=== PATIENT | female | born 1965 | race Caucasian/White ===

== ENCOUNTER → 2020-06-26 17:56 | Outpatient (CLI) | payer OTHER, SELFPAY ==
[2020-06-26 18:40] LABS: Alanine Aminotransferase 28 U/L (12-78); Albumin/Globulin Ratio 1.4 (1.1-1.8); Alkaline Phosphatase 105 U/L (38-126); Aspartate Amino Transferase 28 U/L (14-36); Bilirubin,Total 0.5 mg/dl (0.2-1.3); Blood Urea Nitrogen 11 mg/dl (7-17); Calcium 9.8 mg/dl (8.4-10.2); Carbon Dioxide 27 mmol/L (22.0-30.0); Chloride 102 mmol/L (98-107); Chol/HDL Ratio 3.9 (1-3.5); Cholesterol 178 mg/dl (140-200); Estimated Glomerular Filt Rate 105 ml/min (>60); GFR (African American) 127 ML/MIN (>60); Globulin 2.8 g/dL (1.3-3.2); Glucose 96 mg/dl (74-100); HDL Cholesterol 46 mg/dl (40-60); Sodium 135 mmol/L (136-145); Total Protein,Serum 6.8 g/dl (6.3-8.2); Triglycerides 92 mg/dl (30-150); VLDL Cholesterol 18 mg/dL (0-40)
[2020-06-26 18:50] LABS: Direct LDL Cholesterol 101.52 mg/dL (100-129)
[2020-06-26 19:11] LABS: Thyroid Stimulating Hormone 0.43 uIU/mL (0.465-4.68)
== END ==
PROVIDERS: Visit Provider Family Medicine
DX: E03.9 Hypothyroidism, unspecified (principal)
CPT/HCPCS: 80053; 80061; 82306; 84436; 84443

== ENCOUNTER → 2020-07-24 10:53 | Outpatient (CLI) | payer OTHER, SELFPAY ==
--- NOTE | 2020-07-24 10:55 | CA_ITS ---
APPROVED REPORT EXAM: Comprehensive 2D, Doppler, and color-flow Echocardiogram Dag Coater: Faby Quintana [facility], RVS Ht: 5 ft 2 in Wt: 200lbs BSA: 1.91 BP: 155/85 mmHg Indications: [place], GERD, CAD, MVP Echo Enhancing Agent Comments: Mitral valve does not break the plane of the annulus. 2D Dimensions LVOT 1.89 cm (M/F) 1.5-2.5 M-Mode Dimensions LA Diam 3.58 cm (1.9-4.0) LVDd 4.91 cm (3.5-5.7) Ao Diam 3.04 cm (2.0-3.7) LVDs 3.29 cm (3.5-5.7) IVSd 0.81 cm (0.6-1.1) PWd 0.91 cm (0.6-1.1) EF (Teich) 61.40% EPSs 0.19 cm FS 33.00% EDV (Teich) 113.40 mL ESV (Teich) 43.80 mL LV Diastology E Decel Time 220.00 (160-240 msec) E/A Ratio 0.79 MED E' 7.20 (< 7 cm/sec) MED A' 14.60 cm/s E'/MED E' Ratio 11.26 (>14) LAT E' 10.30 (<10 cm/sec) LAT A' 12.80 cm/s E/LAT E' Ratio 7.87 (>14) Aortic Valve AoV Peak Fausto. 164.00 (50-130 cm/s) AI PHT 626.00 ms AO Peak GR. 10.80 mmHg AO Mean GR. 5.20 (<5 mmHg) AO VTI 33.12 (18-25 cm) Mitral Valve MV A Velocity 103.00 (40-130 cm/s) E/A Ratio 0.79 MV Decel. Time 220.00 (160-240 ms) Pulmonary Valve MT End VMAX 186.00 cm/s Tricuspid Valve TR P. Velocity 229.00 cm/s RAP Estimate 10.00 mmHg RVSP 31.00 mmHg Left Ventricle Left atrium is mildly enlarged, left ventricle is normal size, there is no concentric left ventricular hypertrophy, visually estimated ejection fraction 55% with no regional wall motion abnormality, grade 1 diastolic dysfunction seen without tissue Doppler evidence of raise left atrial pressure. Right Ventricle Right atrium and right ventricle are normal size and contractility. Aortic Valve Aortic valve is thickened and calcified leaflet chordae display good mobility, there is no aortic stenosis, there is mild aortic insufficiency. Mitral Valve Mitral valve is grossly normal, there is no obvious mitral valve prolapse, there is trace mitral regurgitation. Tricuspid Valve Tricuspid valve is grossly normal, there is mild tricuspid regurgitation, calculated right ventricular systolic pressure is 27 mmHg. Pulmonic Valve Pulmonic valve is grossly normal. Great Vessels Aortic root is normal size. Pericardium No significant pericardial effusion noted. Conclusion 1. Mildly low left atrium, normal left ventricular size, visually estimated ejection fraction 55% with no regional wall motion abnormality, grade 1 diastolic dysfunction seen without tissue Doppler evidence of raise left atrial pressure. 2. No obvious mitral valve prolapse seen in the study. 3. No significant pericardial effusion noted. Electronically signed by : Kev Robert, 07/24/2020 21:30:46
== END ==
PROVIDERS: PCP Family Medicine; Visit Provider Family Medicine
DX: R01.1 Cardiac murmur, unspecified (principal); I34.1 Nonrheumatic mitral (valve) prolapse
CPT/HCPCS: 93306

== ENCOUNTER 2024-11-03 14:23 | Outpatient (CLI) | payer BC, SELFPAY ==
[2024-11-03 18:50] LABS: Hemoglobin A1C 5.5 % (4.0-6.0)
[2024-11-03 19:44] LABS: T4 (Thyroxine) 4.8 ug/dl (5.53-11.0)
== END 2024-11-03 23:59 | disposition home or self-care (01) ==
LOC: LAB.DROPOF 11-04 12:37
PROVIDERS: PCP Family Medicine; Visit Provider Family Medicine
DX: Z13.1 Encounter for screening for diabetes mellitus (principal); Z98.890 Other specified postprocedural states; Z90.89 Acquired absence of other organs
CPT/HCPCS: 83036; 84436; 84443

== ENCOUNTER 2024-12-26 10:27 | Outpatient (CLI) | payer BC, SELFPAY ==
--- OUTSIDE RECORDS SUMMARY | 2024-12-04 23:19 | XMS_ITS | Encounter Summary ---
Author Organization [place] [address] Care Team Providers Care Kitchen And Bath Designer Name Role Phone Willard Hector MD Primary Care Provider [phone] Reason for Visit * Reason Comments Fever Mutiple LOC per EMS. Fever, HR 130s and first Bp 76/35. LR 150ML per EMS with Bp 80s/50 * Auth/Cert/Inpt Specialty Diagnoses / Procedures Referred By Lizeth castaneda Referred To Contact Diagnoses Cholecystitis Referral ID Status Reason Start Date Expiration Date Visits Re quested Visits Authorized [id number] 1 1 Encounter Details Date Type Department Care Team (Latest Contact Info) Description 12/04/2024 11:19 PM EDT - 12/10/2024 4:17 PM EDT Hospital Encounter EDG [address] [place] [address] Doug Ross MD [address] [place] [id number] Royer Cloud MD [address] [facility] [address] [place] [address] Nausea and vomiting, unspecified vomiting type (Primary Dx); Right upper quadrant abdominal pain; Acute cholecystitis; Sepsis, due to unspecified organism, unspecified whether acute organ dysfunction present (HCC); Hypokalemia; Calculus of gallbladder without cholecystitis without obstruction Discharge Disposition: Home or Self Care Social History Tobacco Use Types Packs/Day Years Used Date Smoking Tobacco: Former Cigarettes 0.5 20 0 02/06/1983 - 02/06/2003 Smokeless Tobacco: Never [facility] Utilities Answer Date Recorded In the past 12 months has th e electric, gas, oil, or water company threatened to shut off services in your home? No 12/05/2024 Overall Financial Resource Strain (CARDIA) Answe r Date Recorded How hard is it for you to pa y for the very basics like food, housing, medical care, and heating? Not hard at all 12/05/2024 PHQ-2 Answer Date Recorded PHQ-2 Total Score 0 12/05/2024 [facility] Occupat ional [facility] - Occupational Stress Questionnaire Answer Date Recorded Do you feel stress - tense, restless, nervous, or anxious, or unable to sleep at night because your mind is troubled all the time - these days? Not at all 12/05/2024 Exercise Vital Sign Answer Date Recorde d On average, how many days pe r week do you engage in moderate to strenuous exercise (like a brisk walk)? 3 days 12/05/2024 On average, how many minutes do you engage in exercise at this level? 20 min 12/05/2024 Hunger Vital Sign Answer Date Recorded Within the past 12 months, y ou worried that your food would run out before you got the money to buy more. Never true 12/06/19 25 Within the past 12 months, t he food you bought just didn't last and you didn't have money to get more. Never true 12/05/2024 [facility] Transportation Answer D ate Recorded In the past 12 months, has l ack of reliable transportation kept you from medical appointments, meetings, work or from getting things needed for daily living? No 12/05/2024 Sexually Active Control Partners Comments Yes Male Comments No Sex and Gender Information Value Date Recorded Sex Assigned at Not on file Legal Sex Female 6:04 PM EDT Gender Identity Not on file Sexual Orientation Not on file documented as of this encounter Last Filed Vital Signs Vital Sign Reading Time Taken Comments Blood Pressure 133/81 12/10/2024 7:33 AM EDT Pulse 83 12/10/2024 7:33 AM EDT Temperature 37 C (98.6 F) 12/10/2024 7:33 AM EDT Respiratory Rate 18 12/10/2024 7:33 AM EDT Oxygen Saturation 93% 12/10/2024 7:33 AM EDT Inhaled Oxygen Concentration - - Weight 117.9 kg (260 lb) 12/09/2024 5:22 AM EDT Height 162.6 cm (5' 4 ) 12/05/2024 2:09 AM EDT Body Mass Index 44.63 12/05/2024 2:09 AM EDT documented in this encounter Functional Status * Alcohol Screening Score Answer Date of Assessment Author 1 12/05/2024 2:00 AM EDT Ayah Price RN * Drug Screening Score Answer Date of Assessment Author 0 12/05/2024 2:00 AM EDT Ayah Price RN * Question Answer Date of Assessment Author How often do you have a drin k containing alcohol? 1 12/05/2024 2:00 AM EDT Ayah Price RN How many drinks containing alcohol do you have on a typical day when you are drinking? 0 12/05/2024 2:00 AM EDT Tj Price RN How often do you have six or more drinks on one occasion? 0 12/05/2024 2:00 AM EDT Ayah Price RN AUDIT-C to Determine Rows 4-10 0 12/05/2024 2:00 AM EDT Ayah Price RN * Question Answer Date of Assessment Author Little interest or pleasure in doing things 0 12/05/2024 4:05 PM EDT Ana Hennessy MSW Feeling down, depressed, or hopeless 0 12/05/2024 4:05 PM EDT Ana Hennessy MSW PHQ-2 Total Score 0 12/05/2024 4:05 PM EDT Ana Hennessy MSW * PHQ-9 Total Score Answer Date of Assessment Author 0 12/05/2024 4:05 PM EDT Owen Hennessy MSW * Suicide Severity Rating Answer Date of Assessment Author No Risk 12/04/2024 11:51 PM EDT Jean Claude Zabala RN * [place] Suicide Severity Rating Scale (Q shift for moderate and high) Question Answer Date of Assessment Author 1. In the past month, have y ou wished you were or wished you could go to sleep and not wake up? 0 12/04/2024 11:51 PM EDT Yin Zabala RN 2. In the past month, have y ou actually had any thoughts of killing yourself? (If no, skip to question 6) 0 12/04/2024 11:51 PM EDT Yin Zabala RN 6. Have you ever done anythi ng, started to do anything, or prepared to do anything to end your life? 0 12/04/2024 11:51 PM EDT Yin Zabala RN documented as of this encounter Discharge Instructions * Discharge Instructions* Fabian Holguin MD - 12/05/2024 9:06 AM EDT Images from the original note were not included. __ Discharge Instructions - Following Anesthesia We appreciate the opportunity to care for you today! Here are a few reminders as you head home: A responsible adult, 18 years or older must be in attendance until tomorrow morning. Rest quietly today. May resume usual diet as tolerated or as directed by your surgeon. Do not drive or operate any machinery until tomorrow morning or as instructed. Do not make any legal or important decisions for the next 24 hours. Do not drink alcoholic beverages or take sleeping pills for 24 hours unless otherwise directed. If you received a nerve block for post-operative pain control, protect your blocked arm/leg. It is numb. Carefully pad your limb to prevent pressure sores and other injuries. Be careful with applyingcold/warm to the blocked limb. Numbness will alter the sensation of the limb and could damage your skin if you cannot correctly feel the temperature. If you have questions or concerns regarding your anesthesia experience, please call our office at . Get Well Soon! [facility] Patient Education General Anesthesia Discharge Instructions About this topic You may need general anesthesia if you need to be asleep during a procedure. Your doctor will use drugs to block the signals that go from your nerves to your brain. Doctors give general anesthesia during a surgery or procedure to: Allow you to sleep Help your body be still Relax your muscles Help you to relax and be pain free Keep you from remembering the surgery Let the doctor manage your airway, breathing, and blood flow The doctor or nurse patented hogshead assembler gives general anesthesia by a shot into your vein. Sometimes, you may breathe in a gas through a mask placed over your face. What care is needed at home? Ask your doctor what you need to do when you go home. Make sure you ask questions if you do not understand what the doctor says. Your doctor may give you drugs to prevent or treat an upset stomach from the anesthetic. Take them as ordered. If your throat is sore, suck on ice chips or popsicles to ease throat pain. Put 2 to 3 pillows under your head and back when you lie down to help you breathe easier. For the first 24 to 48 hours: Do not operate heavy or dangerous machinery. Do not make major decisions or sign important papers. You may not be able to think clearly. Avoid beer, wine, or mixed drinks. You are at a higher risk of falling for at least 24 hours after general anesthesia. Take extra care when you get up. Do not change positions quickly. Do not plummer when you need to go to the bathroom or to answer the phone. Ask for help if you feel unsteady when you try to walk. Wear shoes with non-slip soles and low heels. What follow-up care is needed? Your doctor may ask you to come back to the office to check on your progress. Be sure to keep thesevisits. If you have stitches that do not dissolve or félix, you will need to have them removed. Your doctor will want to do this in 1 to 2 weeks. If the doctor used skin glue, the glue will fall off on itsown. What drugs may be needed? The doctor may order drugs to: Help with pain Treat an upset stomach or throwing up Will physical activity be limited? You will not be allowed to drive right away after the procedure. Ask a family member or a friend todrive you home. Avoid trying to get out of bed without help until you are sure of your balance. You may have to limit your activity. Talk to your doctor about if you need to limit how much you lift or limit exercise after your procedure. What changes to diet are needed? Start with a light diet when you are fully awake. This includes things that are easy to swallow like soups, pudding, jello, toast, and eggs. Slowly progress to your normal diet. What problems could happen? Low blood pressure Breathing problems Upset stomach or throwing up Dizziness Blood clots Infection When do I need to call the doctor? Trouble breathing Upset stomach or throwing up more than 3 times in the next 2 days Dizziness Teach Back: Helping You Understand The Teach Back Method helps you understand the information we are giving you. After you talk with the staff, tell them in your own words what you learned. This helps to make sure the staff has described each thing clearly. It also helps to explain things that may have been confusing. Before going home, make sure you can do these: I can tell you about my procedure. I can tell you if I need to follow up with my doctor. I can tell you what is good for me to eat and drink the next day. I can tell you what I would do if I have trouble breathing, an upset stomach, or dizziness. Last Reviewed Date 2019-10-26 Consumer Information Use and Disclaimer This generalized information is a limited summary of diagnosis, treatment, and/or medication information. It is not meant to be comprehensive and should be used as a tool to help the user understand and/or assess potential diagnostic and treatment options. It does NOT include all information about conditions, treatments, medications, side effects, or risks that may apply to a specific patient. Itis not intended to be medical advice or a substitute for the medical advice, diagnosis, or treatment of a health care provider based on the health care provider's examination and assessment of a patient???s specific and unique circumstances. Patients must speak with a health care provider for complete information about their health, medical questions, and treatment options, including any risks orbenefits regarding use of medications. This information does not endorse any treatments or medications as safe, effective, or approved for treating a specific patient. [employer] and its affiliates disclaim any warranty or liability relating to this information or the use thereof. The use of this information is governed by the Terms of Use, available at https://www.[employer].com/en/know/pxmbrzjk-fvyqmsbdvsftn-tahpz Copyright Copyright ?? 2022 [employer]. and its affiliates and/or licensors. All rights reserved. POST-OPERATIVE INSTRUCTIONS No heavy lifting (10-20lbs) or strenuous activities for 2 weeks. Keep incisions clean and dry. Washgently with soap and water but no scrubbing or soaking for 2 weeks. Some people have issues with loose bowel movements after having their gallbladder removed. If you experience this issues, try to avoid fatty greasy foods to help alleviate this. Your body should get used to not having a gallbladder over the next few months though so this should resolve over time. documented in this encounter Medications at Time of Discharge buPROPion (WELLBUTRIN SR) 150 mg Oral tablet sustained-releas e 12 hr Take 150 mg by mouth 2 times daily. 12/19/2021 docusate sodium (COLACE) 100 mg Oral Capsule Take 1 Capsule by mouth 2 times daily as needed for Constipation for up to 30 days. 12/10/2024 FLUoxetine (PROZAC) 20 mg Oral Capsule Take 20 mg by mouth daily. 11/25/2021 LEVOthyroxine (SYNTHROID) 200 mcg Oral Tablet Take 200 mcg by mouth daily. LEVOthyroxine (SYNTHROID) 88 mcg Oral Tablet Take 88 mcg by mouth daily. 11/07/2024 multivit-min/iro n/folic/lutein (CENTRUM SILVER WOMEN ORAL) Take 1 Tablet by mouth daily. oxyCODONE (ROXICODONE) 5 mg Oral Tablet Take 1 Tablet by mouth every 6 hours as needed for Acute Pain (R52) or Major Surgery/Trauma (G89.18) (for acute post-operative pain). 10 Tablet 12/10/2024 2:44 PM EDT 12/08/2024 polyethylene glycol (GLYCOLAX, MIRALAX) 17 gram Oral Powder in Packet Take 17 g by mouth daily as needed for Constipation. 12/10/2024 documented as of this encounter Ordered Prescriptions Prescription Sig Dispense Quantity Refills Last Filled Start Date End Date polyethylene glycol (GLYCOLAX, MIRALAX) 17 gram Oral Powder in Packet Take 17 g by mouth daily as needed for Constipation. 12/10/2024 docusate sodium (COLACE) 100 mg Oral Capsule Take 1 Capsule by mouth 2 times daily as needed for Constipation for up to 30 days. 12/10/2024 oxyCODONE (ROXICODONE) 5 mg Oral Tablet Take 1 Tablet by mouth every 6 hours as needed for Acute Pain (R52) or Major Surgery/Trauma (G89.18) (for acute post-operative pain). 10 Tablet 12/10/2024 2:44 PM EDT 12/08/2024 documented in this encounter Discharge Disposition Disposition Code Departure Means Destination Comment s Home or Self Correction documented in this encounter Progress Notes * Smitha Browne RN - 12/10/2024 3:27 PM EDT 12/10/24: CC Addendum, [facility], notified of d/c this date, infusions previously arranged starting 12/11/24. * Sayda Story RN - 12/10/2024 3:25 PM EDT IV and BUCK drain removed, dry dsg applied. PICC line in place, verbalized understanding of care and infusion schedule, copy given. Son at side to transport home. * Claudia Kendall CPhT - 12/10/2024 3:17 PM EDT Discharge Medication Delivery Service DMD mechanical design technician has delivered the following medications for Yanna Dutton: Rx#[id number]:OXYCODONE 5 MG TABLET-5 mg EVERY 6 HOURS PRN Date/Time of Delivery: 12/10/2024 3:17 PM Delivered to: pt room 2221, placed on bedside tray Please contact DMD mechanical design technician with any questions. Thanks! Claudia Kendall CPhT * Merle Madison MD - 12/10/2024 2:21 PM EDT Infectious Disease Progress Note Antimicrobials: ceftriaxone PROBLEM & PLAN: E coli bacteremia ( 12/04) in 07/07 blood cxs - no resistance markers by JAZIEL - Pansensitive E coli - and/or GI source - FU blood cxs x2( 12/07) - no growth at 48 hours - on Ceftriaxone -PICC placed today E coli UTI ( 12/04) > 100K colony count - UA w pyuria - no buck - kidneys unremarkable on CT Acute cholecystitis with liver abscess - Davinci robotic cholecystectomy ( 12/05) Very inflamed gallbladder with hydrops and large stone. liver abscess noted to posterior gallbladder at base. drain placed. Pathology still pending - drain cx ( 12/07) no growth at 50 hours, gram stain- rare wbcs, no organisms seen, anaerobic cx no growth to date - on Ceftriaxone 2gm through 01/17 noted- arranged at [facility]- tomorrow at 9am - noted BUCK to be removed prior to discharge per EGS Bilateral total knee replacement-no overt infection -Ambulating unassisted Fever & leukocytosis- see above - fever resolved - wbc 30K-->--> 10.5K - SARS COV2/ flu not detected - CXR ( 12/04, 12/05) NAD - LFTs noted - inflamm markers noted Septic shock - was in ICU on pressor support Small wound left antecubital area - betadine and mepilex dressing FU with Dr Merino post discharge in 2-3 weeks Discussed with patient Seen & d/w nurse Sharda Infectious Disease Disposition Perspective - Medically Ready for Discharge: Yes- SUBJECTIVE/INTERIM hx: Seeing for follow up for: E coli bacteremia, E coli UTI, acute cholecystitis, fever leukocytosis Blood cxs ngtd, so had PICC placed today. Afebrile. Seen by surgery team and they gave OK to DC with BUCK to be removed at discharge. Had BM today, ate breakfast & lunch. Denies headache, neck or back pain, sore throat, chest pain, cough or SOB. Denies nausea, emesis ordiarrhea, abd pain, urinary symptoms or rash. Had BM today. . EXAM:93% RA, 260 lbs on 12/09 HEENT: anicteric, no conj hemorrhage, no thrush NECK: no C spine tenderness to palpation LUNGS: good breath sounds bilaterally, no rales or rhonchi or wheezes heard HEART: Regular, no murmurs audible ABDOMEN: + BS, soft, abd incisions healing- no drainage, no tenderness to palpation, BUCK drain- 20mlyesterday- scan fluid in drain- serosang : no buck IV// PICC 12/10: no erythema, non tender, no swelling Upper EXTREMITIES: no swelling, left antecubital area small wound, no cellulitis or drainage, no cord palpable, sl slough in wound, no fluctuance. Lower EXTREMITIES: no edema, bilateral knees healed scars, no erythema, no warmth, no fluctuance and no tenderness to palpation or pain with movement BACK: no CVAT, no vertebral tenderness to palpation SKIN: see above, no acute rashes noted, no osler nodes or splinter hemm or janeway lesions NEURO: awake and alert, normal speech, sitting in chair, waled to bed unassisted. DATA: 12/09 ESR 50 CRP 44.78 Vitals: 12/10/24 0733 BP: 133/81 Pulse: 83 Resp: 18 Temp: 98.6 ??F (37 ??C) SpO2: 93% Temp (24hrs), Av.5 F (36.9 C), Min:98.3 F (36.8 C), Max:98.6 F (37 C) & BP Min:133/81 Max: 133/81 Pulse Av.5 Min: 76 Max: 83 Results for orders placed or performed during the hospital encounter of 12/04/24 (from the past 2 weeks) BLOOD CULTURE (NO STAIN) Collection Time: 12/04/24 11:35 PM Specimen: Blood, Venous Result Value Ref Range Culture Result Positive Growth (Cr) Culture Result Growth of Escherichia coli Susceptibility Escherichia coli - SUSCEPTIBILITY RESULT Amikacin Amoxicillin/Clavulanate <=8/4 Susceptible ug/mL Ampicillin <=8 Susceptible ug/mL Ampicillin/Sulbactam <=4/2 Susceptible ug/mL Aztreonam <=4 Susceptible ug/mL Cefazolin <=2 Susceptible ug/mL Cefepime Cefotaxime Cefoxitin <=8 Susceptible ug/mL Ceftazidime Ceftazidime/Avibactam Ceftolozane/Tazobactam Ceftriaxone Cefuroxime Ciprofloxacin <=0.25 Susceptible ug/mL Ertapenem <=0.5 Susceptible ug/mL Gentamicin <=2 Susceptible ug/mL Imipenem <=1 Susceptible ug/mL Levofloxacin <=0.5 Susceptible ug/mL Meropenem <=1 Susceptible ug/mL Meropenem/Vaborbactam Minocycline Moxifloxacin Nitrofurantoin Piperacillin/Tazobactam <=8 Susceptible ug/mL Tetracycline <=4 Susceptible ug/mL Tigecycline Tobramycin <=2 Susceptible ug/mL Trimethoprim/Sulfamethoxazole <=0.5/9.5 Susceptible ug/mL BLOOD CULTURE JAZIEL GRAM NEG Collection Time: 12/04/24 11:35 PM Specimen: Blood, Venous Result Value Ref Range ACINETOBACTER BAUMANNII Not Detected Not Detected BACTEROIDES FRAGILIS Not Detected Not Detected CITROBACTER SPECIES Not Detected Not Detected CRONOBACTER SAKAZAKII Not Detected Not Detected ENTEROBACTER (NON-CLOACAE COMPLEX) Not Detected Not Detected ENTEROBACTER CLOACAE COMPLEX Not Detected Not Detected ESCHERICHIA COLI Detected (Cr) Not Detected FUSOBACTERIUM NUCLEATUM Not Detected Not Detected FUSOBACTERIUM NECROPHORUM Not Detected Not Detected HAEMOPHILUS INFLUENZAE Not Detected Not Detected KLEBSIELLA OXYTOCA Not Detected Not Detected KLEBSIELLA PNEUMONIAE Not Detected Not Detected MORGANELLA MORGANII Not Detected Not Detected NEISSERIA MENINGITIDIS Not Detected Not Detected PROTEUS SPECIES Not Detected Not Detected PROTEUS MIRABILIS Not Detected Not Detected PSEUDOMONAS AERUGINOSA Not Detected Not Detected SALMONELLA SPECIES Not Detected Not Detected SERRATIA SPECIES Not Detected Not Detected SERRATIA MARCESCENS Not Detected Not Detected STENOTROPHOMONAS MALTOPHILIA Not Detected Not Detected CTX-M Not Detected. Beta-lactamase resistance due to other mechanisms cannot be excluded. IMP Not Detected. Carbapenemase resistance due to other mechanisms cannot be excluded. KPC Not Detected. Carbapenemase resistance due to other mechanisms cannot be excluded. NDM Not Detected. Carbapenemase resistance due to other mechanisms cannot be excluded. OXA Not Detected. Carbapenemase resistance due to other mechanisms cannot be excluded. VIM Not Detected. Carbapenemase resistance due to other mechanisms cannot be excluded. [id number] A/B Collection Time: 12/04/24 11:49 PM Specimen: Nares; Swab Result Value Ref Range CORONAVIRUS [id number] Not Detected Not Detected Influenza A DNA Not Detected Not Detected Influenza B DNA Not Detected Not Detected URINE CULTURE (NO STAIN) Collection Time: 12/04/24 11:49 PM Specimen: Urine, Straight Catheter Result Value Ref Range Culture Positive Growth (A) Culture >100,000 CFU/mL Escherichia coli BLOOD CULTURE (NO STAIN) Collection Time: 12/04/24 11:54 PM Specimen: Blood, Venous Result Value Ref Range Culture Result No Growth at 120 hours. BLOOD CULTURE (NO STAIN) Collection Time: 12/07/24 12:23 PM Specimen: Blood, Central Line Result Value Ref Range Culture Result No Growth at 48 hours. WOUND CULTURE (STAIN INCLUDED) Collection Time: 12/07/24 12:48 PM Specimen: Abdominal; Drainage Result Value Ref Range Culture No growth at 50 hours. Stain Rare WBCs Stain No organisms seen ANAEROBIC CULTURE (NO STAIN) Collection Time: 12/07/24 12:48 PM Specimen: Abdominal; Drainage Result Value Ref Range Culture No anaerobic growth to date. BLOOD CULTURE (NO STAIN) Collection Time: 12/07/24 3:07 PM Specimen: Blood, Venous Result Value Ref Range Culture Result No Growth at 48 hours. Recent Labs 12/08/24 0652 12/09/24 0649 WBC 9.1 10.5* HGB 10.9* 11.0* PLT 175 203 Lab Results Component Value Date BUN 10 12/09/2024 CREATININE 0.56 12/09/2024 Lab Results Component Value Date LABBILI 0.3 12/09/2024 ALT 43 (H) 12/09/2024 AST 24 12/09/2024 ALKPHOS 159 (H) 12/09/2024 Merle Madison MD * Fabian Johnson MD - 12/10/2024 11:29 AM EDTAssociated Problem(s): Cholecystitis S/p DAVINCI ROBOTIC CHOLECYSTECTOMY with Dr Holguin on 12/05 Post op management per surgery BUCK remains in place, surgery plans to remove before DC Diet: LOW FAT DIET Monitor and replace lytes PRN Analgesia Mobilize as able * Fabian Johnson MD - 12/10/2024 11:29 AM EDTAssociated Problem(s): Intra- abdominal abscess (HCC) CT on admission with acute cholecystitis with possible contained perforation or developing fluid collection/abscess in the adjacent liver. S/p cholecystectomy as noted above WBC improving Afebrile Blood cultures 12/04/24 w ecoli Urine culture 12/04 with Ecoli ID consulted Remains On rocephin Planning PICC and outpatient antibiotics today * Fabian Johnson MD - 12/10/2024 11:29 AM EDTAssociated Problem(s): E coli bacteremia CT on admission with acute cholecystitis with possible contained perforation or developing fluid collection/abscess in the adjacent liver. S/p cholecystectomy as noted above WBC improving Afebrile Blood cultures 12/04/24 w ecoli Urine culture 12/04 with Ecoli ID consulted Remains On rocephin Planning PICC and outpatient antibiotics today * Fabian Johnson MD - 12/10/2024 11:29 AM EDTAssociated Problem(s): Septic shock (HCC) CT on admission with acute cholecystitis with possible contained perforation or developing fluid collection/abscess in the adjacent liver. S/p cholecystectomy as noted above WBC improving Afebrile Blood cultures 12/04/24 w ecoli Urine culture 12/04 with Ecoli ID consulted Remains On rocephin Planning PICC and outpatient antibiotics today * Fabian Johnson MD - 12/10/2024 11:29 AM EDTAssociated Problem(s): Acute cystitis without hematuria CT on admission with acute cholecystitis with possible contained perforation or developing fluid collection/abscess in the adjacent liver. S/p cholecystectomy as noted above WBC improving Afebrile Blood cultures 12/04/24 w ecoli Urine culture 12/04 with Ecoli ID consulted Remains On rocephin Planning PICC and outpatient antibiotics today * Fabian Johnson MD - 12/10/2024 11:29 AM EDTAssociated Problem(s): Liver abscess CT on admission with acute cholecystitis with possible contained perforation or developing fluid collection/abscess in the adjacent liver. S/p cholecystectomy as noted above WBC improving Afebrile Blood cultures 12/04/24 w ecoli Urine culture 12/04 with Ecoli ID consulted Remains On rocephin Planning PICC and outpatient antibiotics today * Fabian Johnson MD - 12/10/2024 11:29 AM EDTAssociated Problem(s): Benign essential HTN Stable 12/10/2024 * Fabian Johnson MD - 12/10/2024 11:29 AM EDTAssociated Problem(s): Obesity, Class III, BMI 40-49.9 (morbid obesity) Complicates care * Fabian Johnson MD - 12/10/2024 11:29 AM EDTAssociated Problem(s): Hypothyroidism Continue synthroid, confirmed dosing TSH okay * Fabian Johnson MD - 12/10/2024 11:28 AM EDT Images from the original note were not included. PROGRESS NOTE Assessment & Plan Cholecystitis S/p DAVINCI ROBOTIC CHOLECYSTECTOMY with Dr Holguin on 12/05 Post op management per surgery BUCK remains in place, surgery plans to remove before DC Diet: LOW FAT DIET Monitor and replace lytes PRN Analgesia Mobilize as able Intra-abdominal abscess (HCC) E coli bacteremia Septic shock (HCC) Acute cystitis without hematuria Liver abscess CT on admission with acute cholecystitis with possible contained perforation or developing fluid collection/abscess in the adjacent liver. S/p cholecystectomy as noted above WBC improving Afebrile Blood cultures 12/04/24 w ecoli Urine culture 12/04 with Ecoli ID consulted Remains On rocephin Planning PICC and outpatient antibiotics today Benign essential HTN Stable 12/10/2024 Obesity, Class III, BMI 40-49.9 (morbid obesity) Complicates care Hypothyroidism Continue synthroid, confirmed dosing TSH okay Dispo: hopefully today VTE Prophylaxis: Qualifying Pharmacologic Prophylaxis heparin, porcine (PF) injection 5,000 Units 3 times per day Bowel Regimen senna (SENOKOT) tablet 1-2 Tablet 2 TIMES DAILY polyethylene glycol (GLYCOLAX, MIRALAX) packet 17 g DAILY docusate sodium (COLACE) capsule 100 mg 2 TIMES DAILY PRN bisacodyL (DULCOLAX) suppository 10 mg DAILY PRN Subjective CC: Follow Up Cholecystitis HPI: No complaints Pain controlled Moving bowels Ready for DC Objective BP 133/81 (BP Location: Left arm, Patient Position: Sitting) Pulse 83 Temp 98.6 ??F (37 ??C) (Oral) Resp 18 Ht 5' 4 (1.626 m) Wt 260 lb (117.9 kg) LMP 07/06/2017 SpO2 93% BMI 44.63 kg/m?? I/O last 3 completed shifts: In: 71.4 [I.V.:21.4; IV Piggyback:50] Out: 20 [Drains:20] Physical Exam Cardiovascular: Rate and Rhythm: Normal rate. Pulmonary: Comments: Unlabored Skin: General: Skin is warm and dry. Neurological: Mental Status: She is alert and oriented to person, place, and time. Fabian Johnson MD 12/10/2024 * Lianne Garzon PA-C - 12/10/2024 8:22 AM EDT Acute Care Surgery Postoperative Note 5 Days Post-Op 12/04/2024 - 12/05/2024 s/p Procedure(s): DAVINCI ROBOTIC CHOLECYSTECTOMY Feeling well today, mild abdominal soreness Tolerating diet without nausea or vomiting Having bowel function Drain output 20mL yesterday, serous Abdomen is soft, not distended, really tender, incision CDI, mild surrounding ecchymosis to left lateral incision, drain site CDI PLAN: Okay for discharge when medically cleared and has PICC line/antibiotics for home Likely will remove drain prior to discharge, will confirm with EGS attending Discussed DC instructions with patient Mobilize as much as tolerated out of bed 3 times daily, ambulate, to chair Continue low-fat diet General Surgery Disposition Perspective - Medically Ready for Discharge: Yes Timeframe for Follow-up?: 1-2 weeks Vitals: 12/09/24 0522 12/09/24 0935 12/09/24 2236 12/10/24 0733 BP: 125/84 133/74 133/81 BP Location: Left arm Left arm Left arm Patient Position: Sitting Sitting Sitting Pulse: 79 76 83 Resp: 16 16 18 Temp: 98.3 ??F (36.8 ??C) 98.3 ??F (36.8 ??C) 98.6 ??F (37 ??C) TempSrc: Oral Oral Oral SpO2: 96% 96% 93% Weight: 260 lb (117.9 kg) Height: Wt Readings from Last 3 Encounters: 12/09/24 260 lb (117.9 kg) 04/02/22 195 lb (88.5 kg) 04/16/21 195 lb (88.5 kg) Lianne Garzon PA-C 12/10/24 Cosigned by Fabian Holguin MD at 12/22/2024 12:00 AM EDT Associated attestation - Fabian Holguin MD - 12/22/2024 12:00 AM EDT I did not see the patient as she discharged before my rounds but I discussed her with the PA and agree with plan. * Codie Johnson MSW - 12/09/2024 3:42 PM EDT 12/09 SW Update/Final Note: note pt is an anticipated d/c this weekend pending blood culture results and PICC placement. Per Christianne with the [facility], pt is confirmed for 7:30am infusion times and are able to start pt this weekend. Note pt is alert and oriented X4. SW met with pt at bedside and completed d/c round. Pt states her d/c plan is home with family support, IV ABX ([facility]), and outpatient follow up with physicians. Pt states she will have all the help and support she needs for home. Pt states understanding of all d/c medications, care needs, and followup appointments. Pt states her son Amando will transport and she feels safe doing so. Pt states she will notify her son Amando of d/c and states no need for SW to call family/friends. Pt states no other d/c needs or preferences. Charge nurse updated. No other d/c needs identified. SW/CC available should needs arise. * Codie Johnson MSW - 12/09/2024 12:06 PM EDT 12/09 SW Update: per Anna Marie with the [facility], the latest appointment they canaccommodate is a 4pm. Note pt is alert and oriented X4. SW met with pt at bedside and reviewed. Pt states agreeable to a 4pm appointment M- F. Pt states open to any appointment time on weekends. JUSTICE called and spoke to Christianne with the [facility] and reviewed. Per Christianne, they will work on getting pt on the schedule. Signed IV ABX order faxed to the [facility]. Pt states no other needs at this time. Note still awaiting final cultures prior to PICC placement. Note pt medically ready to d/c once PICC placed. Note pt's current d/c plan is home with family support, IV ABX at the [facility], and outpatient follow up with physicians withpt's son Amando to transport home. SW following Addendum 1515: Per Anna Marie with the [facility], they are un able to accommodatethe 4pm infusion time but could do a 7:30am infusion time. JUSTICE met with pt at bedside and reviewed. Pt states agreeable to the 7:30am infusion time as this would work with her job schedule. SW called and left a voicemail for the [facility] to notify. Awaiting return call. Pt stat es no other needs at this time. * Merle Madison MD - 12/09/2024 11:02 AM EDT Infectious Disease Progress Note Antimicrobials: ceftriaxone PROBLEM & PLAN: E coli bacteremia ( 12/04) in 1 blood cxs - no resistance markers by JAZIEL - Pansensitive E coli - and/or GI source - FU blood cxs x2( 12/07) - no growth at 24 hours - on Ceftriaxone E coli UTI ( 12/04) > 100K colony count - UA w pyuria - no buck - kidneys unremarkable on CT Acute cholecystitis with liver abscess - Davinci robotic cholecystectomy ( 12/05) Very inflamed gallbladder with hydrops and large stone. liver abscess noted to posterior gallbladder at base. drain placed. Pathology pending - drain cx ( 12/07) no growth at 30 hours, gram stain- rare wbcs, no organisms seen, anaerobic cx pending - on Ceftriaxone through 01/17 noted Bilateral total knee replacement-no overt infection -Ambulating unassisted Fever & leukocytosis- see above - fever resolved - wbc 30K-->--> 10.5K - SARS COV2/ flu not detected - CXR ( 12/04, 12/05) NAD - LFTs noted - inflamm markers noted Septic shock - was in ICU on pressor support Ok for PICC in am if blood cxs remains no growth & afebrile FU with Dr Merino post discharge in 2-3 weeks Discussed with patient Infectious Disease Disposition Perspective - Medically Ready for Discharge: Yes- tomorrow if blood cxs remains no growth & remains afebrile Anticipated discharge timeframe: probably tomorrow - see above Discharge if / when?: see above SUBJECTIVE/INTERIM hx: Seeing for follow up for: E coli bacteremia, E coli UTI, acute cholecystitis, fever leukocytosis Two BMs yesterday, afebrile, wbc 10.5K Denies headache, neck or back pain, sore throat, chest pain, cough or SOB. Denies nausea, emesis orurinary symptoms or rash. Abd sl sore. Walking to BR, eating reg diet.ate her breakfast Has bilateral knee replacement and denies any pain or discomfort in her knees. . EXAM:96% RA, 260 lbs on 12/09 HEENT: anicteric, no conj hemorrhage, no thrush NECK: no meningismus LUNGS: good breath sounds bilaterally, no raes or rhonchi or wheezes heard HEART: Regular, no murmurs audible ABDOMEN: + BS, soft, abd incisions healing- no drainage, sl tender to palpation, BUCK drain- 20ml yesterday- serosang drainage noted : no buck IV: no erythema, non tender, no swelling Upper EXTREMITIES: no swelling Lower EXTREMITIES: no edema, bilateral knees healed scars, no erythema, no warmth, no fluctuance and no tenderness to palpation or pain with movement BACK: no CVAT, no vertebral tenderness to palpation SKIN: see above, no acute rashes noted, no osler nodes or splinter hemm or janeway lesions NEURO: awake and alert moves all 4 ext to command, normal speech, sat up in bed unassisted. DATA: 12/09 ESR 50 CRP 44.78 Vitals: 12/09/24 0935 BP: 125/84 Pulse: 79 Resp: 16 Temp: 98.3 ??F (36.8 ??C) SpO2: 96% Temp (24hrs), Av.5 ??F (36.9 ??C), Min:98.3 ??F (36.8 ??C), Max:98.6 ??F (37 ??C) & BP Min: 125/84 Max: 132/71 Pulse Av.5 Min: 64 Max: 79 Results for orders placed or performed during the hospital encounter of 12/04/24 (from the past 2 weeks) BLOOD CULTURE (NO STAIN) Collection Time: 12/04/24 11:35 PM Specimen: Blood, Venous Result Value Ref Range Culture Result Positive Growth (Cr) Culture Result Growth of Escherichia coli Susceptibility Escherichia coli - SUSCEPTIBILITY RESULT Amikacin Amoxicillin/Clavulanate <=8/4 Susceptible ug/mL Ampicillin <=8 Susceptible ug/mL Ampicillin/Sulbactam <=4/2 Susceptible ug/mL Aztreonam <=4 Susceptible ug/mL Cefazolin <=2 Susceptible ug/mL Cefepime Cefotaxime Cefoxitin <=8 Susceptible ug/mL Ceftazidime Ceftazidime/Avibactam Ceftolozane/Tazobactam Ceftriaxone Cefuroxime Ciprofloxacin <=0.25 Susceptible ug/mL Ertapenem <=0.5 Susceptible ug/mL Gentamicin <=2 Susceptible ug/mL Imipenem <=1 Susceptible ug/mL Levofloxacin <=0.5 Susceptible ug/mL Meropenem <=1 Susceptible ug/mL Meropenem/Vaborbactam Minocycline Moxifloxacin Nitrofurantoin Piperacillin/Tazobactam <=8 Susceptible ug/mL Tetracycline <=4 Susceptible ug/mL Tigecycline Tobramycin <=2 Susceptible ug/mL Trimethoprim/Sulfamethoxazole <=0.5/9.5 Susceptible ug/mL BLOOD CULTURE JAZIEL GRAM NEG Collection Time: 12/04/24 11:35 PM Specimen: Blood, Venous Result Value Ref Range ACINETOBACTER BAUMANNII Not Detected Not Detected BACTEROIDES FRAGILIS Not Detected Not Detected CITROBACTER SPECIES Not Detected Not Detected CRONOBACTER SAKAZAKII Not Detected Not Detected ENTEROBACTER (NON-CLOACAE COMPLEX) Not Detected Not Detected ENTEROBACTER CLOACAE COMPLEX Not Detected Not Detected ESCHERICHIA COLI Detected (Cr) Not Detected FUSOBACTERIUM NUCLEATUM Not Detected Not Detected FUSOBACTERIUM NECROPHORUM Not Detected Not Detected HAEMOPHILUS INFLUENZAE Not Detected Not Detected KLEBSIELLA OXYTOCA Not Detected Not Detected KLEBSIELLA PNEUMONIAE Not Detected Not Detected MORGANELLA MORGANII Not Detected Not Detected NEISSERIA MENINGITIDIS Not Detected Not Detected PROTEUS SPECIES Not Detected Not Detected PROTEUS MIRABILIS Not Detected Not Detected PSEUDOMONAS AERUGINOSA Not Detected Not Detected SALMONELLA SPECIES Not Detected Not Detected SERRATIA SPECIES Not Detected Not Detected SERRATIA MARCESCENS Not Detected Not Detected STENOTROPHOMONAS MALTOPHILIA Not Detected Not Detected CTX-M Not Detected. Beta-lactamase resistance due to other mechanisms cannot be excluded. IMP Not Detected. Carbapenemase resistance due to other mechanisms cannot be excluded. KPC Not Detected. Carbapenemase resistance due to other mechanisms cannot be excluded. NDM Not Detected. Carbapenemase resistance due to other mechanisms cannot be excluded. OXA Not Detected. Carbapenemase resistance due to other mechanisms cannot be excluded. VIM Not Detected. Carbapenemase resistance due to other mechanisms cannot be excluded. [id number] A/B Collection Time: 12/04/24 11:49 PM Specimen: Nares; Swab Result Value Ref Range CORONAVIRUS [id number] Not Detected Not Detected Influenza A DNA Not Detected Not Detected Influenza B DNA Not Detected Not Detected URINE CULTURE (NO STAIN) Collection Time: 12/04/24 11:49 PM Specimen: Urine, Straight Catheter Result Value Ref Range Culture Positive Growth (A) Culture >100,000 CFU/mL Escherichia coli BLOOD CULTURE (NO STAIN) Collection Time: 12/04/24 11:54 PM Specimen: Blood, Venous Result Value Ref Range Culture Result No Growth at 96 hours. BLOOD CULTURE (NO STAIN) Collection Time: 12/07/24 12:23 PM Specimen: Blood, Central Line Result Value Ref Range Culture Result No Growth at 24 hours. WOUND CULTURE (STAIN INCLUDED) Collection Time: 12/07/24 12:48 PM Specimen: Abdominal; Drainage Result Value Ref Range Culture No growth at 30 hours. Stain Rare WBCs Stain No organisms seen ANAEROBIC CULTURE (NO STAIN) Collection Time: 12/07/24 12:48 PM Specimen: Abdominal; Drainage Result Value Ref Range Culture Culture in progress. BLOOD CULTURE (NO STAIN) Collection Time: 12/07/24 3:07 PM Specimen: Blood, Venous Result Value Ref Range Culture Result No Growth at 24 hours. Recent Labs 12/08/24 0652 12/09/24 0649 WBC 9.1 10.5* HGB 10.9* 11.0* PLT 175 203 Lab Results Component Value Date BUN 10 12/09/2024 CREATININE 0.56 12/09/2024 Lab Results Component Value Date LABBILI 0.3 12/09/2024 ALT 43 (H) 12/09/2024 AST 24 12/09/2024 ALKPHOS 159 (H) 12/09/2024 Merle Madison MD * Indira Jasmine RN - 12/09/2024 9:38 AM EDT VSS and afebrile, tolerating diet, active bowel sounds, BUCK drain in place, independent in room, denies pain, denies nausea, last bowel movement was 12/08/2024, call light and belongings within reach * Fabian Johnson MD - 12/09/2024 9:31 AM EDTAssociated Problem(s): Hypothyroidism Continue synthroid, confirmed dosing TSH okay * Fabian Johnson MD - 12/09/2024 9:19 AM EDTAssociated Problem(s): Cholecystitis S/p DAVINCI ROBOTIC CHOLECYSTECTOMY with Dr Holguin on 12/05 Post op management per surgery BUCK remains in place Diet: LOW FAT DIET Monitor and replace lytes PRN Analgesia Mobilize as able * Fabian Johnson MD - 12/09/2024 9:19 AM EDTAssociated Problem(s): Intra- abdominal abscess (HCC) CT on admission with acute cholecystitis with possible contained perforation or developing fluid collection/abscess in the adjacent liver. S/p cholecystectomy as noted above WBC improving 12/09/2024 Afebrile Blood cultures 12/04/24 w ecoli Urine culture 12/04 with Ecoli ID consulted Remains On rocephin Planning PICC and outpatient antibiotics * Fabian Johnson MD - 12/09/2024 9:19 AM EDTAssociated Problem(s): E coli bacteremia CT on admission with acute cholecystitis with possible contained perforation or developing fluid collection/abscess in the adjacent liver. S/p cholecystectomy as noted above WBC improving 12/09/2024 Afebrile Blood cultures 12/04/24 w ecoli Urine culture 12/04 with Ecoli ID consulted Remains On rocephin Planning PICC and outpatient antibiotics * Fabian Johnson MD - 12/09/2024 9:19 AM EDTAssociated Problem(s): Septic shock (HCC) CT on admission with acute cholecystitis with possible contained perforation or developing fluid collection/abscess in the adjacent liver. S/p cholecystectomy as noted above WBC improving 12/09/2024 Afebrile Blood cultures 12/04/24 w ecoli Urine culture 12/04 with Ecoli ID consulted Remains On rocephin Planning PICC and outpatient antibiotics * Fabian Johnson MD - 12/09/2024 9:19 AM EDTAssociated Problem(s): Acute cystitis without hematuria CT on admission with acute cholecystitis with possible contained perforation or developing fluid collection/abscess in the adjacent liver. S/p cholecystectomy as noted above WBC improving 12/09/2024 Afebrile Blood cultures 12/04/24 w ecoli Urine culture 12/04 with Ecoli ID consulted Remains On rocephin Planning PICC and outpatient antibiotics * Fabian Johnson MD - 12/09/2024 9:19 AM EDTAssociated Problem(s): Liver abscess CT on admission with acute cholecystitis with possible contained perforation or developing fluid collection/abscess in the adjacent liver. S/p cholecystectomy as noted above WBC improving 12/09/2024 Afebrile Blood cultures 12/04/24 w ecoli Urine culture 12/04 with Ecoli ID consulted Remains On rocephin Planning PICC and outpatient antibiotics * Fabian Johnson MD - 12/09/2024 9:19 AM EDTAssociated Problem(s): Benign essential HTN Stable 12/09/2024 * Fabian Johnson MD - 12/09/2024 9:19 AM EDTAssociated Problem(s): Obesity, Class III, BMI 40-49.9 (morbid obesity) Complicates care * Fabian Johnson MD - 12/09/2024 9:17 AM EDT Images from the original note were not included. PROGRESS NOTE Assessment & Plan Cholecystitis S/p DAVINCI ROBOTIC CHOLECYSTECTOMY with Dr Holguin on 12/05 Post op management per surgery BUCK remains in place Diet: LOW FAT DIET Monitor and replace lytes PRN Analgesia Mobilize as able Intra-abdominal abscess (HCC) E coli bacteremia Septic shock (HCC) Acute cystitis without hematuria Liver abscess CT on admission with acute cholecystitis with possible contained perforation or developing fluid collection/abscess in the adjacent liver. S/p cholecystectomy as noted above WBC improving 12/09/2024 Afebrile Blood cultures 12/04/24 w ecoli Urine culture 12/04 with Ecoli ID consulted Remains On rocephin Planning PICC and outpatient antibiotics Benign essential HTN Stable 12/09/2024 Obesity, Class III, BMI 40-49.9 (morbid obesity) Complicates care Hypothyroidism Continue synthroid, confirmed dosing TSH okay Dispo: probably DC tomorrow pending further surgical and ID input VTE Prophylaxis: Qualifying Pharmacologic Prophylaxis heparin, porcine (PF) injection 5,000 Units 3 times per day Bowel Regimen senna (SENOKOT) tablet 1-2 Tablet 2 TIMES DAILY polyethylene glycol (GLYCOLAX, MIRALAX) packet 17 g DAILY docusate sodium (COLACE) capsule 100 mg 2 TIMES DAILY PRN bisacodyL (DULCOLAX) suppository 10 mg DAILY PRN Subjective CC: Follow Up Cholecystitis HPI: No complaints Moving bowels OOB walking around room independently Pain controlled Objective BP 132/71 (BP Location: Left arm, Patient Position: Semi Fowlers) Pulse 64 Temp 98.6 ??F (37 ??C) (Oral) Resp 16 Ht 5' 4 (1.626 m) Wt 260 lb (117.9 kg) LMP 07/06/2017 SpO2 99% BMI 44.63 kg/m?? I/O last 3 completed shifts: In: 40 [I.V.:0.5; IV Piggyback:39.5] Out: 20 [Drains:20] Physical Exam Constitutional: Appearance: She is not ill-appearing. HENT: Head: Normocephalic and atraumatic. Eyes: Conjunctiva/sclera: Conjunctivae normal. Cardiovascular: Rate and Rhythm: Normal rate. Pulmonary: Comments: Unlabored Abdominal: Comments: BUCK remains in place Musculoskeletal: General: No swelling. Neurological: Mental Status: She is alert and oriented to person, place, and time. Fabian Johnson MD 12/09/2024 * Aysha Rivera RN - 12/09/2024 6:58 AM EDT VS Stable, Afebrile, No complaints of pain overnight, BUCK CDI, no output noted overnight, Independent in room, non skid socks in use. Patient aware to call for assistance as needed. * Codie Johnson MSW - 12/08/2024 4:42 PM EDT 12/08 SW Update: note SW consult please arrange for Ceftriaxone-2gm IVPB daily at [facility] until 01/18/25 . Signed IV ABX order obtained. Note pt is alert and oriented X4. SW met with pt at bedside and reviewed. Pt states agreeable to IV ABX at d/c. Pt states preference to complete IV ABX at the [facility] IF she can get an appointment after 4:30pm. Pt states if she is not able to get an appointment after 4:30pm then she would prefer to complete them at home with the help of her son. SW called and left a voicemail for the [facility] to inquire. Awaiting response. Pt states no other needs at this time. SW following * Viviane Vazquez, MCKINLEY - 12/08/2024 3:26 PM EDT VSS, afebrile Independent in room Tolerating diet No complaints of pain or nausea BUCK drain with serosanguinous output, no complications noted, low output PIV C/D/I, IV abx administered as ordered IJ dsg removed, skin visibly bruised and red + BM, urinating adequately Call light and belongings within reach, bed in lowest position, non-skid socks on * Fabian Holguin MD - 12/08/2024 10:01 AM EDT GENERAL SURGERY PROGRESS NOTE IMPRESSION/PLAN Yanna Dutton is a 59 y.o. female who had a robotic cholecystectomy on 12/05/24 for acute cholecystitis with abscess into the liver. Pain very well controlled. WBC wnl. Tolerating diet without issue. Still having bowel function. Drain with SS low volume output. Abdomen soft, mildly tender, incisions c/d/I with skin glue. -defer abx to ID -continue drain for now -prn pain control/anti-emetics -drain care -dvt chemoppx -continue diet -ok for d/c from EGS standpoint, with the drain if she leaves today and she can f/u in the office for drain removal Vitals: 12/07/24 0929 12/07/248 12/08/24 0609 12/08/24 0800 BP: 106/63 111/89 133/70 BP Location: Left arm Left arm Left arm Patient Position: Semi Fowlers Sitting Sitting Pulse: 66 73 69 Resp: 16 16 16 Temp: 98.2 ??F (36.8 ??C) 98.9 ??F (37.2 ??C) 98.8 ??F (37.1 ??C) TempSrc: Oral Oral Oral SpO2: 93% 98% 95% Weight: 246 lb 4.1 oz (111.7 kg) Height: LABS AND RADIOLOGY *I reviewed the following labs and studies WBC: Lab Results Component Value Date WBC 9.1 12/08/2024 Hemoglobin/Hematocrit: Lab Results Component Value Date HGB 10.9 (L) 12/08/2024 HGB 12.7 12/05/2024 HCT 33.7 (L) 12/08/2024 HCT 39.0 12/05/2024 BMP: Lab Results Component Value Date NA 143 12/08/2024 K 3.6 12/08/2024 CL 105 12/08/2024 CO2 27 12/08/2024 BUN 11 12/08/2024 CREATININE 0.53 12/08/2024 CALCIUM 8.2 (L) 12/08/2024 EK EKG 12 LEAD Result Date: 12/05/2024 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1965 Requested By: [facility] Order Number: [id number] Reading MD: Jared Herrera Measurements Intervals [place] Rate: 120 P:59 GA: 157 QRS: 21 QRSD: 96 T: 48 QT: 325 QTc: 461 Interpretive Statements SINUS TACHYCARDIA POSSIBLE RIGHT VENTRICULAR CONDUCTION DELAY ABNORMAL RHYTHM ECG WHEN COMPARED TO PREVIOUS ECG:NO SIGNIFICANT CHANGES ARE NOTED Electronically Signed On 12-05-2024 08:16:16 EDT by Jared Herrera XR CHEST AP PORTABLE Result Date: 12/05/2024 XR CHEST AP PORTABLE, 12/05/2024 2:45 AM CLINICAL HISTORY: -line placement COMPARISON: 12/04/2024 PROCEDURE COMMENTS: AP portable technique. FINDINGS: Support devices: Left IJ catheter with tip lower SVC. Heart and mediastinal contours within normal limits for technique. No active failure, pneumonia, or visible effusion. No visible pneumothorax. No acute finding. - Note: Radiology results need to be interpreted within a comprehensive clinical context. If you have questions about the radiology report, please contact the office of the orderingclinician. [employer] PUBLIC HEALTH SANITARIAN TECHNICIAN/HOSPITALIST BEDSIDE ULTRASOUND Result Date: 12/05/2024 [employer] Inspector Ultrasound performed at bedside. The study image(s) are for reference only and will notbe interpreted by a Radiologist. Refer to the same day procedure note for image description and procedure details. [employer] PUBLIC HEALTH SANITARIAN TECHNICIAN/HOSPITALIST BEDSIDE ULTRASOUND Result Date: 12/05/2024 Molded Grid [employer] Inspector Ultrasound performed at bedside. The study image(s) are for reference only and will notbe interpreted by a Radiologist. Refer to the same day procedure note for image description and procedure details. [employer] PUBLIC HEALTH SANITARIAN TECHNICIAN/HOSPITALIST BEDSIDE ULTRASOUND Result Date: 12/05/2024 Molded Grid And Parts Inspector Ultrasound performed at bedside. The study image(s) are for reference only and will notbe interpreted by a Radiologist. Refer to the same day procedure note for image description and procedure details. CT ABD PEL ED FAST W CONTRAST Result Date: 12/05/2024 CT ABDOMEN AND PELVIS WITH CONTRAST (FAST), 12/05/2024 12:40 AM CLINICAL HISTORY: -abdominal pain. COMPARISON: 10/25/24. PROCEDURE COMMENTS: Multi-detector CT scanning of the abdomen and pelvis with multiplanar reformatting per expedited protocol. Isovue 370 IV contrast given as recorded in EPIC. Dose1 : CT DLP Total : 1495.04 mGycm DLP Spiral Max : 1492.98 mGycm Maximum CTDI Vol : 29.24 mGy FINDINGS: LOWER THORAX: Lung bases unremarkable. ABDOMEN AND PELVIS: Spleen, pancreas, kidneys, and adrenal glands unremarkable. No hydronephrosis. Gallbladder wall is edematous and inflamed. Trace pericholecystic fluid. 1.8 cm cystic focus within the adjacent liver. No bowel obstruction or acute inflammat ory process. No evidence of appendicitis. No abnormal mass, fluid, or adenopathy in the pelvis. No acute osseous abnormality. Findings concerning for acute cholecystitis with possible contained perforation or developing fluidcollection/abscess in the adjacent liver. Recommend surgical consultation. - Note: Radiology results need to be interpreted within a comprehensive clinical context. If you have questions about the radiology report, please contact the office of the ordering clinician. XR CHEST AP PORTABLE Result Date: 12/04/2024 XR CHEST AP PORTABLE, 12/04/2024 11:38 PM CLINICAL HISTORY: -Syncope COMPARISON: None. PROCEDURE COMMENTS: AP portable technique. FINDINGS: Support devices: No visible support devices. Heart and mediastinal contours within normal limits for technique. No active failure, pneumonia, or visible effusion. No visible pneumothorax. No acute finding. - Note: Radiology results need to be interpreted within a comprehensive clinical context. If you have questions about the radiology report, please contact the office of the orderingclinician. * Fabian Johnson MD - 12/08/2024 8:27 AM EDTAssociated Problem(s): Obesity, Class III, BMI 40-49.9 (morbid obesity) Complicates care * Fabian Johnson MD - 12/08/2024 8:27 AM EDTAssociated Problem(s): Hypothyroidism Continue synthroid, confirm dosing TSH okay * Fabian Johnson MD - 12/08/2024 8:27 AM EDTAssociated Problem(s): Cholecystitis S/p DAVINCI ROBOTIC CHOLECYSTECTOMY with Dr Holguin on 12/05 Post op management per surgery BUCK remains in place Diet: LOW FAT DIET Monitor and replace lytes PRN Analgesia Mobilize as able * Fabian Johnson MD - 12/08/2024 8:27 AM EDTAssociated Problem(s): Intra- abdominal abscess (HCC) CT on admission with acute cholecystitis with possible contained perforation or developing fluid collection/abscess in the adjacent liver. S/p cholecystectomy as noted above WBC improving 12/08/2024 Afebrile Blood cultures 12/04/24 w ecoli Urine culture 12/04 with Ecoli ID consulted Remains On rocephin * Fabian Johnson MD - 12/08/2024 8:27 AM EDTAssociated Problem(s): E coli bacteremia CT on admission with acute cholecystitis with possible contained perforation or developing fluid collection/abscess in the adjacent liver. S/p cholecystectomy as noted above WBC improving 12/08/2024 Afebrile Blood cultures 12/04/24 w ecoli Urine culture 12/04 with Ecoli ID consulted Remains On rocephin * Fabian Johnson MD - 12/08/2024 8:27 AM EDTAssociated Problem(s): Septic shock (HCC) CT on admission with acute cholecystitis with possible contained perforation or developing fluid collection/abscess in the adjacent liver. S/p cholecystectomy as noted above WBC improving 12/08/2024 Afebrile Blood cultures 12/04/24 w ecoli Urine culture 12/04 with Ecoli ID consulted Remains On rocephin * Fabian Johnson MD - 12/08/2024 8:27 AM EDTAssociated Problem(s): Acute cystitis without hematuria CT on admission with acute cholecystitis with possible contained perforation or developing fluid collection/abscess in the adjacent liver. S/p cholecystectomy as noted above WBC improving 12/08/2024 Afebrile Blood cultures 12/04/24 w ecoli Urine culture 12/04 with Ecoli ID consulted Remains On rocephin * Fabian Johnson MD - 12/08/2024 8:27 AM EDTAssociated Problem(s): Liver abscess CT on admission with acute cholecystitis with possible contained perforation or developing fluid collection/abscess in the adjacent liver. S/p cholecystectomy as noted above WBC improving 12/08/2024 Afebrile Blood cultures 12/04/24 w ecoli Urine culture 12/04 with Ecoli ID consulted Remains On rocephin * Fabian Johnson MD - 12/08/2024 8:27 AM EDTAssociated Problem(s): Benign essential HTN Stable 12/08/2024 * Fabian Johnson MD - 12/08/2024 8:23 AM EDT Images from the original note were not included. PROGRESS NOTE Assessment & Plan Cholecystitis S/p DAVINCI ROBOTIC CHOLECYSTECTOMY with Dr Holguin on 12/05 Post op management per surgery BUCK remains in place Diet: LOW FAT DIET Monitor and replace lytes PRN Analgesia Mobilize as able Intra-abdominal abscess (HCC) E coli bacteremia Septic shock (HCC) Acute cystitis without hematuria Liver abscess CT on admission with acute cholecystitis with possible contained perforation or developing fluid collection/abscess in the adjacent liver. S/p cholecystectomy as noted above WBC improving 12/08/2024 Afebrile Blood cultures 12/04/24 w ecoli Urine culture 12/04 with Ecoli ID consulted Remains On rocephin Benign essential HTN Stable 12/08/2024 Obesity, Class III, BMI 40-49.9 (morbid obesity) Complicates care Hypothyroidism Continue synthroid, confirm dosing TSH okay Dispo: TBD pending antibiotic course, will need 6 weeks, can be arranged when okay with ID, pendingfinal cultures VTE Prophylaxis: Qualifying Pharmacologic Prophylaxis heparin, porcine (PF) injection 5,000 Units 3 times per day Bowel Regimen senna (SENOKOT) tablet 1-2 Tablet 2 TIMES DAILY polyethylene glycol (GLYCOLAX, MIRALAX) packet 17 g DAILY docusate sodium (COLACE) capsule 100 mg 2 TIMES DAILY PRN bisacodyL (DULCOLAX) suppository 10 mg DAILY PRN Subjective CC: Follow Up Cholecystitis HPI: Doing well + flatus and bowel function Pain controlled Objective BP 111/89 (BP Location: Left arm, Patient Position: Sitting) Pulse 73 Temp 98.9 ??F (37.2 ??C) (Oral) Resp 16 Ht 5' 4 (1.626 m) Wt 246 lb 4.1 oz (111.7 kg) LMP 07/06/2017 SpO2 98% BMI 42.27 kg/m?? I/O last 3 completed shifts: In: 1195.9 [P.O.:1080; I.V.:20.3; IV Piggyback:95.5] Out: 12 [Drains:12] Physical Exam Cardiovascular: Rate and Rhythm: Normal rate. Pulmonary: Effort: Pulmonary effort is normal. Breath sounds: No wheezing or rales. Abdominal: General: There is no distension. Palpations: Abdomen is soft. Tenderness: There is abdominal tenderness (appropriate). Musculoskeletal: Right lower leg: No edema. Left lower leg: No edema. Skin: General: Skin is warm and dry. Neurological: Mental Status: She is alert and oriented to person, place, and time. Fabian Johnson MD 12/08/2024 * Mike Kauffman MD - 12/08/2024 7:29 AM EDT Images from the original note were not included. SEP INFECTIOUS DISEASES I D Progress Note: I AM SEEING Mrs DUTTON IN F/UP FOR E. coli BACTEREMIA,SEPSIS WITH CHOLECYSTITIS AND LIVER ABSCESS Antibiotics: CEFTRIAXONE ( stop date 01/18/25 ) Hospital Day: 5 I/Os: 1195/?? DR: 12 ml Interval History and Subjective: events and notes reviewed. No fevers. Denies abdominal pain and says feels better overall. Tolerating Ceftriaxone without issues. Physical Exam: BP 111/89 (BP Location: Left arm, Patient Position: Sitting) Pulse 73 Temp 98.9 ??F (37.2 ??C) (Oral) Resp 16 Ht 5' 4 (1.626 m) Wt 246 lb 4.1 oz (111.7 kg) LMP 07/06/2017 SpO2 98% BMI 42.27 kg/m?? Temp (24hrs), Av.6 ??F (37 ??C), Min:98.2 ??F (36.8 ??C), Max:98.9 ??F (37.2 ??C) VITAL SIGNS ABOVE AND REVIEWED General Appearance: Alert, cooperative, no distress, on room air Head: Normocephalic, without obvious abnormality, atraumatic Eyes: conjunctiva/corneas clear Nose: Nares normal, no drainage Sinuses: Sinus tenderness not present Mouth: mucosa moist, no oral lesions Lungs: clear to auscultation and percussion, no wheezes and no crackles Heart: Regular rate and rhythm, S1 and S2 normal, no murmur, rub or gallop Abdomen: Soft, mild tenderness, bowel sounds active all four quadrants, 3 abdominal incision closedwith skin glue, + BUCK drain- serosanguinous drainage Extremities: No BLE edema, trace non-pitting edema BUE Skin: no rashes or lesions Lymph nodes: No Submandibular LAD Neurologic: Alert and oriented x 4 , speech is clear and fluent. Cranial nerves intact. PERRLA,EOMI. Moves all 4 extremities and no focal weakness, sensory intact and reflexes are normal Labs: Lab Results Component Value Date WBC 9.1 12/08/2024 HGB 10.9 (L) 12/08/2024 HCT 33.7 (L) 12/08/2024 MCV 91.6 12/08/2024 PLT 175 12/08/2024 Lab Results Component Value Date CREATININE 0.55 12/07/2024 BUN 15 12/07/2024 NA 140 12/07/2024 K 3.2 (L) 12/07/2024 CL 104 12/07/2024 CO2 27 12/07/2024 Glucose: 67 Lab Results Component Value Date ALT 43 (H) 12/06/2024 AST 29 12/06/2024 ALKPHOS 132 (H) 12/06/2024 Microbiology data reviewed: -12/07/24: BUCK Anaerobic cx: pending collection -12/07/24: BUCK drainage cx: ngtd -12/07/24: Blood culture (peripheral and central): ngtd -12/07/24: Tbili: 0.6, AST: 29, ALT: 43, Alk Phos: 132 -12/05/24: Pathology (gallbladder tissue): pending -12/04/24: Blood culture 1/2 (peripheral): E.coli (herrera-susceptible) -12/04/24: UA: 110 WBCs, 3+ bacteria, 1+ blood -12/04/24: Urine culture: >100k E.coli A/P: 1) Acute cholecystitis with liver abscess 12/04- To ED with abdominal pain, nausea, vomiting 12/05- CT Abdomen pelvis: Findings concerning for acute cholecystitis with possible contained perforation or developing fluid collection/abscess in the adjacent liver. Recommend surgical consultation. 12/05-S/p Davinci robot cholecystectomy per OP note: Very inflamed gallbladder with hydrops and largestone. Liver abscess noted to posterior gallbladder at base. BUCK drain placed in gallbladder fossa. 12/05/24: Pathology (gallbladder tissue): pending Aerobic and anaerobic cultures ordered from BUCK drain Have simplified antibiotics to Ceftriaxone based on E. Coli sensitivity data and repeat blood cultures to document sterilization of blood is pending. If BCs still no growth tomorrow, will place a PICC Will consult Pattern Data Operator to arrange Ceftriaxone @ [facility] until 01/18/25 2) E.coli bacteremia and bacteruria 12/04/24: Blood culture 07/07 (peripheral): E.coli (herrera-susceptible) 12/07/24: Blood culture (peripheral and central): pending collection 12/04/24: UA: 110 WBCs, 3+ bacteria, 1+ blood 12/04/24: Urine culture: >100k E.coli (herrera-susceptible) Cholecystitis is the likely source Plan to continue Ceftriaxone up to 6 weeks due to Liver abscess above 3) Septic shock Lactic 4.5, Procal 18.10 on admission Tmax 103.1 on 12/04/24 Needed pressor support initially, off since 12/05 Transferred out of SICU 12/06/24 Overall better 4- Dr Madison covering me tomorrow and throughout the weekend * Aysha Rivera RN - 12/08/2024 6:26 AM EDT VS Stable, Afebrile, No complaints of pain overnight, patient resting well, BUCK CDI with small UOP noted, Surgical site CDI, Independent in room, non skid socks in use. Patient aware to call for assistance as needed. * Fabian Johnson MD - 12/07/2024 4:19 PM EDTAssociated Problem(s): Cholecystitis S/p DAVINCI ROBOTIC CHOLECYSTECTOMY with Dr Holguin on 12/05 Post op management per surgery BUCK remains in place Diet: LOW FAT DIET Monitor and replace lytes PRN Analgesia Mobilize as able * Fabian Johnson MD - 12/07/2024 4:19 PM EDTAssociated Problem(s): Intra- abdominal abscess (HCC) CT on admission with acute cholecystitis with possible contained perforation or developing fluid collection/abscess in the adjacent liver. S/p cholecystectomy as noted above WBC improving Afebrile Blood cultures 12/04/24 w ecoli Urine culture 12/04 with Ecoli ID consulted On rocephin * Fabian Johnson MD - 12/07/2024 4:19 PM EDTAssociated Problem(s): E coli bacteremia CT on admission with acute cholecystitis with possible contained perforation or developing fluid collection/abscess in the adjacent liver. S/p cholecystectomy as noted above WBC improving Afebrile Blood cultures 12/04/24 w ecoli Urine culture 12/04 with Ecoli ID consulted On rocephin * Fabian Johnson MD - 12/07/2024 4:19 PM EDTAssociated Problem(s): Septic shock (HCC) CT on admission with acute cholecystitis with possible contained perforation or developing fluid collection/abscess in the adjacent liver. S/p cholecystectomy as noted above WBC improving Afebrile Blood cultures 12/04/24 w ecoli Urine culture 12/04 with Ecoli ID consulted On rocephin * Fabian Johnson MD - 12/07/2024 4:19 PM EDTAssociated Problem(s): Acute cystitis without hematuria CT on admission with acute cholecystitis with possible contained perforation or developing fluid collection/abscess in the adjacent liver. S/p cholecystectomy as noted above WBC improving Afebrile Blood cultures 12/04/24 w ecoli Urine culture 12/04 with Ecoli ID consulted On rocephin * Fabian Johnson MD - 12/07/2024 4:19 PM EDTAssociated Problem(s): Liver abscess CT on admission with acute cholecystitis with possible contained perforation or developing fluid collection/abscess in the adjacent liver. S/p cholecystectomy as noted above WBC improving Afebrile Blood cultures 12/04/24 w ecoli Urine culture 12/04 with Ecoli ID consulted On rocephin * Fabian Johnson MD - 12/07/2024 3:45 PM EDTAssociated Problem(s): Benign essential HTN Stable * Fabian Johnson MD - 12/07/2024 3:45 PM EDTAssociated Problem(s): Obesity, Class III, BMI 40-49.9 (morbid obesity) Complicates care * Fabian Johnson MD - 12/07/2024 3:45 PM EDTAssociated Problem(s): Hypothyroidism Continue synthroid Check TSH * Viviane Vazquez RN - 12/07/2024 2:16 PM EDT VSS, afebrile Independent in room Increased PO intake, tolerating diet No complaints of pain or nausea BUCK drain with serosanguinous and low output, no complications noted PIV C/D/I IV abx administered as ordered + BM, urinating adequately Call light and belongings within reach, bed in lowest position, non-skid socks on * Fabian Holguin MD - 12/07/2024 9:55 AM EDT Acute Care Surgery Postoperative Note 2 Days Post-Op 12/04/2024 - 12/05/2024 s/p Procedure(s): DAVINCI ROBOTIC CHOLECYSTECTOMY PLAN: Patient transferred out of the SICU yesterday No acute events overnight. Hemodynamics stable Ok for IJ to be removed if appropriate PIV access obtained Follow cultures, now on Ceftriaxone Pain controlled with current regimen, not requiring narcotics today Serial abdominal exam- soft, non distended. Incisions intact, focal/mild redness and ecchymotic skin changes. BUCK drain stripped, serosanguinous Appetite slowly improving. Ok for low fat diet, reviewed recommendations + loose stools. Will monitor for improvement with oral intake. Reviewed sometimes patient's requirefiber and/or prescriptive medications if diarrhea persist. Will give sometime before prescribing these things Mobilize OOB to chair, walk in hallways DVT prophylaxis General Surgery Disposition Perspective - Medically Ready for Discharge: No Timeframe for Follow-up?: 1-2 days Ready when/if?: tolerating diet, antibiotic regimen determined ------ ATTENDING ATTESTATION I independently saw and examined the patient. I discussed the patient with the WATCH MECHANIC. I agree with thefindings/assessment/plan above unless otherwise noted. Pain controlled. Tolerating diet without nausea/vomiting. Having diarrhea. Abdomen soft, appropriately tender, incisions c/d/I skin glue. Drain with low volume SS output. WBC much improved continue abx for now continue with drain continue with diet dvt chemoppx mobilize ID consulted for abscess into liver, will defer abx plan to them Likely ok for d/c from EGS standpoint tomorrow if continues to do well Fabian Holguin MD Acute Care Surgery ------- Vitals: 12/06/24 1800 12/06/24 1843 12/06/24 2044 12/07/24 0929 BP: 112/72 120/67 116/67 106/63 BP Location: Left arm Left arm Left arm Patient Position: Sitting Semi Fowlers Semi Fowlers Pulse: 70 64 72 66 Resp: (!) 24 16 16 16 Temp: 98.3 ??F (36.8 ??C) 98 ??F (36.7 ??C) 98.2 ??F (36.8 ??C) TempSrc: Oral Oral Oral SpO2: 95% 95% 95% 93% Weight: Height: Wt Readings from Last 3 Encounters: 12/06/24 259 lb 4.8 oz (117.6 kg) 04/02/22 195 lb (88.5 kg) 04/16/21 195 lb (88.5 kg) Isha Zuñiga APRN 12/07/24 * Florencia Rivera RN - 12/06/2024 6:06 PM EDT Day Shift Summary: - Vaso off since start of shift. BP stable. - Buck removed. Pt voided multiple times this shift. - Arterial Line removed, no complications. - Calcium and Phos replaced. - Pt to be transferred to , room 2221. Report called and given to receiving RN, all questions answered. * Sushil Porras APRN - 12/06/2024 4:26 PM EDT Surgical Critical Care Sushil Porras APRN 12/06/2024 Handoff Completed:Yes/No: Yes Disposition Perspective - Medically ready for discharge: No Anticipated ready for discharge timeframe?: 1-2 days Ready for discharge when / if?: sensitivities for blood cx are back, dispo planning Estimated Date of Discharge: 12/07-12/08 Hospitalist (Dr. Johnson) notified and patient discussed. accepts transfer. * Fabian Holguin MD - 12/06/2024 12:37 PM EDT Acute Care Surgery Postoperative Note Length of stay: 1 Days 1 Day Post-Op 12/04/2024 - 12/05/2024 s/p Procedure(s): DAVINCI ROBOTIC CHOLECYSTECTOMY PLAN: Anticipate transfer out of ICU today Keep drain in place Continue diet as tolerated IV Zosyn x 7 days to cover E. coli blood and urine culture Ambulate minimum 3 times daily Optimize electrolyte IMPRESSION: Now hemodynamically stable off pressors BUCK with 50 mL documented output. Serosanguineous appearance Buck DC'd and void trial in process Weaned off of oxygen now stable on room air Started on diet although reporting minimal appetite General Surgery Disposition Perspective - Medically Ready for Discharge: No Ready when/if?: Off IV medication, diet tolerated, leukocytosis resolved ------ ATTENDING ATTESTATION I independently saw and examined the patient. I discussed the patient with the PA. I agree with thefindings/assessment/plan above unless otherwise noted. Pain much improved. Tolerating diet without nausea/vomiting, not taking much po. Abdomen soft, mildly tender. Drain with SS output. off pressors, transferring out of sicu. continue abx drain care ok for diet prn pain control mobilize dvt chemoppx Fabian Holguin MD Acute Care Surgery ------- Labs: WBC: Lab Results Component Value Date WBC 21.3 (H) 12/06/2024 Hemoglobin/Hematocrit: Lab Results Component Value Date HGB 10.9 (L) 12/06/2024 HGB 12.7 12/05/2024 HCT 32.6 (L) 12/06/2024 HCT 39.0 12/05/2024 BMP: Lab Results Component Value Date NA 132 (L) 12/06/2024 K 4.2 12/06/2024 CREATININE 0.70 12/06/2024 Mag and Phos: Lab Results Component Value Date MG 2.3 12/06/2024 PHOS 2.4 (L) 12/06/2024 Vitals: Temp (24hrs), Av ??F (37.2 ??C), Min:97.9 ??F (36.6 ??C), Max:100.2 ??F (37.9 ??C) Vitals: 12/06/24 0900 12/06/24 1000 12/06/24 1100 12/06/24 1200 BP: 99/64 103/57 102/67 96/65 Patient Position: Semi Fowlers Pulse: 58 55 63 58 Resp: 20 (!) 23 (!) 47 (!) 23 Temp: 98.4 ??F (36.9 ??C) 97.9 ??F (36.6 ??C) TempSrc: Temporal SpO2: 90% 90% 92% 91% Weight: Height: Wt Readings from Last 3 Encounters: 12/06/24 259 lb 4.8 oz (117.6 kg) 04/02/22 195 lb (88.5 kg) 04/16/21 195 lb (88.5 kg) Farhat Ryan PA-C 12/06/24 * Jesika Zamarripa MD - 12/06/2024 8:44 AM EDT SEP SURGICAL-CRITICAL CARE Yanna Dutton is a 59 y.o. female admitted 12/04*. She came into the emergency room with abdominalpain. She was diagnosed with septic shock and acute cholecystitis. We are asked to see this patientfor chief complaint of septic shock by Dr. Holguin. She went to OR after resuscitation in the morning with emergency general surgery. She tolerated that procedure well. INTERVAL EVENTS AND PLANS Returned with E coli in blood 07/07 Also E coli UTI Covered with Zosyn (will need 7 days minimum coverage) OFF levophed, still requiring vasopressin Still on 2 liters O2 --> increase IS use Scheduled bowel regimen Oral Phos and Ca replacement DC buck and void trial/check Saline Lock IV PLANS SEPTIC SHOCK Status post source control with robotic assisted cholecystectomy Desire MAP greater than 65 mmHg Volume resuscitated; trend lactate, watch SILVESTRE, watch urine output Continue Levophed gtt. Continue vasopressin gtt. Continue broad-spectrum antibiotics SEVERE ACUTE CHOLECYSTITIS Status post above procedure today BUCK drain in place; trend outputs Trend daily LFT as per surgery Diet advancement to low-fat as discussed with surgery INTRA-ABDOMINAL ABSCESS Status post drainage during surgery Continue Zosyn 3.375 mg IV every 8 hours ESSENTIAL HYPERTENSION No AIRCRAFT MAINTENANCE SUPERVISOR meds MOOD DISORDER Start AIRCRAFT MAINTENANCE SUPERVISOR Wellbutrin SR 150 p.o. twice daily Start AIRCRAFT MAINTENANCE SUPERVISOR Prozac 20 mg p.o. daily HYPOTHYROIDISM Start AIRCRAFT MAINTENANCE SUPERVISOR Synthroid 200 mcg p.o. daily CLASS III OBESITY Complicates all aspects of care ICU MANAGEMENT Pain: Oxycodone 5-10 every 4 as needed; acetaminophen 500-1000 every 6 as needed Sedation: None Lines: Left internal jugular triple-lumen catheter 12/05/2024; bilateral peripheral IVs; left radial A-line IVF: LR at 125 mL/h Drains: BUCK drain Tubes: None Stress Ulcer Prophylaxis: Pepcid 20 mg IV twice daily DVT Prophylaxis: Heparin 5000 units SQ 3 times daily Diet: Tolerating LFD Buck: Accurate SILVESTRE --> remove Bowel Regimen: Dulcolax 10 mg suppository daily as needed; Senokot 1-2 p.o. twice daily Pneumonia Prophylaxis: HOB > 30; Oral care; Spirometry and pulmonary toilet Code Status: FULL Disposition: SICU until OFF vasopressors Jesika Zamarripa MD Critical care time: 35 minutes PHYSICAL EXAMINATION Vitals: 12/06/24 0551 12/06/24 0600 12/06/24 0700 12/06/24 0800 BP: 100/68 100/68 94/60 (!) 86/65 Pulse: 59 53 52 Resp: (!) 40 (!) 32 19 Temp: 99 ??F (37.2 ??C) 98.6 ??F (37 ??C) 98.4 ??F (36.9 ??C) TempSrc: SpO2: 95% 92% 92% Weight: 259 lb 4.8 oz (117.6 kg) Height: Constitutional: Vital signs are above. Appearance is awake alert oriented. No distress Neurological: alert, oriented, normal speech, no focal findings or movement disorder noted, motor and sensory grossly normal bilaterally HEENT: Normocephalic. Atraumatic. Nares patent. Normal external ear exam. Eyes: Right eye no discharge. Left eye no discharge. No scleral icterus. Neck: No tracheal deviation. No tenderness. Lines sites clean Cardiovascular: Normal rate. Pulmonary: No chest wall tenderness. Effort normal. No accessory muscle usage or stridor. No distress. Gastrointenstinal: Abdomen soft and nontender. No distension. No rebound. Not guarding. Musculoskeletal: Intact range of motion. No edema. Skin: No rash. No cellulitis. Psychiatric: Blunted mood and affect. DATA REVIEWED I have personally reviewed the following labs and studies. I looked at the actual images myself. Lab Results Component Value Date WBC 21.3 (H) 12/06/2024 Lab Results Component Value Date HGB 10.9 (L) 12/06/2024 HGB 12.7 12/05/2024 HCT 32.6 (L) 12/06/2024 HCT 39.0 12/05/2024 Lab Results Component Value Date NA 132 (L) 12/06/2024 K 4.2 12/06/2024 CL 99 12/06/2024 CO2 23 12/06/2024 BUN 26 (H) 12/06/2024 CREATININE 0.70 12/06/2024 CALCIUM 8.3 (L) 12/06/2024 CT ABD PEL ED FAST W CONTRAST Result Date: 12/05/2024 CT ABDOMEN AND PELVIS WITH CONTRAST (FAST), 12/05/2024 12:40 AM CLINICAL HISTORY: -abdominal pain. COMPARISON: 10/25/24. PROCEDURE COMMENTS: Multi-detector CT scanning of the abdomen and pelvis with multiplanar reformatting per expedited protocol. Isovue 370 IV contrast given as recorded in EPIC. Dose1 : CT DLP Total : 1495.04 mGycm DLP Spiral Max : 1492.98 mGycm Maximum CTDI Vol : 29.24 mGy FINDINGS: LOWER THORAX: Lung bases unremarkable. ABDOMEN AND PELVIS: Spleen, pancreas, kidneys, and adrenal glands unremarkable. No hydronephrosis. Gallbladder wall is edematous and inflamed. Trace pericholecystic fluid. 1.8 cm cystic focus within the adjacent liver. No bowel obstruction or acute inflammat ory process. No evidence of appendicitis. No abnormal mass, fluid, or adenopathy in the pelvis. No acute osseous abnormality. Findings concerning for acute cholecystitis with possible contained perforation or developing fluidcollection/abscess in the adjacent liver. Recommend surgical consultation. - * Bree Waldrop RN - 12/06/2024 2:52 AM EDT Patient was willing to put SCDs on at midnight but then at 0300 she asked to have them removed. Patient was educated on the risks of DVTs and verbalized understanding but still wanted them off. * Lexi Singh PharmD - 12/05/2024 9:24 PM EDT Patient: Yanna Dutton , : 1965 12/05/2024 Test: Per [employer] Gram-Negative Nucleic Acid blood culture test, patient is reported to have Escherichia coli with no CTX-M, IMP, KPC, NDM, OXA, or VIM resistance markers in their blood. Time test reported to pharmacy: 2119 Lab Caller / Pharmacy Office Machine Installer: Ayesha Gold Action Taken: Time: 2122 Called to: Dr. Holguin Patient is currently receiving zosyn; other options for this bacterium include: ceftriaxone. Thank you! Lexi Singh, PharmD * Ana Hennessy MSW - 12/05/2024 4:08 PM EDT 12/05/24 1605 Discharge Planning Evaluation Completed by CC/SW Yes Referral Source Chart review Does patient meet high risk triggers? Is patient high risk of readmission on predictive analytic orRRS score Who you interviewed In person interview with patient Mental Status Alert and oriented Decision Maker Patient Who does pt identify as their caregiver/support person who will be their active partner in the dc planning process Pt reports no caregiver/support person for dc planning process Does patient need pugger helper? No Activities of Daily Living Prior to Admission Independent with ADLS;Independent with Homemaking;Independent with mobility DME Used at Home None Patient's Living Arrangments Prior to Admission? Private Residence With Other(s) Private Residence With Other(s) Children Support Systems Children;Family Members Is PCP listed on facesheet correct? Yes Quality of Support System Adequate Follow Up Assigned To: Referral to Social work not necessary Social Work already completing dc planning assessment Anticipated post-acute care needs Home with OP Follow Up Discussed discharge plans with Patient/Family/Caregiver/Support Person Yes, Discussed with patient Discussed discharge plans with Care Team at [facility] Yes, with nurse in attendance;Yes, with doctor in attendance Patient's goals for recovery Return to Prior Level of Functioning Actual Discharge Plan 12/05 initial. Chart reviewed. Note pt is alert and oriented X4. SW met withpt at bedside and introduced self and role. Pt states she lives with her adult son in a condo with no steps to enter and no steps to pt's bedroom. PCP is Dr. Hector. Pharmacy [facility] in [place], [place]. Pt states she is able to afford all her medications, food, utilities, and other bills. Pt statesshe was independent with her ADLs prior to admit. No DME or HH prior to admit. Pt states she normally transports via personal vehicle. Pt states she will transport via her son at d/c. Pt states no d/c planning support person as she wishes to update family/friends herself. SDOH completed. Pt states no d/c needs at this time. SW following. * Ana Dinh RN - 12/05/2024 3:35 PM EDT Pt requested to take a break from sequential compression devices. Instructed pt on importance of wearing SCDs while in bed following surgery. Pt verbalized understanding. Pt stated they would put them back on this evening. Ana Dinh RN * Ana Dinh RN - 12/05/2024 2:34 PM EDT Son took pts necklace and ring with him following surgery. Pt aware. Ana Dinh RN * Bernadette Marshall MD - 12/05/2024 8:26 AM EDT SURGICAL CRITICAL CARE CONSULTATION Yanna Dutton is a 59 y.o. female admitted 12/04*. She is * Day of Surgery * for Procedure(s): DAVINCI ROBOTIC CHOLECYSTECTOMY. We are asked to see this patient for chief complaint of septic shock by Dr. Holguin. EVENTS OVERNIGHT Lactic acid now WNL. S/p CVC and A line placement. PLANS OR today with EGS Continue fluid resuscitation. Remains on Levophed, vasopressin. Zosyn q8h. Trend WBC, repeat hepatic function panel. 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 Authorizing Provider buPROPion (WELLBUTRIN SR) 150 mg Oral tablet sustained-release 12 hr Take 150 mg by mouth 2 times daily. 12/19/21 Yes Provider, Historical FLUoxetine (PROZAC) 20 mg Oral Capsule Take 20 mg by mouth daily. 11/25/21 Yes Provider, Historical LEVOthyroxine (SYNTHROID) 200 mcg Oral Tablet Take 200 mcg by mouth daily. Yes Provider, Historical multivit-min/iron/folic/lutein (CENTRUM SILVER WOMEN ORAL) Take 1 Tablet by mouth daily. Yes Provider, Historical Cholecalciferol, Vitamin D3, (VITAMIN D3) 125 mcg (5,000 unit) Oral Tablet Take 5,000 mcg by mouth daily. Patient not taking: Reported on 10/25/2024 04/02/22 Renato Snow MD tolterodine (DETROL LA) 4 mg Oral Capsule, Sust. Release 24 hr Take 1 Cap by mouth daily. Patient not taking: Reported on 10/25/2024 08/04/19 Antoinette Larry MD Current Facility-Administered Medications: 0.9 % NaCl infusion, 10 mL/hr, Intravenous, Continuous PRN, Royer Cloud MD, Stopped at 12/05/24 0512 acetaminophen (TYLENOL) tablet 500-1,000 mg, 500-1,000 mg, Oral, Q6H PRN, 1,000 mg at 12/05/24 0433OR acetaminophen (TYLENOL) oral solution 500-1,000 mg, 500-1,000 mg, Oral, Q6H PRN, Royer Cloud MD acetaminophen (TYLENOL) tablet 1,000 mg, 1,000 mg, Oral, Preprocedure, David Mckinney APRN atropine injection 1 mg, 1 mg, Intravenous, PRN, Royer Cloud MD dextrose 50 % solution 25 mL, 25 mL, Intravenous, PRN, Royer Cloud MD famotidine (PEPCID) injection 20 mg, 20 mg, Intravenous, 2 times per day, 20 mg at 12/05/24 0805 OR famotidine (PEPCID) tablet 20 mg, 20 mg, Oral, 2 times per day, Royer Cloud MD hydrALAZINE (APRESOLINE) injection 10-20 mg, 10-20 mg, Intravenous, Q4H PRN, Royer Cloud MD ICU Electrolyte Replacement - Calcium, 1 Each, MISCELLANEOUS, PRN, Royer Cloud MD ICU Electrolyte Replacement - Magnesium, 1 Each, MISCELLANEOUS, PRNPedro Luis Sean T, MD ICU Electrolyte Replacement - Phosphate, 1 Each, DALJITCELLANEOUS, PRNPedro Luis Sean T, MD ICU Electrolyte Replacement - Potassium, 1 Each, DALJITCELLANEOUS, Pedro Luis ALAS Sean T, MD indocyanine green (IC-GREEN) injection 6.25 mg, 6.25 mg, Intravenous, Once Preprocedure, Fabian Holguin MD labetaloL (NORMODYNE) injection 10-20 mg, 10-20 mg, Intravenous, Q2H PRN, Royer Cloud MD lactated ringers infusion, , Intravenous, Continuous, Royer Cloud MD, Last Rate: 125 mL/hr at12/05/24 0904, Rate Verify at 12/05/24 0904 lactated ringers infusion, , Intravenous, Preprocedure Continuous, David Mckinney APRN morphine injection 1-2 mg, 1-2 mg, Intravenous, Q2H PRN OR morphine injection 3-4 mg, 3-4 mg, Intravenous, Q2H PRN, Royer Cloud MD mupirocin (BACTROBAN) 2 % ointment, , Nasal, BID, Royer Cloud MD, Given at 12/05/24 0806 nitroGLYCERIN (NITROSTAT) SL tablet 0.4 mg, 0.4 mg, Sublingual, Q5 Min PRN, Royer Cloud MD norepinephrine (LEVOPHED) 16 mg/250 mL (64 mcg/mL), 0.5-30 mcg/min, Intravenous, Titrated, Doug Ross MD, Last Rate: 21.6 mL/hr at 12/05/24 0913, 23 mcg/min at 12/05/24 0913 ondansetron (ZOFRAN) injection 4-8 mg, 4-8 mg, Intravenous, Q4H PRN, Royer Cloud MD oxyCODONE (ROXICODONE) immediate release tablet 5-10 mg, 5-10 mg, Oral, Q4H PRN OR oxyCODONE (ROXICODONE) 5 mg/5 mL solution 5-10 mg, 5-10 mg, Enteral, Q4H PRN, Royer Cloud MD piperacillin-tazobactam in dextrose (ZOSYN) IVPB 3.375 g, 3.375 g, Intravenous, 3 times per day, Royer Cloud MD, Stopped at 12/05/24 0755 potassium phosphate 24 mmol in dextrose 5% 150 mL IVPB - ICU/Cardiac Monitored, 24 mmol, Intravenous, Once, Royer Cloud MD, Last Rate: 25 mL/hr at 12/05/24 0904, Rate Verify at 12/05/24 0904 scopolamine (TRANSDERM-SCOP) 1 mg over 3 days 1 Patch, 1 Patch, Transdermal, Once Preprocedure, David Mckinney APRN sodium chloride 0.9% IV line flush 20-50 mL, 20-50 mL, Intravenous, PRN, Royer Cloud MD sodium chloride 0.9% IV line flush 50 mL, 50 mL, Intravenous, PRN, Doug Ross MD sodium chloride 0.9% syringe 10 mL, 10 mL, Intravenous, 3 times per day, Royer Cloud MD sodium chloride 0.9% syringe 5-10 mL, 5-10 mL, Intravenous, PRN, Doug Ross MD sodium chloride 0.9% syringe, , Intravenous, PRN, Royer Cloud MD vasopressin 0.4 unit/mL in dextrose 5% infusion, 0.01-0.04 Units/min, Intravenous, Titrated, Royer Cloud MD, Last Rate: 6 mL/hr at 12/05/24 09, 0.04 Units/min at 12/05/24 09 ICU MANAGEMENT Pain: Acetaminophen PRN, oxycodone PRN, morphine PRN Anxiety: Not reported by pt at this time Lines: PIV L AC, PIV L hand, PIV R AC, CVC triple lumen L IJ, A line RUE IVF: LR 125 mL/hr, w/Levophed and vasopressin Drains: N/a Tubes: N/a Stress Ulcer Prophylaxis: Famotidine 20 mg daily DVT Prophylaxis: Held pending OR, will initiate subq Lovenox postop Diet: NPO pending OR Buck: Urethral catheter Bowel Regimen: PRN Senna, Dulcolax Pneumonia Prophylaxis: HOB > 30; Oral care; Spirometry and pulmonary toilet Code Status: Full Code Disposition: SICU Bernadette Marshall MD Critical care time: 20 minutes. This was care delivered because one or more vital organ systems was impaired so that there was a high probability of imminent or life threatening deterioration in the patient???s condition. I instituted care that is considered a critical intervention because it involves high complexity decision making to assess, manipulate, and support vital organ system failure. This time was spent engaged in work directly related to the individual patient???s care either at the immediate bedside or elsewhere on unit. MEDICAL HISTORY HISTORY OF PRESENT ILLNESS Yanna Dutton is a 59 y.o. who came to the ED with vomiting, syncope, abdominal pain. Seen in ED 10/25 for RLQ pain and reports poor PO intake since this visit. Minimal PO intake since Thursday when pain become worse. Syncopal episode on day of admission. Nausea and vomiting. Previous . Denies hx HTN or pulm disease. PAST MEDICAL HISTORY Past Medical History: Diagnosis Date Arthritis Depression mild Hypertension Thyroid disease Urinary incontinence Botox fixed symptoms Vasodepressor syncope PAST SURGICAL HISTORY Past Surgical History: Procedure Laterality Date SECTION COSMETIC SURGERY brachioplasty, abdominal plasty KNEE JOINT MANIPULATION 02/15/2020 Surgeon: Hitesh Hilton MD; Location: [facility]; Service: Orthopedics THYROIDECTOMY TOTAL KNEE ARTHROPLASTY Left 02/15/2020 LEFT TOTAL KNEE ARTHROPLASTY cortizone injection right knee; Surgeon: Hitesh Hilton MD; Location: [facility]; Service: Orthopedics TOTAL KNEE ARTHROPLASTY Right 05/30/2020 RIGHT TOTAL KNEE ARTHROPLASTY; Surgeon: Hitesh Hilton MD; Location: [facility]; Service: Orthopedics MEDICATIONS Prior to Admission medications Medication Sig Start Date End Date Taking? Authorizing Provider buPROPion (WELLBUTRIN SR) 150 mg Oral tablet sustained-release 12 hr Take 150 mg by mouth 2 times daily. 12/19/21 Yes Provider, Historical FLUoxetine (PROZAC) 20 mg Oral Capsule Take 20 mg by mouth daily. 11/25/21 Yes Provider, Historical LEVOthyroxine (SYNTHROID) 200 mcg Oral Tablet Take 200 mcg by mouth daily. Yes Provider, Historical multivit-min/iron/folic/lutein (CENTRUM SILVER WOMEN ORAL) Take 1 Tablet by mouth daily. Yes Provider, Historical Cholecalciferol, Vitamin D3, (VITAMIN D3) 125 mcg (5,000 unit) Oral Tablet Take 5,000 mcg by mouth daily. Patient not taking: Reported on 10/25/2024 04/02/22 Renato Snow MD tolterodine (DETROL LA) 4 mg Oral Capsule, Sust. Release 24 hr Take 1 Cap by mouth daily. Patient not taking: Reported on 10/25/2024 08/04/19 Antoinette Larry MD ALLERGIES No Known Allergies SOCIAL HISTORY Social History Socioeconomic History Marital status: Spouse name: Not on file Number of children: Not on file Years of education: Not on file Highest education level: Not on file Occupational History Not on file Tobacco Use Smoking status: Former Current packs/day: 0.00 Average packs/day: 0.5 packs/day for 20.0 years (10.0 ttl pk-yrs) Types: Cigarettes Start date: 02/06/1983 Quit date: 02/06/2003 Years since quittin.8 Smokeless tobacco: Never Vaping Use Vaping status: Never Used Substance and Sexual Activity Alcohol use: Not on file Comment: socially Drug use: No Sexual activity: Yes Partners: Male Other Topics Concern Not on file Social History Narrative Not on file Social Drivers of Health Financial Resource Strain: Not on file Food Insecurity: Unknown (07/28/2023) [facility] [employer] [facility] Food Insecurities Worried about running out of food: Not on file Food Bought: Not on file Transportation Needs: Unknown (07/28/2023) Received from [facility] [employer] [facility] Transportation Worried about transportation: Not on file Physical Activity: Not on file Stress: Not on file Social Connections: Not on file Intimate Partner Violence: Unknown (07/28/2023) [facility] [email or web address] [facility] Interpersonal Safety Feel physically or emotionally unsafe where currently live: Not on file Harm by anyone: Not on file Emotionally Harmed: Not on file Housing Stability: Unknown (07/28/2023) Received from [facility] [employer] [facility] Housing/Utilities Worried about losing home: Not on file Stayed outside house: Not on file Unable to get utilities: Not on file FAMILY HISTORY Family History Problem Relation Age of Onset Arthritis Mother Cancer Mother Depression Mother Heart Disease Mother Arthritis Father Diabetes Father Heart Disease Father High Blood Pressure Father Anesth Problems Neg Hx REVIEW OF SYSTEMS Constitutional: Negative for fever, chills, HENT: Negative for congestion, sore throat Eyes: Negative for pain, redness Respiratory: Negative for cough, chest tightness, shortness of breath Cardiovascular: Negative for chest pain, palpitations Gastrointestinal: see HPI Genitourinary: Negative for dysuria, urgency, frequency Musculoskeletal: Negative for back pain, arthralgias Skin: Negative for rash and wound. Neurological: Negative for dizziness, weakness Hematological: Negative for bruise/bleed easily. Psychiatric/Behavioral: Negative for hallucinations, confusion EXAMINATION Vitals: 12/05/24 0827 12/05/24 0834 12/05/24 0900 12/05/24 0911 BP: BP Location: Patient Position: Pulse: 82 87 84 84 Resp: (!) 24 (!) 24 (!) 30 (!) 25 Temp: (!) 100.7 ??F (38.2 ??C) (!) 100.6 ??F (38.1 ??C) 100.2 ??F (37.9 ??C) 100.1 ??F (37.8 ??C) TempSrc: SpO2: 99% 98% 98% 92% Weight: Height: Constitutional: Vital signs are above. Appearance: alert, well appearing, and in no distress. Neurological: alert, oriented, normal speech, no focal findings or movement disorder noted, cranialnerves II through XII intact HEENT: Normocephalic. Nares patent. Normal external ear exam. Atraumatic Eyes: Right eye no discharge. Left eye no discharge. No scleral icterus. Neck: No tracheal deviation or tenderness. Cardiovascular: RRR, normal S1/S2 Pulmonary: No chest wall tenderness. Effort normal. No accessory muscle usage or stridor. No distress. Nasal canula in place. Gastrointenstinal: Abdomen soft and, moderately TTP RUQ. No distension. No rebound. Not guarding. Musculoskeletal: Intact range of motion. No edema. Skin: No rash. No cellulitis. Psychiatric: Appropriate mood and affect. DATA REVIEWED I have personally reviewed the following labs and studies. I looked at the actual images myself. 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: : 1965 Requested By: [facility] Order Number: [id number] Reading MD: Jared Herrera Measurements Intervals [place] Rate: 120 P: 59 GA: 157 QRS: 21 QRSD: 96 T: 48 QT: 325 QTc: 461 Interpretive Statements SINUS TACHYCARDIA POSSIBLE RIGHT VENTRICULAR CONDUCTION DELAY ABNORMAL RHYTHM ECG WHEN COMPARED TO PREVIOUS ECG:NO SIGNIFICANT CHANGES ARE NOTED Electronically Signed On 12-05-2024 08:16:16 EDT by Jared Herrera XR CHEST AP PORTABLE Result Date: 12/05/2024 XR CHEST AP PORTABLE, 12/05/2024 2:45 AM CLINICAL HISTORY: -line placement COMPARISON: 12/04/2024 PROCEDURE COMMENTS: AP portable technique. FINDINGS: Support devices: Left IJ catheter with tip lower SVC. Heart and mediastinal contours within normal limits for technique. No active failure, pneumonia, or visible effusion. No visible pneumothorax. No acute finding. - Note: Radiology results need to be interpreted within a comprehensive clinical context. If you have questions about the radiology report, please contact the office of the orderingclinician. US PUBLIC HEALTH SANITARIAN TECHNICIAN/HOSPITALIST BEDSIDE ULTRASOUND Result Date: 12/05/2024 [employer] Inspector Ultrasound performed at bedside. The study image(s) are for reference only and will notbe interpreted by a Radiologist. Refer to the same day procedure note for image description and procedure details. US PUBLIC HEALTH SANITARIAN TECHNICIAN/HOSPITALIST BEDSIDE ULTRASOUND Result Date: 12/05/2024 M[employer] Inspector Ultrasound performed at bedside. The study image(s) are for reference only and will notbe interpreted by a Radiologist. Refer to the same day procedure note for image description and procedure details. US PUBLIC HEALTH SANITARIAN TECHNICIAN/HOSPITALIST BEDSIDE ULTRASOUND Result Date: 12/05/2024 Molded Grid [employer] Inspector Ultrasound performed at bedside. The study image(s) are for reference only and will notbe interpreted by a Radiologist. Refer to the same day procedure note for image description and procedure details. CT ABD PEL ED FAST W CONTRAST Result Date: 12/05/2024 CT ABDOMEN AND PELVIS WITH CONTRAST (FAST), 12/05/2024 12:40 AM CLINICAL HISTORY: -abdominal pain. COMPARISON: 10/25/24. PROCEDURE COMMENTS: Multi-detector CT scanning of the abdomen and pelvis with multiplanar reformatting per expedited protocol. Isovue 370 IV contrast given as recorded in EPIC. Dose1 : CT DLP Total : 1495.04 mGycm DLP Spiral Max : 1492.98 mGycm Maximum CTDI Vol : 29.24 mGy FINDINGS: LOWER THORAX: Lung bases unremarkable. ABDOMEN AND PELVIS: Spleen, pancreas, kidneys, and adrenal glands unremarkable. No hydronephrosis. Gallbladder wall is edematous and inflamed. Trace pericholecystic fluid. 1.8 cm cystic focus within the adjacent liver. No bowel obstruction or acute inflammat ory process. No evidence of appendicitis. No abnormal mass, fluid, or adenopathy in the pelvis. No acute osseous abnormality. Findings concerning for acute cholecystitis with possible contained perforation or developing fluidcollection/abscess in the adjacent liver. Recommend surgical consultation. - Note: Radiology results need to be interpreted within a comprehensive clinical context. If you have questions about the radiology report, please contact the office of the ordering clinician. XR CHEST AP PORTABLE Result Date: 12/04/2024 XR CHEST AP PORTABLE, 12/04/2024 11:38 PM CLINICAL HISTORY: -Syncope COMPARISON: None. PROCEDURE COMMENTS: AP portable technique. FINDINGS: Support devices: No visible support devices. Heart and mediastinal contours within normal limits for technique. No active failure, pneumonia, or visible effusion. No visible pneumothorax. No acute finding. - Note: Radiology results need to be interpreted within a comprehensive clinical context. If you have questions about the radiology report, please contact the office of the orderingclinician. Cosigned by Jesika Zamarripa MD at 12/05/2024 4:08 PM EDT Associated attestation - Jesika Zamarripa MD - 12/05/2024 4:08 PM EDT SEP SURGICAL-CRITICAL CARE Yanna Dutton is a 59 y.o. female admitted 12/04*. She came into the emergency room with abdominalpain. She was diagnosed with septic shock and acute cholecystitis. We are asked to see this patientfor chief complaint of septic shock by Dr. Holguin. She went to OR after resuscitation in the morning with emergency general surgery. She tolerated that procedure well. PLANS SEPTIC SHOCK Status post source control with robotic assisted cholecystectomy Desire MAP greater than 65 mmHg Volume resuscitated; trend lactate, watch SILVESTRE, watch urine output Continue Levophed gtt. Continue vasopressin gtt. Continue broad-spectrum antibiotics SEVERE ACUTE CHOLECYSTITIS Status post above procedure today BUCK drain in place; trend outputs Trend daily LFT as per surgery Diet advancement to low-fat as discussed with surgery INTRA-ABDOMINAL ABSCESS Status post drainage during surgery Continue Zosyn 3.375 mg IV every 8 hours ESSENTIAL HYPERTENSION No AIRCRAFT MAINTENANCE SUPERVISOR meds MOOD DISORDER Start AIRCRAFT MAINTENANCE SUPERVISOR Wellbutrin SR 150 p.o. twice daily Start AIRCRAFT MAINTENANCE SUPERVISOR Prozac 20 mg p.o. daily HYPOTHYROIDISM Start AIRCRAFT MAINTENANCE SUPERVISOR Synthroid 200 mcg p.o. daily CLASS III OBESITY Complicates all aspects of care ICU MANAGEMENT Pain: Morphine IV as needed; oxycodone 5-10 every 4 as needed; acetaminophen 500-1000 every 6 as needed Sedation: None Lines: Left internal jugular triple-lumen catheter 12/05/2024; bilateral peripheral IVs; left radial A-line IVF: LR at 125 mL/h Drains: BUCK drain Tubes: None Stress Ulcer Prophylaxis: Pepcid 20 mg IV twice daily DVT Prophylaxis: Heparin 5000 units SQ 3 times daily Diet: Start low-fat diet when awake Buck: Accurate SILVESTRE Bowel Regimen: Dulcolax 10 mg suppository daily as needed; Senokot 1-2 p.o. twice daily Pneumonia Prophylaxis: HOB > 30; Oral care; Spirometry and pulmonary toilet Code Status: FULL Disposition: SICU Jesika Zamarripa MD Critical care time: 45 minutes; this was in addition to the time spent earlier today by the admitting physician. This was also separate from any time spent by the resident in the care of the patient. PHYSICAL EXAMINATION Vitals: 12/05/24 1430 12/05/24 1445 12/05/24 1448 12/05/24 1500 BP: BP Location: Patient Position: Pulse: 79 79 79 80 Resp: 20 20 20 (!) 26 Temp: 99.3 ??F (37.4 ??C) 99.5 ??F (37.5 ??C) 99.5 ??F (37.5 ??C) 99.6 ??F (37.6 ??C) TempSrc: SpO2: 99% 97% 97% 97% Weight: Height: Constitutional: Vital signs are above. Appearance is awake alert oriented. No distress Neurological: alert, oriented, normal speech, no focal findings or movement disorder noted, motor and sensory grossly normal bilaterally HEENT: Normocephalic. Atraumatic. Nares patent. Normal external ear exam. Eyes: Right eye no discharge. Left eye no discharge. No scleral icterus. Neck: No tracheal deviation. No tenderness. Lines sites clean Cardiovascular: Normal rate. Pulmonary: No chest wall tenderness. Effort normal. No accessory muscle usage or stridor. No distress. Gastrointenstinal: Abdomen soft and nontender. No distension. No rebound. Not guarding. Musculoskeletal: Intact range of motion. No edema. Skin: No rash. No cellulitis. Psychiatric: Blunted mood and affect. DATA REVIEWED I have personally reviewed the following labs and studies. I looked at the actual images myself. Lab Results Component Value Date WBC 30.0 (H) 12/05/2024 Lab Results Component Value Date HGB 12.7 12/05/2024 HGB 11.9 12/05/2024 HCT 39.0 12/05/2024 HCT 35.0 12/05/2024 Lab Results Component Value Date NA 133 (L) 12/05/2024 K 4.2 12/05/2024 CL 103 12/05/2024 CO2 20 (L) 12/05/2024 BUN 17 12/05/2024 CREATININE 0.91 12/05/2024 CALCIUM 8.6 12/05/2024 CT ABD PEL ED FAST W CONTRAST Result Date: 12/05/2024 CT ABDOMEN AND PELVIS WITH CONTRAST (FAST), 12/05/2024 12:40 AM CLINICAL HISTORY: -abdominal pain. COMPARISON: 10/25/24. PROCEDURE COMMENTS: Multi-detector CT scanning of the abdomen and pelvis with multiplanar reformatting per expedited protocol. Isovue 370 IV contrast given as recorded in EPIC. Dose1 : CT DLP Total : 1495.04 mGycm DLP Spiral Max : 1492.98 mGycm Maximum CTDI Vol : 29.24 mGy FINDINGS: LOWER THORAX: Lung bases unremarkable. ABDOMEN AND PELVIS: Spleen, pancreas, kidneys, and adrenal glands unremarkable. No hydronephrosis. Gallbladder wall is edematous and inflamed. Trace pericholecystic fluid. 1.8 cm cystic focus within the adjacent liver. No bowel obstruction or acute inflammat ory process. No evidence of appendicitis. No abnormal mass, fluid, or adenopathy in the pelvis. No acute osseous abnormality. Findings concerning for acute cholecystitis with possible contained perforation or developing fluidcollection/abscess in the adjacent liver. Recommend surgical consultation. - documented in this encounter H&P Notes * Fabian Johnson MD - 12/07/2024 3:35 PM EDT Images from the original note were not included. History & Physical PATIENT: Yanna Dutton : 1965 ADMIT DATE: 12/04/2024 11:19 PM PCP: Willard Hector MD CODE STATUS: Full Code CC: Chief Complaint Patient presents with Fever Mutiple LOC per EMS. Fever, HR 130s and first Bp 76/35. LR 150ML per EMS with Bp 80s/50 HPI: Yanna Dutton is a 59 y.o. female with PMH significant for HTN obesity osteoarthritis who presents with fevers and abdominal pain. Found to have septic shock with bacteremia secondary to cholecystitis with intrabadominal abscess. Underwent robotic cholecystectomy.Found to have liver abscess. Kept in SICU post op now stable for transfer to floor hospitalist service asked to assume care. Feeling better, tolerating diet, abdomen tender but improving, has BUCK in place. Review of Systems Constitutional: Positive for malaise/fatigue. Negative for fever. Eyes: Negative. Respiratory: Negative for shortness of breath. Cardiovascular: Negative for chest pain and leg swelling. Gastrointestinal: Positive for abdominal pain and nausea. Genitourinary: Negative for dysuria and hematuria. Neurological: Negative for dizziness and headaches. All other systems reviewed and are negative. All other systems reviewed and negative ALLERGIES: No Known Allergies HOME MEDS: Prior to Admission medications Medication Sig Start Date End Date Taking? Authorizing Provider buPROPion (WELLBUTRIN SR) 150 mg Oral tablet sustained-release 12 hr Take 150 mg by mouth 2 times daily. 12/19/21 Yes Provider, Historical diphenhydrAMINE (BENADRYL) 25 mg Oral Capsule Take 25 mg by mouth nightly as needed (sleep). Yes Provider, Historical FLUoxetine (PROZAC) 20 mg Oral Capsule Take 20 mg by mouth daily. 11/25/21 Yes Provider, Historical LEVOthyroxine (SYNTHROID) 200 mcg Oral Tablet Take 200 mcg by mouth daily. Yes Provider, Historical LEVOthyroxine (SYNTHROID) 88 mcg Oral Tablet Take 88 mcg by mouth daily. 11/07/24 Yes Provider, Historical multivit-min/iron/folic/lutein (CENTRUM SILVER WOMEN ORAL) Take 1 Tablet by mouth daily. Yes Provider, Historical Cholecalciferol, Vitamin D3, (VITAMIN D3) 125 mcg (5,000 unit) Oral Tablet Take 5,000 mcg by mouth daily. Patient not taking: Reported on 10/25/2024 04/02/22 Renato Snow MD PMH: Past Medical History: Diagnosis Date Arthritis Depression mild Hypertension Thyroid disease Urinary incontinence Botox fixed symptoms Vasodepressor syncope SURGICAL HX: Past Surgical History: Procedure Laterality Date SECTION CHOLECYSTECTOMY N/A 12/05/2024 DAVINCI ROBOTIC CHOLECYSTECTOMY; Surgeon: Fabian Holguin MD; Location: [facility]; Service:General COSMETIC SURGERY brachioplasty, abdominal plasty KNEE JOINT MANIPULATION 02/15/2020 Surgeon: Hitesh Hilton MD; Location: [facility]; Service: Orthopedics THYROIDECTOMY TOTAL KNEE ARTHROPLASTY Left 02/15/2020 LEFT TOTAL KNEE ARTHROPLASTY cortizone injection right knee; Surgeon: Hitesh Hilton MD; Location: [facility]; Service: Orthopedics TOTAL KNEE ARTHROPLASTY Right 05/30/2020 RIGHT TOTAL KNEE ARTHROPLASTY; Surgeon: Hitesh Hilton MD; Location: [facility]; Service: Orthopedics FHX: Family History Problem Relation Age of Onset Arthritis Mother Cancer Mother Depression Mother Heart Disease Mother Arthritis Father Diabetes Father Heart Disease Father High Blood Pressure Father Anesth Problems Neg Hx SOCIAL HX: Social History Tobacco Use Smoking status: Former Current packs/day: 0.00 Average packs/day: 0.5 packs/day for 20.0 years (10.0 ttl pk-yrs) Types: Cigarettes Start date: 02/06/1983 Quit date: 02/06/2003 Years since quittin.8 Smokeless tobacco: Never Substance Use Topics Alcohol use: Not on file Comment: socially VITAL SIGNS: Current Temp: 98.2 ??F (36.8 ??C) BP: 106/63 HR: 66 Resp: 16 SpO2: 93 % Body mass index is 44.51 kg/m??. Wt Readings from Last 1 Encounters: 12/06/24 259 lb 4.8 oz (117.6 kg) Physical Exam Constitutional: General: She is not in acute distress. Appearance: She is obese. Cardiovascular: Rate and Rhythm: Normal rate. Heart sounds: Normal heart sounds. Pulmonary: Effort: Pulmonary effort is normal. Breath sounds: No wheezing or rales. Abdominal: Palpations: Abdomen is soft. Tenderness: There is abdominal tenderness (appropriate). Comments: Surgical incisions well healing, small umbilical hernia which is reducible, BUCK with scantserosang output Musculoskeletal: Right lower leg: No edema. Left lower leg: No edema. Skin: General: Skin is warm and dry. Neurological: Mental Status: She is alert. Mental status is at baseline. Radiology/ Procedures/Labs: Pertinent imaging and laboratory studies were reviewed. ACTIVE PROBLEM LIST/ ASSESSMENT/ PLAN: Assessment & Plan Cholecystitis S/p DAVINCI ROBOTIC CHOLECYSTECTOMY with Dr Holguin on 12/05 Post op management per surgery BUCK remains in place Diet: LOW FAT DIET Monitor and replace lytes PRN Analgesia Mobilize as able Intra-abdominal abscess (HCC) E coli bacteremia Septic shock (HCC) Acute cystitis without hematuria Liver abscess CT on admission with acute cholecystitis with possible contained perforation or developing fluid collection/abscess in the adjacent liver. S/p cholecystectomy as noted above WBC improving Afebrile Blood cultures 12/04/24 w ecoli Urine culture 12/04 with Ecoli ID consulted On rocephin Benign essential HTN Stable Obesity, Class III, BMI 40-49.9 (morbid obesity) Complicates care Hypothyroidism Continue synthroid Check TSH Diet: LOW FAT DIET Qualifying Pharmacologic Prophylaxis heparin, porcine (PF) injection 5,000 Units 3 times per day The following is intended for medical coding purposes only Medical Complexity This patient is actively being treated for liver abscess which carries a significantly increased risk of morbidity and without treatment may pose a threat to life or body function. Level of Risk N/A Data Complex data reviewed including CBC BMP cultures CT A/P and The patient's prior external notes/records were reviewed including surgical notes op notes ID pended notes I have discussed management of the patient with Roger from SICU team, stable for transfer to floor, will assume care Fabian Johnson MD * Royer Cloud MD - 12/05/2024 1:15 AM EDT SURGICAL CRITICAL CARE H&P Yanna Dutton is a 59 y.o. female admitted 12/04* perforated cholecystitis We are asked to see this patient for chief complaint of septic shock by Dr. Zamarripa. PLAN - Trend lactate - start norepi for hypotension from septic shock. Goal MAP is greater than 65. Can add vasopressin if norepi requirements increase above 10 mcg/min - fluid resuscitation - tylenol, oxycodone and IV PRNs for pain control. - NPO for possible OR. EGS consulted and aware of patient. - buck catheter to follow UOP - labs ordered and reviewed: CBC, BMP, mag, phos, lactate. Lactate elevated to 4.5, procal also significantly elevated. Multiple electrolyte abnormalities on BMP, K down to 2.8. BUN and Cr WNL. H&H and plt count stable. WBC WNL. - stop vanc, cefepime and flagyl, start Zosyn for coverage of abdominal sepsis. - trend WBC and fever curve. - replace electrolytes. - levophed running through peripheral on arrival. Central and arterial line placed by myself. Procedures documented elsewhere in EMR. PROBLEM LIST Septic shock from perforated cholecystitis - Fluid resuscitation - Broad spectrum antibiotics initiated - cultures obtained, follow results, de-escalate antibiotics as able. - titrate vasopressors for BP support: Norepi titratable, vasopressin at 0.03 if needed. - follow UOP - trend lactate - trend procal levels as needed. 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 This was care delivered because one or more vital organ systems was impaired so that there was a high probability of imminent or life threatening deterioration in the patient???s condition. I instituted care that is considered a critical intervention because it involves high complexity decision making to assess, manipulate, and support vital organ system failure. This time was spent engaged in work directly related to the individual patient???s care either at the immediate bedside or elsewhereon unit. MEDICAL HISTORY HISTORY OF PRESENT ILLNESS Presented with 2-3 day history of abdominal pain. It is located in the RUQ and is dull it does not radiate. It is exacerbated by moving, there are no alleviating factors. She endorses nausea, vomiting and lightheadedness. She denies diarrhea, cough, shortness of breath or chest pain. PAST HISTORY Past Medical History: Diagnosis Date Arthritis Depression mild Hypertension Thyroid disease Urinary incontinence Botox fixed symptoms Vasodepressor syncope Past Surgical History: Procedure Laterality Date SECTION COSMETIC SURGERY brachioplasty, abdominal plasty KNEE JOINT MANIPULATION 02/15/2020 Surgeon: Hitesh Hilton MD; Location: [facility]; Service: Orthopedics THYROIDECTOMY TOTAL KNEE ARTHROPLASTY Left 02/15/2020 LEFT TOTAL KNEE ARTHROPLASTY cortizone injection right knee; Surgeon: Hitesh Hilton MD; Location: [facility]; Service: Orthopedics TOTAL KNEE ARTHROPLASTY Right 05/30/2020 RIGHT TOTAL KNEE ARTHROPLASTY; Surgeon: Hitesh Hilton MD; Location: [facility]; Service: Orthopedics No Known Allergies Social History Socioeconomic History Marital status: Spouse name: Not on file Number of children: Not on file Years of education: Not on file Highest education level: Not on file Occupational History Not on file Tobacco Use Smoking status: Former Current packs/day: 0.00 Average packs/day: 0.5 packs/day for 20.0 years (10.0 ttl pk-yrs) Types: Cigarettes Start date: 02/06/1983 Quit date: 02/06/2003 Years since quittin.8 Smokeless tobacco: Never Vaping Use Vaping status: Never Used Substance and Sexual Activity Alcohol use: Not on file Comment: socially Drug use: No Sexual activity: Yes Partners: Male Other Topics Concern Not on file Social History Narrative Not on file Social Drivers of Health Financial Resource Strain: Not on file Food Insecurity: Unknown (07/28/2023) Received from [facility] Food Insecurities Worried about running out of food: Not on file Food Bought: Not on file Transportation Needs: Unknown (07/28/2023) [facility] [employer] [facility] Transportation Worried about transportation: Not on file Physical Activity: Not on file Stress: Not on file Social Connections: Not on file Intimate Partner Violence: Unknown (07/28/2023) Received from [facility] [employer] [facility] Interpersonal Safety Feel physically or emotionally unsafe where currently live: Not on file Harm by anyone: Not on file Emotionally Harmed: Not on file Housing Stability: Unknown (07/28/2023) Received from [facility] [employer] [facility] Housing/Utilities Worried about losing home: Not on file Stayed outside house: Not on file Unable to get utilities: Not on file Family History Problem Relation Age of Onset Arthritis Mother Cancer Mother Depression Mother Heart Disease Mother Arthritis Father Diabetes Father Heart Disease Father High Blood Pressure Father Anesth Problems Neg Hx Prior to Admission medications Medication Sig Start Date End Date Taking? Authorizing Provider amoxicillin (AMOXIL) 500 mg Oral Capsule Take 2 grams one hour prior to procedure Patient not taking: Reported on 10/25/2024 01/22/21 Hitesh Hilton MD buPROPion (WELLBUTRIN SR) 150 mg Oral tablet sustained-release 12 hr 12/19/21 Provider, Historical Cholecalciferol, Vitamin D3, (VITAMIN D3) 125 mcg (5,000 unit) Oral Tablet Take 5,000 mcg by mouth daily. Patient not taking: Reported on 10/25/2024 04/02/22 Renato Snow MD ciprofloxacin HCl (CIPRO) 500 mg Oral Tablet Take 1 tab 24hr prior to procedure and take 1 tab 24hrafter procedure. Patient not taking: Reported on 10/25/2024 02/01/21 Antoinette Larry MD ciprofloxacin HCl (CIPRO) 500 mg Oral Tablet Take 1 tab 24hr prior to procedure and take 1 tab 24hrafter procedure. Patient not taking: Reported on 10/25/2024 07/09/20 Antoinette Larry MD citalopram (CELEXA) 20 mg Oral Tablet Take 20 mg by mouth daily. Patient not taking: No sig reported Provider, Historical diazePAM (VALIUM) 2 mg Oral Tablet Take 1 tab 30-60 minutes prior to procedure. Patient not taking: Reported on 10/25/2024 02/04/21 Judy Miguel APRN docusate sodium (COLACE) 100 mg Oral Capsule Take 1 Cap by mouth 2 times daily as needed for Constipation. Patient not taking: Reported on 10/25/2024 05/30/20 Hitesh Hilton MD ergocalciferol (DRISDOL) 50,000 unit Oral Capsule Take by mouth once a week. Provider, Historical FLUoxetine (PROZAC) 20 mg Oral Capsule 11/25/21 Provider, Historical LEVOthyroxine (SYNTHROID) 200 mcg Oral Tablet Take by mouth daily. Provider, Historical LEVOTHYROXINE SODIUM (SYNTHROID ORAL) Take by mouth. Patient not taking: Reported on 10/25/2024 Provider, Historical LISINOPRIL ORAL Take by mouth. Patient not taking: Reported on 10/25/2024 Provider, Historical losartan-hydrochlorothiazide (HYZAAR) 100-12.5 mg Oral Tablet Take 1 Tablet by mouth daily. Patient not taking: Reported on 10/25/2024 Provider, Historical meclizine (ANTIVERT) 25 mg tablet Take 1 Tab by mouth 3 times daily as needed for Dizziness. Patient not taking: Reported on 10/25/2024 04/28/11 Tracey Liriano MD multivit-min/iron/folic/lutein (CENTRUM SILVER WOMEN ORAL) Take by mouth daily. Provider, Historical oxyCODONE (ROXICODONE) 5 mg Oral Tablet Take 1-2 Tabs by mouth every 4 hours as needed for Major Surgery/Trauma (G89.18). Patient not taking: Reported on 02/25/2022 05/30/20 Hitesh Hilton MD tolterodine (DETROL LA) 4 mg Oral Capsule, Sust. Release 24 hr Take 1 Cap by mouth daily. Patient not taking: Reported on 10/25/2024 08/04/19 Antoinette Larry MD REVIEW OF SYSTEMS Constitutional: positive for fever, chills, HENT: Negative for congestion, sore throat Eyes: Negative for pain, redness Respiratory: Negative for cough, chest tightness, shortness of breath Cardiovascular: Negative for chest pain, palpitations Gastrointestinal: positive for RUQ pain and nausea, negative for diarrhea Genitourinary: Negative for dysuria, urgency, frequency Musculoskeletal: positive for back pain, arthralgias Skin: Negative for rash and wound. Neurological: positive for dizziness, weakness Hematological: Negative for bruise/bleed easily. Psychiatric/Behavioral: Negative for hallucinations, confusion EXAMINATION Vitals: 12/05/24 0100 12/05/24 0101 12/05/24 0103 12/05/24 0104 BP: (!) 87/58 Pulse: 112 112 111 111 Resp: (!) 24 (!) 25 (!) 27 (!) 26 Temp: TempSrc: SpO2: 93% 93% 96% 95% Weight: Constitutional: Vital signs are above. Appearance: acyanotic, in no respiratory distress. Neurological: motor and sensory grossly normal bilaterally HEENT: Normocephalic. Nares patent. Normal external ear exam. Atraumatic Eyes: Right eye no discharge. Left eye no discharge. No scleral icterus. Neck: No tracheal deviation or tenderness. Cardiovascular: tachycardic Pulmonary: No chest wall tenderness. Effort normal. No accessory muscle usage or stridor. No distress. Gastrointenstinal: Abdomen soft and diffusely tender. No distension. No rebound. Not guarding. Musculoskeletal: normal range of motion. Skin: No cellulitis. Psychiatric: normal mood and affect. DATA REVIEWED I have personally reviewed the following labs and studies. I looked at the actual images myself. Lab Results Component Value Date WBC 4.5 12/04/2024 Lab Results Component Value Date HGB 14.0 12/04/2024 HCT 42.4 12/04/2024 Lab Results Component Value Date NA 135 (L) 12/04/2024 K 2.8 (LL) 12/04/2024 CL 97 (L) 12/04/2024 CO2 20 (L) 12/04/2024 BUN 14 12/04/2024 CREATININE 1.14 12/04/2024 CALCIUM 8.8 12/04/2024 CT ABD PEL ED FAST W CONTRAST Result Date: 12/05/2024 CT ABDOMEN AND PELVIS WITH CONTRAST (FAST), 12/05/2024 12:40 AM CLINICAL HISTORY: -abdominal pain. COMPARISON: 10/25/24. PROCEDURE COMMENTS: Multi-detector CT scanning of the abdomen and pelvis with multiplanar reformatting per expedited protocol. Isovue 370 IV contrast given as recorded in EPIC. Dose1 : CT DLP Total : 1495.04 mGycm DLP Spiral Max : 1492.98 mGycm Maximum CTDI Vol : 29.24 mGy FINDINGS: LOWER THORAX: Lung bases unremarkable. ABDOMEN AND PELVIS: Spleen, pancreas, kidneys, and adrenal glands unremarkable. No hydronephrosis. Gallbladder wall is edematous and inflamed. Trace pericholecystic fluid. 1.8 cm cystic focus within the adjacent liver. No bowel obstruction or acute inflammat ory process. No evidence of appendicitis. No abnormal mass, fluid, or adenopathy in the pelvis. No acute osseous abnormality. Findings concerning for acute cholecystitis with possible contained perforation or developing fluidcollection/abscess in the adjacent liver. Recommend surgical consultation. - Note: Radiology results need to be interpreted within a comprehensive clinical context. If you have questions about the radiology report, please contact the office of the ordering clinician. XR CHEST AP PORTABLE Result Date: 12/04/2024 XR CHEST AP PORTABLE, 12/04/2024 11:38 PM CLINICAL HISTORY: -Syncope COMPARISON: None. PROCEDURE COMMENTS: AP portable technique. FINDINGS: Support devices: No visible support devices. Heart and mediastinal contours within normal limits for technique. No active failure, pneumonia, or visible effusion. No visible pneumothorax. No acute finding. - Note: Radiology results need to be interpreted within a comprehensive clinical context. If you have questions about the radiology report, please contact the office of the orderingclinician. EK EKG 12 LEAD Result Date: 12/04/2024 NOTICE: Preliminary tracing available for review; Final Interpretation by physician to follow. 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 Patient was informed of risks and benefit of procedure and verbal consent was given. Ultrasound interrogation performed of the basilic vein. It is shown to be patent and compressible and appropriate size. This was documented with a permanent image. The catheter was placed using all elements of maximal sterile barrier technique as well as all elements of sterile ultrasound technique. Following sterile skin preparation and local anesthesia under ultrasound guidance the vein was punctured. This allowed guide wire and introducer sheath insertion. Through the introducer sheath a PICC was inserted. Catheter tip was positioned in the lower 1/3 cavoatrial junction per (measurement/3cg technology.) Catheter was cut to 41 cm (with internal measurement at 40 cm. ) Catheter aspirated and flushed freely. The catheter was secured to the skin surface. Sterile CHG dressing was applied over insertion site. Lumens were flushed, locked, and port protector caps in place. Patient tolerated the procedure well. * Fabian Holguin MD - 12/05/2024 6:23 PM EDT SURGERY OP NOTE DATE: 12/05/2024 PREOP: Acute cholecystitis POSTOP: Acute cholecystitis with liver abscess PROCEDURE: Procedure(s): DAVINCI ROBOTIC CHOLECYSTECTOMY SURGEON: Surgeons and Role: * Fabian Holguin MD - Primary POLE CLIMBER: Lianne Garzon PA-C ANESTHETIC: General EBL: 50 ml from 12/05/2024 10:11 AM to 12/05/2024 1:12 PM IVF: * No values recorded between 12/05/2024 10:11 AM and 12/05/2024 1:12 PM * SPEC: ID Type Source Tests Collected by Time Destination 1 : gallbladder with contents Tissue Gallbladder PATHOLOGY TISSUE REQUEST Fabian Holguin MD 12/05/2024 1214 DRAINS: 19french [place] Drain STAFF: Side Seam Machine Operator: Wendy Mcneil, RN Physician Special Events Manager: Lianne Garzon PA-C Relief Side Seam Machine Operator: Navneet Jones RN Relief Scrub Lerma: Juancarlos Goldman RN Scrub [place]: Burns, Shobha R, OVERHEAD CRANE TRUCK LOADER Turn Over Kitchen And Bath Designer: Isaias Ruiz NA; Betty Blackwell, TONG 2nd Side Seam Machine Operator: Navneet Jones RN LOCATION: [facility] MAIN OR OR: [facility] OR9 SPECIFIC DESCRIPTION OF PROCEDURE: After informed consent was obtained, the patient was identified in the preoperative holding area and then brought to the OR and laid in a supine position on the operating room table. General anesthesia was obtained. Once enough time had elapsed for anesthetic to take effect, the patient's abdomen was prepped and draped in the standard surgical fashion, using chlorhexidine, sterile towels, and sterile drapes. A time out was observed to identify the correct site of operation and the fact that PQRI measures were fulfilled. I began by injecting local anesthetic to the left upper quadrant approximately 2cm from the costal margin and then I made a stab incision and optiviewed into the abdomen with an 8mm port. I then insufflated the abdomen without issue and noted no injuries to intra-peritoneal contents below this site. I then placed three additional 8mm ports in a line down and across the abdomen to the right lower quadrant at least 10cm between each port; these were placed by first injecting local anesthetic, making a stab incision, then inserting the port under laparoscopic supervision while my audiology assistant held the camera. The robot was then docked and I moved to the robot console. The gallbladder appeared very inflamed and had significant adhesions to the omentum. I dissected the gallbladder off the omentum with bluntand electrocautery dissection, carrying this down the gallbladder. I grasped the dome of the gallbladder and retracted this over the liver but had difficulty with this due to how distended the gallbladder was so I fenestrated the dome with electrocautery and suctioned out clear mucoid fluid. I nextgrasped the infundibulum and retracted this to continue my dissection at the base of the gallbladder where I encountered intense inflammation and felt that I could not safely dissect out the cystic tr iangle in this manner. I next performed a dome down dissection of the gallbladder and, during this, encountered an abscesswith darius pus towards the base of the gallbladder. I continued this dissection, until the entire gallbladder was dissected off the liver and noted the posterior aspect at the base of the gallbladderwhere it apposed the abscess was necrotic and the gallbladder did grossly perforate here with a single large stone noted in the gallbladder; there was rank spillage of the gallbladder contents with this. During this dissection, I also encountered the cystic artery and I cauterized this with bipolarenergy as I brought it down off the gallbladder. At the base of the gallbladder I encountered a very short structure going into the gallbladder with no other obvious candidates for the cystic duct and I noted no bile coming out of this. I attempted to dissect this area further but felt this was unsafe due to potential injury to other structures so abandoned this. I placed two clips on the cystic duct and divided the gallbladder base above this with electrocautery. Once this was done, I placed the gallbladder and the stone in an endoscopic specimen bag and this was removed from the abdomen through the left upper-most port site by my audiology assistant. I obtained hemostasis in the gallbladder fossa and evaluated the cystic duct and artery, noting no bleeding or bile leaks. I suctioned out all of the mucous, blood, and pus then irrigated the gallbladder fossa and entire right upper quadrant thoroughly, repeatedly irrigating and suctioning until the fluid ran clear. The robot was undocked and I scrubbed back in at this time. I placed a drain through one of the port sites and laid this into the gallbladder fossa. The abdomen was then desufflated and the ports were removed. I sutured the drain in place with a 2-0 silk drain stitch and I closed the fascia of the left upper-most port site with an 0 vicryl figure of 8 suture while my audiology assistant retracted the skin. The skin incisions were then closed with 4-0 absorbable subcuticular sutures and skin glue by dhiraj. At the end of the procedure, all sponge, needle and instrument counts were correct. This case took 40 minutes longer than anticipated due to the level of inflammation making the dissection difficult as well as the abscess I encountered requiring additional time to clean out and place a drain. Thus, the 22 modifier is justified. * Fabian Holguin MD - 12/05/2024 12:41 PM EDT [facility] OPERATIVE/PROCEDURE NOTE Yanna Dutton Neftali December 05, 2024 Body mass index is 44.27 kg/m??. PRE-OP DIAGNOSIS: acute cholecystitis POST-OP DIAGNOSIS: acute cholecystitis with liver abscess PROCEDURE(S): Procedure(s): DAVINCI ROBOTIC CHOLECYSTECTOMY SURGEON(S): Surgeons and Role: * Fabian Holguin MD - Primary POLE CLIMBER(S): Lianne Garzon PA-C ANESTHESIA: General SPECIMENS: ID Type Source Tests Collected by Time Destination 1 : gallbladder with contents Tissue Gallbladder PATHOLOGY TISSUE REQUEST Fabian Holguin MD 12/05/2024 1214 ESTIMATED BLOOD LOSS (mls): 50 *EBL MUST be documented as a numeric value FINDINGS: Very inflamed gallbladder with hydrops and large stone. liver abscess noted to posterior gallbladder at base. drain placed. DISPOSITION/POST PROC COURSE: back to SICU, drain care, ok for low fat diet from surgical standpoint but will defer to SICU based on pressor requirement Fabian Holguin MD Date: 12/05/2024 * Royer Cloud MD - 12/05/2024 2:57 AM EDT Central Line Placement DATE OF PROCEDURE: 12/05/2024 NAME: Yanna Dutton : 1965 AGE: 59 y.o. CENTRAL LINE PLACEMENT NOTE: Central line placement Date/Time: 12/05/2024 2:57 AM Patient location: ICU Indication: Central Venous Access, CVP monitoring and Cardiac Pacing Ultrasound guided: Ultrasound guided Sterility prep: Provider hand hygiene prior to procedure, Provider used sterile gloves, gown, hat, mask and Sterile full body drape was used Skin Prep: Chloraprep Patient position: Trendelenburg Local anesthetic: Injectable Laterality: Left Site: Internal jugular Catheter length: 20 cm Catheter type: Triple Lumen CVC Seldinger technique: Yes Intravenous verification: Ultrasound, X-ray and Venous blood return Insertion attempts: 1 Post insertion: All ports aspirated, Biopatch was applied, All ports flushed easily, Line was sutured in place, Guidewire was removed intact and Sterile dressing applied Events: Patient tolerated well with no complications Central line comments: Appropriate position confirmed by CXR. OK to use LIJ CVC Royer Cloud MD, PhD Departments of Anesthesiology and Surgical Critical Care * Royer Cloud MD - 12/05/2024 2:56 AM EDT Arterial Line Placement DATE OF PROCEDURE: 12/05/2024 NAME: Yanna Dutton : 1965 AGE: 59 y.o. A-LINE PLACEMENT NOTE: A-line placement Date/Time: 12/05/2024 2:56 AM Patient location: ICU Indication: Continuous blood pressure monitoring and blood sampling needed Ultrasound guided: Ultrasound guided Sterility prep: Provider hand hygiene prior to procedure, Provider used sterile gloves, gown, hat, mask and Sterile full body drape was used Skin Prep: Chloraprep Local Anesthetic: Lidocaine 1% 5ml interdermal Catheter size: 20 guage Catheter length: 1 and 3/4 inch Catheter type: Arrow Seldinger technique: Yes Laterality: Right Site: Radial Insertion attempts: 1 Post insertion: Tegaderm Events: Patient tolerated procedure well with no complications A-Line comments: Adequate collateral circulation confirmed by Lenny test. Royer Cloud MD, PhD Departments of Anesthesiology and Surgical Critical Care documented in this encounter Consult Notes * Mike Kauffman MD - 12/07/2024 10:20 AM EDTAssociated Order(s): IP CONSULT TO INFECTIOUS DISEASES SEP Infectious Diseases Consult Note Date of Admission: 12/04/2024 Date of Consultation: 12/07/2024 Consulting Physician: Carrie Rosenberg APRN Referring Physician: Royer Cloud MD Primary Care Physician: Willard Hector MD Reason for Consult: bacteremia HPI: Yanna Dutton is a 59 y.o. female with a PMH of hypertension, depression, arthritis, thyroid disease , who presented to the ED on 12/04/24 for right upper quadrant abdominal pain, nausea, vomiting andmultiple syncopal episodes. She reported the abdominal pain, nausea, and vomiting started 3 days prior to coming to the hospital. She is unsure of fever but reported chills and generalized weakness, overall was feeling poorly. She lost consciousness 2-3 times which is what prompted her son to call EMS. ED vitals were as follows:BP 87/58, Pulse 111, Temp 99.5 ??F, Resp 26, SpO2 95%. Initial findings were significant for elevated lactic acid and procalcitonin, UA with 110 WBCs, 3+ bacteria, 1+ blood, negative COVID/Flu, and hypokalemia. CT abdomen pelvis was concerning for acute cholecystitis with possible abscess adjacent to the liver. Surgery was consulted and patient was admitted to SICU. On 12/05/24 she underwent Robotic DaVinci cholecystectomy by Dr. Holguin per OP note: very inflamed gallbladder with hydrops and large stone. Liver abscess noted to posterior gallbladder at base. BUCK drain placed in gallbladder fossa. Blood cultures done and 1 of 2 (peripheral) and urine culture with herrera-susceptible E.coli. Patient was placed on IV PIP/TAZO and Infectious Diseases is now asked to see in consultation regarding further antibiotics therapy On exam patient is sitting comfortably on the side of the bed, on room air. Reports some mild abdominal pain and bloating however, feels much improved from when she came in. She is having 2-3 loose bowel movements in a day. Says she is tolerating antibiotics well. Denies any recent chills, body aches, fever. She lives at home independently with her son. She denies any tobacco use, alcohol use, orillicit drugs. She does have history of bilateral knee arthroplasty but denies any pain or swellingat this time. Past Medical History: Diagnosis Date Arthritis Depression Hypertension Thyroid disease Urinary incontinence Botox fixed symptoms Vasodepressor syncope Past Surgical History: Procedure Laterality Date SECTION COSMETIC SURGERY brachioplasty, abdominal plasty KNEE JOINT MANIPULATION 02/15/2020 Surgeon: Hitesh Hilton MD; Location: [facility] MAIN OR; Service: Orthopedics THYROIDECTOMY TOTAL KNEE ARTHROPLASTY Left 02/15/2020 LEFT TOTAL KNEE ARTHROPLASTY cortizone injection right knee; Surgeon: Hitesh Hilton MD; Location: ED MAIN OR; Service: Orthopedics TOTAL KNEE ARTHROPLASTY Right 05/30/2020 RIGHT TOTAL KNEE ARTHROPLASTY; Surgeon: Hitesh Hilton MD; Location: ED MAIN OR; Service: Orthopedics ALLERGY: No Known Allergies MAR: I REVIEWED ALL HER MEDICATIONS AND ON PIP/TAZO Family History Problem Relation Age of Onset Arthritis Mother Cancer Mother Depression Mother Heart Disease Mother Arthritis Father Diabetes Father Heart Disease Father High Blood Pressure Father Social History Socioeconomic History Marital status: Tobacco Use Smoking status: Former Average packs/day: 0.5 packs/day for 20.0 years (10.0 ttl pk-yrs) Types: Cigarettes Start date: 02/06/1983 Quit date: 02/06/2003 Years since quittin.8 Smokeless tobacco: Never Vaping Use Vaping status: Never Used Substance and Sexual Activity Alcohol use: SOCIALLY Drug use: No Sexual activity: Yes Partners: Male Review of Systems: Constitutional: + fever, chills, feels ill, generalized weakness negative for night sweats 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: + 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 Negative for dizzy/vertigo, headache, focal weakness, numbness/tingling, speech problems, 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, confusion, memory loss ENT: no rhinorrhea Eyes: No drainage Resp: negative for cough, hemoptysis, shortness of breath, pleuritic chest pain, wheezing CVS: negative for palpitations, chest pain, paroxysmal nocturnal dyspnea, orthopnea, lower extremity edema GI: + abdominal pain, nausea, vomiting, diarrhea Denies blood in stool Urinary: no dysuria, trouble voiding or hematuria Genital: negative for genital discharge and genital rash MSK: No pain, redness or swelling on the joints Skin: negative for bruising, jaundice, lacerations and rash Endocrine: No heat intolerance and No cold intolerance Patient Vitals for the past 24 hrs: BP Temp Temp src Pulse Resp SpO2 12/07/24 0929 106/63 98.2 ??F (36.8 ??C) Oral 66 16 93 % 12/06/24 2044 116/67 98 ??F (36.7 ??C) Oral 72 16 95 % 12/06/24 1843 120/67 98.3 ??F (36.8 ??C) Oral 64 16 95 % 12/06/24 1700 101/69 97.7 ??F (36.5 ??C) Temporal 71 16 92 % 12/06/24 1200 96/65 97.9 ??F (36.6 ??C) Temporal 58 18 91 % Weight: 259 lb 4.8 oz (117.6 kg) Immunization History Administered Date(s) Administered Moderna SARS-CoV-2 Booster Vaccine 18+ Yrs (Light Blue Border) 06/14/2021 Pfizer SARS-CoV-2 Vaccine 12+ Yrs (Purple Cap) 10/05/2020, 10/26/2020 Pfizer SARS-CoV-2 Vaccine Michael-sucrose 12+ Yrs 05/06/2024 Physical Exam: VITAL SIGNS ABOVE AND REVIEWED General Appearance: Alert, cooperative, no distress, on room air Head: Normocephalic, without obvious abnormality, atraumatic Eyes: conjunctiva/corneas clear Nose: Nares normal, no drainage Sinuses: Sinus tenderness not present Mouth: mucosa moist, no oral lesions Lungs: clear to auscultation and percussion, no wheezes and no crackles Heart: Regular rate and rhythm, S1 and S2 normal, no murmur, rub or gallop Abdomen: Soft, mild tenderness, bowel sounds active all four quadrants, 3 abdominal incision closedwith skin glue, + BUCK drain- serosanguinous drainage Extremities: No BLE edema, trace non-pitting edema BUE Skin: no rashes or lesions Lymph nodes: No Submandibular LAD Neurologic: Alert and oriented x 4 , speech is clear and fluent. Cranial nerves intact. PERRLA,EOMI. Moves all 4 extremities and no focal weakness, sensory intact and reflexes are normal Labs: Lab Results Component Value Date WBC 11.6 (H) 12/07/2024 HGB 10.3 (L) 12/07/2024 HCT 31.2 (L) 12/07/2024 MCV 92.3 12/07/2024 PLT 162 12/07/2024 Lab Results Component Value Date GLU 70 12/07/2024 NA 140 12/07/2024 K 3.2 (L) 12/07/2024 CO2 27 12/07/2024 CL 104 12/07/2024 BUN 15 12/07/2024 CREATININE 0.55 12/07/2024 Glucose: 70 MICROBIOLOGY DATA: -12/07/24: Anaerobic cx: pending collection -12/07/24: Wound cx: pending collection -12/07/24: Blood culture (peripheral and central): pending collection -12/07/24: Tbili: 0.6, AST: 29, ALT: 43, Alk Phos: 132 -12/05/24: Pathology (gallbladder tissue): pending -12/04/24: Blood culture 1/2 (peripheral): E.coli (herrera-susceptible) -12/04/24: UA: 110 WBCs, 3+ bacteria, 1+ blood -12/04/24: Urine culture: >100k E.coli Assessment and Plan: 1) Acute cholecystitis with liver abscess 12/04- To ED with abdominal pain, nausea, vomiting 12/05- CT Abdomen pelvis: Findings concerning for acute cholecystitis with possible contained perforation or developing fluid collection/abscess in the adjacent liver. Recommend surgical consultation. 12/05-S/p Davinci robot cholecystectomy per OP note: Very inflamed gallbladder with hydrops and largestone. Liver abscess noted to posterior gallbladder at base. BUCK drain placed in gallbladder fossa. 12/05/24: Pathology (gallbladder tissue): pending Aerobic and anaerobic cultures ordered from BUCK drain Will simplify antibiotics to Ceftriaxone based on E. Coli sensitivity data and repeat blood cultures to document sterilization of blood 2) E.coli bacteremia and bacteruria 12/04/24: Blood culture 1/2 (peripheral): E.coli (herrera-susceptible) 12/07/24: Blood culture (peripheral and central): pending collection 12/04/24: UA: 110 WBCs, 3+ bacteria, 1+ blood 12/04/24: Urine culture: >100k E.coli (herrera-susceptible) Cholecystitis is the likely source Plan to continue Ceftriaxone up to 6 weeks due to Liver abscess above 3) Septic shock Lactic 4.5, Procal 18.10 on admission Tmax 103.1 on 12/04/24 Needed pressor support initially, off since 12/05 Transferred out of SICU 12/06/24 Overall better Discussed with patient. Thanks for consulting. ID will continue to follow. Note done with contribution of Carrie Rosenberg NP who assisted as a scribe. I personally sawand examined the patient. Findings on this note were reviewed, edited and modified by myself to reflect my findings and recommendations Laboratory and Imaging Findings were reviewed by myself. MIKE MERINO M.D. * Fabian Holguin MD - 12/05/2024 8:13 AM EDTAssociated Order(s): IP CONSULT TO GENERAL SURGERY EMERGENCY GENERAL SURGERY CONSULTATION Yanna Dutton is a 59 y.o. year old female who I am asked to see for CC of RUQ pain, nausea, vomiting, fever, chills. Dx with acute cholecystitis, septic shock I looked at the patient's CT images myself. I reviewed the clinical lab tests. Gallbladder severe inflamed, possibly with posterior wall perforation or liver abscess. She is on two pressors but lactic acid has cleared and she is otherwise doing well. I counseled operative intervention. I discussed that the operation is considered an urgent procedure. I discussed the operation in detail. I discussed the alternative of percutaneous cholecystostomy tube. I discussed the risks including pain, infection, bleeding, damage to adjacent structures, bileleak, hernia, need for further procedures/operations, and rarer issues up to and including . Ianswered all questions/concerns and patient is agreeable to proceed. I discussed this plan with the SICU and they were in agreement. -npo -iv fluids -abx -continue resusc, appreciate SICU care -to OR Time-Based Billing Statement I spent 55 minutes in the care of this patient on this calendar day. Activities performed during this time include: Reviewing labs, Reviewing imaging, Obtaining or reviewing history (separately obtained), Performingthe appropriate exam, Counseling and educating, Referring and communicating with another professional, Documenting clinical information in the EHR, and Independent review and interpretation of imaging The total time documented above did not include the following activities which were also performed on this day: None Yanna Dutton is a 59 y.o. year old female who presents with a complaint of pain to her RUQ that began 3 days ago and became much worse with a syncopal episode yesterday. She has been having issues like this for over a month but previous workup in the ED did not show a source. She reports nausea/vomiting as well as subjective fever with this. She previously has had but no other abdominal surgeries. No hx of heart/lung disease. Past Medical History: Diagnosis Date Arthritis Depression mild Hypertension Thyroid disease Urinary incontinence Botox fixed symptoms Vasodepressor syncope Past Surgical History: Procedure Laterality Date SECTION COSMETIC SURGERY brachioplasty, abdominal plasty KNEE JOINT MANIPULATION 02/15/2020 Surgeon: Hitesh Hilton MD; Location: [facility] MAIN OR; Service: Orthopedics THYROIDECTOMY TOTAL KNEE ARTHROPLASTY Left 02/15/2020 LEFT TOTAL KNEE ARTHROPLASTY cortizone injection right knee; Surgeon: Hitesh Hilton MD; Location: ED MAIN OR; Service: Orthopedics TOTAL KNEE ARTHROPLASTY Right 05/30/2020 RIGHT TOTAL KNEE ARTHROPLASTY; Surgeon: Hitesh Hilton MD; Location: [facility] MAIN OR; Service: Orthopedics No Known Allergies Social History Socioeconomic History Marital status: Spouse name: Not on file Number of children: Not on file Years of education: Not on file Highest education level: Not on file Occupational History Not on file Tobacco Use Smoking status: Former Current packs/day: 0.00 Average packs/day: 0.5 packs/day for 20.0 years (10.0 ttl pk-yrs) Types: Cigarettes Start date: 02/06/1983 Quit date: 02/06/2003 Years since quittin.8 Smokeless tobacco: Never Vaping Use Vaping status: Never Used Substance and Sexual Activity Alcohol use: Not on file Comment: socially Drug use: No Sexual activity: Yes Partners: Male Other Topics Concern Not on file Social History Narrative Not on file Social Drivers of Health Financial Resource Strain: Not on file Food Insecurity: Unknown (07/28/2023) Received from [facility] and [facility] Food Insecurities Worried about running out of food: Not on file Food Bought: Not on file Transportation Needs: Unknown (07/28/2023) [facility] Transportation Worried about transportation: Not on file Physical Activity: Not on file Stress: Not on file Social Connections: Not on file Intimate Partner Violence: Unknown (07/28/2023) [facility] and [facility] Interpersonal Safety Feel physically or emotionally unsafe where currently live: Not on file Harm by anyone: Not on file Emotionally Harmed: Not on file Housing Stability: Unknown (07/28/2023) Received from [facility] and [facility] Housing/Utilities Worried about losing home: Not on file Stayed outside house: Not on file Unable to get utilities: Not on file Family History Problem Relation Age of Onset Arthritis Mother Cancer Mother Depression Mother Heart Disease Mother Arthritis Father Diabetes Father Heart Disease Father High Blood Pressure Father Anesth Problems Neg Hx Prior to Admission medications Medication Sig Start Date End Date Taking? Authorizing Provider buPROPion (WELLBUTRIN SR) 150 mg Oral tablet sustained-release 12 hr Take 150 mg by mouth 2 times daily. 12/19/21 Yes Provider, Historical FLUoxetine (PROZAC) 20 mg Oral Capsule Take 20 mg by mouth daily. 11/25/21 Yes Provider, Historical LEVOthyroxine (SYNTHROID) 200 mcg Oral Tablet Take 200 mcg by mouth daily. Yes Provider, Historical multivit-min/iron/folic/lutein (CENTRUM SILVER WOMEN ORAL) Take 1 Tablet by mouth daily. Yes Provider, Historical Cholecalciferol, Vitamin D3, (VITAMIN D3) 125 mcg (5,000 unit) Oral Tablet Take 5,000 mcg by mouth daily. Patient not taking: Reported on 10/25/2024 04/02/22 Renato Snow MD tolterodine (DETROL LA) 4 mg Oral Capsule, Sust. Release 24 hr Take 1 Cap by mouth daily. Patient not taking: Reported on 10/25/2024 08/04/19 Antoinette Larry MD Vitals: 12/05/24 0534 12/05/24 0600 12/05/24 0700 12/05/24 0800 BP: 110/69 96/67 (!) 78/49 BP Location: Patient Position: Pulse: 98 99 92 86 Resp: (!) 28 (!) 28 (!) 25 (!) 26 Temp: (!) 103.2 ??F (39.6 ??C) (!) 103 ??F (39.4 ??C) (!) 102.1 ??F (38.9 ??C) (!) 101.2 ??F (38.4 ??C) TempSrc: Buck Probe SpO2: 99% 100% 99% Weight: Height: Constitutional: Oriented to person, place, time. Vital signs are above. Mouth/Throat: Oropharynx clear and moist. Eyes: Conjunctivae and EOM grossly normal. Pupils equal and round. Neck: No tracheal deviation. Cardiovascular: Normal rate. Pulmonary/Chest: Effort normal. No accessory muscle usage or stridor. No distress. Abdominal: Soft. Tender to RUQ. Neurological: Alert and oriented to person, place, time. Skin: Skin warm and dry. *I reviewed the following labs and studies. I personally viewed the pertinent images Lab Results Component Value Date WBC 19.3 (H) 12/05/2024 Lab Results Component Value Date HGB 12.4 12/05/2024 HGB 12.9 12/05/2024 HCT 36.3 12/05/2024 HCT 39.6 12/05/2024 Lab Results Component Value Date NA 132 (L) 12/05/2024 K 3.3 (L) 12/05/2024 CL 101 12/05/2024 CO2 20 (L) 12/05/2024 BUN 16 12/05/2024 CREATININE 1.16 12/05/2024 CALCIUM 8.3 (L) 12/05/2024 No results found for: PROTIME , INR XR CHEST AP PORTABLE Result Date: 12/05/2024 XR CHEST AP PORTABLE, 12/05/2024 2:45 AM CLINICAL HISTORY: -line placement COMPARISON: 12/04/2024 PROCEDURE COMMENTS: AP portable technique. FINDINGS: Support devices: Left IJ catheter with tip lower SVC. Heart and mediastinal contours within normal limits for technique. No active failure, pneumonia, or visible effusion. No visible pneumothorax. No acute finding. - Note: Radiology results need to be interpreted within a comprehensive clinical context. If you have questions about the radiology report, please contact the office of the orderingclinician. [employer] PUBLIC HEALTH SANITARIAN TECHNICIAN/HOSPITALIST BEDSIDE ULTRASOUND Result Date: 12/05/2024 M[employer] Inspector Ultrasound performed at bedside. The study image(s) are for reference only and will notbe interpreted by a Radiologist. Refer to the same day procedure note for image description and procedure details. [facility] PUBLIC HEALTH SANITARIAN TECHNICIAN/HOSPITALIST BEDSIDE ULTRASOUND Result Date: 12/05/2024 Molded Grid And Parts Inspector Ultrasound performed at bedside. The study image(s) are for reference only and will notbe interpreted by a Radiologist. Refer to the same day procedure note for image description and procedure details. [facility] PUBLIC HEALTH SANITARIAN TECHNICIAN/HOSPITALIST BEDSIDE ULTRASOUND Result Date: 12/05/2024 Molded Grid And Parts Inspector Ultrasound performed at bedside. The study image(s) are for reference only and will notbe interpreted by a Radiologist. Refer to the same day procedure note for image description and procedure details. CT ABD PEL ED FAST W CONTRAST Result Date: 12/05/2024 CT ABDOMEN AND PELVIS WITH CONTRAST (FAST), 12/05/2024 12:40 AM CLINICAL HISTORY: -abdominal pain. COMPARISON: 10/25/24. PROCEDURE COMMENTS: Multi-detector CT scanning of the abdomen and pelvis with multiplanar reformatting per expedited protocol. Isovue 370 IV contrast given as recorded in EPIC. Dose1 : CT DLP Total : 1495.04 mGycm DLP Spiral Max : 1492.98 mGycm Maximum CTDI Vol : 29.24 mGy FINDINGS: LOWER THORAX: Lung bases unremarkable. ABDOMEN AND PELVIS: Spleen, pancreas, kidneys, and adrenal glands unremarkable. No hydronephrosis. Gallbladder wall is edematous and inflamed. Trace pericholecystic fluid. 1.8 cm cystic focus within the adjacent liver. No bowel obstruction or acute inflammat ory process. No evidence of appendicitis. No abnormal mass, fluid, or adenopathy in the pelvis. No acute osseous abnormality. Findings concerning for acute cholecystitis with possible contained perforation or developing fluidcollection/abscess in the adjacent liver. Recommend surgical consultation. - Note: Radiology results need to be interpreted within a comprehensive clinical context. If you have questions about the radiology report, please contact the office of the ordering clinician. XR CHEST AP PORTABLE Result Date: 12/04/2024 XR CHEST AP PORTABLE, 12/04/2024 11:38 PM CLINICAL HISTORY: -Syncope COMPARISON: None. PROCEDURE COMMENTS: AP portable technique. FINDINGS: Support devices: No visible support devices. Heart and mediastinal contours within normal limits for technique. No active failure, pneumonia, or visible effusion. No visible pneumothorax. No acute finding. - Note: Radiology results need to be interpreted within a comprehensive clinical context. If you have questions about the radiology report, please contact the office of the orderingclinician. EK EKG 12 LEAD Result Date: 12/04/2024 NOTICE: Preliminary tracing available for review; Final Interpretation by physician to follow. 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 Fever, HR 130s and first Bp 76/35. LR 150ML per EMS with Bp 80s/50 HPI Yanna Dutton is a 59 y.o. female who presents vomiting syncope and abdominal pain. Patient started with abdominal pain has progressed since Thursday right upper quadrant around her gallbladder . Hashad nausea vomiting multiple episodes yesterday as well as today but no diarrhea no bloody stool nobloody emesis. States she feels like she has a fever but no chest pain or shortness of breath no cough or runny nose or sore throat or nasal congestion or headache. No neck pain. Denies urinary symptoms. Patient hypotensive with a EMS she has had several syncopal episodes when she tries to get up and ambulate. She received 200 cc of lactated Ringer's prior to arrival. They state her temp is 100.7prior to arrival. REVIEW OF SYSTEMS See HPI for further details. Review of systems otherwise negative. PAST MEDICAL HISTORY Past Medical History: Diagnosis Date Arthritis Depression mild Hypertension Thyroid disease Urinary incontinence Botox fixed symptoms Vasodepressor syncope FAMILY HISTORY Family History Problem Relation Age of Onset Arthritis Mother Cancer Mother Depression Mother Heart Disease Mother Arthritis Father Diabetes Father Heart Disease Father High Blood Pressure Father Anesth Problems Neg Hx SOCIAL HISTORY Social History Socioeconomic History Marital status: Tobacco Use Smoking status: Former Current packs/day: 0.00 Average packs/day: 0.5 packs/day for 20.0 years (10.0 ttl pk-yrs) Types: Cigarettes Start date: 02/06/1983 Quit date: 02/06/2003 Years since quittin.8 Smokeless tobacco: Never Vaping Use Vaping status: Never Used Substance and Sexual Activity Drug use: No Sexual activity: Yes Partners: Male Social Drivers of Health Received from [facility] [employer] [facility] Food Insecurities Received from [facility] and [facility] Transportation Received from [facility] Interpersonal Safety Received from [facility] Housing/Utilities SURGICAL HISTORY Past Surgical History: Procedure Laterality Date SECTION COSMETIC SURGERY brachioplasty, abdominal plasty KNEE JOINT MANIPULATION 02/15/2020 Surgeon: Hitesh Hilton MD; Location: [facility]; Service: Orthopedics THYROIDECTOMY TOTAL KNEE ARTHROPLASTY Left 02/15/2020 LEFT TOTAL KNEE ARTHROPLASTY cortizone injection right knee; Surgeon: Hitesh Hilton MD; Location: [facility]; Service: Orthopedics TOTAL KNEE ARTHROPLASTY Right 05/30/2020 RIGHT TOTAL KNEE ARTHROPLASTY; Surgeon: Hitesh Hilton MD; Location: [facility]; Service: Orthopedics CURRENT MEDICATIONS Current Facility-Administered Medications: lactated ringers infusion, , Intravenous, Continuous, Doug Ross MD metroNIDAZOLE (FLAGYL) IVPB 500 mg, 500 mg, Intravenous, Once, Doug Ross MD norepinephrine (LEVOPHED) 16 mg/250 mL (64 mcg/mL), 0.5-30 mcg/min, Intravenous, Titrated, Doug Ross MD potassium chloride 10 mEq in 100 mL IVPB, 10 mEq, Intravenous, Once, Last Rate: 100 mL/hr at 12/05/24 0045, 10 mEq at 12/05/24 0045 FOLLOWED BY potassium chloride 10 mEq in 100 mL IVPB, 10 mEq, Intravenous, Once FOLLOWED BY potassium chloride 10 mEq in 100 mL IVPB, 10 mEq, Intravenous, OnceFOLLOWED BY potassium chloride 10 mEq in 100 mL IVPB, 10 mEq, Intravenous, Once, Doug Ross MD sodium chloride 0.9% IV line flush 50 mL, 50 mL, Intravenous, PRN, Doug Ross MD sodium chloride 0.9% syringe 5-10 mL, 5-10 mL, Intravenous, PRN, Doug Ross MD vancomycin (VANCOCIN) 2,000 mg in sodium chloride 0.9 % 550 mL IVPB, 2,000 mg, Intravenous, Once, Doug Ross MD Current Outpatient Medications: amoxicillin (AMOXIL) 500 mg Oral Capsule, Take 2 grams one hour prior to procedure (Patient not taking: Reported on 10/25/2024), Disp: 4 Cap, Rfl: 2 buPROPion (WELLBUTRIN SR) 150 mg Oral tablet sustained-release 12 hr, , Disp: , Rfl: Cholecalciferol, Vitamin D3, (VITAMIN D3) 125 mcg (5,000 unit) Oral Tablet, Take 5,000 mcg by mouthdaily. (Patient not taking: Reported on 10/25/2024), Disp: 90 Tablet, Rfl: 2 ciprofloxacin HCl (CIPRO) 500 mg Oral Tablet, Take 1 tab 24hr prior to procedure and take 1 tab 24hr after procedure. (Patient not taking: Reported on 10/25/2024), Disp: 2 Tab, Rfl: 0 ciprofloxacin HCl (CIPRO) 500 mg Oral Tablet, Take 1 tab 24hr prior to procedure and take 1 tab 24hr after procedure. (Patient not taking: Reported on 10/25/2024), Disp: 2 Tab, Rfl: 0 citalopram (CELEXA) 20 mg Oral Tablet, Take 20 mg by mouth daily. (Patient not taking: No sig reported), Disp: , Rfl: diazePAM (VALIUM) 2 mg Oral Tablet, Take 1 tab 30-60 minutes prior to procedure. (Patient not taking: Reported on 10/25/2024), Disp: 1 Tab, Rfl: 0 docusate sodium (COLACE) 100 mg Oral Capsule, Take 1 Cap by mouth 2 times daily as needed for Constipation. (Patient not taking: Reported on 10/25/2024), Disp: 30 Cap, Rfl: 0 ergocalciferol (DRISDOL) 50,000 unit Oral Capsule, Take by mouth once a week., Disp: , Rfl: FLUoxetine (PROZAC) 20 mg Oral Capsule, , Disp: , Rfl: LEVOthyroxine (SYNTHROID) 200 mcg Oral Tablet, Take by mouth daily., Disp: , Rfl: LEVOTHYROXINE SODIUM (SYNTHROID ORAL), Take by mouth. (Patient not taking: Reported on 10/25/2024), Disp: , Rfl: LISINOPRIL ORAL, Take by mouth. (Patient not taking: Reported on 10/25/2024), Disp: , Rfl: losartan-hydrochlorothiazide (HYZAAR) 100-12.5 mg Oral Tablet, Take 1 Tablet by mouth daily. (Patient not taking: Reported on 10/25/2024), Disp: , Rfl: meclizine (ANTIVERT) 25 mg tablet, Take 1 Tab by mouth 3 times daily as needed for Dizziness. (Patient not taking: Reported on 10/25/2024), Disp: 15 Tab, Rfl: 0 multivit-min/iron/folic/lutein (CENTRUM SILVER WOMEN ORAL), Take by mouth daily., Disp: , Rfl: oxyCODONE (ROXICODONE) 5 mg Oral Tablet, Take 1-2 Tabs by mouth every 4 hours as needed for Major Surgery/Trauma (G89.18). (Patient not taking: Reported on 02/25/2022), Disp: 40 Tab, Rfl: 0 tolterodine (DETROL LA) 4 mg Oral Capsule, Sust. Release 24 hr, Take 1 Cap by mouth daily. (Patientnot taking: Reported on 10/25/2024), Disp: 30 Cap, Rfl: 11 ALLERGIES No Known Allergies PHYSICAL EXAM VITAL SIGNS: BP (!) 87/58 Pulse 111 Temp 99.5 ??F (37.5 ??C) (Oral) Resp (!) 26 Wt 255 lb 3.2 oz (115.8 kg) LMP 07/06/2017 SpO2 95% BMI 43.80 kg/m?? Constitutional: Well developed, Well nourished, No acute distress, Non-toxic appearance. HENT: Normocephalic, Atraumatic, Bilateral external ears normal, Oropharynx dry, No oral exudates, Nose normal. Eyes: PERRLA, EOMI, Conjunctiva normal, No discharge. Neck: Normal range of motion, No tenderness, Supple, No stridor. Lymphatic: No lymphadenopathy noted. Cardiovascular: Tachycardic rate and rhythm Thorax & Lungs: Normal respiratory effort. Lungs are clear Abdomen: Nondistended abdomen mild right upper quadrant tenderness without rebound or guarding negative Dee sign Skin: Warm, Dry, No erythema, No rash. Back: No tenderness, No CVA tenderness. Extremities: Intact distal pulses, No edema, No tenderness, No cyanosis, No clubbing. Neurologic: Alert & oriented x 3, Normal motor function, Normal sensory function, No focal deficits noted. EKG Sinus rhythm rate 128 [place] normal nonspecific changes no acute ST elevation LABS/RADIOLOGY/PROCEDURES Labs Reviewed CBC WITH DIFF - Abnormal; Notable for the following components: Result Value Lymph # 0.4 (*) Dixon # 0.0 (*) All other components within normal limits COMPREHENSIVE METABOLIC PANEL - Abnormal; Notable for the following components: Sodium 135 (*) Potassium 2.8 (*) Chloride 97 (*) Total CO2 20 (*) Anion Gap 18 (*) Glucose Lvl 142 (*) Bili Total 2.0 (*) Alk Phos 212 (*) eGFR (CKD-EPIcr 2020) 56 (*) All other components within normal limits LIPASE LEVEL - Abnormal; Notable for the following components: Lipase Lvl 12 (*) All other components within normal limits TROPONIN-T HIGH SENSITIVITY BASELINE W/ REFLEX - Abnormal; Notable for the following components: [id number] 46 (*) All other components within normal limits Narrative: Ingestion of armando doses of biotin (>5 mg/day) taken within 8 hours of drawing blood sample can interfere with this immunoassay test. LACTIC ACID - Abnormal; Notable for the following components: Lactic Acid 4.5 (*) All other components within normal limits PROCALCITONIN - Abnormal; Notable for the following components: Procalcitonin 18.10 (*) All other components within normal limits Narrative: Procalcitonin <0.50 ng/mL: Procalcitonin levels below 0.50 ng/mL on the first day of ICU admission represent a low risk for progression to severe sepsis and/or septic shock Procalcitonin >=0.50 ng/mL and <=2.00 ng/mL: If the procalcitonin measurement is performed shortly after the systemic infection process has started (usually less than 6 hours), this value may still be low. As various non-infectious conditions are known to induce procalcitonin as well, procalcitonin levels between 0.50 ng/mL and 2.00 ng/mL should be reviewed carefully to take into account the specific clinical background and condition(s) of the patient. Procalcitonin >2.00 ng/mL: Procalcitonin levels above 2.00 ng/mL on the first day of ICU admission represent a high risk for progression to severe sepsis and/or septic shock. BLOOD GAS, VENOUS - Abnormal; Notable for the following components: pH Venous 7.44 (*) pCO2 Venous 31 (*) pO2 Venous 51 (*) Hco3 Venous 20.7 (*) CO2 Total Jorge 18 (*) O2 Sat. Venous 87.6 (*) All other components within normal limits URINALYSIS REFLEX - Abnormal; Notable for the following components: UA Appear Turbid (*) UA Ketones 1+ (10-20 mg/dL) (*) UA Blood 1+ (0.06 - 0.1 mg/dL) (*) UA Protein 1+ (30-70 mg/dL) (*) UA Urobilinogen 1+ (2-3 mg/dL) (*) UA Leuk Est 4+ (500 Torie/mcl) (*) UA WBC 110 (*) UA RBC 8 (*) UA Bacteria 3+ (*) All other components within normal limits BLOOD CULTURE (NO STAIN) - Normal BLOOD CULTURE (NO STAIN) - Normal [id number] A/B - Normal URINE CULTURE (NO STAIN) UA W/REFLEX TO CULTURE Narrative: The following orders were created for panel order UA W/REFLEX TO CULTURE. Procedure Abnormality Status --------- ------ URINALYSIS REFLEX[[id number]] Abnormal Final result EXTRA IRVING URINE CX[[id number]] Final result Please view results for these tests on the individual orders. TROPONIN-T HIGH SENSITIVITY 2HR REPEAT LACTIC ACID MAGNESIUM LEVEL CT ABD PEL ED FAST W CONTRAST Final Result Findings concerning for acute cholecystitis with possible contained perforation or developing fluid collection/abscess in the adjacent liver. Recommend surgical consultation. - Note: Radiology results need to be interpreted within a comprehensive clinical context. If you have questions about the radiology report, please contact the office of the ordering clinician. XR CHEST AP PORTABLE Final Result No acute finding. - Note: Radiology results need to be interpreted within a comprehensive clinical context. If you have questions about the radiology report, please contact the office of the ordering clinician. EK EKG [address] 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 (See chart for details) Please note I was wearing appropriate PPE for this encounter. 12:22 AM patient is awake and alert she is mentating well her blood pressure is starting to improveand heart rate has improved. She is only had a liter of fluids here, I am waiting on another liter.Antibiotics have been ordered, at this time suspect urine as source still waiting on her CT, replacing potassium IV. I have ordered magnesium CT shows cholecystitis and possible perforation which is likely the source, patient with sepsis andprobable septic shock I have added an additional 1500 cc of fluid which should cover her 30 cc/kg total as I had already ordered 2 L previously. I will also add Levophed to cover for septic shock andshe will be admitted to SICU. Case discussed with general surgery Dr. Zamarripa as well as admitting SICU attending Dr. Heard. Critical care was administered to the patient for 31 minutes. This time excludes procedure time. FINAL IMPRESSION 1. Nausea and vomiting, unspecified vomiting type 2. Right upper quadrant abdominal pain 3. Acute cholecystitis 4. Sepsis, due to unspecified organism, unspecified whether acute organ dysfunction present (HCC) 5. Hypokalemia This chart was completed using voice recognition technology and may contain unintended errors Doug Ross MD 12/05/24 0110 documented in this encounter Miscellaneous Notes * Utilization Review Notes - Jazmyne Casanova RN - 12/09/2024 1:57 PM EDT CONTINUED STAY REVIEW INPT STATUS SINCE 12/05 12/09: PER PRIMARY: Cholecystitis S/p DAVINCI ROBOTIC CHOLECYSTECTOMY with Dr Holguin on 12/05 Post op management per surgery BUCK remains in place Diet: LOW FAT DIET Monitor and replace lytes PRN Analgesia Mobilize as able Intra-abdominal abscess (HCC) E coli bacteremia Septic shock (HCC) Acute cystitis without hematuria Liver abscess CT on admission with acute cholecystitis with possible contained perforation or developing fluid collection/abscess in the adjacent liver. S/p cholecystectomy as noted above WBC improving 12/09/2024 Afebrile Blood cultures 12/04/24 w ecoli Urine culture 12/04 with Ecoli ID consulted Remains On rocephin Planning PICC and outpatient antibiotics Benign essential HTN Stable 12/09/2024 Obesity, Class III, BMI 40-49.9 (morbid obesity) Complicates care Hypothyroidism Continue synthroid, confirmed dosing TSH okay Dispo: probably DC tomorrow pending further surgical and ID input VTE Prophylaxis: Qualifying Pharmacologic Prophylaxis heparin, porcine (PF) injection 5,000 Units 3 times per day * Critical Result Value - Ana Dinh, MCKINLEY - 12/05/2024 7:04 PM EDT Yanna Dutton [id number], 1965 12/05/2024 Test Name/Result: Blood Culture Time: 1903 Caller/Office Machine Installer: yuri Law/ Ana Perrin RN R/V Action Taken: Communicated with provider via Secure Chat Time: 1904 Notified Physician/Physician Designee: Dr. Holguin R/V * Utilization Review Notes - Jagruti Echols RN - 12/05/2024 7:49 AM EDT Admit IP 12/05 from ED to SICU for perforated cholecystitis, hypotension, septic shock Came to ED with fever, BP 76/35, HR 130s,abdominal pain progressed in RUQ since Thursday, N/V, several syncopal episodes 87/58, 111, 26, T 99.5 95% sat on RA Na 135, K 2.8, Cl 97, anion gap 18, glucose 142, total bili 2, alk phos 212, lipase 12,Troponin 46,67, lactic acid 4.5, Procal 18.10, UA 4+leuk est, WBC 110, CT abd/pelvis--Findings concerning for acute cholecystitis with possible contained perforation or developing fluid collection/abscess in the adjacent liver. Recommend surgical consultation. CXR negative EKG ST IVLR 3.5L fluid bolus given, IV Levophed, IV Zosyn, Central line Arterial line Septic shock from perforated cholecystitis - Fluid resuscitation - Broad spectrum antibiotics initiated - cultures obtained, follow results, de-escalate antibiotics as able. - titrate vasopressors for BP support: Norepi titratable, vasopressin at 0.03 if needed. - follow UOP - trend lactate - trend procal levels as needed. 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 100-12.5mg - Hold ACEi and diuretics for now - BB as hemodynamics allow Obesity - BMI 43 - complicates all aspects of care ICU MANAGEMENT Pain: tylenol, oxycodone, IV PRNS Anxiety: controlled IVF: LR at 100 Lactic acid 2.0, 1.8, phosphorus 0.8, mag 1.5, CO2 20, Ca 8.3, K 3.3, Na 132, SURGERY CONSULT Albumin,tylenol, IV CaGluconate, IV Pepcid, IV LR 125/hr, IV MagSulfate, IV Levophed gtt, IV Zosyn,IV KCL,IV NS bolus x1L< IV Vasopressin gtt, etc 92/55, 92, 25, T 103.1-102.1 on 2LNC 99% sat environmental monitoring technician DC PLAN: pending improvement and surgical plan, CC/SW to assist with plan * Critical Result Value - Cole Brandt, MCKINLEY - 12/05/2024 4:32 AM EDT Yanna Dutton [id number], 1965 12/05/2024 Test Name/Result: 2 Hr Troponin 21 - Phos 0.8 Time: 431 Caller/Office Machine Installer: Cortney Lomax / Dieudonne Perrin R/V Action Taken: Communicated with provider via Secure Chat Time: 446 Notified Physician/Physician Designee: Dr Cloud R/V * Critical Result Value - Zoila Hyatt RN - 12/05/2024 12:07 AM EDT Test Name/ Result: K+ 2.8 from Cortney in lab Date/ Time: 12/05/2024 @ 0007 Notified Physician/Physician Designee: Dr. Brandee Ross R/V * Critical Result Value - Zoila Hyatt, RN - 12/05/2024 12:04 AM EDT Test Name/ Result: Lactic 4.5 from Cortney in lab Date/ Time: 12/05/2024 @ 0004 Notified Physician/Physician Designee: Dr. Brandee Ross R/V documented in this encounter Plan of Treatment Upcoming Encounters Date Type Department Care Team (Late st Contact Info) Description 12/29/2024 7:30 AM EDT Appointment [facility] [place] [address] 12/30/2024 7:30 AM EDT Appointment [facility] [place] [address] 12/31/2024 9:00 AM EDT Appointment [facility] [place] [address] 01/01/2025 9:00 AM EDT Appointment [facility] [place] [address] 01/02/2025 7:30 AM EDT Appointment [facility] [place] [address] 01/03/2025 7:30 AM EDT Appointment [facility] [place] [address] 01/04/2025 7:30 AM EDT Appointment [facility] [place] [address] 01/05/2025 7:30 AM EDT Appointment [facility] [place] [address] 01/06/2025 9:00 AM EDT Appointment [facility] [place] [address] 01/07/2025 9:00 AM EDT Appointment [facility] [place] [address] 01/08/2025 9:00 AM EDT Appointment [facility] [place] [address] 01/09/2025 7:30 AM EDT Appointment [facility] [place] [address] 01/10/2025 7:30 AM EDT Appointment [facility] [place] [address] 01/11/2025 7:30 AM EDT Appointment [facility] [place] [address] 01/12/2025 7:30 AM EDT Appointment [facility] [place] [address] 01/13/2025 7:30 AM EDT Appointment [facility] [place] [address] 01/14/2025 9:00 AM EDT Appointment [facility] [place] [address] 01/15/2025 9:00 AM EDT Appointment [facility] [place] [address] 01/16/2025 7:30 AM EDT Appointment [facility] [place] [address] 01/17/2025 7:30 AM EDT Appointment [facility] [place] [address] 01/18/2025 7:30 AM EDT Appointment [facility] [place] [address] 01/18/2025 3:30 PM EDT Office Visit [facility] [address] [facility] [address] [place] [phone] Mike Kauffman MD [address] [facility] [address] [place] [phone] Scheduled Orders Name Type Priority Associated Diagnoses Orde r Schedule BEDSIDE PICC INSERTION (PICC TEAM RN) Procedures Routine One Time for 1 Occurrences starting 12/10/2024 until 12/10/2024 documented as of this encounter Procedures Procedure Name Priority Date/Time Associated Diagnosis Comments SEDIMENTATION RATE AUTOMATED Early AM 12/09/2024 6:49 AM EDT CBC WITH DIFF Early AM 12/09/2024 6:49 AM EDT C-REACTIVE PROTEIN Early AM 12/09/2024 6:49 AM EDT COMPREHENSIVE METABOLIC PANEL Early AM 12/09/2024 6:49 AM EDT IP CONSULT TO SOCIAL WORK Routine 12/08/2024 2:13 PM EDT CALCIUM, IONIZED Early AM 12/08/2024 6:52 AM EDT TSH REFLEX TO FT4 Early AM 12/08/2024 6:52 AM EDT CBC Early AM 12/08/2024 6:52 AM EDT PHOSPHORUS LEVEL Early AM 12/08/2024 6:52 AM EDT MAGNESIUM LEVEL Early AM 12/08/2024 6:52 AM EDT BASIC METABOLIC PANEL Early AM 12/08/2024 6:52 AM EDT BLOOD CULTURE (NO STAIN) Routine 12/07/2024 3:07 PM EDT WOUND CULTURE (STAIN INCLUDED) Routine 12/07/2024 12:48 PM EDT ANAEROBIC CULTURE (NO STAIN) Routine 12/07/2024 12:48 PM EDT BLOOD CULTURE (NO STAIN) Routine 12/07/2024 12:23 PM EDT IP CONSULT TO INFECTIOUS DISEASES Routine 12/07/2024 9:08 AM EDT Procedure Note - Mike Kauffman MD - 12/07/2024 10:20 AM EDTThis note is in progress. [facility] Consult Note Date of Admission: 12/04/2024 Date of Consultation: 12/07/2024 Consulting Physician: Carrie Rosenberg APRN Referring Physician: Royer Cloud MD Primary Care Physician: Willard Hector MD Reason for Consult: bacteremia HPI: Yanna Dutton is a 59 y.o. female with a PMH of hypertension,depression, arthritis, thyroid disease , who presented to the ED on 12/04/24for right upper quadrant abdominal pain, nausea, vomiting and multiplesyncopal episodes. She reported the abdominal pain, nausea, and vomitingstarted 3 days prior to coming to the hospital. She is unsure of fever butreported chills and generalized weakness, overall was feeling poorly. Shelost consciousness 2-3 times which is what prompted her son to call EMS.ED vitals were as follows:BP 87/58, Pulse 111, Temp 99.5 F, Resp 26, OsI151%. Initial findings were significant for elevated lactic acid andprocalcitonin, UA with 110 WBCs, 3+ bacteria, 1+ blood, negativeCOVID/Flu, and hypokalemia. CT abdomen pelvis was concerning for acutecholecystitis with possible abscess adjacent to the liver. Surgery wasconsulted and patient was admitted to SICU. On 12/05/24 she underwentRobotic DaVinci cholecystectomy by Dr. Holguin per OP note: very inflamedgallbladder with hydrops and large stone. Liver abscess noted to posteriorgallbladder at base. BUCK drain placed in gallbladder fossa. Blood culturesdone and 1 of 2 (peripheral) and urine culture with herrera-susceptibleE.coli. Patient was placed on IV PIP/TAZO and Infectious Diseases is nowasked to see in consultation regarding further antibiotics therapy On exam patient is sitting comfortably on the side of the bed, on roomair. Reports some mild abdominal pain and bloating however, feels muchimproved from when she came in. She is having 2-3 loose bowel movements samantha day. Says she is tolerating antibiotics well. Denies any recent chills,body aches, fever. She lives at home independently with her son. Maria any tobacco use, alcohol use, or illicit drugs. She does havehistory of bilateral knee arthroplasty but denies any pain or swelling atthis time. Past Medical History: Diagnosis Date Arthritis Depression Hypertension Thyroid disease Urinary incontinence Botox fixed symptoms Vasodepressor syncope Past Surgical History: Procedure Laterality Date SECTION COSMETIC SURGERY brachioplasty, abdominal plasty KNEE JOINT MANIPULATION 02/15/2020 Surgeon: Hitesh Hilton MD; Location: [facility]; Service:Orthopedics THYROIDECTOMY TOTAL KNEE ARTHROPLASTY Left 02/15/2020 LEFT TOTAL KNEE ARTHROPLASTY cortizone injection right knee; Surgeon:Hitesh Hilton MD; Location: [facility]; Service: Orthopedics TOTAL KNEE ARTHROPLASTY Right 05/30/2020 RIGHT TOTAL KNEE ARTHROPLASTY; Surgeon: Hitesh Hilton MD;Location: [facility]; Service: Orthopedics ALLERGY: No Known Allergies MAR: I REVIEWED ALL HER MEDICATIONS AND ON PIP/TAZO Family History Problem Relation Age of Onset Arthritis Mother Cancer Mother Depression Mother Heart Disease Mother Arthritis Father Diabetes Father Heart Disease Father High Blood Pressure Father Social History Socioeconomic History Marital status: Tobacco Use Smoking status: Former Average packs/day: 0.5 packs/day for 20.0 years (10.0 ttl pk-yrs) Types: Cigarettes Start date: 02/06/1983 Quit date: 02/06/2003 Years since quittin.8 Smokeless tobacco: Never Vaping Use Vaping status: Never Used Substance and Sexual Activity Alcohol use: SOCIALLY Drug use: No Sexual activity: Yes Partners: Male Review of Systems: Constitutional: + fever, chills, feels ill, generalized weakness negativefor night sweats 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: + 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 Negative for dizzy/vertigo, headache, focalweakness, numbness/tingling, speech problems, 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,confusion, memory loss ENT: no rhinorrhea Eyes: No drainage Resp: negative for cough, hemoptysis, shortness of breath, pleuritic chestpain, wheezing CVS: negative for palpitations, chest pain, paroxysmal nocturnal dyspnea,orthopnea, lower extremity edema GI: + abdominal pain, nausea, vomiting, diarrhea Denies blood in stool Urinary: no dysuria, trouble voiding or hematuria Genital: negative for genital discharge and genital rash MSK: No pain, redness or swelling on the joints Skin: negative for bruising, jaundice, lacerations and rash Endocrine: No heat intolerance and No cold intolerance Patient Vitals for the past 24 hrs: BP Temp Temp src Pulse Resp SpO2 12/07/24 0929 106/63 98.2 F (36.8 C) Oral 66 16 93 % 12/06/24 2044 116/67 98 F (36.7 C) Oral 72 16 95 % 12/06/24 1843 120/67 98.3 F (36.8 C) Oral 64 16 95 % 12/06/24 1700 101/69 97.7 F (36.5 C) Temporal 71 16 92 % 12/06/24 1200 96/65 97.9 F (36.6 C) Temporal 58 18 91 % Weight: 259 lb 4.8 oz (117.6 kg) Immunization History Administered Date(s) Administered Moderna SARS-CoV-2 Booster Vaccine 18+ Yrs (Light Blue Border) 06/14/2021 Pfizer SARS-CoV-2 Vaccine 12+ Yrs (Purple Cap) 10/05/2020, 10/26/2020 Pfizer SARS-CoV-2 Vaccine Michael-sucrose 12+ Yrs 05/06/2024 Physical Exam: VITAL SIGNS ABOVE AND REVIEWED General Appearance: Alert, cooperative, no distress, on room air Head: Normocephalic, without obvious abnormality, atraumatic Eyes: conjunctiva/corneas clear Nose: Nares normal, no drainage Sinuses: Sinus tenderness not present Mouth: mucosa moist, no oral lesions Lungs: clear to auscultation and percussion, no wheezes and no crackles Heart: Regular rate and rhythm, S1 and S2 normal, no murmur, rub orgallop Abdomen: Soft, mild tenderness, bowel sounds active all four quadrants, 3abdominal incision closed with skin glue, + BUCK drain- serosanguinousdrainage Extremities: No BLE edema, trace non-pitting edema BUE Skin: no rashes or lesions Lymph nodes: No Submandibular LAD Neurologic: Alert and oriented x 4 , speech is clear and fluent. Cranialnerves intact. PERRLA,EOMI. Moves all 4 extremities and no focal weakness,sensory intact and reflexes are normal Labs: Lab Results Component Value Date WBC 11.6 (H) 12/07/2024 HGB 10.3 (L) 12/07/2024 HCT 31.2 (L) 12/07/2024 MCV 92.3 12/07/2024 PLT 162 12/07/2024 Lab Results Component Value Date GLU 70 12/07/2024 NA 140 12/07/2024 K 3.2 (L) 12/07/2024 CO2 27 12/07/2024 CL 104 12/07/2024 BUN 15 12/07/2024 CREATININE 0.55 12/07/2024 Glucose: 70 MICROBIOLOGY DATA: -12/07/24: Anaerobic cx: pending collection -12/07/24: Wound cx: pending collection -12/07/24: Blood culture (peripheral and central): pending collection -12/07/24: Tbili: 0.6, AST: 29, ALT: 43, Alk Phos: 132 -12/05/24: Pathology (gallbladder tissue): pending -12/04/24: Blood culture 1/2 (peripheral): E.coli (herrera-susceptible) -12/04/24: UA: 110 WBCs, 3+ bacteria, 1+ blood -12/04/24: Urine culture: >100k E.coli Assessment and Plan: 1) Acute cholecystitis with liver abscess 12/04- To ED with abdominal pain, nausea, vomiting 12/05- CT Abdomen pelvis: Findings concerning for acute cholecystitis withpossible contained perforation or developing fluid collection/abscess inthe adjacent liver. Recommend surgical consultation. 12/05-S/p Davinci robot cholecystectomy per OP note: Very inflamedgallbladder with hydrops and large stone. Liver abscess noted to posteriorgallbladder at base. BUCK drain placed in gallbladder fossa. 12/05/24: Pathology (gallbladder tissue): pending Aerobic and anaerobic cultures ordered from BUCK drain Will simplify antibiotics to Ceftriaxone based on E. Coli sensitivity dataand repeat blood cultures to document sterilization of blood 2) E.coli bacteremia and bacteruria 12/04/24: Blood culture 1/2 (peripheral): E.coli (herrera-susceptible) 12/07/24: Blood culture (peripheral and central): pending collection 12/04/24: UA: 110 WBCs, 3+ bacteria, 1+ blood 12/04/24: Urine culture: >100k E.coli (herrera-susceptible) Cholecystitis is the likely source Plan to continue Ceftriaxone up to 6 weeks due to Liver abscess above 3) Septic shock Lactic 4.5, Procal 18.10 on admission Tmax 103.1 on 12/04/24 Needed pressor support initially, off since 12/05 Transferred out of SICU 12/06/24 Overall better Discussed with patient. Thanks for consulting. ID will continue tofollow. Note done with contribution of Carrie Rosenberg WATCH MECHANIC who assisted as ascribe. I personally saw and examined the patient. Findings on this notewere reviewed, edited and modified by myself to reflect my findings andrecommendations Laboratory and Imaging Findings were reviewed by myself. MIKE MERINO M.D. CALCIUM, IONIZED Early AM 12/07/2024 6:14 AM EDT CBC Early AM 12/07/2024 6:14 AM EDT PHOSPHORUS LEVEL Early AM 12/07/2024 6:14 AM EDT MAGNESIUM LEVEL Early AM 12/07/2024 6:14 AM EDT BASIC METABOLIC PANEL Early AM 12/07/2024 6:14 AM EDT ECG AND WAVEFORMS - TELEMETRY Routine 12/06/2024 7:55 AM EDT CALCIUM, IONIZED Early AM 12/06/2024 5:36 AM EDT CBC Early AM 12/06/2024 5:36 AM EDT PHOSPHORUS LEVEL Early AM 12/06/2024 5:36 AM EDT MAGNESIUM LEVEL Early AM 12/06/2024 5:36 AM EDT HEPATIC FUNCTION PANEL Early AM 12/06/2024 5:36 AM EDT BASIC METABOLIC PANEL Early AM 12/06/2024 5:36 AM EDT ECG AND WAVEFORMS - TELEMETRY Routine 12/05/2024 7:34 PM EDT REPEAT LACTIC ACID STAT 12/05/2024 4:07 PM EDT POC ARTERIAL BLOOD GAS PROFILE Routine 12/05/2024 2:10 PM EDT CBC DINA 12/05/2024 2:02 PM EDT PHOSPHORUS LEVEL DINA 12/05/2024 2:02 PM EDT MAGNESIUM LEVEL DINA 12/05/2024 2:02 PM EDT LACTIC ACID DINA 12/05/2024 2:02 PM EDT HEPATIC FUNCTION PANEL Add-On 12/05/2024 2:02 PM EDT BASIC METABOLIC PANEL DINA 12/05/2024 2:02 PM EDT PATHOLOGY TISSUE REQUEST Routine 12/05/2024 12:14 PM EDT Calculus of gallbladder without cholecystitis without obstruction GA LAPAROSCOPY SURG CHOLECYSTECTOMY 12/05/2024 10:11 AM EDT Calculus of gallbladder without cholecystitis without obstruction Special Needs on pressers HEPATIC FUNCTION PANEL DINA 12/05/2024 8:51 AM EDT REPEAT LACTIC ACID STAT 12/05/2024 7:16 AM EDT REPEAT LACTIC ACID STAT 12/05/2024 6:34 AM EDT CALCIUM, IONIZED DINA 12/05/2024 3:45 AM EDT TROPONIN-T HIGH SENSITIVITY 2HR Timed 12/05/2024 3:45 AM EDT CBC WITH DIFF DINA 12/05/2024 3:45 AM EDT PHOSPHORUS LEVEL DINA 12/05/2024 3:45 AM EDT MAGNESIUM LEVEL DINA 12/05/2024 3:45 AM EDT MAGNESIUM LEVEL STAT 12/05/2024 3:45 AM EDT LACTIC ACID DINA 12/05/2024 3:45 AM EDT BASIC METABOLIC PANEL DINA 12/05/2024 3:45 AM EDT POC ARTERIAL BLOOD GAS PROFILE Routine 12/05/2024 3:01 AM EDT XR CHEST AP PORTABLE STAT 12/05/2024 2:45 AM EDT US PUBLIC HEALTH SANITARIAN TECHNICIAN/HOSPITA LIST BEDSIDE ULTRASOUND STAT 12/05/2024 2:29 AM EDT US PUBLIC HEALTH SANITARIAN TECHNICIAN/HOSPITA LIST BEDSIDE ULTRASOUND DINA 12/05/2024 2:09 AM EDT US PUBLIC HEALTH SANITARIAN TECHNICIAN/HOSPITA LIST BEDSIDE ULTRASOUND DINA 12/05/2024 2:09 AM EDT ADMIT STAT 12/05/2024 1:09 AM EDT IP CONSULT TO GENERAL SURGERY Routine 12/05/2024 1:07 AM EDT Procedure Note - Fabian Holguin MD - 12/05/2024 8:13 AM EDTThis note is in progress. EMERGENCY GENERAL SURGERY CONSULTATION ____ Yanna Dutton is a 59 y.o. year old female who I am asked to see for CCof RUQ pain, nausea, vomiting, fever, chills. Dx with acutecholecystitis, septic shock I looked at the patient's CT images myself. I reviewed the clinical labtests. Gallbladder severe inflamed, possibly with posterior wallperforation or liver abscess. She is on two pressors but lactic acid hascleared and she is otherwise doing well. I counseled operative intervention. I discussed that the operation isconsidered an urgent procedure. I discussed the operation in detail. Idiscussed the alternative of percutaneous cholecystostomy tube. Idiscussed the risks including pain, infection, bleeding, damage toadjacent structures, bile leak, hernia, need for furtherprocedures/operations, and rarer issues up to and including . Ianswered all questions/concerns and patient is agreeable to proceed. I discussed this plan with the SICU and they were in agreement. -npo -iv fluids -abx -continue resusc, appreciate SICU care -to OR Time-Based Billing Statement I spent 55 minutes in the care of this patient on this calendar day.Activities performed during this time include: Reviewing labs, Reviewing imaging, Obtaining or reviewing history(separately obtained), Performing the appropriate exam, Counseling andeducating, Referring and communicating with another professional,Documenting clinical information in the EHR, and Independent review andinterpretation of imaging The total time documented above did not include the following activitieswhich were also performed on this calendar day: None ____ Yanna Dutton is a 59 y.o. year old female who presents with a complaintof pain to her RUQ that began 3 days ago and became much worse with asyncopal episode yesterday. She has been having issues like this for overa month but previous workup in the ED did not show a source. She reportsnausea/vomiting as well as subjective fever with this. She previously hashad but no other abdominal surgeries. No hx of heart/lungdisease. ____ Past Medical History: Diagnosis Date Arthritis Depression mild Hypertension Thyroid disease Urinary incontinence Botox fixed symptoms Vasodepressor syncope Past Surgical History: Procedure Laterality Date SECTION COSMETIC SURGERY brachioplasty, abdominal plasty KNEE JOINT MANIPULATION 02/15/2020 Surgeon: Hitesh Hilton MD; Location: [facility]; Service:Orthopedics THYROIDECTOMY TOTAL KNEE ARTHROPLASTY Left 02/15/2020 LEFT TOTAL KNEE ARTHROPLASTY cortizone injection right knee; Surgeon:Hitesh Hilton MD; Location: [facility]; Service: Orthopedics TOTAL KNEE ARTHROPLASTY Right 05/30/2020 RIGHT TOTAL KNEE ARTHROPLASTY; Surgeon: Hitesh Hilton MD;Location: [facility]; Service: Orthopedics No Known Allergies Social History Socioeconomic History Marital status: Spouse name: Not on file Number of children: Not on file Years of education: Not on file Highest education level: Not on file Occupational History Not on file Tobacco Use Smoking status: Former Current packs/day: 0.00 Average packs/day: 0.5 packs/day for 20.0 years (10.0 ttl pk-yrs) Types: Cigarettes Start date: 02/06/1983 Quit date: 02/06/2003 Years since quittin.8 Smokeless tobacco: Never Vaping Use Vaping status: Never Used Substance and Sexual Activity Alcohol use: Not on file Comment: socially Drug use: No Sexual activity: Yes Partners: Male Other Topics Concern Not on file Social History Narrative Not on file Social Drivers of Health Financial Resource Strain: Not on file Food Insecurity: Unknown (07/28/2023) Received from [facility] Food Insecurities Worried about running out of food: Not on file Food Bought: Not on file Transportation Needs: Unknown (07/28/2023) Received from [facility] Transportation Worried about transportation: Not on file Physical Activity: Not on file Stress: Not on file Social Connections: Not on file Intimate Partner Violence: Unknown (07/28/2023) Received from [email or web address] [facility] Interpersonal Safety Feel physically or emotionally unsafe where currently live: Not on file Harm by anyone: Not on file Emotionally Harmed: Not on file Housing Stability: Unknown (07/28/2023) [facility] Housing/Utilities Worried about losing home: Not on file Stayed outside house: Not on file Unable to get utilities: Not on file Family History Problem Relation Age of Onset Arthritis Mother Cancer Mother Depression Mother Heart Disease Mother Arthritis Father Diabetes Father Heart Disease Father High Blood Pressure Father Anesth Problems Neg Hx Prior to Admission medications Medication Sig Start Date End Date Taking? Authorizing Provider buPROPion (WELLBUTRIN SR) 150 mg Oral tablet sustained-release 12 hr [id number] mg by mouth 2 times daily. 12/19/21 Yes Provider, Historical FLUoxetine (PROZAC) 20 mg Oral Capsule Take 20 mg by mouth daily. 11/25/21Yes Provider, Historical LEVOthyroxine (SYNTHROID) 200 mcg Oral Tablet Take 200 mcg by mouth daily.Yes Provider, Historical multivit-min/iron/folic/lutein (CENTRUM SILVER WOMEN ORAL) Take 1 Tabletby mouth daily. Yes Provider, Historical Cholecalciferol, Vitamin D3, (VITAMIN D3) 125 mcg (5,000 unit) Oral TabletTake 5,000 mcg by mouth daily. Patient not taking: Reported on 10/25/2024 04/02/22 Renato Snow MD tolterodine (DETROL LA) 4 mg Oral Capsule, Sust. Release 24 hr Take 1 Capby mouth daily. Patient not taking: Reported on 10/25/2024 08/04/19 Antoinette Larry MD ____ Vitals: 12/05/24 0534 12/05/24 0600 12/05/24 0700 12/05/24 0800 BP: 110/69 96/67 (!) 78/49 BP Location: Patient Position: Pulse: 98 99 92 86 Resp: (!) 28 (!) 28 (!) 25 (!) 26 Temp: (!) 103.2 F (39.6 C) (!) 103 F (39.4 C) (!) 102.1 F (38.9 C)(!) 101.2 F (38.4 C) TempSrc: Buck Probe SpO2: 99% 100% 99% Weight: Height: Constitutional: Oriented to person, place, time. Vital signs are above. Mouth/Throat: Oropharynx clear and moist. Eyes: Conjunctivae and EOM grossly normal. Pupils equal and round. Neck: No tracheal deviation. Cardiovascular: Normal rate. Pulmonary/Chest: Effort normal. No accessory muscle usage or stridor. Nodistress. Abdominal: Soft. Tender to RUQ. Neurological: Alert and oriented to person, place, time. Skin: Skin warm and dry. ____ *I reviewed the following labs and studies. I personally viewed thepertinent images Lab Results Component Value Date WBC 19.3 (H) 12/05/2024 Lab Results Component Value Date HGB 12.4 12/05/2024 HGB 12.9 12/05/2024 HCT 36.3 12/05/2024 HCT 39.6 12/05/2024 Lab Results Component Value Date NA 132 (L) 12/05/2024 K 3.3 (L) 12/05/2024 CL 101 12/05/2024 CO2 20 (L) 12/05/2024 BUN 16 12/05/2024 CREATININE 1.16 12/05/2024 CALCIUM 8.3 (L) 12/05/2024 No results found for: PROTIME , INR ____ XR CHEST AP PORTABLE Result Date: 12/05/2024 XR CHEST AP PORTABLE, 12/05/2024 2:45 AM CLINICAL HISTORY: -line placementCOMPARISON: 12/04/2024 PROCEDURE COMMENTS: AP portable technique. FINDINGS:Support devices: Left IJ catheter with tip lower SVC. Heart andmediastinal contours within normal limits for technique. No activefailure, pneumonia, or visible effusion. No visible pneumothorax. No acute finding. - Note: Radiology results need to be interpreted withina comprehensive clinical context. If you have questions about theradiology report, please contact the office of the ordering clinician. US PUBLIC HEALTH SANITARIAN TECHNICIAN/HOSPITALIST BEDSIDE ULTRASOUND Result Date: 12/05/2024 Molded Grid And Parts Inspector Ultrasound performed at bedside. The study image(s) are forreference only and will not be interpreted by a Radiologist. Refer to procedure note for image description and procedure details. US PUBLIC HEALTH SANITARIAN TECHNICIAN/HOSPITALIST BEDSIDE ULTRASOUND Result Date: 12/05/2024 Molded Grid And Parts Inspector Ultrasound performed at bedside. The study image(s) are forreference only and will not be interpreted by a Radiologist. Refer to procedure note for image description and procedure details. US PUBLIC HEALTH SANITARIAN TECHNICIAN/HOSPITALIST BEDSIDE ULTRASOUND Result Date: 12/05/2024 Molded Grid And Parts Inspector Ultrasound performed at bedside. The study image(s) are forreference only and will not be interpreted by a Radiologist. Refer to procedure note for image description and procedure details. CT ABD PEL ED FAST W CONTRAST Result Date: 12/05/2024 CT ABDOMEN AND PELVIS WITH CONTRAST (FAST), 12/05/2024 12:40 AM CLINICALHISTORY: -abdominal pain. COMPARISON: 10/25/24. PROCEDURE COMMENTS:Multi-detector CT scanning of the abdomen and pelvis with multiplanarreformatting per expedited protocol. Isovue 370 IV contrast given asrecorded in EPIC. Dose 1 : CT DLP Total : 1495.04 mGycm DLP Spiral Max :1492.98 mGycm Maximum CTDI Vol : 29.24 mGy FINDINGS: LOWER THORAX: Lungbases unremarkable. ABDOMEN AND PELVIS: Spleen, pancreas, kidneys, andadrenal glands unremarkable. No hydronephrosis. Gallbladder wall isedematous and inflamed. Trace pericholecystic fluid. 1.8 cm cystic focuswithin the adjacent liver. No bowel obstruction or acute inflammatoryprocess. No evidence of appendicitis. No abnormal mass, fluid, oradenopathy in the pelvis. No acute osseous abnormality. Findings concerning for acute cholecystitis with possible containedperforation or developing fluid collection/abscess in the adjacent liver.Recommend surgical consultation. - Note: Radiology results need to beinterpreted within a comprehensive clinical context. If you havequestions about the radiology report, please contact the office of theordering clinician. XR CHEST AP PORTABLE Result Date: 12/04/2024 XR CHEST AP PORTABLE, 12/04/2024 11:38 PM CLINICAL HISTORY: -SyncopeCOMPARISON: None. PROCEDURE COMMENTS: AP portable technique. FINDINGS:Support devices: No visible support devices. Heart and mediastinalcontours within normal limits for technique. No active failure,pneumonia, or visible effusion. No visible pneumothorax. No acute finding. - Note: Radiology results need to be interpreted withina comprehensive clinical context. If you have questions about theradiology report, please contact the office of the ordering clinician. EK EKG 12 LEAD Result Date: 12/04/2024 NOTICE: Preliminary tracing available for review; Final Interpretation byphysician to follow. [facility] Shortsaint anthonyTest Date:2024-12-04 Pat Name: YANNAJorge DUTTON Department: DEPIDPatient ID: [id number] Room: Gender:Female Locomotive Electrician: : [id number] By: [facility] Order Number: [id number] MD: MeasurementsIntervals [place] Rate: 120P: 59 GA: 157QRS: 21 QRSD: 96 T: 48QT: 325 QTc: 461InterpretiveStatements SINUS TACHYCARDIA POSSIBLE RIGHT VENTRICULAR CONDUCTION DELAYABNORMAL RHYTHM ECG CT ABD PEL ED FAST W CONTRAST STAT 12/05/2024 12:40 AM EDT IP CONSULT TO PHARMACY Routine 12/05/2024 12:38 AM EDT BLOOD CULTURE (NO STAIN) STAT 12/04/2024 11:54 PM EDT URINALYSIS REFLEX STAT 12/04/2024 11:49 PM EDT [id number] A/B Routine 12/04/2024 11:49 PM EDT UA W/REFLEX TO CULTURE STAT 12/04/2024 11:49 PM EDT EXTRA IRVING URINE CX STAT 12/04/2024 11:49 PM EDT URINE CULTURE (NO STAIN) STAT 12/04/2024 11:49 PM EDT XR CHEST AP PORTABLE STAT 12/04/2024 11:38 PM EDT BLOOD CULTURE JAZIEL GRAM NEG Routine 12/04/2024 11:35 PM EDT BLOOD CULTURE (NO STAIN) STAT 12/04/2024 11:35 PM EDT TROPONIN-T HIGH SENSITIVITY BASELINE W/ REFLEX STAT 12/04/2024 11:34 PM EDT BLOOD GAS, VENOUS STAT 12/04/2024 11:34 PM EDT PROCALCITONIN STAT 12/04/2024 11:34 PM EDT CBC WITH DIFF STAT 12/04/2024 11:34 PM EDT LIPASE LEVEL STAT 12/04/2024 11:34 PM EDT LACTIC ACID STAT 12/04/2024 11:34 PM EDT COMPREHENSIVE METABOLIC PANEL STAT 12/04/2024 11:34 PM EDT SALINE LOCK IV STAT 12/04/2024 11:25 PM EDT EK EKG 12 LEAD STAT 12/04/2024 11:20 PM EDT documented in this encounter Results * (ABNORMAL) C-REACTIVE PROTEIN (12/09/2024 6:49 AM EDT) CRP 44.78(H) <=5.00 mg/L 12/09/2024 7:57 AM EDT [facility] [place] Blood VENOUS BLOOD / Unknown Venipuncture / Unknown 12/09/2024 6:49 AM EDT 12/09/2024 7:22 AM EDT us Mike Savani-Blackham MD CHEMISTRY ORDERABLES Fin al Result Performing Organization Address City/[facility]/ZIP Co de Phone Number [facility], [address] , [place] [address] * (ABNORMAL) SEDIMENTATION RATE AUTOMATED (12/09/2024 6:49 AM EDT) Sed Rate 50(H) 0 - 30 mm/hr 12/09/2024 8:11 AM EDT [facility] Blood VENOUS BLOOD / Unknown Venipuncture / Unknown 12/09/2024 6:49 AM EDT 12/09/2024 7:22 AM EDT Mike Kauffman MD HEMATOLOGY ORDERABLES Fi nal Result Performing Organization Address [facility] Co de Phone Number [facility], [facility] [address] [facility] , [place] [address] * (ABNORMAL) COMPREHENSIVE METABOLIC PANEL (12/09/2024 6:49 AM EDT) Sodium 142 136 - 145 mmol/L 12/09/2024 7:57 AM EDT [facility] Potassium 3.6 3.5 - 5.0 mmol/L 12/09/2024 7:57 AM EDT [facility] Chloride 104 98 - 107 mmol/L 12/09/2024 7:57 AM EDT [facility] Total CO2 27 22 - 29 mmol/L 12/09/2024 7:57 AM EDT [facility] Anion Gap 11 7 - 16 mmol/L 12/09/2024 7:57 AM EDT [facility] Calcium 8.6 8.6 - 10.4 mg/dL 12/09/2024 7:57 AM EDT [facility] Glucose Lvl 75 70 - 99 mg/dL 12/09/2024 7:57 AM EDT [facility] BUN 10 6 - 20 mg/dL 12/09/2024 7:57 AM EDT [facility] Creatinine 0.56 0.51 - 1.30 mg/dL 12/09/2024 7:57 AM EDT [facility], [facility] Albumin 2.9(L) 3.5 - 5.2 gm/dL 12/09/2024 7:57 AM EDT [facility], [facility] Total Protein 5.5(L) 6.4 - 8.3 gm/dL 12/09/2024 7:57 AM EDT [facility], [facility] Bili Total 0.3 0.2 - 1.3 mg/dL 12/09/2024 7:57 AM EDT [facility], [facility] ALT 43(H) <=41 U/L 12/09/2024 7:57 AM EDT [facility], [facility] AST 24 <=40 U/L 12/09/2024 7:57 AM EDT [facility], [facility] Alk Phos 159(H) 36 - 123 U/L 12/09/2024 7:57 AM EDT [facility], [facility] eGFR (CKD-EPIcr 2020) 106 >=60 mL/min/1.7 3 m2 12/09/2024 7:57 AM EDT [facility], [facility] Comment:Estimated GFR was ca lculated using the CKD-EPIcr (2020) equation refit without race. The equation is recommended by the National Kid[employer] Foundation - [place] [employer] Neph[employer] Task Force. Blood VENOUS BLOOD / Unknown Venipuncture / Unknown 12/09/2024 6:49 AM EDT 12/09/2024 7:22 AM EDT us Mike Kauffman MD CHEMISTRY ORDERABLES [facility] al Result [facility], [facility] [address] [facility] , [place] [address] * (ABNORMAL) CBC WITH DIFF (12/09/2024 6:49 AM EDT) WBC 10.5(H) 3.7 - 10.3 x10(3)/mc L 12/09/2024 8:11 AM EDT [facility], [facility] RBC 3.71(L) 3.90 - 5.20 x10(6)/mc L 12/09/2024 8:11 AM EDT [facility], [facility] Hgb 11.0(L) 11.2 - 15.7 g/dL 12/09/2024 8:11 AM EDT [facility] Hct 34.1 34.0 - 45.0 % 12/09/2024 8:11 AM EDT [facility] MCV 91.9 80.0 - 100.0 fL 12/09/2024 8:11 AM EDT [facility] MCH 29.6 26.0 - 34.0 pg 12/09/2024 8:11 AM EDT [facility] MCHC 32.3 30.7 - 35.5 g/dL 12/09/2024 8:11 AM EDT [facility] [facility] RDW 14.4 <=14.9 % 12/09/2024 8:11 AM EDT [facility] Platelet 203 155 - 369 x10(3)/mc L 12/09/2024 8:11 AM EDT [facility] MPV 11.1 8.8 - 12.5 fL 12/09/2024 8:11 AM EDT [facility] NRBC Auto % 0.2(H) <=0.0 % 12/09/2024 8:11 AM EDT [facility] NRBC# 0.0 x10(3)/mc L 12/09/2024 8:11 AM EDT [facility] Segs 67 % 12/09/2024 8:11 AM EDT [facility] Lymphs 23 % 12/09/2024 8:11 AM EDT [facility] Monos 3 % 12/09/2024 8:11 AM EDT [facility] Eos 2 % 12/09/2024 8:11 AM EDT [facility] Baso 0 % 12/09/2024 8:11 AM EDT [facility] Metamyelocyte 3 % 12/09/2024 8:11 AM EDT [facility] Myelo 2 % 12/09/2024 8:11 AM EDT [facility] Neut # 7.0(H) 1.6 - 6.1 x10(3)/mc L 12/09/2024 8:11 AM EDT [facility] Lymph # 2.4 1.2 - 3.9 x10(3)/mc L 12/09/2024 8:11 AM EDT [facility] Dixon # 0.3 0.3 - 0.9 x10(3)/mc L 12/09/2024 8:11 AM EDT [facility] Eos # Manual 0.2 0.0 - 0.5 x10(3)/mc L 12/09/2024 8:11 AM EDT [facility] Baso # Manual 0.0 0.0 - 0.1 x10(3)/mc L 12/09/2024 8:11 AM EDT [facility] Metamyelo # 0.3 x10(3)/mc L 12/09/2024 8:11 AM EDT [facility] Myelo # 0.2 x10(3)/mc L 12/09/2024 8:11 AM EDT [facility] RBC Morph Consistent with Red Cell Indices no units 12/09/2024 8:11 AM EDT [facility], [facility] Blood VENOUS BLOOD / Unknown Venipuncture / Unknown 12/09/2024 6:49 AM EDT 12/09/2024 7:22 AM EDT Mike Kauffman MD HEMATOLOGY ORDERABLES nal Result [facility], [facility] [address] [facility] , [place] [address] * TSH REFLEX TO FT4 (12/08/2024 6:52 AM EDT) TSH Reflex 0.681 0.270 - 4.200 mcIU/mL 12/08/2024 7:54 AM EDT [facility] Blood VENOUS BLOOD / Unknown Venipuncture / Unknown 12/08/2024 6:52 AM EDT 12/08/2024 6:56 AM EDT Narrative [facility], [facility] - 12/08/2024 7:54 AM EDT Ingestion of armando doses of biotin (>5 mg/day) taken within 8 hours of drawing blood sample can interfere with this immunoassay test. Fabian Johnson MD CHEMISTRY ORDERABLES Final Resu lt Performing Organization Address [facility] Co de Phone Number [facility] be2 [facility] [address] [facility] , [place] [address] * PHOSPHORUS LEVEL (12/08/2024 6:52 AM EDT) Phosphorus 3.5 2.5 - 4.5 mg/dL 12/08/2024 7:54 AM EDT [facility] Blood VENOUS BLOOD / Unknown Venipuncture / Unknown 12/08/2024 6:52 AM EDT 12/08/2024 6:56 AM EDT Royer Cloud MD CHEMISTRY ORDERABLES Final Re sult Performing Organization Address [facility] de Phone Number [facility] [address] [facility] , [place] [address] * MAGNESIUM LEVEL (12/08/2024 6:52 AM EDT) Magnesium 2.0 1.6 - 2.4 mg/dL 12/08/2024 7:54 AM EDT [facility] [place] Blood VENOUS BLOOD / Unknown Venipuncture / Unknown 12/08/2024 6:52 AM EDT 12/08/2024 6:56 AM EDT Royer Cloud MD CHEMISTRY ORDERABLES Final Re sult Performing Organization Address [facility] de Phone Number [facility] [address] [facility] , [place] [address] * (ABNORMAL) IONIZED CALCIUM - INPATIENT (12/08/2024 6:52 AM EDT) Calcium Ionized 1.09(L) 1.12 - 1.32 mmol/L 12/08/2024 7:10 AM EDT [facility] [place] Blood VENOUS BLOOD / Unknown Venipuncture / Unknown 12/08/2024 6:52 AM EDT 12/08/2024 6:57 AM EDT Royer Cloud MD CHEMISTRY ORDERABLES Final Re sult [facility] 1 [facility] , [address] [place] [phone] * (ABNORMAL) CBC (12/08/2024 6:52 AM EDT) WBC 9.1 3.7 - 10.3 x10(3)/mcL 12/08/2024 7:25 AM EDT [facility] RBC 3.68(L) 3.90 - 5.20 x10(6)/mcL 12/08/2024 7:25 AM EDT [facility] Hgb 10.9(L) 11.2 - 15.7 g/dL 12/08/2024 7:25 AM EDT [facility] Hct 33.7(L) 34.0 - 45.0 % 12/08/2024 7:25 AM EDT [facility] MCV 91.6 80.0 - 100.0 fL 12/08/2024 7:25 AM EDT [facility] MCH 29.6 26.0 - 34.0 pg 12/08/2024 7:25 AM EDT [facility] MCHC 32.3 30.7 - 35.5 g/dL 12/08/2024 7:25 AM EDT [facility] RDW 14.3 <=14.9 % 12/08/2024 7:25 AM EDT [facility] Platelet 175 155 - 369 x10(3)/mcL 12/08/2024 7:25 AM EDT [facility] MPV 11.1 8.8 - 12.5 fL 12/08/2024 7:25 AM EDT [facility] Blood VENOUS BLOOD / Unknown Venipuncture / Unknown 12/08/2024 6:52 AM EDT 12/08/2024 6:56 AM EDT Royer Cloud MD HEMATOLOGY ORDERABLES Final R esult [facility], [facility] 1 [facility] , [address] [place] [phone] * (ABNORMAL) BASIC METABOLIC PANEL (12/08/2024 6:52 AM EDT) Sodium 143 136 - 145 mmol/L 12/08/2024 7:54 AM EDT [facility], [facility] Potassium 3.6 3.5 - 5.0 mmol/L 12/08/2024 7:54 AM EDT [facility], [facility] Chloride 105 98 - 107 mmol/L 12/08/2024 7:54 AM EDT [facility], [facility] Total CO2 27 22 - 29 mmol/L 12/08/2024 7:54 AM EDT [facility], [facility] Anion Gap 11 7 - 16 mmol/L 12/08/2024 7:54 AM EDT [facility] Calcium 8.2(L) 8.6 - 10.4 mg/dL 12/08/2024 7:54 AM EDT [facility] Glucose Lvl 67(L) 70 - 99 mg/dL 12/08/2024 7:54 AM EDT [facility] BUN 11 6 - 20 mg/dL 12/08/2024 7:54 AM EDT [facility] Creatinine 0.53 0.51 - 1.30 mg/dL 12/08/2024 7:54 AM EDT [facility] eGFR (CKD-EPIcr 2020) 107 >=60 mL/min/1.7 3 m2 12/08/2024 7:54 AM EDT [facility], [facility] Comment:Estimated GFR was ca lculated using the CKD-EPIcr (2020) equation refit without race. The equation is recommended by the National Kidney Foundation - [place] [employer] Nephrology Task Force. Blood VENOUS BLOOD / Unknown Venipuncture / Unknown 12/08/2024 6:52 AM EDT 12/08/2024 6:56 AM EDT us Royer Cloud MD CHEMISTRY ORDERABLES Final Re sult [facility], [facility] 1 [facility] [address], [place] [address] * BLOOD CULTURE (NO STAIN) (12/07/2024 3:07 PM EDT) Culture Result No Growth at 120 hours. BLOOD CULTURE (NO STAIN) 12/12/2024 5:00 PM EDT [facility] Blood VENOUS BLOOD / Unknown Venipuncture / Unknown 12/07/2024 3:07 PM EDT 12/07/2024 3:13 PM EDT Carrie Rosenberg APRN MICROBIOLOGY - GENER AL ORDERABLES Final Result [facility], [facility] 1 [facility] , [place] [address] * ANAEROBIC CULTURE (NO STAIN) (12/07/2024 12:48 PM EDT) Culture No anaerobic growth at 5 days. 12/12/2024 9:32 AM EDT [facility], [facility] Drainage ABDOMEN / Unknown 12/07/2024 12:48 PM EDT 12/07/2024 12:56 PM EDT Carrie Rosenberg APRN MICROBIOLOGY - GENER AL ORDERABLES Final Result Performing Organization Address City/[facility]/ZIP Co de Phone Number [facility], [facility] [address] [facility] , [place] [address] * WOUND CULTURE (STAIN INCLUDED) (12/07/2024 12:48 PM EDT) Culture No growth at 94 hours. 12/12/2024 12:16 PM EDT [facility] Stain Rare WBCs 12/12/2024 12:16 PM EDT [facility] Stain No organisms seen 12/12/2024 12:16 PM EDT [facility] Drainage ABDOMEN / Unknown 12/07/2024 12:48 PM EDT 12/07/2024 12:56 PM EDT Carrie Rosenberg CUSHION MAKER MICROBIOLOGY - GENER AL ORDERABLES Final Result Performing Organization Address [facility] de Phone Number [facility] [address] [facility] , [place] [address] * BLOOD CULTURE (NO STAIN) (12/07/2024 12:23 PM EDT) Culture Result No Growth at 120 hours. BLOOD CULTURE (NO STAIN) 12/12/2024 4:00 PM EDT [facility] Blood VENOUS STRUCTURE / Unknown Venipuncture / Unknown 12/07/2024 12:23 PM EDT 12/07/2024 12:42 PM EDT Carrie Rosenberg CUSHION MAKER MICROBIOLOGY - GENER AL ORDERABLES Final Result Performing Organization Address [facility] de Phone Number [employer] [facility] [address] [facility] , [place] [address] * (ABNORMAL) PHOSPHORUS LEVEL (12/07/2024 6:14 AM EDT) Phosphorus 2.2(L) 2.5 - 4.5 mg/dL 12/07/2024 7:27 AM EDT [facility] Blood VENOUS STRUCTURE / Unknown Venipuncture / Unknown 12/07/2024 6:14 AM EDT 12/07/2024 6:24 AM EDT Royer Cloud MD CHEMISTRY ORDERABLES Final Re sult Performing Organization Address [facility] Co de Phone Number [facility] [address] [facility] , [place] [address] * MAGNESIUM LEVEL (12/07/2024 6:14 AM EDT) Magnesium 2.3 1.6 - 2.4 mg/dL 12/07/2024 7:27 AM EDT [facility] Blood VENOUS STRUCTURE / Unknown Venipuncture / Unknown 12/07/2024 6:14 AM EDT 12/07/2024 6:24 AM EDT us Royer Cloud MD CHEMISTRY ORDERABLES Final Re sult Performing Organization Address [facility] Co de Phone Number [facility], [address] , [place] [address] * (ABNORMAL) IONIZED CALCIUM - INPATIENT (12/07/2024 6:14 AM EDT) Pathologist [facility] [place] Calcium Ionized 1.09(L) 1.12 - 1.32 mmol/L 12/07/2024 6:42 AM EDT [facility] Blood VENOUS STRUCTURE / Unknown Venipuncture / Unknown 12/07/2024 6:14 AM EDT 12/07/2024 6:24 AM EDT us Royer Cloud MD CHEMISTRY ORDERABLES Final Re sult Performing Organization Address [facility] de Phone Number [facility], [address] , [place] [address] * (ABNORMAL) CBC (12/07/2024 6:14 AM EDT) WBC 11.6(H) 3.7 - 10.3 x10(3)/mcL 12/07/2024 6:31 AM EDT [facility] RBC 3.38(L) 3.90 - 5.20 x10(6)/mcL 12/07/2024 6:31 AM EDT [facility] Hgb 10.3(L) 11.2 - 15.7 g/dL 12/07/2024 6:31 AM EDT [facility] Hct 31.2(L) 34.0 - 45.0 % 12/07/2024 6:31 AM EDT [facility] MCV 92.3 80.0 - 100.0 fL 12/07/2024 6:31 AM EDT [facility] MCH 30.5 26.0 - 34.0 pg 12/07/2024 6:31 AM EDT [facility] MCHC 33.0 30.7 - 35.5 g/dL 12/07/2024 6:31 AM EDT [facility] RDW 14.0 <=14.9 % 12/07/2024 6:31 AM EDT [facility] Platelet 162 155 - 369 x10(3)/mcL 12/07/2024 6:31 AM EDT [facility] MPV 11.2 8.8 - 12.5 fL 12/07/2024 6:31 AM EDT [facility] Blood VENOUS STRUCTURE / Unknown Venipuncture / Unknown 12/07/2024 6:14 AM EDT 12/07/2024 6:24 AM EDT us Royer Cloud MD HEMATOLOGY ORDERABLES Final R esult [facility], [facility] 1 [facility] , [place] [address] * (ABNORMAL) BASIC METABOLIC PANEL (12/07/2024 6:14 AM EDT) Sodium 140 136 - 145 mmol/L 12/07/2024 7:27 AM EDT [facility] Potassium 3.2(L) 3.5 - 5.0 mmol/L 12/07/2024 7:27 AM EDT [facility] Chloride 104 98 - 107 mmol/L 12/07/2024 7:27 AM EDT [facility] Total CO2 27 22 - 29 mmol/L 12/07/2024 7:27 AM EDT [facility] Anion Gap 9 7 - 16 mmol/L 12/07/2024 7:27 AM EDT [facility] Calcium 8.1(L) 8.6 - 10.4 mg/dL 12/07/2024 7:27 AM EDT [facility] Glucose Lvl 70 70 - 99 mg/dL 12/07/2024 7:27 AM EDT [facility] BUN 15 6 - 20 mg/dL 12/07/2024 7:27 AM EDT [facility] Creatinine 0.55 0.51 - 1.30 mg/dL 12/07/2024 7:27 AM EDT [facility] eGFR (CKD-EPIcr 2020) 106 >=60 mL/min/1.7 3 m2 12/07/2024 7:27 AM EDT [facility], [facility] Comment:Estimated GFR was ca lculated using the CKD-EPIcr (2020) equation refit without race. The equation is recommended by the National Kidney Foundation - [place] [employer] Nephrology Task Force. Blood VENOUS STRUCTURE / Unknown Venipuncture / Unknown 12/07/2024 6:14 AM EDT 12/07/2024 6:24 AM EDT us Royer Cloud MD CHEMISTRY ORDERABLES Final Re sult Performing Organization Address City/[facility]/ZIP Co de Phone Number [facility], [facility] 1 [facility], [place] [address] * ECG AND WAVEFORMS - TELEMETRY (12/06/2024 7:55 AM EDT) [facility] ECG INTERPRET Sinus Arrythmia [facility] 12/06/2024 7:55 AM EDT Narrative [facility] - 12/06/2024 7:55 AM EDT See Clinical Report link for waveform capture us Unknown Provider POINT OF CARE CARDIOLOGY Final Result Performing Organization Address City/[facility]/ZIP Co de Phone Number [facility] [address] [place] [address] * (ABNORMAL) HEPATIC FUNCTION PANEL (12/06/2024 5:36 AM EDT) Total Protein 6.3(L) 6.4 - 8.3 gm/dL 12/06/2024 7:15 AM EDT [facility] Albumin 3.2(L) 3.5 - 5.2 gm/dL 12/06/2024 7:15 AM EDT [facility] Bili Direct 0.4(H) 0.0 - 0.3 mg/dL 12/06/2024 7:15 AM EDT [facility] Bili Total 0.6 0.2 - 1.3 mg/dL 12/06/2024 7:15 AM EDT [facility], [facility] AST 29 <=40 U/L 12/06/2024 7:15 AM EDT [facility], [facility] ALT 43(H) <=41 U/L 12/06/2024 7:15 AM EDT [facility] Alk Phos 132(H) 36 - 123 U/L 12/06/2024 7:15 AM EDT [facility], [facility] Blood ARTERIAL BLOOD / Unknown Arterial / Unknown 12/06/2024 5:36 AM EDT 12/06/2024 5:49 AM EDT Fabian Holguin MD CHEMISTRY ORDERABLES Belinda l Result Performing Organization Address [facility] Phone Number [facility] 1 [facility] , [place] [phone] * (ABNORMAL) PHOSPHORUS LEVEL (12/06/2024 5:36 AM EDT) Phosphorus 2.4(L) 2.5 - 4.5 mg/dL 12/06/2024 7:15 AM EDT [facility], [facility] Blood ARTERIAL BLOOD / Unknown Arterial / Unknown 12/06/2024 5:36 AM EDT 12/06/2024 5:49 AM EDT Royer Cloud MD CHEMISTRY ORDERABLES Final Re sult Performing Organization Address [facility] de Phone Number [facility] 1 [facility] , [place] [address] * MAGNESIUM LEVEL (12/06/2024 5:36 AM EDT) Magnesium 2.3 1.6 - 2.4 mg/dL 12/06/2024 7:15 AM EDT [facility], [facility] Blood ARTERIAL BLOOD / Unknown Arterial / Unknown 12/06/2024 5:36 AM EDT 12/06/2024 5:49 AM EDT Royer Cloud MD CHEMISTRY ORDERABLES Final Re sult Performing Organization Address [facility]/ZIP Co de Phone Number [facility], [facility] 1 [facility] , [place] [address] * (ABNORMAL) IONIZED CALCIUM - INPATIENT (12/06/2024 5:36 AM EDT) [facility] Calcium Ionized 1.11(L) 1.12 - 1.32 mmol/L 12/06/2024 5:58 AM EDT [facility] Blood ARTERIAL BLOOD / Unknown Arterial / Unknown 12/06/2024 5:36 AM EDT 12/06/2024 5:49 AM EDT us Royer Cloud MD CHEMISTRY ORDERABLES Final Re sult Performing Organization Address [facility] Co de Phone Number [facility], [facility] 1 [facility] , [place] [address] * (ABNORMAL) CBC (12/06/2024 5:36 AM EDT) [facility] WBC 21.3(H) 3.7 - 10.3 x10(3)/mcL 12/06/2024 6:53 AM EDT [facility] RBC 3.52(L) 3.90 - 5.20 x10(6)/mcL 12/06/2024 6:53 AM EDT [facility] Hgb 10.9(L) 11.2 - 15.7 g/dL 12/06/2024 6:53 AM EDT [facility] Hct 32.6(L) 34.0 - 45.0 % 12/06/2024 6:53 AM EDT [facility] MCV 92.6 80.0 - 100.0 fL 12/06/2024 6:53 AM EDT [facility] MCH 31.0 26.0 - 34.0 pg 12/06/2024 6:53 AM EDT [facility] MCHC 33.4 30.7 - 35.5 g/dL 12/06/2024 6:53 AM EDT [facility] RDW 14.1 <=14.9 % 12/06/2024 6:53 AM EDT [facility] Platelet 156 155 - 369 x10(3)/mcL 12/06/2024 6:53 AM EDT [facility] MPV 11.2 8.8 - 12.5 fL 12/06/2024 6:53 AM EDT [facility] Blood ARTERIAL BLOOD / Unknown Arterial / Unknown 12/06/2024 5:36 AM EDT 12/06/2024 5:49 AM EDT us Royer Cloud MD HEMATOLOGY ORDERABLES Final R esult [facility], [facility] 1 [facility] , [place] [address] * (ABNORMAL) BASIC METABOLIC PANEL (12/06/2024 5:36 AM EDT) Sodium 132(L) 136 - 145 mmol/L 12/06/2024 7:15 AM EDT [facility] Potassium 4.2 3.5 - 5.0 mmol/L 12/06/2024 7:15 AM EDT [facility] Chloride 99 98 - 107 mmol/L 12/06/2024 7:15 AM EDT [facility] Total CO2 23 22 - 29 mmol/L 12/06/2024 7:15 AM EDT [facility] Anion Gap 10 7 - 16 mmol/L 12/06/2024 7:15 AM EDT [facility] Calcium 8.3(L) 8.6 - 10.4 mg/dL 12/06/2024 7:15 AM EDT [facility] Glucose Lvl 129(H) 70 - 99 mg/dL 12/06/2024 7:15 AM EDT [facility] BUN 26(H) 6 - 20 mg/dL 12/06/2024 7:15 AM EDT [facility] Creatinine 0.70 0.51 - 1.30 mg/dL 12/06/2024 7:15 AM EDT [facility] eGFR (CKD-EPIcr 2020) 100 >=60 mL/min/1.7 3 m2 12/06/2024 7:15 AM EDT [facility] Comment:Estimated GFR was ca lculated using the CKD-EPIcr (2020) equation refit without race. The equation is recommended by the National Kidney Foundation - [place] [employer] Nephrology Task Force. Blood ARTERIAL BLOOD / Unknown Arterial / Unknown 12/06/2024 5:36 AM EDT 12/06/2024 5:49 AM EDT us Royer Cloud MD CHEMISTRY ORDERABLES Final Re sult Performing Organization Address City/[facility]/ZIP Co de Phone Number [employer] [address] [facility] , [place] [address] * ECG AND WAVEFORMS - TELEMETRY (12/05/2024 7:34 PM EDT) [facility] ECG INTERPRET NSR [facility] 12/05/2024 7:34 PM EDT Narrative [facility] - 12/05/2024 7:34 PM EDT See Clinical Report link for waveform capture us Unknown Provider POINT OF CARE CARDIOLOGY Final Result Performing Organization Address [facility] Co de Phone Number [facility] [address] [place] [address] * REPEAT LACTIC ACID (12/05/2024 4:07 PM EDT) [facility] Lactic Acid 1.8 0.5 - 1.9 mmol/L 12/05/2024 4:34 PM EDT [employer] Blood ARTERIAL BLOOD / Unknown Arterial / Unknown 12/05/2024 4:07 PM EDT 12/05/2024 4:13 PM EDT us Sushil Porras APRN CHEMISTRY ORDERABLES Final Result Performing Organization Address City/[facility] Co de Phone Number [employer] [facility] 1 [facility] , [place] [address] * (ABNORMAL) POC ARTERIAL BLOOD GAS PROFILE (12/05/2024 2:10 PM EDT) Pathologist [facility] [place] pH 7.36 7.35 - 7.45 pH 12/05/2024 2:11 PM EDT [facility] pCO2 37 35 - 45 mmHg 12/05/2024 2:11 PM EDT [facility] pO2 65(L) 80 - 100 mmHg 12/05/2024 2:11 PM T [facility] HCO3 20.7(L) 22.0 - 26.0 mmol/L 12/05/2024 2:11 PM T [facility] Base Excess -4.9(L) -2.0 - 3.0 mmol/L 12/05/2024 2:11 PM [facility] O2 Sat 93.2(L) 95.0 - 98.0 % 12/05/2024 2:11 PM T [facility] Sodium 133(L) 136 - 145 mmol/L 12/05/2024 2:11 PM [facility] Calcium Ionized 1.12 1.12 - 1.32 mmol/L 12/05/2024 2:11 PM [facility] Chloride 103 98 - 107 mmol/L 12/05/2024 2:11 PM [facility] Glucose WB 160(H) 72 - 112 mg/dL 12/05/2024 2:11 PM [facility] Lactic Acid 2.5(H) 0.5 - 1.9 mmol/L 12/05/2024 2:11 PM [facility] K-WB 4.1 3.5 - 5.0 mmol/L 12/05/2024 2:11 PM [facility] Hgb 12.7 11.2 - 15.7 g/dL 12/05/2024 2:11 PM [facility] Hct 39.0 34.0 - 45.0 % 12/05/2024 2:11 PM [facility] Inspired O2 32.0 % 12/05/2024 2:11 PM [facility] P/F Ratio 203 mmHg 12/05/2024 2:11 PM [facility] Blood ARTERIAL BLOOD / Unknown 12/05/2024 2:10 PM EDT 12/05/2024 2:11 PM EDT us Royer Cloud MD POINT OF CARE TEST ORDERABLES Final Result Performing Organization Address City/[facility]/ZIP Co de Phone Number [facility] [address] [place] [address] * (ABNORMAL) HEPATIC FUNCTION PANEL (12/05/2024 2:02 PM EDT) Total Protein 6.1(L) 6.4 - 8.3 gm/dL 12/05/2024 4:35 PM EDT [facility] Albumin 3.3(L) 3.5 - 5.2 gm/dL 12/05/2024 4:35 PM EDT [facility] Bili Direct 0.8(H) 0.0 - 0.3 mg/dL 12/05/2024 4:35 PM EDT [facility] Bili Total 1.1 0.2 - 1.3 mg/dL 12/05/2024 4:35 PM EDT [facility] AST 53(H) <=40 U/L 12/05/2024 4:35 PM EDT [facility] ALT 51(H) <=41 U/L 12/05/2024 4:35 PM EDT [facility] Alk Phos 134(H) 36 - 123 U/L 12/05/2024 4:35 PM EDT [facility] Blood ARTERIAL BLOOD / Unknown Arterial / Unknown 12/05/2024 2:02 PM EDT 12/05/2024 2:12 PM EDT us Sushil Porras APRN CHEMISTRY ORDERABLES Final Result [facility] [address] [place] [address] * (ABNORMAL) LACTIC ACID (12/05/2024 2:02 PM EDT) Lactic Acid 2.7(H) 0.5 - 1.9 mmol/L 12/05/2024 2:33 PM EDT [facility] Blood ARTERIAL BLOOD / Unknown Arterial / Unknown 12/05/2024 2:02 PM EDT 12/05/2024 2:12 PM EDT Sushil Porras APRN CHEMISTRY ORDERABLES Final Result Performing Organization Address [facility] Co de Phone Number [facility] be[facility] [address] , [place] [address] * PHOSPHORUS LEVEL (12/05/2024 2:02 PM EDT) Phosphorus 4.5 2.5 - 4.5 mg/dL 12/05/2024 3:11 PM EDT [facility] [facility] [employer] Blood ARTERIAL BLOOD / Unknown Arterial / Unknown 12/05/2024 2:02 PM EDT 12/05/2024 2:12 PM EDT Sushil Porras APRN CHEMISTRY ORDERABLES Final Result Performing Organization Address [facility] de Phone Number [facility] be2 [facility] [address] [facility] , [address] [place] [phone] * MAGNESIUM LEVEL (12/05/2024 2:02 PM EDT) Magnesium 2.2 1.6 - 2.4 mg/dL 12/05/2024 3:10 PM EDT [facility] Blood ARTERIAL BLOOD / Unknown Arterial / Unknown 12/05/2024 2:02 PM EDT 12/05/2024 2:12 PM EDT Sushil Porras APRN CHEMISTRY ORDERABLES Final Result Performing Organization Address [facility] Co de Phone Number [employer] [facility] 1 [facility] , [address] [place] [phone] * (ABNORMAL) CBC (12/05/2024 2:02 PM EDT) WBC 30.0(H) 3.7 - 10.3 x10(3)/mcL 12/05/2024 2:44 PM EDT [facility] RBC 3.84(L) 3.90 - 5.20 x10(6)/mcL 12/05/2024 2:44 PM EDT [facility] Hgb 11.9 11.2 - 15.7 g/dL 12/05/2024 2:44 PM EDT [facility] Hct 35.0 34.0 - 45.0 % 12/05/2024 2:44 PM EDT [facility] MCV 91.1 80.0 - 100.0 fL 12/05/2024 2:44 PM EDT [facility] MCH 31.0 26.0 - 34.0 pg 12/05/2024 2:44 PM EDT [facility] MCHC 34.0 30.7 - 35.5 g/dL 12/05/2024 2:44 PM EDT [facility] RDW 13.7 <=14.9 % 12/05/2024 2:44 PM EDT [facility] Platelet 176 155 - 369 x10(3)/mcL 12/05/2024 2:44 PM EDT [facility] MPV 10.9 8.8 - 12.5 fL 12/05/2024 2:44 PM EDT [facility] Blood ARTERIAL BLOOD / Unknown Arterial / Unknown 12/05/2024 2:02 PM EDT 12/05/2024 2:12 PM EDT Sushil Porras CUSHION MAKER HEMATOLOGY ORDERABLES Final Result [facility] 1 [facility] , [address] [place] [phone] * (ABNORMAL) BASIC METABOLIC PANEL (12/05/2024 2:02 PM EDT) Sodium 128(L) 136 - 145 mmol/L 12/05/2024 3:10 PM EDT [facility] Potassium 4.2 3.5 - 5.0 mmol/L 12/05/2024 3:10 PM EDT [facility] Chloride 97(L) 98 - 107 mmol/L 12/05/2024 3:10 PM EDT [facility] Total CO2 20(L) 22 - 29 mmol/L 12/05/2024 3:10 PM EDT [facility] Anion Gap 11 7 - 16 mmol/L 12/05/2024 3:10 PM EDT [facility], [facility] Calcium 8.6 8.6 - 10.4 mg/dL 12/05/2024 3:10 PM EDT [facility], [facility] Glucose Lvl 161(H) 70 - 99 mg/dL 12/05/2024 3:10 PM EDT [facility], [facility] BUN 17 6 - 20 mg/dL 12/05/2024 3:10 PM EDT [facility], [facility] Creatinine 0.91 0.51 - 1.30 mg/dL 12/05/2024 3:10 PM EDT [facility], [facility] eGFR (CKD-EPIcr 2020) 73 >=60 mL/min/1.7 3 m2 12/05/2024 3:10 PM EDT [facility] Comment:Estimated GFR was ca lculated using the CKD-EPIcr (2020) equation refit without race. The equation is recommended by the National Kidney Foundation - [place] [employer] Nephrology Task Force. Blood ARTERIAL BLOOD / Unknown Arterial / Unknown 12/05/2024 2:02 PM EDT 12/05/2024 2:12 PM EDT Sushil Porras APRN CHEMISTRY ORDERABLES Final Result [facility], [facility] 1 [facility] , [place] [address] * PATHOLOGY TISSUE REQUEST (12/05/2024 12:14 PM EDT) CASE REPORT Surgical Pathology Case: [id number] Authorizing Provider: Fabian Holguin MD Collected: 12/05/2024 1214 Ordering Location: [facility] Received: 12/05/2024 1523 Pathologist: Lydia Phillips MD Specimen: Gallbladder, gallbladder with contents 12/12/2024 8:36 AM EDT [facility] FINAL DIAGNOSIS GALLBLADDER, ROBOTIC CHOLECYSTECTOMY : - Acute gangrenous and chronic cholecystitis. - Cholelithiasis. - Adenomyosis. - No evidence of dysplasia or malignancy. 12/12/2024 8:36 AM EDT [facility] at 0836 EDT GROSS DESCRIPTION A. Received in formalin, in a container labeled with the patient's name, hospital number, and gallbladder with contents , is a 7.8 x 4.8 x 2.4 cm markedly disrupted gallbladder with purple-irving, rubbery serosa. The wall ranges from 0.3 to 1.5 cm in thickness and the lumen contains scant watery brown bile with a single 3.2 cm brown stone identified free-floating within the container. The mucosa is purple-irving to red-brown, hemorrhagic, trabeculated and moderately ragged with yuan-white exudate. No periductal lymph node is identified. Buncher Operator sections to include inked possible cystic duct margin are submitted in A1. Saroj Tere 12/06/2024 12/12/2024 8:36 AM EDT [facility] MICROSCOPIC DESCRIPTION The microscopic examination may have been rendered in whole, or in part, by analyzing high-resolution digital images (whole slide images) on the [employer] Digital Pathology platform validated at [facility]. One additional deeper level is examined. 12/12/2024 8:36 AM EDT [facility] EMBEDDED IMAGES 12/12/2024 8:36 AM EDT [facility] Tissue GALLBLADDER STRUCTURE / Unknown 12/05/2024 12:14 PM EDT 12/05/2024 3:23 PM EDT Comment:Routine us Fabian Holguin MD PATHOLOGY ORDERABLES Belinda wade Result [facility] [address] [place] [address] [address] * (ABNORMAL) HEPATIC FUNCTION PANEL (12/05/2024 8:51 AM EDT) Total Protein 6.2(L) 6.4 - 8.3 gm/dL 12/05/2024 9:44 AM EDT [facility] Albumin 3.4(L) 3.5 - 5.2 gm/dL 12/05/2024 9:44 AM EDT [facility] Bili Direct 1.0(H) 0.0 - 0.3 mg/dL 12/05/2024 9:44 AM EDT [facility] Bili Total 1.5(H) 0.2 - 1.3 mg/dL 12/05/2024 9:44 AM EDT [facility] AST 47(H) <=40 U/L 12/05/2024 9:44 AM EDT [facility] ALT 44(H) <=41 U/L 12/05/2024 9:44 AM EDT [facility] Alk Phos 134(H) 36 - 123 U/L 12/05/2024 9:44 AM EDT [facility] Blood ARTERIAL BLOOD / Unknown Arterial / Unknown 12/05/2024 8:51 AM EDT 12/05/2024 9:04 AM EDT us Sushil Porras APRN CHEMISTRY ORDERABLES Final Result Performing Organization Address [facility] Co de Phone Number [facility], [address] , [place] [address] * REPEAT LACTIC ACID (12/05/2024 7:16 AM EDT) Lactic Acid 1.8 0.5 - 1.9 mmol/L 12/05/2024 7:47 AM EDT [facility], [facility] Blood ARTERIAL BLOOD / Unknown Arterial / Unknown 12/05/2024 7:16 AM EDT 12/05/2024 7:27 AM EDT Doug Ross MD CHEMISTRY ORDERABLES Final R esult Performing Organization Address City/[facility]/ZIP Co de Phone Number [facility], [facility] 1 [facility] , [place] [address] * (ABNORMAL) REPEAT LACTIC ACID (12/05/2024 6:34 AM EDT) Lactic Acid 2.0(H) 0.5 - 1.9 mmol/L 12/05/2024 7:10 AM EDT [facility] Blood ARTERIAL BLOOD / Unknown Arterial / Unknown 12/05/2024 6:34 AM EDT 12/05/2024 6:50 AM EDT us Royer Cloud MD CHEMISTRY ORDERABLES Final Re sult Performing Organization Address [facility] Co de Phone Number [employer] [address] [facility] , [place] [address] * (ABNORMAL) LACTIC ACID (12/05/2024 3:45 AM EDT) Lactic Acid 2.0(H) 0.5 - 1.9 mmol/L 12/05/2024 4:12 AM EDT [employer] Blood ARTERIAL BLOOD / Unknown Arterial / Unknown 12/05/2024 3:45 AM EDT 12/05/2024 3:52 AM EDT us Royer Cloud MD CHEMISTRY ORDERABLES Final Re sult Performing Organization Address [facility] Phone Number [employer] 1 [facility] , [place] [address] * (ABNORMAL) PHOSPHORUS LEVEL (12/05/2024 3:45 AM EDT) Phosphorus 0.8(LL) 2.5 - 4.5 mg/dL 12/05/2024 4:33 AM EDT [employer] Blood VENOUS BLOOD / Unknown Arterial / Unknown 12/05/2024 3:45 AM EDT 12/05/2024 3:52 AM EDT us Royer Cloud MD CHEMISTRY ORDERABLES Final Re sult Performing Organization Address [facility] Co de Phone Number [employer] 1 [facility] , [place] [address] * MAGNESIUM LEVEL (12/05/2024 3:45 AM EDT) Pathologist [facility] [place] Magnesium 1.6 1.6 - 2.4 mg/dL 12/05/2024 4:25 AM EDT [facility] [employer] Blood ARTERIAL BLOOD / Unknown Arterial / Unknown 12/05/2024 3:45 AM EDT 12/05/2024 3:52 AM EDT Royer Cloud MD CHEMISTRY ORDERABLES Final Re sult Performing Organization Address [facility] Co de Phone Number [facility] , [place] [phone] * (ABNORMAL) IONIZED CALCIUM - INPATIENT (12/05/2024 3:45 AM EDT) [facility] Calcium Ionized 1.10(L) 1.12 - 1.32 mmol/L 12/05/2024 4:05 AM EDT [facility] [employer] Blood ARTERIAL BLOOD / Unknown Arterial / Unknown 12/05/2024 3:45 AM EDT 12/05/2024 3:52 AM EDT us Royer Cloud MD CHEMISTRY ORDERABLES Final Re sult Performing Organization Address [facility] Co de Phone Number [facility] [employer] , [place] [address] * (ABNORMAL) CBC WITH DIFF (12/05/2024 3:45 AM EDT) Pathologist [facility] WBC 19.3(H) 3.7 - 10.3 x10(3)/mc L 12/05/2024 4:31 AM EDT [facility] [employer] RBC 3.97 3.90 - 5.20 x10(6)/mc L 12/05/2024 4:31 AM EDT [facility], [facility] Hgb 12.4 11.2 - 15.7 g/dL 12/05/2024 4:31 AM EDT [facility], [facility] Hct 36.3 34.0 - 45.0 % 12/05/2024 4:31 AM EDT [facility], [facility] MCV 91.4 80.0 - 100.0 fL 12/05/2024 4:31 AM EDT [facility] MCH 31.2 26.0 - 34.0 pg 12/05/2024 4:31 AM EDT [facility] MCHC 34.2 30.7 - 35.5 g/dL 12/05/2024 4:31 AM EDT [facility] RDW 13.4 <=14.9 % 12/05/2024 4:31 AM EDT [facility] Platelet 191 155 - 369 x10(3)/mc L 12/05/2024 4:31 AM EDT [facility] MPV 10.4 8.8 - 12.5 fL 12/05/2024 4:31 AM EDT [facility] Neut Percent 91.8 % 12/05/2024 4:31 AM EDT [facility] Comment:Neutrophils equals s egs plus bands Imm Gran% 1.4 % 12/05/2024 4:31 AM EDT [facility] Comment:Automated count of m etamyelocytes, myelocytes and promyelocytes. IG >1% represents a left shift and provides an early indication of an infection or inflammatory process. Lymph Percent 2.0 % 12/05/2024 4:31 AM EDT [facility] Dixon Percent 4.6 % 12/05/2024 4:31 AM EDT [facility] Eos Percent 0.0 % 12/05/2024 4:31 AM EDT [facility] Baso Percent 0.2 % 12/05/2024 4:31 AM EDT [facility] Neut # 17.8(H) 1.6 - 6.1 x10(3)/mc L 12/05/2024 4:31 AM EDT [facility] Comment:Neutrophils equals s egs plus bands IMMGRAN# 0.3(H) 0.0 - 0.1 x10(3)/mc L 12/05/2024 4:31 AM EDT [facility] Comment:Automated count of m etamyelocytes, myelocytes and promyelocytes. An absolute IG <0.1 is reported as 0.0. Lymph # 0.4(L) 1.2 - 3.9 x10(3)/mc L 12/05/2024 4:31 AM EDT [facility] Dixon # 0.9 0.3 - 0.9 x10(3)/mc L 12/05/2024 4:31 AM EDT [facility] Eos# 0.0 0.0 - 0.5 x10(3)/mc L 12/05/2024 4:31 AM EDT [facility] Baso # 0.0 0.0 - 0.1 x10(3)/mc L 12/05/2024 4:31 AM EDT [facility] RBC Morph Consistent with Red Cell Indices no units 12/05/2024 4:31 AM EDT [facility] Blood ARTERIAL BLOOD / Unknown Arterial / Unknown 12/05/2024 3:45 AM EDT 12/05/2024 3:52 AM EDT us Royer Cloud MD HEMATOLOGY ORDERABLES Final R esult [facility] 1 [facility] , [place] [address] * (ABNORMAL) BASIC METABOLIC PANEL (12/05/2024 3:45 AM EDT) Sodium 132(L) 136 - 145 mmol/L 12/05/2024 4:30 AM EDT [facility] Potassium 3.3(L) 3.5 - 5.0 mmol/L 12/05/2024 4:30 AM EDT [facility] Chloride 101 98 - 107 mmol/L 12/05/2024 4:30 AM EDT [facility] Total CO2 20(L) 22 - 29 mmol/L 12/05/2024 4:30 AM EDT [facility] Anion Gap 11 7 - 16 mmol/L 12/05/2024 4:30 AM EDT [facility] Calcium 8.3(L) 8.6 - 10.4 mg/dL 12/05/2024 4:30 AM EDT [facility] Glucose Lvl 128(H) 70 - 99 mg/dL 12/05/2024 4:30 AM EDT [facility] BUN 16 6 - 20 mg/dL 12/05/2024 4:30 AM EDT [facility] Creatinine 1.16 0.51 - 1.30 mg/dL 12/05/2024 4:30 AM EDT [facility] eGFR (CKD-EPIcr 2020) 55(L) >=60 mL/min/1.7 3 m2 12/05/2024 4:30 AM EDT [facility] Comment:Estimated GFR was ca lculated using the CKD-EPIcr (2020) equation refit without race. The equation is recommended by the National Kidney Foundation - [place] [employer] of Nephrology Task Force. Blood VENOUS BLOOD / Unknown Arterial / Unknown 12/05/2024 3:45 AM EDT 12/05/2024 3:52 AM EDT Royer Cloud MD CHEMISTRY ORDERABLES Final Re sult Performing Organization Address [facility]/ZIP Co de Phone Number [address] , [place] [address] * (ABNORMAL) MAGNESIUM LEVEL (12/05/2024 3:45 AM EDT) Pathologist [facility] Magnesium 1.5(L) 1.6 - 2.4 mg/dL 12/05/2024 4:30 AM EDT [facility] Blood VENOUS BLOOD / Unknown Arterial / Unknown 12/05/2024 3:45 AM EDT 12/05/2024 3:52 AM EDT Doug Ross MD CHEMISTRY ORDERABLES Final R esult Performing Organization Address [facility]/ZIP Co de Phone Number [address] , [place] [address] * (ABNORMAL) TROPONIN-T HIGH SENSITIVITY 2HR (12/05/2024 3:45 AM EDT) jf-qJqbcxhcg-C 2HR 67(H) <14 ng/L 12/05/2024 4:32 AM EDT [facility] hs-cTnT 2Hr Delta from Baseline 21(HH) <4 ng/L 12/05/2024 4:32 AM EDT [facility] Blood ARTERIAL BLOOD / Unknown Arterial / Unknown 12/05/2024 3:45 AM EDT 12/05/2024 3:52 AM EDT Narrative [facility] - 12/05/2024 4:32 AM EDT Ingestion of armando doses of biotin (>5 mg/day) taken within 8 hours of drawing blood sample can interfere with this immunoassay test. us Doug Ross MD CHEMISTRY ORDERABLES Final R esult [facility] 1 [facility] , [address] [place] [phone] * (ABNORMAL) POC ARTERIAL BLOOD GAS PROFILE (12/05/2024 3:01 AM EDT) pH 7.47(H) 7.35 - 7.45 pH 12/05/2024 3:02 AM EDT [facility] pCO2 32(L) 35 - 45 mmHg 12/05/2024 3:02 AM EDT [facility] pO2 57(L) 80 - 100 mmHg 12/05/2024 3:02 AM EDT [facility] HCO3 24.5 22.0 - 26.0 mmol/L 12/05/2024 3:02 AM EDT [facility] Base Excess -0.5 -2.0 - 3.0 mmol/L 12/05/2024 3:02 AM EDT [facility] O2 Sat 92.3(L) 95.0 - 98.0 % 12/05/2024 3:02 AM EDT [facility] Sodium 134(L) 136 - 145 mmol/L 12/05/2024 3:02 AM EDT [facility] Calcium Ionized 1.13 1.12 - 1.32 mmol/L 12/05/2024 3:02 AM EDT [facility] Chloride 102 98 - 107 mmol/L 12/05/2024 3:02 AM EDT [facility] Glucose WB 126(H) 72 - 112 mg/dL 12/05/2024 3:02 AM EDT [facility] Lactic Acid 1.9 0.5 - 1.9 mmol/L 12/05/2024 3:02 AM EDT [facility] K-WB 2.9(LL) 3.5 - 5.0 mmol/L 12/05/2024 3:02 AM EDT [facility] Hgb 12.9 11.2 - 15.7 g/dL 12/05/2024 3:02 AM EDT [facility] Hct 39.6 34.0 - 45.0 % 12/05/2024 3:02 AM EDT [facility] Inspired O2 21.0 % 12/05/2024 3:02 AM EDT [facility] P/F Ratio 271 mmHg 12/05/2024 3:02 AM EDT [facility] Blood ARTERIAL BLOOD / Unknown 12/05/2024 3:01 AM EDT 12/05/2024 3:02 AM EDT Narrative [facility] - 12/05/2024 3:02 AM EDT Critical results for Point of Care instruments are made directly available to testing personnel and should be communicated to the healthcare provider. Royer Cloud MD POINT OF CARE TEST ORDERABLES Final Result [facility] 1 [place] [address] * XR CHEST AP PORTABLE (12/05/2024 2:45 AM EDT) Anatomical Region Laterality Modality Chest Radiographic Karlie ging 12/05/2024 2:45 AM EDT Impressions 12/05/2024 2:50 AM EDT No acute finding. - Note: Radiology results need to be interpreted within a comprehensive clinical context. If you have questions about the radiology report, please contact the office of the ordering clinician. Narrative 12/05/2024 2:50 AM EDT XR CHEST AP PORTABLE, 12/05/2024 2:45 AM CLINICAL HISTORY: -line placement COMPARISON: 12/04/2024 PROCEDURE COMMENTS: AP portable technique. FINDINGS: Support devices: Left IJ catheter with tip lower SVC. Heart and mediastinal contours within normal limits for technique. No active failure, pneumonia, or visible effusion. No visible pneumothorax. Procedure Note Alayna Baltazar MD - 12/05/2024 XR CHEST AP PORTABLE, 12/05/2024 2:45 AM CLINICAL HISTORY: -line placement COMPARISON: 12/04/2024 PROCEDURE COMMENTS: AP portable technique. FINDINGS: Support devices: Left IJ catheter with tip lower SVC. Heart and mediastinal contours within normal limits for technique. Noactive failure, pneumonia, or visible effusion. No visible pneumothorax. IMPRESSION: No acute finding. - Note: Radiology results need to be interpreted within a comprehensiveclinical context. If you have questions about the radiology report, please contactthe office of the ordering clinician. us Royer [facility] ORDERA BLES Final Result * US PUBLIC HEALTH SANITARIAN TECHNICIAN/HOSPITALIST BEDSIDE ULTRASOUND (12/05/2024 2:29 AM EDT) Narrative Genericuser, Audit - 12/05/2024 2:29 AM EDT [employer] Inspector Ultrasound performed at bedside. The study image(s) are for reference only and will not be interpreted by a Radiologist. Refer to the same day procedure note for image description and procedure details. us Royer HAGEN US ORDERABLES Final Resul t * US PUBLIC HEALTH SANITARIAN TECHNICIAN/HOSPITALIST BEDSIDE ULTRASOUND (12/05/2024 2:09 AM EDT) Narrative Genericuser, Audit - 12/05/2024 2:09 AM EDT [employer] Inspector Ultrasound performed at bedside. The study image(s) are for reference only and will not be interpreted by a Radiologist. Refer to the same day procedure note for image description and procedure details. us Royer LIAO US ORDERABLES Final Resul t * US PUBLIC HEALTH SANITARIAN TECHNICIAN/HOSPITALIST BEDSIDE ULTRASOUND (12/05/2024 2:09 AM EDT) Narrative Genericuser, Audit - 12/05/2024 2:09 AM EDT [employer] Inspector Ultrasound performed at bedside. The study image(s) are for reference only and will not be interpreted by a Radiologist. Refer to the same day procedure note for image description and procedure details. us Royer Cloud MD IM US ORDERABLES Final Resul t * CT ABD PEL ED FAST W CONTRAST (12/05/2024 12:40 AM EDT) Anatomical Region Laterality Modality Abdomen, Pelvis Computed Tomogra phy 12/05/2024 12:4 0 AM EDT Impressions 12/05/2024 12:47 AM EDT Findings concerning for acute cholecystitis with possible contained perforation or developing fluid collection/abscess in the adjacent liver. Recommend surgical consultation. - Note: Radiology results need to be interpreted within a comprehensive clinical context. If you have questions about the radiology report, please contact the office of the ordering clinician. Narrative 12/05/2024 12:[address] ABDOMEN AND PELVIS WITH CONTRAST (FAST), 12/05/2024 12:40 AM CLINICAL HISTORY: -abdominal pain. COMPARISON: 10/25/24. PROCEDURE COMMENTS: Multi-detector CT scanning of the abdomen and pelvis with multiplanar reformatting per expedited protocol. Isovue 370 IV contrast given as recorded in EPIC. Dose 1 : CT DLP Total : 1495.04 mGycm DLP Spiral Max : 1492.98 mGycm Maximum CTDI Vol : 29.24 mGy FINDINGS: LOWER THORAX: Lung bases unremarkable. ABDOMEN AND PELVIS: Spleen, pancreas, kidneys, and adrenal glands unremarkable. No hydronephrosis. Gallbladder wall is edematous and inflamed. Trace pericholecystic fluid. 1.8 cm cystic focus within the adjacent liver. No bowel obstruction or acute inflammatory process. No evidence of appendicitis. No abnormal mass, fluid, or adenopathy in the pelvis. No acute osseous abnormality. Procedure Note Alayna Baltazar MD - 12/05/2024 CT ABDOMEN AND PELVIS WITH CONTRAST (FAST), 12/05/2024 12:40 AM CLINICAL HISTORY: -abdominal pain. COMPARISON: 10/25/24. PROCEDURE COMMENTS: Multi-detector CT scanning of the abdomen and pelviswith multiplanar reformatting per expedited protocol. Isovue 370 IV contrastgiven as recorded in EPIC. Dose 1 : CT DLP Total : 1495.04 mGycm DLP Spiral Max : 1492.98 mGycm Maximum CTDI Vol : 29.24 mGy FINDINGS: LOWER THORAX: Lung bases unremarkable. ABDOMEN AND PELVIS: Spleen, pancreas, kidneys, and adrenal glandsunremarkable. No hydronephrosis. Gallbladder wall is edematous and inflamed. Trace pericholecystic fluid. 1.8 cm cystic focus within the adjacent liver. No bowel obstruction or acute inflammatory process. No evidence ofappendicitis. No abnormal mass, fluid, or adenopathy in the pelvis. No acute osseous abnormality. IMPRESSION: Findings concerning for acute cholecystitis with possible contained perforation or developing fluid collection/abscess in the adjacentliver. Recommend surgical consultation. - Note: Radiology results need to be interpreted within a comprehensiveclinical context. If you have questions about the radiology report, please contactthe office of the ordering clinician. Doug Ross MD IMG CT ORDERABLES Final Resu lt * BLOOD CULTURE (NO STAIN) (12/04/2024 11:54 PM EDT) Culture Result No Growth at 120 hours. BLOOD CULTURE (NO STAIN) 12/10/2024 1:00 AM EDT [facility] Blood VENOUS BLOOD / Unknown Venipuncture / Unknown 12/04/2024 11:54 PM EDT 12/04/2024 11:58 PM EDT Doug Ross MD MICROBIOLOGY - GENERAL ORDER BARON Final Result [facility] [address] [facility] , [place] [address] * (ABNORMAL) URINE CULTURE (NO STAIN) (12/04/2024 11:49 PM EDT) Culture Positive Growth(A) 12/07/2024 7:53 AM EDT [facility] Culture >100,000 CFU/mL Escherichia coli 12/07/2024 7:53 AM EDT [facility] Comment:Refer to previous aguilar sceptibility on blood culture collected - 12/04/24 [id number] Urine URINARY BLADDER STRUCTURE / Unknown 12/04/2024 11:49 PM EDT 12/05/2024 12:10 AM EDT us Doug Ross MD MICROBIOLOGY - GENERAL ORDER BARON Final Result [facility] [address] [facility], [place] [address] * EXTRA IRVING URINE CX (12/04/2024 11:49 PM EDT) Urine URINARY BLADDER STRUCTURE / Unknown 12/04/2024 11:49 PM EDT 12/04/2024 11:57 PM EDT us Doug Ross MD MICROBIOLOGY - GENERAL ORDER BARON Final Result Performing Organization Address [facility]/[place] [address] * (ABNORMAL) URINALYSIS REFLEX (12/04/2024 11:49 PM EDT) UA Color Yellow 12/05/2024 12:11 AM EDT [facility] UA Appear Turbid(A) Clear 12/05/2024 12:11 AM EDT [facility] UA Glucose Negative Negative mg/dL 12/05/2024 12:11 AM EDT [facility] UA Ketones 1+ (10-20 mg/dL)(A) Negative mg/dL 12/05/2024 12:11 AM EDT [facility] UA Blood 1+ (0.06 - 0.1 mg/dL)(A) Negative 12/05/2024 12:11 AM EDT [facility] UA pH 6.0 5.0 - 8.0 pH 12/05/2024 12:11 AM EDT [facility] UA Protein 1+ (30-70 mg/dL)(A) Negative mg/dL 12/05/2024 12:11 AM EDT [facility] UA Urobilinogen 1+ (2-3 mg/dL)(A) <=1 mg/dL 12/05/2024 12:11 AM EDT [facility] UA Bili Negative Negative 12/05/2024 12:11 AM EDT [facility] UA Nitrite Negative Negative 12/05/2024 12:11 AM EDT [facility] UA Leuk Est 4+ (500 Torie/mcl)(A) Negative 12/05/2024 12:11 AM EDT [facility] UA Spec Grav 1.021 1.001 - 1.035 no units 12/05/2024 12:11 AM EDT [facility] Comment:Reference range christina d for random specimens only. UA WBC 110(H) 0 - 4 /HPF 12/05/2024 12:11 AM EDT [facility] UA RBC 8(H) 0 - 3 /HPF 12/05/2024 12:11 AM EDT [facility] UA Squam Epi 4+ /LPF 12/05/2024 12:11 AM EDT [facility] UA Mucus Trace /LPF 12/05/2024 12:11 AM EDT [facility] UA Amorph Trace /HPF 12/05/2024 12:11 AM EDT [facility] UA Bacteria 3+(A) Negative /HPF 12/05/2024 12:11 AM EDT [facility] UA Hyal Cast 2 0 - 2 /LPF 12/05/2024 12:11 AM EDT [facility] Urine URINARY BLADDER STRUCTURE / Unknown 12/04/2024 11:49 PM EDT 12/04/2024 11:57 PM EDT us Doug Ross MD URINE ORDERABLES Final Resul t [facility] [address] [facility] , [address] [place] [id number] * [id number] A/B (12/04/2024 11:49 PM EDT) CORONAVIRUS [id number] Not Detected Not Detected 12/05/2024 12:23 AM EDT [facility] Influenza A DNA Not Detected Not Detected 12/05/2024 12:23 AM EDT [facility] Influenza B DNA Not Detected Not Detected 12/05/2024 12:23 AM EDT [facility] Swab BOTH ANTERIOR NARES / Unknown 12/04/2024 11:49 PM EDT 12/04/2024 11:55 PM EDT Doug Ross MD MICROBIOLOGY - GENERAL ORDER BARON Final Result [facility] [address] [place] [address] * XR CHEST AP PORTABLE (12/04/2024 11:38 PM EDT) Anatomical Region Laterality Modality Chest Radiographic Karlie ging 12/04/2024 11:3 8 PM EDT Impressions 12/04/2024 11:42 PM EDT No acute finding. - Note: Radiology results need to be interpreted within a comprehensive clinical context. If you have questions about the radiology report, please contact the office of the ordering clinician. Narrative 12/04/2024 11:42 PM EDT XR CHEST AP PORTABLE, 12/04/2024 11:38 PM CLINICAL HISTORY: -Syncope COMPARISON: None. PROCEDURE COMMENTS: AP portable technique. FINDINGS: Support devices: No visible support devices. Heart and mediastinal contours within normal limits for technique. No active failure, pneumonia, or visible effusion. No visible pneumothorax. Procedure Note Alayna Baltazar MD - 12/04/2024 XR CHEST AP PORTABLE, 12/04/2024 11:38 PM CLINICAL HISTORY: -Syncope COMPARISON: None. PROCEDURE COMMENTS: AP portable technique. FINDINGS: Support devices: No visible support devices. Heart and mediastinal contours within normal limits for technique. Noactive failure, pneumonia, or visible effusion. No visible pneumothorax. IMPRESSION: No acute finding. - Note: Radiology results need to be interpreted within a comprehensiveclinical context. If you have questions about the radiology report, please contactthe office of the ordering clinician. us Doug Ross MD IMG DIAGNOSTIC IMAGING ORDER BARON Final Result * (ABNORMAL) BLOOD CULTURE JAZIEL GRAM NEG (12/04/2024 11:35 PM EDT) [facility] ACINETOBACTER BAUMANNII Not Detected Not Detected 12/05/2024 9:18 PM EDT [facility] BACTEROIDES FRAGILIS Not Detected Not Detected 12/05/2024 9:18 PM EDT [facility] CITROBACTER SPECIES Not Detected Not Detected 12/05/2024 9:18 PM EDT [facility] CRONOBACTER SAKAZAKII Not Detected Not Detected 12/05/2024 9:18 PM EDT [facility] ENTEROBACTER (NON-CLOACAE COMPLEX) Not Detected Not Detected 12/05/2024 9:18 PM EDT [facility] ENTEROBACTER CLOACAE COMPLEX Not Detected Not Detected 12/05/2024 9:18 PM EDT [facility] ESCHERICHIA COLI Detected(AA) Not Detected 12/05/2024 9:18 PM EDT [facility] FUSOBACTERIUM NUCLEATUM Not Detected Not Detected 12/05/2024 9:18 PM EDT [facility] FUSOBACTERIUM NECROPHORUM Not Detected Not Detected 12/05/2024 9:18 PM EDT [facility] HAEMOPHILUS INFLUENZAE Not Detected Not Detected 12/05/2024 9:18 PM EDT [facility] KLEBSIELLA OXYTOCA Not Detected Not Detected 12/05/2024 9:18 PM EDT [facility] KLEBSIELLA PNEUMONIAE Not Detected Not Detected 12/05/2024 9:18 PM EDT [facility] MORGANELLA MORGANII Not Detected Not Detected 12/05/2024 9:18 PM EDT [facility] NEISSERIA MENINGITIDIS Not Detected Not Detected 12/05/2024 9:18 PM EDT [facility] PROTEUS SPECIES Not Detected Not Detected 12/05/2024 9:18 PM EDT [facility] PROTEUS MIRABILIS Not Detected Not Detected 12/05/2024 9:18 PM EDT [facility] PSEUDOMONAS AERUGINOSA Not Detected Not Detected 12/05/2024 9:18 PM EDT [facility] SALMONELLA SPECIES Not Detected Not Detected 12/05/2024 9:18 PM EDT [facility] SERRATIA SPECIES Not Detected Not Detected 12/05/2024 9:18 PM EDT [facility] SERRATIA MARCESCENS Not Detected Not Detected 12/05/2024 9:18 PM EDT [facility], [facility] STENOTROPHOMONAS MALTOPHILIA Not Detected Not Detected 12/05/2024 9:18 PM EDT [facility], [facility] CTX-M Not Detected. Beta-lactamase resistance due to other mechanisms cannot be excluded. 12/05/2024 9:18 PM EDT [facility], [facility] IMP Not Detected. Carbapenemase resistance due to other mechanisms cannot be excluded. 12/05/2024 9:18 PM EDT [facility], [facility] KPC Not Detected. Carbapenemase resistance due to other mechanisms cannot be excluded. 12/05/2024 9:18 PM EDT [facility], [facility] NDM Not Detected. Carbapenemase resistance due to other mechanisms cannot be excluded. 12/05/2024 9:18 PM EDT [facility], [facility] OXA Not Detected. Carbapenemase resistance due to other mechanisms cannot be excluded. 12/05/2024 9:18 PM EDT [facility], [facility] VIM Not Detected. Carbapenemase resistance due to other mechanisms cannot be excluded. 12/05/2024 9:18 PM EDT [facility], [facility] Blood VENOUS BLOOD / Unknown Venipuncture / Unknown 12/04/2024 11:35 PM EDT 12/04/2024 11:41 PM EDT Doug Ross MD MICROBIOLOGY - GENERAL ORDER BARON Final Result [facility], [facility] [address] [facility] , [place] [address] * (ABNORMAL) BLOOD CULTURE (NO STAIN) (12/04/2024 11:35 PM EDT) Culture Result Positive Growth(AA) BLOOD CULTURE (NO STAIN) 12/07/2024 9:35 AM EDT [facility], [facility] Culture Result Growth of Escherichia coli SUSCEPTIBIL ITY RESULT 12/07/2024 9:35 AM EDT [facility], [facility] Blood VENOUS BLOOD / Unknown Venipuncture / Unknown 12/04/2024 11:35 PM EDT 12/04/2024 11:41 PM EDT Narrative Organism Antibiotic Method Susceptibility Escherichia coli Amikacin SUSCEPTIBILITY RESULT Escherichia coli Amoxicillin/Clavulanate SUSCEPTIBILIT Y RESULT <=8/4 ug/mL: Susceptible Escherichia coli Ampicillin SUSCEPTIBILITY RESULT <=8 ug/mL: Susceptible Escherichia coli Ampicillin/Sulbactam SUSCEPTIBILITY R ESULT <=4/2 ug/mL: Susceptible Escherichia coli Aztreonam SUSCEPTIBILITY RESULT <=4 ug/mL: Susceptible Escherichia coli Cefazolin SUSCEPTIBILITY RESULT <=2 ug/mL: Susceptible Escherichia coli Cefepime SUSCEPTIBILITY RESULT Escherichia coli Cefotaxime SUSCEPTIBILITY RESULT Escherichia coli Cefoxitin SUSCEPTIBILITY RESULT <=8 ug/mL: Susceptible Escherichia coli Ceftazidime SUSCEPTIBILITY RESULT Escherichia coli Ceftazidime/Avibactam SUSCEPTIBILITY RESULT Escherichia coli Ceftolozane/Tazobactam SUSCEPTIBILITY RESULT Escherichia coli Ceftriaxone SUSCEPTIBILITY RESULT Escherichia coli Cefuroxime SUSCEPTIBILITY RESULT Escherichia coli Ciprofloxacin SUSCEPTIBILITY RESULT <=0.25 ug/mL: Susceptible Escherichia coli Ertapenem SUSCEPTIBILITY RESULT <=0.5 ug/mL: Susceptible Escherichia coli Gentamicin SUSCEPTIBILITY RESULT <=2 ug/mL: Susceptible Escherichia coli Imipenem SUSCEPTIBILITY RESULT <=1 ug/mL: Susceptible Escherichia coli Levofloxacin SUSCEPTIBILITY RESULT <=0.5 ug/mL: Susceptible Escherichia coli Meropenem SUSCEPTIBILITY RESULT <=1 ug/mL: Susceptible Escherichia coli Meropenem/Vaborbactam SUSCEPTIBILITY RESULT Escherichia coli Minocycline SUSCEPTIBILITY RESULT Escherichia coli Moxifloxacin SUSCEPTIBILITY RESULT Escherichia coli Nitrofurantoin SUSCEPTIBILITY RESULT Escherichia coli Piperacillin/Tazobactam SUSCEPTIBILIT Y RESULT <=8 ug/mL: Susceptible Escherichia coli Tetracycline SUSCEPTIBILITY RESULT <=4 ug/mL: Susceptible Escherichia coli Tigecycline SUSCEPTIBILITY RESULT Escherichia coli Tobramycin SUSCEPTIBILITY RESULT <=2 ug/mL: Susceptible Escherichia coli Trimethoprim/Sulfame tho xazole SUSCEPTIBILITY RESULT <=0.5/9.5 ug/mL: Susceptible us Doug Ross MD MICROBIOLOGY - GENERAL ORDER BARON Final Result [facility] [address] [facility] , [address] [place] [id number] * (ABNORMAL) BLOOD GAS, VENOUS (12/04/2024 11:34 PM EDT) pH Venous 7.44(H) 7.32 - 7.42 pH 12/04/2024 11:49 PM EDT [facility], [facility] pCO2 Venous 31(L) 41 - 51 mmHg 12/04/2024 11:49 PM EDT [facility] pO2 Venous 51(H) 25 - 40 mmHg 12/04/2024 11:49 PM EDT [facility], [facility] Comment:Interpret with cauti on. Not recommended to evaluate patient's oxygenation status. Base Excess Jorge -2.0 mmol/L 11:49 PM EDT [facility] Hco3 Venous 20.7(L) 24.0 - 28.0 mmol/L 12/04/2024 11:49 PM EDT [facility], [facility] CO2 Total Jorge 18(L) 25 - 29 mmol/L 12/04/2024 11:49 PM EDT [facility], [facility] O2 Sat. Venous 87.6(H) 40.0 - 70.0 % 12/04/2024 11:49 PM EDT [facility] Inspired O2 RA 12/04/2024 11:49 PM EDT [facility], [facility] Blood VENOUS BLOOD / Unknown Venipuncture / Unknown 12/04/2024 11:34 PM EDT 12/04/2024 11:41 PM EDT Doug Ross MD CHEMISTRY ORDERABLES Final R esult [facility], [facility] [address] [facility] , [place] [address] * (ABNORMAL) PROCALCITONIN (12/04/2024 11:34 PM EDT) Procalcitonin 18.10(H) <=0.49 ng/mL 12/05/2024 12:35 AM EDT [facility], [facility] Blood VENOUS BLOOD / Unknown Venipuncture / Unknown 12/04/2024 11:34 PM EDT 12/04/2024 11:53 PM EDT Narrative [facility], [facility] - 12/05/2024 12:35 AM EDT Procalcitonin <0.50 ng/mL: Procalcitonin levels below 0.50 ng/mL on the first day of ICU admission represent a low risk for progression to severe sepsis and/or septic shock Procalcitonin >=0.50 ng/mL and <=2.00 ng/mL: If the procalcitonin measurement is performed shortly after the systemic infection process has started (usually less than 6 hours), this value may still be low. As various non-infectious conditions are known to induce procalcitonin as well, procalcitonin levels between 0.50 ng/mL and 2.00 ng/mL should be reviewed carefully to take into account the specific clinical background and condition(s) of the patient. Procalcitonin >2.00 ng/mL: Procalcitonin levels above 2.00 ng/mL on the first day of ICU admission represent a high risk for progression to severe sepsis and/or septic shock. us Doug Ross MD CHEMISTRY ORDERABLES Final R [facility] Performing Organization Address [facility] Co de Phone Number [facility] [address] [facility], [place] [address] * (ABNORMAL) LACTIC ACID (12/04/2024 11:34 PM EDT) Lactic Acid 4.5(HH) 0.5 - 1.9 mmol/L 12/05/2024 12:04 AM EDT [facility] Blood VENOUS BLOOD / Unknown Venipuncture / Unknown 12/04/2024 11:34 PM EDT 12/04/2024 11:39 PM EDT us Doug Ross MD CHEMISTRY ORDERABLES Final R esult Performing Organization Address City/[facility] Co de Phone Number [facility] [address] [place] [phone] * (ABNORMAL) TROPONIN-T HIGH SENSITIVITY BASELINE W/ REFLEX (12/04/2024 11:34 PM EDT) [id number] 46(H) <14 ng/L 12/05/2024 12:05 AM EDT [facility] Blood VENOUS BLOOD / Unknown Venipuncture / Unknown 12/04/2024 11:34 PM EDT 12/04/2024 11:40 PM EDT Narrative [facility] - 12/05/2024 12:05 AM EDT Ingestion of armando doses of biotin (>5 mg/day) taken within 8 hours of drawing blood sample can interfere with this immunoassay test. Doug Ross MD CHEMISTRY ORDERABLES Final R esult Performing Organization Address [facility]/[place] [address] * (ABNORMAL) LIPASE LEVEL (12/04/2024 11:34 PM EDT) Lipase Lvl 12(L) 13 - 60 U/L 12/05/2024 12:05 AM EDT [facility] Blood VENOUS BLOOD / Unknown Venipuncture / Unknown 12/04/2024 11:34 PM EDT 12/04/2024 11:40 PM EDT us Doug Ross MD CHEMISTRY ORDERABLES Final R esult Performing Organization Address [facility] [place] [address] * (ABNORMAL) COMPREHENSIVE METABOLIC PANEL (12/04/2024 11:34 PM EDT) Sodium 135(L) 136 - 145 mmol/L 12/05/2024 12:06 AM EDT [facility] Potassium 2.8(LL) 3.5 - 5.0 mmol/L 12/05/2024 12:06 AM EDT [facility] Chloride 97(L) 98 - 107 mmol/L 12/05/2024 12:06 AM EDT [facility] Total CO2 20(L) 22 - 29 mmol/L 12/05/2024 12:06 AM EDT [facility] Anion Gap 18(H) 7 - 16 mmol/L 12/05/2024 12:06 AM EDT [facility] Calcium 8.8 8.6 - 10.4 mg/dL 12/05/2024 12:06 AM EDT [facility] Glucose Lvl 142(H) 70 - 99 mg/dL 12/05/2024 12:06 AM EDT [facility] BUN 14 6 - 20 mg/dL 12/05/2024 12:06 AM EDT [facility] Creatinine 1.14 0.51 - 1.30 mg/dL 12/05/2024 12:06 AM EDT [facility] Albumin 3.5 3.5 - 5.2 gm/dL 12/05/2024 12:06 AM EDT [facility] Total Protein 6.4 6.4 - 8.3 gm/dL 12/05/2024 12:06 AM EDT [facility] Bili Total 2.0(H) 0.2 - 1.3 mg/dL 12/05/2024 12:06 AM EDT [facility] ALT 38 <=41 U/L 12/05/2024 12:06 AM EDT [facility] AST 36 <=40 U/L 12/05/2024 12:06 AM EDT [facility] Alk Phos 212(H) 36 - 123 U/L 12/05/2024 12:06 AM EDT [facility] eGFR (CKD-EPIcr 2020) 56(L) >=60 mL/min/1.7 3 m2 12/05/2024 12:06 AM T [facility] Comment:Estimated GFR was ca lculated using the CKD-EPIcr (2020) equation refit without race. The equation is recommended by the [employer] - [place] [employer]ph[employer] Task Force. Blood VENOUS BLOOD / Unknown Venipuncture / Unknown 12/04/2024 11:34 PM EDT 12/04/2024 11:40 PM EDT us Doug Ross MD CHEMISTRY ORDERABLES Final R esult [facility] [address] [place] [address] * (ABNORMAL) CBC WITH DIFF (12/04/2024 11:34 PM EDT) WBC 4.5 3.7 - 10.3 x10(3)/mc L 12/05/2024 12:38 AM EDT [facility] RBC 4.64 3.90 - 5.20 x10(6)/mc L 12/05/2024 12:38 AM EDT [facility] Hgb 14.0 11.2 - 15.7 g/dL 12/05/2024 12:38 AM EDT [facility] Hct 42.4 34.0 - 45.0 % 12/05/2024 12:38 AM EDT [facility] MCV 91.4 80.0 - 100.0 fL 12/05/2024 12:38 AM EDT [facility] MCH 30.2 26.0 - 34.0 pg 12/05/2024 12:38 AM EDT [facility] MCHC 33.0 30.7 - 35.5 g/dL 12/05/2024 12:38 AM EDT [facility] RDW 13.2 <=14.9 % 12/05/2024 12:38 AM EDT [facility] Platelet 183 155 - 369 x10(3)/mc L 12/05/2024 12:38 AM EDT [facility] MPV 10.1 8.8 - 12.5 fL 12/05/2024 12:38 AM EDT [facility] Segs 91 % 12/05/2024 12:38 AM EDT [facility] Lymphs 6 % 12/05/2024 12:38 AM EDT [facility] Monos 1 % 12/05/2024 12:38 AM EDT [facility] Eos 0 % 12/05/2024 12:38 AM EDT [facility] Baso 0 % 12/05/2024 12:38 AM EDT [facility] Atyp Lymph 2 <=10 % 12/05/2024 12:38 AM EDT [facility] Neut # 4.1 1.6 - 6.1 x10(3)/mc L 12/05/2024 12:38 AM EDT [facility] Lymph # 0.4(L) 1.2 - 3.9 x10(3)/mc L 12/05/2024 12:38 AM EDT [facility] Dixon # 0.0(L) 0.3 - 0.9 x10(3)/mc L 12/05/2024 12:38 AM EDT [facility] Eos # Manual 0.0 0.0 - 0.5 x10(3)/mc L 12/05/2024 12:38 AM EDT [facility] Baso # Manual 0.0 0.0 - 0.1 x10(3)/mc L 12/05/2024 12:38 AM EDT [facility] RBC Morph Consistent with Red Cell Indices no units 12/05/2024 12:38 AM EDT [facility], [facility] Blood VENOUS BLOOD / Unknown Venipuncture / Unknown 12/04/2024 11:34 PM EDT 12/04/2024 11:43 PM EDT us Doug Ross MD HEMATOLOGY ORDERABLES Final Result Performing Organization Address City/State/[facility] Co de Phone Number [facility], [address] , [place] [address] * EK EKG 12 LEAD (12/04/2024 11:20 PM EDT) Anatomical Region Laterality Modality Electrocardiogra phy 12/04/2024 11:3 9 PM EDT Impressions 12/05/2024 8:16 AM EDT [place] [facility] Test Date: 2024-12-04 Pat Name: YANNA DUTTON Department: DEPID Room: 2318 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1965 Requested By: [facility] Order Number: [id number] Reading MD: Jared Herrera Measurements Intervals [place] Rate: 120 P: 59 GA: 157 QRS: 21 QRSD: 96 T: 48 QT: 325 QTc: 461 Interpretive Statements SINUS TACHYCARDIA POSSIBLE RIGHT VENTRICULAR CONDUCTION DELAY ABNORMAL RHYTHM ECG WHEN COMPARED TO PREVIOUS ECG:NO SIGNIFICANT CHANGES ARE NOTED Electronically Signed On 12-05-2024 08:16:16 EDT by Jared Herrera us Doug Ross MD IMG ECG ORDERABLES Final Res ult documented in this encounter Visit Diagnoses Diagnosis Cholecystitis- Primary Cholecystitis, unspecified Nausea and vomiting, unspecified vomiting type Right upper quadrant abdominal pain Abdominal pain, right upper quadrant Acute cholecystitis Sepsis, due to unspecified organism, unspecified whether acute organ dysfunction present (HCC) Hypokalemia Hypopotassemia Calculus of gallbladder without cholecystitis without obstruction Calculus of gallbladder without mention of cholecystitis or obstruction Septic shock (HCC) Benign essential HTN Essential hypertension, benign Obesity, Class III, BMI 40-49.9 (morbid obesity) Morbid obesity Intra-abdominal abscess (HCC) Peritoneal abscess E coli bacteremia Bacteremia Acute cystitis without hematuria Acute cystitis Hypothyroidism Unspecified hypothyroidism Liver abscess Abscess of liver Pyuria Other nonspecific finding on examination of urine E. coli UTI (urinary tract infection) Urinary tract infection, site not specified Fever in adult Leukocytosis Leukocytosis, unspecified documented in this encounter Admitting Diagnoses Diagnosis Cholecystitis Cholecystitis, unspecified documented in this encounter Administered Medications Inactive Administered Medications - up to 1 most recent administrations Medication Order MAR Action Action Date Dose Rate Site 0.9 % NaCl infusion Intravenous, at 10 mL/hr, CONTINUOUS PRN, Starting on 12/05/24 at 020, Until 12/10/24 at 2021, Use as needed for secondary medication administration. Do not discontinue primary IVF. IV Restarted 12/06/2024 6:56 PM EDT 10 mL/hr acetaminophen (TYLENOL) oral solution 500-1,000 mg 500-1,000 mg, Oral, EVERY 6 HOURS PRN, Starting on Thu12/05/24 at 0204, Until 12/10/24 at 2021, Fever, Pain, Maximum adult dose of acetaminophen is 4000 mg from all sources in 24 hours. acetaminophen (TYLENOL) tablet 500-1,000 mg 500-1,000 mg, Oral, EVERY 6 HOURS PRN, Starting on Thu12/05/24 at 0204, Until 12/10/24 at 2021, Pain, Fever, Maximum adult dose of acetaminophen is 4000 mg from all sources in 24 hours. Given 12/06/2024 9:13 AM EDT 1,000 mg albumin human 5 % bottle 25 g 25 g, Intravenous, at 500 mL/hr, ONCE, 1 dose, On Thu12/05/24 at 0445, Administer over 60 Minutes Rate/Dose Verify 12/05/2024 6:01 AM EDT 500 mL/hr alteplase (ACTIVASE) injection 1 mg 1 mg, Intercatheter, PRN, Starting on Thu12/10/24 at 1402, Until Thu12/10/24 at 2021, Clotted line, For catheter occlusion. Instill alteplase into occluded catheter and allow to dwell for 30 minutes. If catheter function not restored, continue to dwell for an additional 90 minutes (120 minutes total). May repeat x 1 for a total of 2 mg. Contact pharmacy for dose. bisacodyL (DULCOLAX) suppository 10 mg 10 mg, Rectal, DAILY PRN, Starting on Thu12/05/24 at 0951, Until 12/10/24 at 2021, Constipation buPROPion (WELLBUTRIN SR) SR tablet 150 mg 150 mg, Oral, 2 TIMES DAILY, First dose on Thu12/05/24 at 2100, Until Discontinued Given 12/10/2024 9:06 AM EDT 150 mg calcium carbonate (OS-JESSY) tablet 500 mg 500 mg (1 Tablet), Oral, *EVERY 6 HOURS, 2 doses, First dose on Thu12/06/24 at 0715, Last dose on Thu12/06/24 at 1315, 1 Tab = 1250 mg (500 mg elemental calcium) Given 12/06/2024 1:57 PM EDT 500 mg calcium carbonate (OS-JESSY) tablet 500 mg 500 mg (1 Tablet), Oral, DAILY WITH MEAL, First dose on Thu12/08/24 at 1000, Until Discontinued, 1 Tab = 1250 mg (500 mg elemental calcium) Given 12/10/2024 9:06 AM EDT 500 mg calcium gluconate in NaCl, iso-osm 1 gram/50 mL IVPB 1 g 1 g, Intravenous, ONCE, 1 dose, On Thu12/05/24 at 0900, Administer over 60 Minutes Rate/Dose Verify 12/05/2024 9:04 AM EDT 50 mL/hr ceFEPIme (MAXIPIME) 2 g in sterile water 19 mL IVP 2 g, Intravenous, ONCE, 1 dose, On Thu12/05/24 at 0000, Draw up 19 mL of Sterile Water for Injection into syringe and inject into ceFEPIme 2 g vial. Shake vial until powder is completely dissolved. Draw up entire content of vial (about 20 mL) into syringe. Administer intravenous push (IVP) over a period of 3 to 5 minutes., Reason(s) for using ceFEPime in this patient (if none met, consider using cefTRIAXone, instead): Risk factors for pseudomonal infection (IV antibiotic use within previous 90 days, recent pseudomonal infection, diabetic foot infection), Reason for Therapy: Infection Suspected, Indication: Intra-abdominal Given 12/05/2024 12:00 AM EDT 2 g cefTRIAXone in dextrose (ROCEPHIN) 2 gram/50 mL IVPB 2 g 2 g, Intravenous, EVERY 24 HOURS SCHEDULED (Daily), 7 doses, First dose on Thu12/07/24 at 1230, Last dose on Thu12/13/24 at 0900, Administer over 30 Minutes, Reason for Therapy: Infection Documented, Indication: Bacteremia, Intra-abdominal IV Started 12/10/2024 9:01 AM EDT 2 g 100 mL/hr docusate sodium (COLACE) capsule 100 mg 100 mg, Oral, 2 TIMES DAILY PRN, Starting on Thu12/06/24 at 0745, Until 12/10/24 at 2021, Constipation, Do not crush or chew. famotidine (PEPCID) injection 20 mg 20 mg, Intravenous, EVERY 12 HOURS SCHEDULED (2 times per day), First dose on Thu12/05/24 at 0215, Until Discontinued Given 12/07/2024 9:38 AM EDT 20 mg famotidine (PEPCID) tablet 20 mg 20 mg, Oral, EVERY 12 HOURS SCHEDULED (2 times per day), First dose on Thu12/05/24 at 0215, Until Discontinued Given 12/10/2024 9:06 AM EDT 20 mg FLUoxetine (PROzac) capsule 20 mg 20 mg, Oral, DAILY, First dose on Thu12/05/24 at 1600, Until Discontinued Given 12/10/2024 9:06 AM EDT 20 mg heparin, porcine (PF) injection 5,000 Units 5,000 Units, Subcutaneous, EVERY 8 HOURS SCHEDULED (3 times per day), First dose on Thu12/05/24 at 2200, Until Discontinued, Hold Heparin for platelet count less than 100,000 Given 12/10/2024 6:40 AM EDT 5,000 Units Abdominal Tissue indocyanine green (IC-GREEN) injection 6.25 mg 6.25 mg, Intravenous, ONCE PREPROCEDURE, 1 dose, On Thu12/05/24 at 0945, Administer now. Infuse 2.5 mL and follow with flush of 10 mL normal saline. Given by Other 12/05/2024 9:45 AM EDT 6.25 mg iopamidoL (ISOVUE-370) 370 mg iodine /mL (76 %) injection (LOW) 100 mL 100 mL, Intravenous, ONCE PRN, 1 dose, Starting on Thu12/05/24 at 0035, Until Thu12/05/24 at 0041, Radiography/Imaging, Radiology Procedure, VESICANT , CT (Contrasts) Given 12/05/2024 12:41 AM EDT 100 mL lactated ringers infusion Intravenous, at 1,000 mL/hr, ONCE, 1 dose, On Thu12/04/24 at 2345 New Bag 12/04/2024 11:55 PM EDT 1000 mL/hr lactated ringers infusion Intravenous, at 1,500 mL/hr, CONTINUOUS, Starting on Thu12/05/24 at 0115, Until Thu12/05/24 at 0212 New Bag 12/05/2024 1:15 AM EDT 1500 mL/hr lactated ringers infusion Intravenous, at 75 mL/hr, CONTINUOUS, Starting on Thu12/05/24 at 0215, Until Thu12/06/24 at 0847 Rate/Dose Verify 12/06/2024 6:12 AM EDT 75 mL/hr LEVOthyroxine (SYNTHROID) tablet 200 mcg 200 mcg, Oral, DAILY EARLY AM, First dose on Thu12/06/24 at 0600, Until Discontinued, Take on empty stomach, at least 30 minutes to 1 hour before breakfast. Take at least 4 hours prior before or after calcium- or iron-containing products or bile acid sequestrants. If given via NG or other tubes administer dose as long as possible after feeding and at least 1 hour before resuming feeding. Given 12/06/2024 5:56 AM EDT 200 mcg LEVOthyroxine (SYNTHROID) tablet 288 mcg 288 mcg, Oral, DAILY EARLY AM, First dose (after last modification) on Thu12/07/24 at 0600, Until Discontinued, Take on empty stomach, at least 30 minutes to 1 hour before breakfast. Take at least 4 hours prior before or after calcium- or iron-containing products or bile acid sequestrants. If given via NG or other tubes administer dose as long as possible after feeding and at least 1 hour before resuming feeding. Given 12/10/2024 6:39 AM EDT 288 mcg LEVOthyroxine (SYNTHROID) tablet 88 mcg 88 mcg, Oral, ONCE, 1 dose, On Thu12/06/24 at 0945, For total 288 mcg Take on empty stomach, at least 30 minutes to 1 hour before breakfast. Take at least 4 hours prior before or after calcium- or iron-containing products or bile acid sequestrants. If given via NG or other tubes administer dose as long as possible after feeding and at least 1 hour before resuming feeding. Given 12/06/2024 12:11 PM EDT 88 mcg lidocaine 10 mg/mL (1 %) injection (PF) 10 mg 10 mg (1 mL), Subcutaneous, ONCE, 1 dose, On 12/10/24 at 1545, Use 1% Lidocaine 1 mL intradermally and subcutaneously at insertion site for local anesthetic. Given 12/10/2024 2:04 PM EDT 10 mg Right Arm magnesium sulfate in dextrose 5% infusion 1 g 1 g, Intravenous, at 100 mL/hr, ONCE, 1 dose, On Thu12/05/24 at 0715, Infuse 2 x Magnesium Sulfate 1 g IVPB for a total dose of 2 g Magnesium Sulfate Rate/Dose Verify 12/05/2024 7:42 AM EDT 100 mL/hr magnesium sulfate in dextrose 5% infusion 1 g 1 g, Intravenous, at 100 mL/hr, ONCE, 1 dose, On Thu12/05/24 at 0815, Infuse 2 x Magnesium Sulfate 1 g IVPB for a total dose of 2 g Magnesium Sulfate Rate/Dose Verify 12/05/2024 9:04 AM EDT 100 mL/hr melatonin tablet 5 mg 5 mg, Oral, NIGHTLY, First dose on Thu12/05/24 at 2115, Until Discontinued Given 12/09/2024 10:40 PM EDT 5 mg mupirocin (BACTROBAN) 2 % ointment Nasal, 2 TIMES DAILY, 10 doses, First dose on Thu12/05/24 at 0900, Last dose on Thu12/09/24 at 2100 Given 12/09/2024 10:44 PM EDT Both Nares mupirocin (BACTROBAN) 2 % ointment Nasal, 2 TIMES DAILY, 10 doses, First dose on Thu12/10/24 at 2100, Last dose on Thu12/15/24 at 0900 norepinephrine (LEVOPHED) 16 mg/250 mL (64 mcg/mL) 0.5-30 mcg/min (0.4688-28.125 mL/hr, rounded to 0.5-28.1 mL/hr), Intravenous, TITRATED, Starting on Thu12/05/24 at 0115, Until Thu12/06/24 at 2004, Initial rate: 4 mcg/min Titrate by 2 mcg/min every 1-15 min Maximum Dose: 30 mcg/min VESICANT , Titrate to maintain: MAP greater than or equal to (>/=) 65 Rate/Dose Verify 12/05/2024 11:39 PM EDT 2 mcg/min 1.9 mL/hr ondansetron (ZOFRAN) injection 4-8 mg 4-8 mg, Intravenous, EVERY 4 HOURS PRN, Starting on Thu12/05/24 at 0204, Until Thu12/10/24 at 2021, Nausea, Vomiting Given 12/05/2024 2:51 PM EDT 4 mg oxyCODONE (ROXICODONE) 5 mg/5 mL solution 5-10 mg 5-10 mg, Enteral, EVERY 4 HOURS PRN, Starting on Thu12/05/24 at 0203, Until Thu12/10/24 at 2021, Pain Unrelieved by Oral Non-Opioid Therapy, Begin with lowest dose unless otherwise directed. Reassess pain in 60 minutes. If pain unrelieved, remainder of dose may be given to patient. oxyCODONE (ROXICODONE) immediate release tablet 5-10 mg 5-10 mg, Oral, EVERY 4 HOURS PRN, Starting on Thu12/05/24 at 0203, Until Thu12/10/24 at 2021, Pain Unrelieved by Oral Non-Opioid Therapy, Begin with lowest dose unless otherwise directed. Reassess pain in 60 minutes. If pain unrelieved, remainder of dose may be given to patient. Given 12/06/2024 5:56 AM EDT 5 mg phosphorus (K PHOS NEUTRAL) tablet 2 Tablet 2 Tablet (500 mg), Oral, *EVERY 6 HOURS, 3 doses, First dose on Thu12/06/24 at 1000, Last dose on Thu12/06/24 at 2200, Do not administer within 2 hours of oral calcium replacement Given 12/06/2024 10:00 PM EDT 2 Tablets phosphorus (K PHOS NEUTRAL) tablet 2 Tablet 2 Tablet (500 mg), Oral, ONCE, 1 dose, On Thu12/07/24 at 1045 Given 12/07/2024 10:18 AM EDT 2 Tablets piperacillin-tazobac dozier in dextrose (ZOSYN) IVPB 3.375 g 3.375 g, Intravenous, EVERY 8 HOURS SCHEDULED (3 times per day), 21 doses, First dose on Thu12/05/24 at 0215, Last dose on Thu12/11/24 at 2200, Administer over 4 Hours, piperacillin-tazobac dozier EXTENDED INFUSION - Administer over 4 hours VESICANT , Reason for Therapy: Infection Suspected, Indication: Intra-abdominal IV Started 12/07/2024 6:16 AM EDT 3.375 g 12.5 mL/hr polyethylene glycol (GLYCOLAX, MIRALAX) packet 17 g 17 g, Oral, DAILY, First dose on Thu12/06/24 at 0900, Until Discontinued, Mix in 8 oz of water Given 12/06/2024 9:16 AM EDT 17 g potassium chloride (KLOR-CON) tablet 40 mEq 40 mEq, Oral, ONCE, 1 dose, On Thu12/07/24 at 1045 Given 12/07/2024 10:18 AM EDT 40 mEq potassium chloride 10 mEq in 100 mL IVPB 10 mEq, Intravenous, ONCE, 1 dose, On Thu12/05/24 at 0015, Administer over 60 Minutes, Infuse 4 x KCl 10 mEq IVPB for a total dose of 40 mEq KCl. VESICANT IV Started 12/05/2024 12:45 AM EDT 10 mEq 100 mL/hr potassium chloride 10 mEq in 100 mL IVPB 10 mEq, Intravenous, ONCE, 1 dose, On Thu12/05/24 at 0115, Administer over 60 Minutes, Infuse 4 x KCl 10 mEq IVPB for a total dose of 40 mEq KCl. VESICANT IV Started 12/05/2024 3:12 AM EDT 10 mEq 100 mL/hr potassium chloride 10 mEq in 100 mL IVPB 10 mEq, Intravenous, ONCE, 1 dose, On Thu12/05/24 at 0215, Administer over 60 Minutes, Infuse 4 x KCl 10 mEq IVPB for a total dose of 40 mEq KCl. VESICANT IV Started 12/05/2024 4:29 AM EDT 10 mEq 100 mL/hr potassium chloride 10 mEq in 100 mL IVPB 10 mEq, Intravenous, ONCE, 1 dose, On Thu12/05/24 at 0315, Administer over 60 Minutes, Infuse 4 x KCl 10 mEq IVPB for a total dose of 40 mEq KCl. VESICANT Rate/Dose Verify (No Cosign) 12/05/2024 6:00 AM EDT 100 mL/hr potassium phosphate 24 mmol in dextrose 5% 150 mL IVPB - ICU/Cardiac Monitored 24 mmol, Intravenous, ONCE, 1 dose, On Thu12/05/24 at 0500, Administer over 6 Hours Rate/Dose Verify 12/05/2024 9:04 AM EDT 25 mL/hr scopolamine (TRANSDERM-SCOP) 1 mg over 3 days 1 Patch 1 Patch, Transdermal, ONCE PREPROCEDURE, 1 dose, On Thu12/05/24 at 0830, Place patch behind ear. Remove in 24 hours. To be given in SDS/Pre-op Holding Area. Transderm-Scop patch delivers scopolamine 1 mg per 72 hours, Administer over 24 Hours, Pre-op (Floor Meds) Patch Applied 12/05/2024 10:01 AM EDT 1 Patch Right Ear senna (SENOKOT) tablet 1-2 Tablet 1-2 Tablet, Oral, 2 TIMES DAILY, First dose (after last modification) on Thu12/06/24 at 0900, Until Discontinued Given 12/08/2024 8:33 AM EDT 1 Tablet sodium chloride 0.9 % 1,000 mL IV bolus Intravenous, ONCE, 1 dose, On Thu12/04/24 at 2330, at 983.6 mL/hr IV Started 12/04/2024 11:26 PM EDT 983.6 mL/hr sodium chloride 0.9% IV line flush 20-50 mL 20-50 mL, Intravenous, at 150-600 mL/hr, PRN, Starting on Thu12/05/24 at 0430, Until Thu12/10/24 at 2021, Line Care, Flush with a minimum of 20 mL after IVPB to insure complete administration of the dose. May use the saline infusion to back flush IVPB tubing as needed. IV Restarted 12/10/2024 9:31 AM EDT 150 mL/hr sodium chloride 0.9% IV line flush 20-50 mL 20-50 mL, Intravenous, at 150-600 mL/hr, PRN, Starting on Thu12/10/24 at 1402, Until Thu12/10/24 at 2021, Line Care, Flush with a minimum of 20 mL after IVPB to insure complete administration of the dose. May use the saline infusion to back flush IVPB tubing as needed. sodium chloride 0.9% syringe 10 mL 10 mL, Intravenous, EVERY 8 HOURS SCHEDULED (3 times per day), First dose on Thu12/05/24 at 0600, Until Discontinued, Saline locked lumens on central lines should be checked for blood return and flushed every 8 hours. Lumens with running IVF/drips should be checked for blood return and flushed whenever tubing is changed, a minimum of every 7 days. Given 12/09/2024 1:41 PM EDT 10 mL sodium chloride 0.9% syringe 10 mL 10 mL, Intravenous, EVERY 8 HOURS SCHEDULED (3 times per day), First dose on Thu12/10/24 at 1545, Until Discontinued, Saline locked lumens on central lines should be checked for blood return and flushed every 8 hours. Lumens with running IVF/drips should be checked for blood return and flushed whenever tubing is changed, a minimum of every 7 days. sodium chloride 0.9% syringe Intravenous, ONCE PRN, 1 dose, Starting on Thu12/05/24 at 0035, Until Thu12/05/24 at 0040, Line Care, Flush peripheral lines every 12 hours, central lines every 8 hours, and after IV medication, CT (Contrasts) Given 12/05/2024 12:40 AM EDT 10 mL sodium chloride 0.9% syringe Intravenous, PRN, Starting on 12/05/24 at 0430, Until 12/10/24 at 2021, Line Care, Flush with 5-10 mL saline pre/post IVP, 10 mL prior to IVPB or blood product administration, and 20 mL post blood draws for CENTRAL lines. sodium chloride 0.9% syringe Intravenous, PRN, Starting on 12/10/24 at 1402, Until 12/10/24 at 2021, Line Care, Flush with 5-10 mL saline pre/post IVP, 10 mL prior to IVPB or blood product administration, and 20 mL post blood draws for CENTRAL lines. vasopressin 0.4 unit/mL in dextrose 5% infusion 0.01-0.04 Units/min (1.5-6 mL/hr), Intravenous, TITRATED, Starting on Thu12/05/24 at 0315, Until Thu12/06/24 at 2004, If Ordered to Titrate: Initial rate: 0.01 units/min Titrate by 0.01 units/min every 30-60 minutes Maximum Dose: 0.06 units/min VESICANT , Titrate to maintain: MAP greater than or equal to (>/=) 65 Rate/Dose Change 12/06/2024 6:22 AM EDT 0.02 Units/min 3 mL/hr documented in this encounter Discontinued Medications Medication Sig Discontinue Reason Start Date End Da te amoxicillin (AMOXIL) 500 mg Oral CapsuleIndications:Hx of total knee replacement, right Take 2 grams one hour prior to procedure Removed During Admission Medication Review 01/22/2021 12/05/2024 ciprofloxacin HCl (CIPRO) 500 mg Oral TabletIndications:The rapeutic procedure,OAB (overactive bladder) Take 1 tab 24hr prior to procedure and take 1 tab 24hr after procedure. Removed During Admission Medication Review 07/09/2020 12/05/2024 ciprofloxacin HCl (CIPRO) 500 mg Oral TabletIndications:The rapeutic procedure,OAB (overactive bladder) Take 1 tab 24hr prior to procedure and take 1 tab 24hr after procedure. Removed During Admission Medication Review 02/01/2021 12/05/2024 diazePAM (VALIUM) 2 mg Oral TabletIndications:The rapeutic procedure,OAB (overactive bladder) Take 1 tab 30-60 minutes prior to procedure. Removed During Admission Medication Review 02/04/2021 12/05/2024 citalopram (CELEXA) 20 mg Oral Tablet Take 20 mg by mouth daily. Removed During Admission Medication Review 12/05/2024 docusate sodium (COLACE) 100 mg Oral Capsule Take 1 Cap by mouth 2 times daily as needed for Constipation. Removed During Admission Medication Review 05/30/2020 12/05/2024 ergocalciferol (DRISDOL) 50,000 unit Oral Capsule Take by mouth once a week. Removed During Admission Medication Review 12/05/2024 LEVOTHYROXINE SODIUM (SYNTHROID ORAL) Take by mouth. Removed During Admission Medication Review 12/05/2024 LISINOPRIL ORAL Take by mouth. Removed During Admission Medication Review 12/05/2024 losartan-hydrochlorot hiazide (HYZAAR) 100-12.5 mg Oral Tablet Take 1 Tablet by mouth daily. Removed During Admission Medication Review 12/05/2024 meclizine (ANTIVERT) 25 mg tablet Take 1 Tab by mouth 3 times daily as needed for Dizziness. Removed During Admission Medication Review 04/28/2011 12/05/2024 oxyCODONE (ROXICODONE) 5 mg Oral Tablet Take 1-2 Tabs by mouth every 4 hours as needed for Major Surgery/Trauma (G89.18). Removed During Admission Medication Review 05/30/2020 12/05/2024 tolterodine (DETROL LA) 4 mg Oral Capsule, Sust. Release 24 hrIndications:OAB (overactive bladder) Take 1 Cap by mouth daily. Removed During Admission Medication Review 08/04/2019 12/06/2024 Cholecalciferol, Vitamin D3, (VITAMIN D3) 125 mcg (5,000 unit) Oral Tablet Take 5,000 mcg by mouth daily. Stop Taking at Discharge 04/02/2022 12/10/2024 diphenhydrAMINE (BENADRYL) 25 mg Oral Capsule Take 25 mg by mouth nightly as needed (sleep). Stop Taking at Discharge 12/10/2024 documented as of this encounter Historical Medications * This list may reflect changes made after this encounter. LEVOthyroxine (SYNTHROID) 88 mcg Oral Tablet Take 88 mcg by mouth daily. 11/07/2024 diphenhydrAMINE (BENADRYL) 25 mg Oral Capsule Take 25 mg by mouth nightly as needed (sleep). 12/10/2024 added in this encounter Active and Recently Administered Medications Times are shown in EDT. Scheduled Medication Order 12/08/2024 12/09/2024 12/10/2024 buPROPion (WELLBUTRIN SR) SR tablet 150 mg 150 mg, Oral, 2 TIMES DAILY, First dose on Thu12/05/24 at 2100, Until Discontinued 0833 (Given - Provider: Viviane Vazquez, MCKINLEY)2015 (Given - Provider: Aysha Rivera, MCKINLEY) 0951 (Given - Provider: Indira Jasmine, RN)224 (Given - Provider: Ling Parnell, MCKINLEY) 0906 (Given - Provider: Sayda Story, MCKINLEY) calcium carbonate (OS-JESSY) tablet 500 mg 500 mg (1 Tablet), Oral, DAILY WITH MEAL, First dose on Thu12/08/24 at 1000, Until Discontinued, 1 Tab = 1250 mg (500 mg elemental calcium) 0913 (Given - Provider: Viviane Vazquez, MCKINLEY) 0952 (Given - Provider: Indira Jasmine, MCKINLEY) 0906 (Given - Provider: Sayda Story, MCKINLEY) cefTRIAXone in dextrose (ROCEPHIN) 2 gram/50 mL IVPB 2 g 2 g, Intravenous, EVERY 24 HOURS SCHEDULED (Daily), 7 doses, First dose on Thu12/07/24 at 1230, Last dose on Thu12/13/24 at 0900, Administer over 30 Minutes, Reason for Therapy: Infection Documented, Indication: Bacteremia, Intra-abdominal 0839 (IV Started - Provider: Viviane Vazquez, MCKINLEY)0840 (IV Paused - Provider: Viviane Vazquez, RN)0846 (IV Restarted - Provider: Viviane Vazquez RN)0909 (Stopped - Provider: Viviane Vazquez RN) 1208 (IV Started - Provider: Indira Jasmine RN)1238 (Stopped - Provider: Indira Jasmine RN) 0901 (IV Started - Provider: Sayda Story, MCKINLEY)0931 (Stopped - Provider: Sayda Story RN) famotidine (PEPCID) injection 20 mg(Linked Group 1) 20 mg, Intravenous, EVERY 12 HOURS SCHEDULED (2 times per day), First dose on Thu12/05/24 at 0215, Until Discontinued 08 (See Alternative - Provider: Viviane Vazquez RN)2015 (See Alternative - Provider: Aysha Rivera RN) 0951 (See Alternative - Provider: Indira Jasmine RN)224 (See Alternative - Provider: Ling Parnell, RN) 09 (See Alternative - Provider: Sayda Story, MCKINLEY) famotidine (PEPCID) tablet 20 mg(Linked Group 1) 20 mg, Oral, EVERY 12 HOURS SCHEDULED (2 times per day), First dose on Thu12/05/24 at 0215, Until Discontinued 08 (Given - Provider: Viviane Vazquez, MCKINLEY)2015 (Given - Provider: Aysha Rivera, RN) 0951 (Given - Provider: Indira Jasmine, MCKINLEY)224 (Given - Provider: Ling Parnell, RN) 09 (Given - Provider: Sayda Story, MCKINLEY) FLUoxetine (PROzac) capsule 20 mg 20 mg, Oral, DAILY, First dose on Thu12/05/24 at 1600, Until Discontinued 08 (Given - Provider: Viviane Vazquez RN) 0951 (Given - Provider: Indira Jasmine RN) 0906 (Given - Provider: Sayda Story, MCKINLEY) heparin, porcine (PF) injection 5,000 Units 5,000 Units, Subcutaneous, EVERY 8 HOURS SCHEDULED (3 times per day), First dose on Thu12/05/24 at 2200, Until Discontinued, Hold Heparin for platelet count less than 100,000 0544 (Given - Provider: Aysha Rivera RN)1425 (Given - Provider: Viviane Vazquez, RN)2124 (Given - Provider: Aysha Rivera RN) 0535 (Given - Provider: Aysha Rivera RN)1338 (Given - Provider: Indira Jasmine, RN)2239 (Given - Provider: Ling Parnell, RN) 0640 (Given - Provider: Ling Parnell, RN)1400 (Due) LEVOthyroxine (SYNTHROID) tablet 288 mcg 288 mcg, Oral, DAILY EARLY AM, First dose (after last modification) on Thu12/07/24 at 0600, Until Discontinued, Take on empty stomach, at least 30 minutes to 1 hour before breakfast. Take at least 4 hours prior before or after calcium- or iron-containing products or bile acid sequestrants. If given via NG or other tubes administer dose as long as possible after feeding and at least 1 hour before resuming feeding. 0544 (Given - Provider: Aysha Rivera RN) 0535 (Given - Provider: Aysha Rivera RN) 0639 (Given - Provider: Ling Parnell, MCKINLEY) lidocaine 10 mg/mL (1 %) injection (PF) 10 mg (COMPLETED) 10 mg (1 mL), Subcutaneous, ONCE, 1 dose, On Thu12/10/24 at 1545, Use 1% Lidocaine 1 mL intradermally and subcutaneously at insertion site for local anesthetic. 1404 (Given - Provider: Rachel Dougherty RN) melatonin tablet 5 mg 5 mg, Oral, NIGHTLY, First dose on Thu12/05/24 at 2115, Until Discontinued 2015 (Given - Provider: Aysha Rivera RN) 2239 (Given - Provider: Ling Parnell, MCKINLEY) mupirocin (BACTROBAN) 2 % ointment Nasal, 2 TIMES DAILY, 10 doses, First dose on Thu12/05/24 at 0900, Last dose on Thu12/09/24 at 2100 0833 (Given - Provider: Viviane Vazquez, MCKINLEY)2015 (Given - Provider: Aysha Rivera RN) 0953 (Given - Provider: Indira Jasmine, RN)2243 (Given - Provider: Ling Parnell, RN) mupirocin (BACTROBAN) 2 % ointment Nasal, 2 TIMES DAILY, 10 doses, First dose on Thu12/10/24 at 2100, Last dose on Thu12/15/24 at 0900 polyethylene glycol (GLYCOLAX, MIRALAX) packet 17 g 17 g, Oral, DAILY, First dose on Thu12/06/24 at 0900, Until Discontinued, Mix in 8 oz of water 0900 (Not Given - Provider: Viviane Vazquez RN - Reason: Patient Declined) 0900 (Not Given - Provider: Indira Jasmine RN - Reason: Patient Declined) 0859 (Not Given - Provider: Sayda Story RN - Reason: Patient Declined) senna (SENOKOT) tablet 1-2 Tablet 1-2 Tablet, Oral, 2 TIMES DAILY, First dose (after last modification) on Thu12/06/24 at 0900, Until Discontinued 0833 (Given - Provider: Viviane Vazquez, RN)2017 (Not Given - Provider: Aysha Rivera RN - Reason: Patient Declined) 0900 (Not Given - Provider: Indira Jasmine RN - Reason: Patient Declined)2243 (Not Given - Provider: Ling Parnell RN - Reason: Patient Declined) 0859 (Not Given - Provider: Sayda Story RN - Reason: Patient Declined) sodium chloride 0.9% syringe 10 mL 10 mL, Intravenous, EVERY 8 HOURS SCHEDULED (3 times per day), First dose on Thu12/05/24 at 0600, Until Discontinued, Saline locked lumens on central lines should be checked for blood return and flushed every 8 hours. Lumens with running IVF/drips should be checked for blood return and flushed whenever tubing is changed, a minimum of every 7 days. 0546 (Given - Provider: Aysha Rivera RN)1425 (Given - Provider: Viviane Vazquez, MCKINLEY)2017 (Given - Provider: Aysha Rivera RN) 0535 (Given - Provider: Aysha Rivera RN)1341 (Given - Provider: Indira Jasmine RN)2200 (Canceled Entry - Provider: Ling Parnell RN - Comment: No central line) 0600 (Canceled Entry - Provider: Ling Parnell RN - Comment: No central line)1400 (Due) sodium chloride 0.9% syringe 10 mL 10 mL, Intravenous, EVERY 8 HOURS SCHEDULED (3 times per day), First dose on 12/10/24 at 1545, Until Discontinued, Saline locked lumens on central lines should be checked for blood return and flushed every 8 hours. Lumens with running IVF/drips should be checked for blood return and flushed whenever tubing is changed, a minimum of every 7 days. 1545 (Due) PRN Medication Order 12/08/2024 12/09/2024 12/10/2024 0.9 % NaCl infusion Intravenous, at 10 mL/hr, CONTINUOUS PRN, Starting on 12/05/24 at 0202, Until 12/10/24 at 2021, Use as needed for secondary medication administration. Do not discontinue primary IVF. acetaminophen (TYLENOL) oral solution 500-1,000 mg(Linked Group 2) 500-1,000 mg, Oral, EVERY 6 HOURS PRN, Starting on Thu12/05/24 at 0204, Until 12/10/24 at 2021, Fever, Pain, Maximum adult dose of acetaminophen is 4000 mg from all sources in 24 hours. acetaminophen (TYLENOL) tablet 500-1,000 mg(Linked Group 2) 500-1,000 mg, Oral, EVERY 6 HOURS PRN, Starting on Thu12/05/24 at 0204, Until 12/10/24 at 2021, Pain, Fever, Maximum adult dose of acetaminophen is 4000 mg from all sources in 24 hours. alteplase (ACTIVASE) injection 1 mg 1 mg, Intercatheter, PRN, Starting on 12/10/24 at 1402, Until 12/10/24 at 2021, Clotted line, For catheter occlusion. Instill alteplase into occluded catheter and allow to dwell for 30 minutes. If catheter function not restored, continue to dwell for an additional 90 minutes (120 minutes total). May repeat x 1 for a total of 2 mg. Contact pharmacy for dose. bisacodyL (DULCOLAX) suppository 10 mg 10 mg, Rectal, DAILY PRN, Starting on Thu12/05/24 at 0951, Until 12/10/24 at 2021, Constipation docusate sodium (COLACE) capsule 100 mg 100 mg, Oral, 2 TIMES DAILY PRN, Starting on Thu12/06/24 at 0745, Until 12/10/24 at 2021, Constipation, Do not crush or chew. ondansetron (ZOFRAN) injection 4-8 mg 4-8 mg, Intravenous, EVERY 4 HOURS PRN, Starting on Thu12/05/24 at 0204, Until 12/10/24 at 2021, Nausea, Vomiting oxyCODONE (ROXICODONE) 5 mg/5 mL solution 5-10 mg(Linked Group 3) 5-10 mg, Enteral, EVERY 4 HOURS PRN, Starting on Thu12/05/24 at 0203, Until 12/10/24 at 2021, Pain Unrelieved by Oral Non-Opioid Therapy, Begin with lowest dose unless otherwise directed. Reassess pain in 60 minutes. If pain unrelieved, remainder of dose may be given to patient. oxyCODONE (ROXICODONE) immediate release tablet 5-10 mg(Linked Group 3) 5-10 mg, Oral, EVERY 4 HOURS PRN, Starting on Thu12/05/24 at 0203, Until 12/10/24 at 2021, Pain Unrelieved by Oral Non-Opioid Therapy, Begin with lowest dose unless otherwise directed. Reassess pain in 60 minutes. If pain unrelieved, remainder of dose may be given to patient. sodium chloride 0.9% IV line flush 20-50 mL 20-50 mL, Intravenous, at 150-600 mL/hr, PRN, Starting on Thu12/05/24 at 0430, Until 12/10/24 at 2021, Line Care, Flush with a minimum of 20 mL after IVPB to insure complete administration of the dose. May use the saline infusion to back flush IVPB tubing as needed. 0838 (IV Started - Provider: Viviane Vazquez RN)0839 (Stopped - Provider: Viviane Vazquez RN) 1207 (IV Started - Provider: Indira Jasmine RN)1208 (IV Paused - Provider: Indira Jasmine RN)1238 (IV Restarted - Provider: Indira Jasmine RN)1254 (Stopped - Provider: Indira Jasmine RN) 0900 (IV Started - Provider: Sayda Story RN)0901 (IV Paused - Provider: Sayda Story RN)0931 (IV Restarted - Provider: Sayda Story RN)0932 (Stopped - Provider: Sayda Story RN) sodium chloride 0.9% IV line flush 20-50 mL 20-50 mL, Intravenous, at 150-600 mL/hr, PRN, Starting on 12/10/24 at 1402, Until 12/10/24 at 2021, Line Care, Flush with a minimum of 20 mL after IVPB to insure complete administration of the dose. May use the saline infusion to back flush IVPB tubing as needed. sodium chloride 0.9% syringe Intravenous, PRN, Starting on Thu12/05/24 at 0430, Until 12/10/24 at 2021, Line Care, Flush with 5-10 mL saline pre/post IVP, 10 mL prior to IVPB or blood product administration, and 20 mL post blood draws for CENTRAL lines. sodium chloride 0.9% syringe Intravenous, PRN, Starting on 12/10/24 at 1402, Until 12/10/24 at 2021, Line Care, Flush with 5-10 mL saline pre/post IVP, 10 mL prior to IVPB or blood product administration, and 20 mL post blood draws for CENTRAL lines. Linked Groups Order Group 1: famotidine (PEPCID) injection 20 mgJump to med 20 mg, Intravenous, EVERY 12 HOURS SCHEDULED (2 times per day), First dose on Thu12/05/24 at 0215, Until Discontinued Or famotidine (PEPCID) tablet 20 mgJump to med 20 mg, Oral, EVERY 12 HOURS SCHEDULED (2 times per day), First dose on Thu12/05/24 at 0215, Until Discontinued Group 2: acetaminophen (TYLENOL) tablet 500-1,000 mgJump to med 500-1,000 mg, Oral, EVERY 6 HOURS PRN, Starting on Thu12/05/24 at 0204, Until 12/10/24 at 2021, Pain, Fever, Maximum adult dose of acetaminophen is 4000 mg from all sources in 24 hours. Or acetaminophen (TYLENOL) oral solution 500-1,000 mgJump to med 500-1,000 mg, Oral, EVERY 6 HOURS PRN, Starting on Thu12/05/24 at 0204, Until 12/10/24 at 2021, Fever, Pain, Maximum adult dose of acetaminophen is 4000 mg from all sources in 24 hours. Group 3: oxyCODONE (ROXICODONE) immediate release tablet 5-10 mgJump to med 5-10 mg, Oral, EVERY 4 HOURS PRN, Starting on 12/05/24 at 0203, Until 12/10/24 at 2021, Pain Unrelieved by Oral Non-Opioid Therapy, Begin with lowest dose unless otherwise directed. Reassess pain in 60 minutes. If pain unrelieved, remainder of dose may be given to patient. Or oxyCODONE (ROXICODONE) 5 mg/5 mL solution 5-10 mgJump to med 5-10 mg, Enteral, EVERY 4 HOURS PRN, Starting on Thu12/05/24 at 0203, Until 12/10/24 at 2021, Pain Unrelieved by Oral Non-Opioid Therapy, Begin with lowest dose unless otherwise directed. Reassess pain in 60 minutes. If pain unrelieved, remainder of dose may be given to patient. documented in this encounter Orders Medications Ordered That Miah ht Not Have Been Administered Count Last Ordered Date First Ordered Date alteplase (ACTIVASE) injection 1 mg 1 12/10 mupirocin (BACTROBAN) 2 % ointment 1 2024 sodium chloride 0.9% IV line flush 20-50 mL 1 12/10/2024 sodium chloride 0.9% syringe 2 12/10/2024 12/05/2024 sodium chloride 0.9% syringe 10 mL 1 2024 docusate sodium (COLACE) capsule 100 mg 1 0 12/06/2024 acetaminophen (TYLENOL) oral solution 500-1,000 mg 1 12/05/2024 acetaminophen (TYLENOL) tablet 1,000 mg 1 0 12/05/2024 atropine injection 1 mg 1 12/05/2024 bisacodyL (DULCOLAX) suppository 10 mg 1 BUPivacaine-EPINEPHrine (MARCAINE/SENSORCAINE) 0.5 %-1:200,000 injection 1 12/05/2024 dextrose 50 % solution 25 mL 1 12/05/2024 hydrALAZINE (APRESOLINE) inj ection 10-20 mg 1 12/05/2024 ICU Electrolyte Replacement - Calcium 1 08/2024 ICU Electrolyte Replacement - Magnesium 1 0 12/05/2024 ICU Electrolyte Replacement - Phosphate 1 0 12/05/2024 ICU Electrolyte Replacement - Potassium 1 0 12/05/2024 labetaloL (NORMODYNE) injection 10-20 mg 1 12/05/2024 lactated ringers infusion 1 12/05/2024 metroNIDAZOLE (FLAGYL) IVPB 500 mg 1 2024 morphine injection 1-2 mg 1 12/05/2024 morphine injection 3-4 mg 1 12/05/2024 nitroGLYCERIN (NITROSTAT) SL tablet 0.4 mg 1 12/05/2024 oxyCODONE (ROXICODONE) 5 mg/ 5 mL solution 5-10 mg 1 12/05/2024 senna (SENOKOT) tablet 1-2 Tablet 1 vancomycin (VANCOCIN) 2,000 mg in sodium chloride 0.9 % 550 mL IVPB 1 12/05/2024 sodium chloride 0.9% IV line flush 50 mL 1 12/04/2024 sodium chloride 0.9% syringe 5-10 mL 1 07/2024 Nursing Count Last Ordered Date First Orde red Date BUCK CATHETER - DISCONTINUE 1 12/06/2024 PHARM VTE PROPH NON-CANDIDATE 1 12/05/2024 PULSE OXIMETRY - NURSING 1 12/04/2024 Consult Count Last Ordered Date First Orde red Date IP CONSULT TO SOCIAL WORK 1 12/08/2024 IP CONSULT TO INFECTIOUS DISEASES 1 025 IP CONSULT TO GENERAL SURGERY 1 12/05/2024 IP CONSULT TO PHARMACY 1 12/05/2024 Respiratory Care Count Last Ordered Date First Ordered Date VIBRATORY PEP 1 12/05/2024 IV Count Last Ordered Date First Orde red Date SALINE LOCK IV 1 12/04/2024 Admission Count Last Ordered Date First Orde red Date ADMIT 1 12/05/2024 Transfer Count Last Ordered Date First Orde red Date TRANSFER PATIENT 1 12/06/2024 Discharge Count Last Ordered Date First Orde red Date DISCHARGE PATIENT 1 12/10/2024 documented in this encounter Additional Health Concerns Infection Onset Date Last Indicated Resolved Time R/O COVID-19 12/04/2024 12/04/2024 12/05/2024 12:2 3 AM EDT documented as of this encounter Care Teams Kitchen And Bath Designer Relationship Specialty Start Date End Date Willard Hector MD PCP - General Family Medicine 04/28/11 documented as of this encounter
--- OUTSIDE RECORDS SUMMARY | 2024-12-05 02:10 | XMS_ITS | Encounter Summary ---
Author Organization [place] [address] Care Team Providers Care Aerial Crop Duster Name Role Phone Willard Hector MD Primary Care Provider [phone] Encounter Details Date Type Department Care Team (Late st Contact Info) Description 12/05/2024 2:10 AM EDT Ancillary Procedure [facility] BS ULTRASOUND 1 [place] [id number] Social History Tobacco Use Types Packs/Day Years Used Date Smoking Tobacco: Former Cigarettes 0.5 20 0 02/06/1983 - 02/06/2003 Smokeless Tobacco: Never [facility] Utilities Answer Date Recorded In the past 12 months has e electric, gas, oil, or water company threatened to shut off services in your home? No 12/05/2024 Overall Financial Resource Strain (CARDIA) Answe r Date Recorded How hard is it for you to pa y for the very basics like food, housing, medical care, and heating? Not hard at all 12/05/2024 PHQ-2 Answer Date Recorded PHQ-2 Total Score 0 12/05/2024 [place] [facility] Occupat ional Health - Occupational Stress [...] money to get more. Never true 12/05/2024 [facility] IP Transportation Answer D ate Recorded [...] on file documented as of this encounter Functional Status * Alcohol Screening Score Answer Date of Assessment Author 1 12/05/2024 2:00 AM EDT Ayah Price RN * Drug Screening Score Answer Date of Assessment Author 0 12/05/2024 2:00 AM EDT Ayah Price RN * Question Answer Date of Assessment Author How often do you have a drin k containing alcohol? 1 12/05/2024 2:00 AM HEAVENLYT Ayah Price RN How many drinks containing alcohol do you have on a typical day when you are drinking? 0 12/05/2024 2:00 AM EDT Tj Price RN How often do you have six or more drinks on one occasion? 0 12/05/2024 2:00 AM HEAVENLYT Ayah Price RN AUDIT-C to Determine Rows 4-10 0 12/05/2024 2:00 AM HEAVENLYT Ayah Price RN * Question Answer Date [...] 12/05/2024 4:05 PM EDT Owen Hennessy MSW documented as of this encounter Plan of Treatment Upcoming Encounters Date Type Department Care Team (Late st Contact Info) Description 12/29/2024 7:30 AM EDT Appointment [facility] [place] [address] 12/30/2024 7:30 AM EDT Appointment [facility] [place] [place] [address] 12/31/2024 9:00 AM EDT Appointment [facility] [place] [place] [address] 01/01/2025 9:00 AM EDT Appointment [facility] [place] [place] [address] 01/02/2025 7:30 AM EDT Appointment [facility] [place] [place] [address] 01/03/2025 7:30 AM EDT Appointment [facility] [place] [place] [address] 01/04/2025 7:30 AM EDT Appointment [facility] [place] [place] [address] 01/05/2025 7:30 AM EDT Appointment [facility] [place] [place] [address] 01/06/2025 9:00 AM EDT Appointment [facility] [place] [place] [address] 01/07/2025 9:00 AM EDT Appointment [facility] [place] [place] [address] 01/08/2025 9:00 AM EDT Appointment [facility] [place] [place] [address] 01/09/2025 7:30 AM EDT Appointment [facility] [place] [place] [address] 01/10/2025 7:30 AM EDT Appointment [facility] [place] [place] [address] 01/11/2025 7:30 AM EDT Appointment [facility] [place] [address] 01/12/2025 7:30 AM EDT Appointment [facility] [place] [place] [address] 01/13/2025 7:30 AM EDT Appointment [facility] [place] [place] [address] 01/14/2025 9:00 AM EDT Appointment [facility] [place] [place] [address] 01/15/2025 9:00 AM EDT Appointment [facility] [place] [place] [address] 01/16/2025 7:30 AM EDT Appointment [facility] [place] [place] [address] 01/17/2025 7:30 AM EDT Appointment [facility] [place] [place] [address] 01/18/2025 7:30 AM EDT Appointment [facility] [place] [address] 01/18/2025 3:30 PM EDT Office Visit [facility] [address] [phone] Alcira Kauffman MD [address] [place] [address] [place] [phone] documented as of this encounter Procedures Procedure Name Priority Date/Time Associated Diagnosis Comments US CORN CROP SUPERVISOR/HOSPITAL IST BEDSIDE ULTRASOUND DINA 12/05/2024 2:09 AM EDT documented in this encounter Results * US CORN CROP SUPERVISOR/HOSPITALIST BEDSIDE ULTRASOUND (12/05/2024 2:09 AM EDT) Narrative Genericuser, Audit - 12/05/2024 2:09 AM EDT Dietitian Research Ultrasound performed at bedside. The study image(s) are for reference only and will not be interpreted by a Radiologist. Refer to the same day procedure note for image description and procedure details. us Royer Cloud MD IMG US ORDERABLES Final Resul t documented in this encounter Visit Diagnoses Not on filedocumented in this encounter Care Teams Aerial Crop Duster Relationship Specialty Start Date End Date Willard Hector MD PCP - General Family Medicine 04/28/11 documented as of this encounter
--- OUTSIDE RECORDS SUMMARY | 2024-12-05 02:15 | XMS_ITS | Encounter Summary ---
Author Organization [place] [address] Care Team Providers Care Double Cutter Name Role Phone Willard Hector MD Primary Care Provider [phone] Encounter Details Date Type Department Care Team (Late st Contact Info) Description 12/05/2024 2:15 AM EDT Ancillary Procedure [facility] BS ULTRASOUND 1 [place] [id number] Social History Tobacco Use Types Packs/Day Years Used Date Smoking Tobacco: Former Cigarettes 0.5 20 0 02/06/1983 - 02/06/2003 Smokeless Tobacco: Never [facility] Utilities Answer Date Recorded In the past [...] Date Recorded PHQ-2 Total Score 0 12/05/2024 [place] [facility] Occupat ional Health - Occupational Stress [...] money to get more. Never true 12/05/2024 [facility] IP Transportation Answer D ate Recorded [...] EDT Appointment [facility] [place] [place] [address] 12/30/2024 7:30 AM EDT Appointment [facility] [place] [place] [address] 12/31/2024 9:00 AM EDT Appointment [facility] [place] [place] [address] 01/01/2025 9:00 AM EDT Appointment [facility] [place] [place] [address] 01/02/2025 7:30 AM EDT Appointment [facility] [place] [place] [address] 01/03/2025 7:30 AM EDT Appointment [facility] [place] [address] 01/04/2025 7:30 AM EDT Appointment [facility] [place] [place] [address] 01/05/2025 7:30 AM EDT Appointment [facility] [place] [place] [address] 01/06/2025 9:00 AM EDT Appointment [facility] [place] [place] [address] 01/07/2025 9:00 AM EDT Appointment [facility] [place] [place] [address] 01/08/2025 9:00 AM EDT Appointment [facility] [place] [place] [address] 01/09/2025 7:30 AM EDT Appointment [facility] [place] [place] [address] 01/10/2025 7:30 AM EDT Appointment [facility] [place] [place] [address] 01/11/2025 7:30 AM EDT Appointment [facility] [place] [place] [address] 01/12/2025 7:30 AM EDT Appointment [facility] [place] [place] [address] 01/13/2025 7:30 AM EDT Appointment [facility] [place] [place] [address] 01/14/2025 9:00 AM EDT Appointment [facility] [place] [place] [address] 01/15/2025 9:00 AM EDT Appointment [facility] [place] [place] [address] 01/16/2025 7:30 AM EDT Appointment [facility] [place] [place] [address] 01/17/2025 7:30 AM EDT Appointment [facility] [place] [place] [address] 01/18/2025 7:30 AM EDT Appointment [facility] [place] [place] [address] 01/18/2025 3:30 PM EDT Office Visit [facility] [address] [phone] Alcira Kauffman MD [address] [place] [address] [place] [phone] documented as of this encounter Procedures Procedure Name Priority Date/Time Associated Diagnosis Comments US DRUG SAFETY ASSISTANT/HOSPITAL IST BEDSIDE ULTRASOUND DINA 12/05/2024 2:09 AM EDT documented in this encounter Results * US DRUG SAFETY ASSISTANT/HOSPITALIST BEDSIDE ULTRASOUND (12/05/2024 2:09 AM EDT) Narrative Genericuser, Audit - 12/05/2024 2:09 AM EDT It Service Delivery Manager Ultrasound performed at bedside. The study image(s) are for reference only and will not be interpreted by a Radiologist. Refer to the same day procedure note for image description and procedure details. us Royer Cloud MD IMG US ORDERABLES Final Resul t documented in this encounter Visit Diagnoses Not on filedocumented in this encounter Care Teams Double Cutter Relationship Specialty Start Date End Date Willard Hector MD PCP - General Family Medicine 04/28/11 documented as of this encounter
--- OUTSIDE RECORDS SUMMARY | 2024-12-05 02:30 | XMS_ITS | Encounter Summary ---
Author Organization [place] [address] Care Team Providers Care Research Archaeologist Name Role Phone Willard Hector MD Primary Care Provider [phone] Encounter Details Date Type Department Care Team (Late st Contact Info) Description 12/05/2024 2:30 AM EDT Ancillary Procedure [facility] BS ULTRASOUND 1 [place] [id number] Social History Tobacco Use Types Packs/Day Years Used Date Smoking Tobacco: Former Cigarettes 0.5 20 0 02/06/1983 - 02/06/2003 Smokeless Tobacco: Never [facility] Utilities Answer Date Recorded In the [...] Date Recorded PHQ-2 Total Score 0 12/05/2024 [place] of Occupat ional Health - Occupational Stress [...] money to get more. Never true 12/05/2024 [facility] IP Transportation Answer D ate Recorded In [...] are drinking? 0 12/05/2024 2:00 AM EDT jT Price RN How often do you have [...] EDT Appointment [facility] [address] 12/30/2024 7:30 AM EDT Appointment [facility] [place] [address] 12/31/2024 9:00 AM EDT Appointment [facility] [place] [address] 01/01/2025 9:00 AM EDT Appointment [facility] [place] [address] 01/02/2025 7:30 AM EDT Appointment [facility] [place] [address] 01/03/2025 7:30 AM EDT Appointment [facility] [place] [address] 01/04/2025 7:30 AM EDT Appointment [facility] [place] [address] 01/05/2025 7:30 AM EDT Appointment [facility] [place] [address] 01/06/2025 9:00 AM EDT Appointment [facility] [place] [address] 01/07/2025 9:00 AM EDT Appointment [facility] [place] [address] 01/08/2025 9:00 AM EDT Appointment [facility] [place] [address] 01/09/2025 7:30 AM EDT Appointment [facility] [place] [address] 01/10/2025 7:30 AM EDT Appointment [facility] [place] [address] 01/11/2025 7:30 AM EDT Appointment [facility] [place] [address] 01/12/2025 7:30 AM EDT Appointment [facility] [place] [address] 01/13/2025 7:30 AM EDT Appointment [facility] [place] [address] 01/14/2025 9:00 AM EDT Appointment [facility] [place] [address] 01/15/2025 9:00 AM EDT Appointment [facility] [place] [address] 01/16/2025 7:30 AM EDT Appointment [facility] [place] [address] 01/17/2025 7:30 AM EDT Appointment [facility] [place] [address] 01/18/2025 7:30 AM EDT Appointment [facility] [place] [address] 01/18/2025 3:30 PM EDT Office Visit [facility] [address] [phone] Alcira Kauffman MD [address] [place] [address] [place] [phone] documented as of this encounter Procedures Procedure Name Priority Date/Time Associated Diagnosis Comments US FRAME STRAIGHTENER/HOSPITAL IST BEDSIDE ULTRASOUND STAT 12/05/2024 2:29 AM EDT documented in this encounter Results * US FRAME STRAIGHTENER/HOSPITALIST BEDSIDE ULTRASOUND (12/05/2024 2:29 AM EDT) Narrative Genericuser, Audit - 12/05/2024 2:29 AM EDT Scouring Machine Tender Ultrasound performed at bedside. The study image(s) are for reference only and will not be interpreted by a Radiologist. Refer to the same day procedure note for image description and procedure details. us Royer Cloud MD IMG US ORDERABLES Final Resul t documented in this encounter Visit Diagnoses Not on filedocumented in this encounter Care Teams Research Archaeologist Relationship Specialty Start Date End Date Willard Hector MD PCP - General Family Medicine 04/28/11 documented as of this encounter
--- OUTSIDE RECORDS SUMMARY | 2024-12-05 09:47 | XMS_ITS | Encounter Summary ---
Author Organization [place] [address] Care Team Providers Care Nozzle Worker Name Role Phone Willard Hector MD Primary Care Provider Reason for Visit * Reason Comments Fever Mutiple LOC per EMS. Fever, HR 130s and first Bp 76/35. LR 150ML per EMS with Bp 80s/50 * Auth/Cert/Inpt Specialty Diagnoses / Procedures Referred By Contac t Referred To Contact Diagnoses Cholecystitis Referral ID Status Reason Start Date Expiration Date Visits Re quested Visits Authorized [id number] 1 1 Encounter Details Date Type Department Care Team (Late st Contact Info) Description 12/05/2024 9:47 AM EDT - 12/05/2024 11:47 AM EDT Surgery EDG PERIOP [facility] [place] [address] Fabian Holguin MD [address] [place] [address] DAVINCI ROBOTIC CHOLECYSTECTOMY Surgery Details Date/Time Status Location OR Service Patient Class Case Class Case Type Trauma Case? 12/05/2024 9:47 AM Posted EDG MAIN OR EDG Room 09 XI General Inpatient Urgent - 6hr Panel 1 Procedure LRB Anes Op Region Wound Class Comments DAVINCI ROBOTIC CHOLECYSTECTOMY N/A General Abdomen Dirty or Infected DAVINCI ROBOTIC CHOLECYSTECTOMY Surgeon Surgeon Role Service Panel Fabian Holguin MD Primary General 1 Special Needs on pressers documented in this encounter Social History Tobacco Use Types Packs/Day Years Used Date Smoking Tobacco: Former Cigarettes 0.5 20 0 02/06/1983 - 02/06/2003 Smokeless Tobacco: Never [facility] Utilities Answer Date Recorded In the [...] Date Recorded PHQ-2 Total Score 0 12/05/2024 [facility] [place] of Occupat ional Health - Occupational Stress [...] money to get more. Never true 12/05/2024 [facility] IP Transportation Answer D ate Recorded In [...] Sign Reading Time Taken Comments Blood Pressure 104/77 12/05/2024 10:00 AM EDT Pulse 78 12/05/2024 10:00 AM EDT Temperature 37.6 C (99.6 F) 12/05/2024 10:00 AM EDT Respiratory Rate 29 12/05/2024 10:00 AM EDT Oxygen Saturation 99% 12/05/2024 10:00 AM EDT Inhaled Oxygen Concentration - - Weight 117 kg (257 lb 15 oz) 12/05/2024 2:09 AM EDT Height 162.6 cm (5' 4 [...] one occasion? 0 12/05/2024 2:00 AM EDT Ayha Price RN AUDIT-C to Determine Rows 4-10 0 12/05/2024 2:00 AM EDT Ayah Price RN * Suicide Severity Rating Answer Date of Assessment Author No Risk 12/04/2024 11:51 PM EDT Jean Claude Zabala RN * [place] Suicide Severity Rating Scale (Q shift for [...] our office at . Get Well Soon! [place] Anesthesia Patient Education General Anesthesia Discharge Instructions [...] and blood flow The doctor or nurse instructor weaving gives general anesthesia by a shot into [...] or approved for treating a specific patient. [employer] and its affiliates disclaim any warranty or liability relating to this information or the use thereof. The use of this information is governed by the Terms of Use, available at https://www.Soundtracker.com/en/know/kqogptrb-lacurmtjxdinv-vvwqn Copyright Copyright ?? 2022 [employer] and its affiliates and/or licensors. All rights [...] Means Destination Comment s Home or Self Prison documented in this encounter Progress Notes * [...] PM EDT Discharge Medication Delivery Service DMD hvac installation technician has delivered the following medications for Yanna Dutton: Rx#[id number]:OXYCODONE 5 MG TABLET-5 mg EVERY 6 HOURS PRN Date/Time of Delivery: 12/10/2024 3:17 PM Delivered to: pt room 2221, placed on bedside tray Please contact DMD hvac installation technician with any questions. Thanks! Claudia Kendall [...] 2gm through 01/17 noted- arranged at [facility]- tomorrow at 9am - noted BUCK to [...] Discussed with patient Seen & d/w nurse Robin Infectious Disease Disposition Perspective - Medically Ready [...] due to other mechanisms cannot be excluded. [id number] A/B Collection Time: 12/04/24 11:49 PM Specimen: Nares; Swab Result Value Ref Range CORONAVIRUS 6167-LCDM-OZF-2 Not Detected Not Detected Influenza A DNA [...] PICC and outpatient antibiotics today * Fabian Jhonson MD - 12/10/2024 11:29 AM EDTAssociated Problem(s): [...] DAVINCI ROBOTIC CHOLECYSTECTOMY with Dr Holguin on 6/2 Post op management per surgery BUKC remains in place, surgery plans to remove [...] and PICC placement. Per Christianne with the [facility], pt is confirmed for 7:30am infusion times and are able to start pt this weekend. Note pt is alert and oriented X4. SW met with pt at bedside and completed d/c round. Pt states her d/c plan is home with family support, IV ABX ([facility]), and outpatient follow up with physicians. Pt [...] SW Update: per Anna Marie with the [facility], the latest appointment they canaccommodate is a 4pm. Note pt is alert and oriented X4. JUSTICE met with pt at bedside and reviewed. Pt states agreeable to a 4pm appointment M- . Pt states open to any appointment time on weekends. JUSTICE called and spoke to Christianne with the [facility] and reviewed. Per Christianne, they will work on getting pt on the schedule. Signed IV ABX order faxed to the [facility]. Pt states no other needs at this time. Note still awaiting final cultures prior to PICC placement. Note pt medically ready to d/c once PICC placed. Note pt's current d/c plan is home with family support, IV ABX at the [facility], and outpatient follow up with physicians withpt's son Amando to transport home. SW following Addendum 1515: Per Anna Marie with the [facility], they are un able to accommodatethe 4pm infusion time but could do a 7:30am infusion time. SW met with pt at bedside and reviewed. Pt states agreeable to the 7:30am infusion time as this would work with her job schedule. SW called and left a voicemail for the [facility] to notify. Awaiting return call. Pt stat [...] due to other mechanisms cannot be excluded. [id number] A/B Collection Time: 12/04/24 11:49 PM Specimen: Nares; Swab Result Value Ref Range CORONAVIRUS 7024-LMGH-HGV-2 Not Detected Not Detected Influenza A DNA [...] (H) 12/09/2024 Merle Madison MD * Indira Jasmine, RN - 12/09/2024 9:38 AM EDT VSS [...] Johnson MSW - 12/08/2024 4:42 PM EDT 6/5 SW Update: note SW consult please arrange for Ceftriaxone-2gm IVPB daily at [facility] until 01/18/25 . Signed IV ABX order obtained. Note pt is alert and oriented X4. SW met with pt at bedside and reviewed. Pt states agreeable to IV ABX at d/c. Pt states preference to complete IV ABX at the [facility] IF she can get an appointment after 4:30pm. Pt states if she is not able to get an appointment after 4:30pm then she would prefer to complete them at home with the help of her son. SW called and left a voicemail for the [facility] to inquire. Awaiting response. Pt states no [...] the office for drain removal Vitals: 12/07/24 0912/07/24203712/08/2460812/08/24 0800 BP: 106/63 111/89 133/70 BP Location: [...] Pat Name: YANNA DUTTON Department: DEPID Room: [facility] Gender: Female Top Collar Maker: : 1965 Requested By: [facility] Order Number: [id number] Daniel MD: Jared Dittoe Measurements Intervals Shedd Rate: 120 P: 59 MA: 157 QRS: 21 QRSD: 96 T: 48 [...] contact the office of the orderingclinician. US REPRODUCTION ORDER PROCESSOR/HOSPITALIST BEDSIDE ULTRASOUND Result Date: 12/05/2024 Buffer Operator Ultrasound performed at bedside. The study image(s) are for reference only and will notbe interpreted by a Radiologist. Refer to the same day procedure note for image description and procedure details. US REPRODUCTION ORDER PROCESSOR/HOSPITALIST BEDSIDE ULTRASOUND Result Date: 12/05/2024 Buffer Operator Ultrasound performed at bedside. The study image(s) are for reference only and will notbe interpreted by a Radiologist. Refer to the same day procedure note for image description and procedure details. US REPRODUCTION ORDER PROCESSOR/HOSPITALIST BEDSIDE ULTRASOUND Result Date: 12/05/2024 Buffer Operator Ultrasound performed at bedside. The study image(s) [...] Problem(s): Benign essential HTN Stable 12/08/2024 * Fabina Johnson MD - 12/08/2024 8:23 AM EDT [...] tomorrow, will place a PICC Will consult Blank Driller to arrange Ceftriaxone @ [facility] until 01/18/25 2) E.coli bacteremia and bacteruria [...] tomorrow and throughout the weekend * Aysha Rivera, MCKINLEY - 12/08/2024 6:26 AM EDT VS Stable, [...] Hypothyroidism Continue synthroid Check TSH * Viviane Vazquez, MCKINLEY - 12/07/2024 2:16 PM EDT VSS, afebrile [...] patient. I discussed the patient with the MEDICINE AND HEALTH SERVICE MANAGER. I agree with thefindings/assessment/plan above unless otherwise [...] IV every 8 hours ESSENTIAL HYPERTENSION No HOUSECLEANER meds MOOD DISORDER Start HOUSECLEANER Wellbutrin SR 150 p.o. twice daily Start HOUSECLEANER Prozac 20 mg p.o. daily HYPOTHYROIDISM Start HOUSECLEANER Synthroid 200 mcg p.o. daily CLASS III OBESITY Complicates all aspects of care ICU MANAGEMENT Pain: Oxycodone 5-10 every 4 as needed; acetaminophen 500-1000 every 6 as needed Sedation: None Lines: Left internal jugular triple-lumen catheter 12/05/2024; bilateral peripheral IVs; left radial A-line IVF: LR at 125 mL/h Drains: BCUK drain Tubes: None Stress Ulcer Prophylaxis: Pepcid [...] to pharmacy: 2119 Lab Caller / Pharmacy Rn Surgery Icu: Ayesha Gold Action Taken: Time: 2122 Called to: Dr. Holguin Patient is currently receiving zosyn; other options for this bacterium include: ceftriaxone. Thank you! Lexi Singh PharmD * Ana Hennessy MSW - 12/05/2024 [...] for dc planning process Does patient need hot dip plating supervisor? No Activities of Daily Living Prior to [...] Discussed discharge plans with Care Team at [facility] Yes, with nurse in attendance;Yes, with doctor in attendance Patient's goals for recovery Return to Prior Level of Functioning Actual Discharge Plan 12/05 SW initial. Chart reviewed. Note pt is alert and oriented X4. SW met withpt at bedside and introduced self and role. Pt states she lives with her adult son in a condo with no steps to enter and no steps to pt's bedroom. PCP is Dr. Hector. Pharmacy is [facility] in [place], [place]. Pt states she is able to [...] PRN Zofran PRN MAJOR DEPRESSIVE DISORDER Hold HOUSECLEANER Wellbutrin 150 mg BID, Prozac 20 mg daily Resume post-op/when full PO HYPOTHYROIDISM Hold HOUSECLEANER levothyroxine 200 mcg daily Resume post-op/when full [...] PRN, Royer Cloud MD, Stopped at 12/05/24 0527 acetaminophen (TYLENOL) tablet 500-1,000 mg, 500-1,000 mg, Oral, Q6H PRN, 1,000 mg at 12/05/24 0433OR acetaminophen (TYLENOL) oral solution 500-1,000 mg, 500-1,000 mg, Oral, Q6H PRN, Royer Cloud MD acetaminophen (TYLENOL) tablet 1,000 mg, 1,000 mg, Oral, Preprocedure, David Mckinney, MASON atropine injection 1 mg, 1 mg, Intravenous, [...] Electrolyte Replacement - Magnesium, 1 Each, MISCELLANEOUS, PRN, Royer Cloud MD ICU Electrolyte Replacement - Phosphate, 1 Each, DALJITCELLANEOUS, PRNPedro Luis Sean T, MD ICU Electrolyte Replacement - Potassium, 1 Each, DALJITCELLLOLLY, SHAWNPedro Luis Sean T, MD indocyanine green (IC-GREEN) injection 6.25 mg, 6.25 mg, Intravenous, Once Preprocedure, Fabian Holguin MD labetaloL (NORMODYNE) injection 10-20 mg, 10-20 mg, Intravenous, Q2H PRN, Royer Cloud MD lactated ringers infusion, , Intravenous, Continuous, Ryoer Cloud MD, Last Rate: 125 mL/hr at12/05/24 [...] Ross MD, Last Rate: 21.6 mL/hr at 12/05/24912, 23 mcg/min at 12/05/24912 ondansetron (ZOFRAN) injection 4-8 mg, 4-8 mg, [...] Cloud MD, Last Rate: 25 mL/hr at 12/05/24903, Rate Verify at 12/05/24903 scopolamine (TRANSDERM-SCOP) 1 mg over 3 days [...] Cloud MD, Last Rate: 6 mL/hr at 12/05/24903, 0.04 Units/min at 12/05/24903 ICU MANAGEMENT Pain: Acetaminophen PRN, oxycodone PRN, [...] file Food Insecurity: Unknown (07/28/2023) Received from [facility] Food Insecurities Worried about running out of food: Not on file Food Bought: Not on file Transportation Needs: Unknown (07/28/2023) Received from [facility] Transportation Worried about transportation: Not on file Physical Activity: Not on file Stress: Not on file Social Connections: Not on file Intimate Partner Violence: Unknown (07/28/2023) Received from [employer] Interpersonal Safety Feel physically or emotionally unsafe where currently live: Not on file Harm by anyone: Not on file Emotionally Harmed: Not on file Housing Stability: Unknown (07/28/2023) Received from [employer] Housing/Utilities Worried about losing home: Not on [...] DUTTON Department: DEPID Room: 2318 Gender: Female Top Collar Maker: : 1965 Requested By: [facility] Order Number: [id number] Reading MD: Jared Herrera Measurements Intervals Shedd Rate: 120 P: 59 MA: 157 QRS: 21 QRSD: 96 T: 48 [...] contact the office of the orderingclinician. US REPRODUCTION ORDER PROCESSOR/HOSPITALIST BEDSIDE ULTRASOUND Result Date: 12/05/2024 Buffer Operator Ultrasound performed at bedside. The study image(s) are for reference only and will notbe interpreted by a Radiologist. Refer to the same day procedure note for image description and procedure details. US REPRODUCTION ORDER PROCESSOR/HOSPITALIST BEDSIDE ULTRASOUND Result Date: 12/05/2024 Buffer Operator Ultrasound performed at bedside. The study image(s) are for reference only and will notbe interpreted by a Radiologist. Refer to the same day procedure note for image description and procedure details. US REPRODUCTION ORDER PROCESSOR/HOSPITALIST BEDSIDE ULTRASOUND Result Date: 12/05/2024 Buffer Operator Ultrasound performed at bedside. The study image(s) [...] IV every 8 hours ESSENTIAL HYPERTENSION No HOUSECLEANER meds MOOD DISORDER Start HOUSECLEANER Wellbutrin SR 150 p.o. twice daily Start HOUSECLEANER Prozac 20 mg p.o. daily HYPOTHYROIDISM Start HOUSECLEANER Synthroid 200 mcg p.o. daily CLASS III [...] levels as needed. History of HTN - HOUSECLEANER meds include losartan-HCTZ 100-12.5mg - Hold ACEi [...] file Food Insecurity: Unknown (07/28/2023) Received from [facility] [employer] Food Insecurities Worried about running out of food: Not on file Food Bought: Not on file Transportation Needs: Unknown (07/28/2023) Received from [facility] [employer] Transportation Worried about transportation: Not on file Physical Activity: Not on file Stress: Not on file Social Connections: Not on file Intimate Partner Violence: Unknown (07/28/2023) Received from [facility] [employer] Interpersonal Safety Feel physically or emotionally unsafe where currently live: Not on file Harm by anyone: Not on file Emotionally Harmed: Not on file Housing Stability: Unknown (07/28/2023) Received from [facility] [employer] Housing/Utilities Worried about losing home: Not on [...] Pat Name: YANNA DUTTON Department: DEPID Room: Gender: Female Top Collar Maker: : 1965 Requested By: [facility] Order Number: [id number] Reading MD: Measurements Intervals Shedd Rate: 120 P: 59 MA: 157 QRS: 21QRSD: 96 T: 48 QT: 325 QTc: 461 Interpretive Statements SINUS TACHYCARDIA POSSIBLE RIGHT VENTRICULA R CONDUCTION DELAY ABNORMAL RHYTHM ECG &P documented [...] Role: * Fabian Holguin MD - Primary SALES INCENTIVE ANALYST: Lianne Garzon PA-C ANESTHETIC: General EBL: 50 ml from 12/05/2024 10:11 AM to 12/05/2024 1:12 PM IVF: * No values recorded between 12/05/2024 10:11 AM and 12/05/2024 1:12 PM * SPEC: ID Type Source Tests Collected by Time Destination 1 : gallbladder with contents Tissue Gallbladder PATHOLOGY TISSUE REQUEST Fabian Holguin MD 12/05/2024 1214 DRAINS: 19french Galen Drain STAFF: Community Support Worker: Wendy Mcneil RN Physician Customer Success Advocate: Lianne Garzon PA-C Relief Community Support Worker: Navneet Jones RN Relief Scrub Lerma: Juancarlos Goldman RN Scrub Orange: Shobha Burns, ACCOUNTING RECONCILIATION CLERK Turn Over Nozzle Worker: Isaias Ruiz NA; Betty Blackwell, TONG 2nd Community Support Worker: Navneet Jones RN LOCATION: [facility] MAIN OR OR: [facility] OR9 SPECIFIC DESCRIPTION [...] the port under laparoscopic supervision while my tax assistant held the camera. The robot was [...] the left upper-most port site by my tax assistant. I obtained hemostasis in the gallbladder [...] vicryl figure of 8 suture while my tax assistant retracted the skin. The skin incisions were then closed with 4-0 absorbable subcuticular sutures and skin glue by myassteja. At the end of the procedure, all [...] Holguin MD - 12/05/2024 12:41 PM EDT [facility] OPERATIVE/PROCEDURE NOTE Yanna Dutton December 05, 2024 Body mass index is 44.27 kg/m??. PRE-OP DIAGNOSIS: acute cholecystitis POST-OP DIAGNOSIS: acute cholecystitis with liver abscess PROCEDURE(S): Procedure(s): DAVINCI ROBOTIC CHOLECYSTECTOMY SURGEON(S): Surgeons and Role: * Fabian Holguin MD - Primary SALES INCENTIVE ANALYST(S): Lianne Garzon PA-C ANESTHESIA: General SPECIMENS: ID [...] MANIPULATION 02/15/2020 Surgeon: Hitesh Hilton MD; Location: [facility] MAIN OR; Service: Orthopedics THYROIDECTOMY TOTAL KNEE ARTHROPLASTY Left 02/15/2020 LEFT TOTAL KNEE ARTHROPLASTY cortizone injection right knee; Surgeon: Hitesh Hilton MD; Location: [facility] MAIN OR; Service: Orthopedics TOTAL KNEE ARTHROPLASTY Right 05/30/2020 RIGHT TOTAL KNEE ARTHROPLASTY; Surgeon: Hitesh Hilton MD; Location: [facility] MAIN OR; Service: Orthopedics ALLERGY: No Known [...] ill, generalized weakness negative for night sweats LASER OPERATOR: + 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 Negative for dizzy/vertigo, [...] file Food Insecurity: Unknown (07/28/2023) Received from [facility] Food Insecurities Worried about running out of food: Not on file Food Bought: Not on file Transportation Needs: Unknown (07/28/2023) [facility] Transportation Worried about transportation: Not on file Physical Activity: Not on file Stress: Not on file Social Connections: Not on file Intimate Partner Violence: Unknown (07/28/2023) Received from [facility] Interpersonal Safety Feel physically or emotionally unsafe where currently live: Not on file Harm by anyone: Not on file Emotionally Harmed: Not on file Housing Stability: Unknown (07/28/2023) Received from [facility] Housing/Utilities Worried about losing home: Not on [...] contact the office of the orderingclinician. US REPRODUCTION ORDER PROCESSOR/HOSPITALIST BEDSIDE ULTRASOUND Result Date: 12/05/2024 Buffer Operator Ultrasound performed at bedside. The study image(s) are for reference only and will notbe interpreted by a Radiologist. Refer to the same day procedure note for image description and procedure details. US REPRODUCTION ORDER PROCESSOR/HOSPITALIST BEDSIDE ULTRASOUND Result Date: 12/05/2024 Buffer Operator Ultrasound performed at bedside. The study image(s) are for reference only and will notbe interpreted by a Radiologist. Refer to the same day procedure note for image description and procedure details. US REPRODUCTION ORDER PROCESSOR/HOSPITALIST BEDSIDE ULTRASOUND Result Date: 12/05/2024 Buffer Operator Ultrasound performed at bedside. The study image(s) [...] DUTTON Department: DEPID Room: 07 Gender: Female Top Collar Maker: : 1965 Requested By: [facility] Order Number: [id number] Reading MD: Measurements Intervals Shedd Rate: 120 P: 59 MA: 157 QRS: 21QRSD: 96 T: 48 QT: [...] Male Social Drivers of Health Received from [facility] Food Insecurities Received from [facility] Transportation Received from [facility] Interpersonal Safety Received from [facility] Housing/Utilities SURGICAL HISTORY Past Surgical History: Procedure [...] deficits noted. EKG Sinus rhythm rate 128 Shedd normal nonspecific changes no acute ST elevation LABS/RADIOLOGY/PROCEDURES Labs Reviewed CBC WITH DIFF - Abnormal; Notable for the following components: Result Value Lymph # 0.4 (*) [facility] # 0.0 (*) All other components within [...] - Abnormal; Notable for the following components: vy-vTmtssrdl-M 46 (*) All other components within normal [...] Normal BLOOD CULTURE (NO STAIN) - Normal [id number] A/B - Normal URINE CULTURE (NO STAIN) UA W/REFLEX TO CULTURE Narrative: The following orders were created for panel order UA W/REFLEX TO CULTURE. Procedure Abnormality Status --------- ------ URINALYSIS REFLEX[[id number]] Abnormal Final result EXTRA IRVING URINE CX[[id number]] Final result Please view results for these [...] DUTTON Department: DEPID Room: 07 Gender: Female Top Collar Maker: : 1965 Requested By: [facility] Order Number: [id number] Reading MD: Measurements Intervals Shedd Rate: 120 P: 59 MA: 157 QRS: 21 QRSD: 96 T: 48 [...] day * Critical Result Value - Ana Dinh RN - 12/05/2024 7:04 PM EDT Yanna Dutton [id number], 1965 12/05/2024 Test Name/Result: Blood Culture Time: 1903 Caller/Rn Surgery Icu: yuri Law/ Ana Perrin RN R/V Action [...] levels as needed. History of HTN - HOUSECLEANER meds include losartan-HCTZ 100-12.5mg - Hold ACEi [...] 25, T 103.1-102.1 on 2LNC 99% sat cardiac monitor DC PLAN: pending improvement and surgical plan, CC/SW to assist with plan * Critical Result Value - Cole Brandt RN - 12/05/2024 4:32 AM EDT Yanna Pina Denny [id number], 1965 12/05/2024 Test Name/Result: 2 Hr Troponin 21 - Phos 0.8 Time: 043 Caller/Rn Surgery Icu: Cortney Lomax / Dieudonne Perrin R/V Action Taken: Communicated with provider via Secure Chat Time: 446 Notified Physician/Physician Designee: Dr Cloud R/Delano * Critical Result Value - Zoila Hyatt RN - 12/05/2024 12:07 AM EDT Test Name/ Result: K+ 2.8 from Cortney in lab Date/ Time: 12/05/2024 @ 0007 Notified Physician/Physician Designee: Dr. Brandee Ross RTucker * Critical Result Value - Zoila Hyatt RN - 12/05/2024 12:04 AM EDT Test Name/ Result: Lactic 4.5 from Cortney in lab Date/ Time: 12/05/2024 @ 0004 Notified Physician/Physician Designee: Dr. Brandee Ross R/Delano documented in this encounter Plan of Treatment Upcoming Encounters Date Type Department Care Team (Late st Contact Info) Description 12/29/2024 7:30 AM EDT [facility]ointment [facility] [place] [address] 12/30/2024 7:30 AM EDT Appointment [facility] [place] [address] 12/31/2024 9:00 AM EDT Appointment [facility] [place] [address] 01/01/2025 9:00 AM EDT Appointment [facility] [place] [address] 01/02/2025 7:30 AM EDT Appointment [facility] [place] [address] 01/03/2025 7:30 AM EDT Appointment [facility] [place] [address] 01/04/2025 7:30 AM EDT Appointment [facility] [place] [address] 01/05/2025 7:30 AM EDT Appointment [facility] [place] [address] 01/06/2025 9:00 AM EDT Appointment [facility] [place] [address] 01/07/2025 9:00 AM EDT Appointment [facility] [place] [address] 01/08/2025 9:00 AM EDT Appointment [facility] [place] [address] 01/09/2025 7:30 AM EDT Appointment [facility] [place] [address] 01/10/2025 7:30 AM EDT Appointment [facility] [place] [address] 01/11/2025 7:30 AM EDT Appointment [facility] [place] [address] 01/12/2025 7:30 AM EDT Appointment [facility] [place] [address] 01/13/2025 7:30 AM EDT Appointment [facility] [address] 01/14/2025 9:00 AM EDT Appointment [facility] [place] [address] 01/15/2025 9:00 AM EDT Appointment [facility] [place] [address] 01/16/2025 7:30 AM EDT Appointment [facility] [place] [address] 01/17/2025 7:30 AM EDT Appointment [facility] [place] [address] 01/18/2025 7:30 AM EDT Appointment [facility] [place] [address] 01/18/2025 3:30 PM EDT Office Visit [facility] [address] [place] [phone] Mike Kauffman MD [address] [place] [phone] Scheduled Orders Name Type Priority Associated Diagnoses [...] Pulse 111, Temp 99.5 F, Resp 26, [id number]%. Initial findings were significant for elevated lactic [...] lives at home independently with her son. Shedenies any tobacco use, alcohol use, or illicit drugs. She does havehistory of bilateral knee arthroplasty but denies any pain or swelling atthis time. 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 I personally saw [...] Calculus of gallbladder without cholecystitis without obstruction MA LAPAROSCOPY SURG CHOLECYSTECTOMY 12/05/2024 10:11 AM EDT Calculus of gallbladder without cholecystitis without obstruction Special Needs on pressers HEPATIC FUNCTION PANEL DINA 12/05/2024 8:51 AM EDT REPEAT LACTIC ACID STAT 12/05/2024 7:16 AM EDT REPEAT LACTIC ACID STAT 12/05/2024 6:34 AM EDT CALCIUM, IONIZED DINA 12/05/2024 3:45 AM EDT TROPONIN-T HIGH SENSITIVITY 2HR Timed 12/05/2024 3:45 AM EDT CBC WITH DIFF DIAN 12/05/2024 3:45 AM EDT PHOSPHORUS LEVEL DINA 12/05/2024 3:45 AM EDT MAGNESIUM LEVEL DINA 12/05/2024 3:45 AM EDT MAGNESIUM LEVEL STAT 12/05/2024 3:45 AM EDT LACTIC ACID DINA 12/05/2024 3:45 AM EDT BASIC METABOLIC PANEL DINA 12/05/2024 3:45 AM EDT POC ARTERIAL BLOOD GAS PROFILE Routine 12/05/2024 3:01 AM EDT XR CHEST AP PORTABLE STAT 12/05/2024 2:45 AM EDT US REPRODUCTION ORDER PROCESSOR/HOSPITA LIST BEDSIDE ULTRASOUND STAT 12/05/2024 2:29 AM EDT US REPRODUCTION ORDER PROCESSOR/HOSPITA LIST BEDSIDE ULTRASOUND DINA 12/05/2024 2:09 AM EDT US REPRODUCTION ORDER PROCESSOR/HOSPITA LIST BEDSIDE ULTRASOUND DINA 12/05/2024 2:09 AM [...] MANIPULATION 02/15/2020 Surgeon: Hitesh Hilton MD; Location: [facility]; Service:Orthopedics THYROIDECTOMY TOTAL KNEE ARTHROPLASTY Left 02/15/2020 LEFT TOTAL KNEE ARTHROPLASTY cortizone injection right knee; Surgeon:Hitesh Hilton MD; Location: [facility]; Service: Orthopedics TOTAL KNEE ARTHROPLASTY Right 05/30/2020 RIGHT TOTAL KNEE ARTHROPLASTY; Surgeon: Hitesh Hilton MD;Location: [facility]; Service: Orthopedics No Known Allergies [...] file Food Insecurity: Unknown (07/28/2023) Received from [employer] Food Insecurities Worried about running out of food: Not on file Food Bought: Not on file Transportation Needs: Unknown (07/28/2023) Received from [employer] Transportation Worried about transportation: Not on file Physical Activity: Not on file Stress: Not on file Social Connections: Not on file Intimate Partner Violence: Unknown (07/28/2023) Received from [employer] Interpersonal Safety Feel physically or emotionally unsafe where currently live: Not on file Harm by anyone: Not on file Emotionally Harmed: Not on file Housing Stability: Unknown (07/28/2023) Received from [employer] Housing/Utilities Worried about losing home: Not on [...] 150 mg Oral tablet sustained-release 12 hr [id number] mg by mouth 2 times daily. 12/19/21 [...] the office of the ordering clinician. US REPRODUCTION ORDER PROCESSOR/HOSPITALIST BEDSIDE ULTRASOUND Result Date: 12/05/2024 Buffer Operator Ultrasound performed at bedside. The study image(s) are forreference only and will not be interpreted by a Radiologist. Refer to procedure note for image description and procedure details. US REPRODUCTION ORDER PROCESSOR/HOSPITALIST BEDSIDE ULTRASOUND Result Date: 12/05/2024 Buffer Operator Ultrasound performed at bedside. The study image(s) are forreference only and will not be interpreted by a Radiologist. Refer to procedure note for image description and procedure details. US REPRODUCTION ORDER PROCESSOR/HOSPITALIST BEDSIDE ULTRASOUND Result Date: 12/05/2024 Buffer Operator Ultrasound performed at bedside. The study image(s) [...] Final Interpretation byphysician to follow. [facility] Date:2024-12-04 Pat Name: YANNA DUTTON Department: DEPIDPatient ID: [id number] Room: 07 Gender:Female Top Collar Maker: : [id number] By: [facility] Order Number: [id number] MD: MeasurementsIntervals Shedd Rate: 120P: 59 MA: 157QRS: 21 QRSD: 96 T: 48QT: 325 QTc: 461InterpretiveStatements SINUS TACHYCARDIA POSSIBLE RIGHT VENTRICULAR CONDUCTION DELAYABNORMAL RHYTHM ECG CT ABD PEL ED FAST W CONTRAST STAT 12/05/2024 12:40 AM EDT IP CONSULT TO PHARMACY Routine 12/05/2024 12:38 AM EDT BLOOD CULTURE (NO STAIN) STAT 12/04/2024 11:54 PM EDT URINALYSIS REFLEX STAT 12/04/2024 11:49 PM EDT [id number] A/B Routine 12/04/2024 11:49 PM EDT UA [...] (ABNORMAL) C-REACTIVE PROTEIN (12/09/2024 6:49 AM EDT) [facility] CRP 44.78(H) <=5.00 mg/L 12/09/2024 7:57 AM EDT [facility] Blood VENOUS BLOOD / Unknown Venipuncture / Unknown 12/09/2024 6:49 AM EDT 12/09/2024 7:22 AM EDT us Mike Kauffman MD CHEMISTRY ORDERABLES Fin al Result [facility] [address] [facility] , [place] [address] * (ABNORMAL) SEDIMENTATION RATE AUTOMATED (12/09/2024 6:49 AM EDT) [facility] Sed Rate 50(H) 0 - 30 mm/hr 12/09/2024 8:11 AM EDT [facility] Blood VENOUS BLOOD / Unknown Venipuncture / Unknown 12/09/2024 6:49 AM EDT 12/09/2024 7:22 AM EDT us Mike Kauffman MD HEMATOLOGY ORDERABLES Fi nal Result [facility] [address] [facility] [facility] , [place] [address] * (ABNORMAL) COMPREHENSIVE METABOLIC PANEL (12/09/2024 6:49 [...] 7:57 AM EDT [facility] Albumin 2.9(L) 3.5 - 5.2 gm/dL 12/09/2024 7:57 AM EDT [facility] Total Protein 5.5(L) 6.4 - 8.3 gm/dL 12/09/2024 7:57 AM EDT [facility] Bili Total 0.3 0.2 - 1.3 mg/dL 12/09/2024 7:57 AM EDT [facility] ALT 43(H) <=41 U/L 12/09/2024 7:57 AM EDT [facility] AST 24 <=40 U/L 12/09/2024 7:57 AM EDT [facility] Alk Phos 159(H) 36 - 123 U/L 12/09/2024 7:57 AM EDT [facility] eGFR (CKD-EPIcr 2020) 106 >=60 mL/min/1.7 3 m2 12/09/2024 7:57 AM EDT [facility] Comment:Estimated GFR was ca lculated using the CKD-EPIcr (2020) equation refit without race. The equation is recommended by the National Kidney Foundation - [place] [employer] of Nephrology Task Force. Blood VENOUS BLOOD / Unknown Venipuncture / Unknown 12/09/2024 6:49 AM EDT 12/09/2024 7:22 AM EDT us Mike Kauffman MD CHEMISTRY ORDERABLES Fin al Result [facility] [address] [facility] , [address] [place] [id number] * (ABNORMAL) CBC WITH DIFF (12/09/2024 6:49 AM EDT) WBC 10.5(H) 3.7 - 10.3 x10(3)/mc L 12/09/2024 8:11 AM EDT [facility] RBC 3.71(L) 3.90 - 5.20 x10(6)/mc L 12/09/2024 8:11 AM EDT [facility] Hgb 11.0(L) 11.2 - 15.7 g/dL 12/09/2024 8:11 AM EDT [facility] Hct 34.1 34.0 - 45.0 % 12/09/2024 8:11 AM EDT [facility] MCV 91.9 80.0 - 100.0 fL 12/09/2024 8:11 AM EDT [facility] MCH 29.6 26.0 - 34.0 pg 12/09/2024 [...] 8:11 AM EDT [facility] # 0.3 0.3 - 0.9 x10(3)/mc L 12/09/2024 8:11 AM EDT [facility] Eos # Manual 0.2 0.0 - 0.5 x10(3)/mc L 12/09/2024 8:11 AM EDT [facility] Baso # Manual 0.0 0.0 - 0.1 x10(3)/mc L 12/09/2024 8:11 AM EDT [facility] [place], [facility] Metamyelo # 0.3 x10(3)/mc L 12/09/2024 8:11 AM EDT [facility] [place], [facility] Myelo # 0.2 x10(3)/mc L 12/09/2024 8:11 AM EDT [facility] [place], [facility] RBC Morph Consistent with Red Cell Indices no units 12/09/2024 8:11 AM EDT [facility], [facility] Blood VENOUS BLOOD / Unknown Venipuncture / Unknown 12/09/2024 6:49 AM EDT 12/09/2024 7:22 AM EDT Mike Kauffman MD HEMATOLOGY ORDERABLES Fi nal Result Performing Organization Address [facility] Co de Phone Number [address] , [place] [address] * TSH REFLEX TO FT4 (12/08/2024 6:52 AM EDT) TSH Reflex 0.681 0.270 - 4.200 mcIU/mL 12/08/2024 7:54 AM EDT [facility] Blood VENOUS BLOOD / Unknown Venipuncture / Unknown 12/08/2024 6:52 AM EDT 12/08/2024 6:56 AM EDT Narrative [facility] - 12/08/2024 7:54 AM EDT Ingestion of armando doses of biotin (>5 mg/day) taken within 8 hours of drawing blood sample can interfere with this immunoassay test. Fabian Johnson MD CHEMISTRY ORDERABLES Final Resu lt Performing Organization Address [facility] Co de Phone Number [address] , [place] [address] * PHOSPHORUS LEVEL (12/08/2024 6:52 AM EDT) Phosphorus 3.5 2.5 - 4.5 mg/dL 12/08/2024 7:54 AM EDT [facility] Blood VENOUS BLOOD / Unknown Venipuncture / Unknown 12/08/2024 6:52 AM EDT 12/08/2024 6:56 AM EDT us Royer Cloud MD CHEMISTRY ORDERABLES Final Re sult Performing Organization Address [facility] de Phone Number [facility] [address] [facility] , [address] [place] [id number] * MAGNESIUM LEVEL (12/08/2024 6:52 AM EDT) Magnesium 2.0 1.6 - 2.4 mg/dL 12/08/2024 7:54 AM EDT [facility] Blood VENOUS BLOOD / Unknown Venipuncture / Unknown 12/08/2024 6:52 AM EDT 12/08/2024 6:56 AM EDT us Royer Cloud MD CHEMISTRY ORDERABLES Final Re sult Performing Organization Address [facility] de Phone Number [facility] [address] [facility] , [place] [address] * (ABNORMAL) IONIZED CALCIUM - INPATIENT (12/08/2024 6:52 AM EDT) Pathologist [facility] Calcium Ionized 1.09(L) 1.12 - 1.32 mmol/L 12/08/2024 7:10 AM EDT [facility] Blood VENOUS BLOOD / Unknown Venipuncture / Unknown 12/08/2024 6:52 AM EDT 12/08/2024 6:57 AM EDT us Royer Cloud MD CHEMISTRY ORDERABLES Final Re sult Performing Organization Address [facility] de Phone Number [facility] [address] [facility] , [place] [address] * (ABNORMAL) CBC (12/08/2024 6:52 AM EDT) WBC 9.1 3.7 - 10.3 x10(3)/mcL 12/08/2024 7:25 AM EDT [facility] RBC 3.68(L) 3.90 - 5.20 x10(6)/mcL 12/08/2024 7:25 AM EDT [facility] Hgb 10.9(L) 11.2 - 15.7 g/dL 12/08/2024 7:25 AM EDT [facility] Hct 33.7(L) 34.0 - 45.0 % 12/08/2024 7:25 AM EDT [facility] MCV 91.6 80.0 - 100.0 fL 12/08/2024 7:25 AM EDT [facility] MCH 29.6 26.0 - 34.0 pg 12/08/2024 7:25 AM EDT [facility] MCHC 32.3 30.7 - 35.5 g/dL 12/08/2024 7:25 AM EDT [facility] RDW 14.3 <=14.9 % 12/08/2024 7:25 AM EDT [facility] Platelet 175 155 - 369 x10(3)/mcL 12/08/2024 7:25 AM EDT [facility] MPV 11.1 8.8 - 12.5 fL 12/08/2024 7:25 AM EDT [facility] Blood VENOUS BLOOD / Unknown Venipuncture / Unknown 12/08/2024 6:52 AM EDT 12/08/2024 6:56 AM EDT Royer Cloud MD HEMATOLOGY ORDERABLES Final R esult [facility] [address] [facility] , [place] [address] * (ABNORMAL) BASIC METABOLIC PANEL (12/08/2024 6:52 AM EDT) Sodium 143 136 - 145 mmol/L 12/08/2024 7:54 AM EDT [facility] Potassium 3.6 3.5 - 5.0 mmol/L 12/08/2024 7:54 AM EDT [facility] Chloride 105 98 - 107 mmol/L 12/08/2024 7:54 AM EDT [facility] Total CO2 27 22 - 29 mmol/L 12/08/2024 7:54 AM EDT [facility], [facility] Anion Gap 11 7 - 16 mmol/L 12/08/2024 7:54 AM EDT [facility] Calcium 8.2(L) 8.6 - 10.4 mg/dL 12/08/2024 7:54 AM EDT [facility] Glucose Lvl 67(L) 70 - 99 mg/dL 12/08/2024 7:54 AM EDT [facility] BUN 11 6 - 20 mg/dL 12/08/2024 7:54 AM EDT [facility] Creatinine 0.53 0.51 - 1.30 mg/dL 12/08/2024 7:54 AM EDT [facility] eGFR (CKD-EPIcr 2020) 107 >=60 mL/min/1.7 3 m2 12/08/2024 7:54 AM EDT [facility] Comment:Estimated GFR was ca lculated using the CKD-EPIcr (2020) equation refit without race. The equation is recommended by the National Kidney Foundation - [place] [employer] of Nephrology Task Force. Blood VENOUS BLOOD / Unknown Venipuncture / Unknown 12/08/2024 6:52 AM EDT 12/08/2024 6:56 AM EDT us Royer Cloud MD CHEMISTRY ORDERABLES Final Re sult [facility], [facility] [address] [facility] , [place] [address] * BLOOD CULTURE (NO STAIN) (12/07/2024 3:07 PM EDT) Culture Result No Growth at 120 hours. BLOOD CULTURE (NO STAIN) 12/12/2024 5:00 PM EDT [facility] Blood VENOUS BLOOD / Unknown Venipuncture / Unknown 12/07/2024 3:07 PM EDT 12/07/2024 3:13 PM EDT Carrie Rosenberg VIDEO TAPE DUPLICATOR MICROBIOLOGY - GENER AL ORDERABLES Final Result Performing Organization Address City/[facility]/ZIP Co de Phone Number [facility] [address] [facility] , [place] [address] * ANAEROBIC CULTURE (NO STAIN) (12/07/2024 12:48 PM EDT) Culture No anaerobic growth at 5 days. 12/12/2024 9:32 AM EDT [facility] Drainage ABDOMEN / Unknown 12/07/2024 12:48 PM EDT 12/07/2024 12:56 PM EDT Carrie Rosenberg APRN MICROBIOLOGY - GENER AL ORDERABLES Final Result Performing Organization Address [facility] Co de Phone Number [facility] [employer], [facility] [address] [facility] , [place] [address] * WOUND CULTURE (STAIN INCLUDED) (12/07/2024 12:48 PM EDT) Culture No growth at 94 hours. 12/12/2024 12:16 PM EDT [facility] Stain Rare WBCs 12/12/2024 12:16 PM EDT [facility] Stain No organisms seen 12/12/2024 12:16 PM EDT [facility] Drainage ABDOMEN / Unknown 12/07/2024 12:48 PM EDT 12/07/2024 12:56 PM EDT Carrie Rosenberg APRN MICROBIOLOGY - GENER AL ORDERABLES Final Result Performing Organization Address City/[facility]/ZIP Co de Phone Number [facility] [employer], [employer] [address] [facility] , [place] [address] * BLOOD CULTURE (NO STAIN) (12/07/2024 12:23 PM EDT) Culture Result No Growth at 120 hours. BLOOD CULTURE (NO STAIN) 12/12/2024 4:00 PM EDT [facility] Blood VENOUS STRUCTURE / Unknown Venipuncture / Unknown 12/07/2024 12:23 PM EDT 12/07/2024 12:42 PM EDT Carrie Vázquezlacey [employer] MICROBIOLOGY - GENER AL ORDERABLES Final Result Performing Organization Address [facility] Co de Phone Number [facility] [address] [facility] , [place] [address] * (ABNORMAL) PHOSPHORUS LEVEL (12/07/2024 6:14 AM EDT) Phosphorus 2.2(L) 2.5 - 4.5 mg/dL 12/07/2024 7:27 AM EDT [facility] Blood VENOUS STRUCTURE / Unknown Venipuncture / Unknown 12/07/2024 6:14 AM EDT 12/07/2024 6:24 AM EDT Royer Cloud MD CHEMISTRY ORDERABLES Final Re sult Performing Organization Address [facility] Co de Phone Number [facility] [place] [facility] [address] [facility] , [place] [address] * MAGNESIUM LEVEL (12/07/2024 6:14 AM EDT) Magnesium 2.3 1.6 - 2.4 mg/dL 12/07/2024 7:27 AM EDT [facility] Blood VENOUS STRUCTURE / Unknown Venipuncture / Unknown 12/07/2024 6:14 AM EDT 12/07/2024 6:24 AM EDT Royer Cloud MD CHEMISTRY ORDERABLES Final Re sult Performing Organization Address [facility] Co de Phone Number [facility] [address] [facility] , [place] [address] * (ABNORMAL) IONIZED CALCIUM - INPATIENT (12/07/2024 6:14 AM EDT) Calcium Ionized 1.09(L) 1.12 - 1.32 mmol/L 12/07/2024 6:42 AM EDT [facility] Blood VENOUS STRUCTURE / Unknown Venipuncture / Unknown 12/07/2024 6:14 AM EDT 12/07/2024 6:24 AM EDT us Royer Cloud MD CHEMISTRY ORDERABLES Final Re sult [facility] [address] [facility] , [place] [address] * (ABNORMAL) CBC (12/07/2024 6:14 AM EDT) [...] ORDERABLES Final R esult [facility] [address] [facility] , [place] [address] * (ABNORMAL) BASIC METABOLIC PANEL (12/07/2024 6:14 [...] 3 m2 12/07/2024 7:27 AM EDT [facility] Comment:Estimated GFR was ca lculated using the CKD-EPIcr (2020) equation refit without race. The equation is recommended by the National Kidney Foundation - [place] [employer] of Nephrology Task Force. Blood VENOUS STRUCTURE / Unknown Venipuncture / Unknown 12/07/2024 6:14 AM EDT 12/07/2024 6:24 AM EDT us Royer Cloud MD CHEMISTRY ORDERABLES Final Re sult [facility] [address] [facility], [place] [address] * ECG AND WAVEFORMS - TELEMETRY (12/06/2024 7:55 AM EDT) [facility] ECG INTERPRET Sinus Arrythmia [facility] 12/06/2024 7:55 AM EDT Narrative [facility] - 12/06/2024 7:55 AM EDT See Clinical Report link for waveform capture us Unknown Provider POINT OF CARE CARDIOLOGY Final Result Performing Organization Address [facility] Co de Phone Number [facility] [address] [place] [address] * (ABNORMAL) HEPATIC FUNCTION PANEL (12/06/2024 5:36 AM EDT) Total Protein 6.3(L) 6.4 - 8.3 gm/dL 12/06/2024 7:15 AM EDT [facility] Albumin 3.2(L) 3.5 - 5.2 gm/dL 12/06/2024 7:15 AM EDT [facility] Bili Direct 0.4(H) 0.0 - 0.3 mg/dL 12/06/2024 7:15 AM EDT [facility] Total 0.6 0.2 - 1.3 mg/dL 12/06/2024 7:15 AM EDT [facility] AST 29 <=40 U/L 12/06/2024 7:15 AM EDT [facility] ALT 43(H) <=41 U/L 12/06/2024 7:15 AM EDT [facility] Alk Phos 132(H) 36 - 123 U/L 12/06/2024 7:15 AM EDT [facility] Blood ARTERIAL BLOOD / Unknown Arterial / Unknown 12/06/2024 5:36 AM EDT 12/06/2024 5:49 AM EDT Fabian Holguin MD CHEMISTRY ORDERABLES Belinda l Result Performing Organization Address [facility] Co de Phone Number [facility] [address] [facility] , [place] [address] * (ABNORMAL) PHOSPHORUS LEVEL (12/06/2024 5:36 AM EDT) Phosphorus 2.4(L) 2.5 - 4.5 mg/dL 12/06/2024 7:15 AM EDT [facility] Blood ARTERIAL BLOOD / Unknown Arterial / Unknown 12/06/2024 5:36 AM EDT 12/06/2024 5:49 AM EDT Royer Cloud MD CHEMISTRY ORDERABLES Final Re sult Performing Organization Address [facility] de Phone Number [facility] [address] [facility] , [place] [address] * MAGNESIUM LEVEL (12/06/2024 5:36 AM EDT) Magnesium 2.3 1.6 - 2.4 mg/dL 12/06/2024 7:15 AM EDT [facility] Blood ARTERIAL BLOOD / Unknown Arterial / Unknown 12/06/2024 5:36 AM EDT 12/06/2024 5:49 AM EDT Royer Cloud MD CHEMISTRY ORDERABLES Final Re sult Performing Organization Address [facility] de Phone Number [facility] [address] [facility] , [place] [address] * (ABNORMAL) IONIZED CALCIUM - INPATIENT (12/06/2024 5:36 AM EDT) Calcium Ionized 1.11(L) 1.12 - 1.32 mmol/L 12/06/2024 5:58 AM EDT [facility] Blood ARTERIAL BLOOD / Unknown Arterial / Unknown 12/06/2024 5:36 AM EDT 12/06/2024 5:49 AM EDT us Royer Cloud MD CHEMISTRY ORDERABLES Final Re sult [facility] [address] [facility] , [place] [address] * (ABNORMAL) CBC (12/06/2024 5:36 AM EDT) Pathologist [facility] WBC 21.3(H) 3.7 - 10.3 x10(3)/mcL 12/06/2024 [...] Cloud MD HEMATOLOGY ORDERABLES Final R esult Performing Organization Address [facility]/ZIP Co de Phone Number [facility] [address] [facility] , [place] [address] * (ABNORMAL) BASIC METABOLIC PANEL (12/06/2024 5:36 AM EDT) Sodium 132(L) 136 - 145 mmol/L 12/06/2024 7:15 AM EDT [facility] Potassium 4.2 3.5 - 5.0 mmol/L 12/06/2024 7:15 AM EDT [facility] Chloride 99 98 - 107 mmol/L 12/06/2024 7:15 AM EDT [facility] Total CO2 23 22 - 29 mmol/L 12/06/2024 7:15 AM EDT [facility] Anion Gap 10 7 - 16 mmol/L [...] recommended by the [employer] - [employer] Task Force. Blood ARTERIAL BLOOD / Unknown Arterial / Unknown 12/06/2024 5:36 AM EDT 12/06/2024 5:49 AM EDT Royer Cloud MD CHEMISTRY ORDERABLES Final Re sult [facility] [address] [facility] [address] , [place] [address] * ECG AND WAVEFORMS - TELEMETRY (12/05/2024 7:34 PM EDT) [facility] ECG INTERPRET NSR [facility] 12/05/2024 7:34 PM EDT Narrative [facility] - 12/05/2024 7:34 PM EDT See Clinical Report link for waveform capture us Unknown Provider POINT OF CARE CARDIOLOGY Final Result Performing Organization Address City/[facility]/ZIP Co de Phone Number [facility] [address] [place] [address] * REPEAT LACTIC ACID (12/05/2024 4:07 PM EDT) [facility] Lactic Acid 1.8 0.5 - 1.9 mmol/L 12/05/2024 4:34 PM EDT [employer] Blood ARTERIAL BLOOD / Unknown Arterial / Unknown 12/05/2024 4:07 PM EDT 12/05/2024 4:13 PM EDT us Sushil Porras APRN CHEMISTRY ORDERABLES Final Result Performing Organization Address City/[facility]/ZIP Co de Phone Number [facility] [address] , [place] [address] * (ABNORMAL) POC ARTERIAL BLOOD GAS PROFILE (12/05/2024 2:10 PM EDT) [facility] pH 7.36 7.35 - 7.45 pH 12/05/2024 2:11 PM EDT [facility] pCO2 37 35 - 45 mmHg 12/05/2024 2:11 PM EDT [facility] pO2 65(L) 80 - 100 mmHg 12/05/2024 2:11 PM EDT [facility] HCO3 20.7(L) 22.0 - 26.0 mmol/L 12/05/2024 2:11 PM EDT [facility] Base Excess -4.9(L) -2.0 - 3.0 mmol/L 12/05/2024 2:11 PM EDT [facility] O2 Sat 93.2(L) 95.0 - 98.0 % 12/05/2024 2:11 PM EDT [facility] Sodium 133(L) 136 - 145 mmol/L 12/05/2024 2:11 PM EDT [facility] Calcium Ionized 1.12 1.12 - 1.32 mmol/L 12/05/2024 2:11 PM EDT [facility] Chloride 103 98 - 107 mmol/L 12/05/2024 2:11 PM EDT [facility] Glucose WB 160(H) 72 - 112 mg/dL 12/05/2024 2:11 PM EDT [facility] Lactic Acid 2.5(H) 0.5 - 1.9 mmol/L 12/05/2024 2:11 PM EDT [facility] K-WB 4.1 3.5 - 5.0 mmol/L 12/05/2024 2:11 PM EDT [facility] Hgb 12.7 11.2 - 15.7 g/dL 12/05/2024 2:11 PM EDT [facility] Hct 39.0 34.0 - 45.0 % 12/05/2024 2:11 PM EDT [facility] Inspired O2 32.0 % 12/05/2024 2:11 PM EDT [facility] P/F Ratio 203 mmHg 12/05/2024 2:11 PM EDT [facility] Blood ARTERIAL BLOOD / Unknown 12/05/2024 2:10 PM EDT 12/05/2024 2:11 PM EDT us Royer Cloud MD POINT OF CARE TEST ORDERABLES Final Result [facility] [address] [place] [address] * (ABNORMAL) HEPATIC FUNCTION PANEL (12/05/2024 2:02 PM EDT) Total Protein 6.1(L) 6.4 - 8.3 gm/dL 12/05/2024 4:35 PM EDT [facility] Albumin 3.3(L) 3.5 - 5.2 gm/dL 12/05/2024 4:35 PM EDT [facility] Bili Direct 0.8(H) 0.0 - 0.3 mg/dL 12/05/2024 4:35 PM EDT [facility] Bili Total 1.1 0.2 - 1.3 mg/dL 12/05/2024 4:35 PM EDT [facility] AST 53(H) <=40 U/L 12/05/2024 4:35 PM EDT [facility] ALT 51(H) <=41 U/L 12/05/2024 4:35 PM EDT [facility] Alk Phos 134(H) 36 - 123 U/L 12/05/2024 4:35 PM EDT [facility] Blood ARTERIAL BLOOD / Unknown Arterial / Unknown 12/05/2024 2:02 PM EDT 12/05/2024 2:12 PM EDT us Sushil Porras APRN CHEMISTRY ORDERABLES Final Result Performing Organization Address City/[facility]/ZIP Co de Phone Number [facility] [place], [facility] [address] [facility] , [place] [address] * (ABNORMAL) LACTIC ACID (12/05/2024 2:02 PM EDT) Pathologist [facility] Lactic Acid 2.7(H) 0.5 - 1.9 mmol/L 12/05/2024 2:33 PM EDT [facility] Blood ARTERIAL BLOOD / Unknown Arterial / Unknown 12/05/2024 2:02 PM EDT 12/05/2024 2:12 PM EDT us Sushil Porras APRN CHEMISTRY ORDERABLES Final Result Performing Organization Address City/[facility]/ZIP Co de Phone Number [facility] [place], [facility] [address] [facility] , [place] [address] * PHOSPHORUS LEVEL (12/05/2024 2:02 PM EDT) Pathologist [facility] Phosphorus 4.5 2.5 - 4.5 mg/dL 12/05/2024 3:11 PM EDT [facility] Blood ARTERIAL BLOOD / Unknown Arterial / Unknown 12/05/2024 2:02 PM EDT 12/05/2024 2:12 PM EDT Sushil Porras APRN CHEMISTRY ORDERABLES Final Result Performing Organization Address [facility]/ZIP Co de Phone Number [facility], [facility] [address] [facility] , [place] [address] * MAGNESIUM LEVEL (12/05/2024 2:02 PM EDT) [facility] Magnesium 2.2 1.6 - 2.4 mg/dL 12/05/2024 3:10 PM EDT [facility] Blood ARTERIAL BLOOD / Unknown Arterial / Unknown 12/05/2024 2:02 PM EDT 12/05/2024 2:12 PM EDT Sushil Porras APRN CHEMISTRY ORDERABLES Final Result Performing Organization Address [facility] Co de Phone Number [facility] [place] [facility], [facility] [address] [facility] , [place] [address] * (ABNORMAL) CBC (12/05/2024 2:02 PM EDT) Pathologist [facility] WBC 30.0(H) 3.7 - 10.3 x10(3)/mcL 12/05/2024 2:44 PM EDT [facility] RBC 3.84(L) 3.90 - 5.20 x10(6)/mcL 12/05/2024 2:44 PM EDT [facility] Hgb 11.9 11.2 - 15.7 g/dL 12/05/2024 2:44 PM EDT [facility] Hct 35.0 34.0 - 45.0 % 12/05/2024 2:44 PM EDT [facility] MCV 91.1 80.0 - 100.0 fL 12/05/2024 2:44 PM EDT [facility] MCH 31.0 26.0 - 34.0 pg 12/05/2024 2:44 PM EDT [facility] MCHC 34.0 30.7 - 35.5 g/dL 12/05/2024 2:44 PM EDT [facility] RDW 13.7 <=14.9 % 12/05/2024 2:44 PM EDT [facility] Platelet 176 155 - 369 x10(3)/mcL 12/05/2024 2:44 PM EDT [facility] MPV 10.9 8.8 - 12.5 fL 12/05/2024 2:44 PM EDT [facility] Blood ARTERIAL BLOOD / Unknown Arterial / Unknown 12/05/2024 2:02 PM EDT 12/05/2024 2:12 PM EDT us Sushil Porras VIDEO TAPE DUPLICATOR HEMATOLOGY ORDERABLES Final Result [facility] [address] [facility] , [place] [address] * (ABNORMAL) BASIC METABOLIC PANEL (12/05/2024 2:02 PM EDT) Sodium 128(L) 136 - 145 mmol/L 12/05/2024 3:10 PM EDT [facility] Potassium 4.2 3.5 - 5.0 mmol/L 12/05/2024 3:10 PM EDT [facility] Chloride 97(L) 98 - 107 mmol/L 12/05/2024 3:10 PM EDT [facility] Total CO2 20(L) 22 - 29 mmol/L 12/05/2024 3:10 PM EDT [facility] Anion Gap 11 7 - 16 mmol/L 12/05/2024 3:10 PM EDT [facility] Calcium 8.6 8.6 - 10.4 mg/dL 12/05/2024 3:10 PM EDT [facility] Glucose Lvl 161(H) 70 - 99 mg/dL 12/05/2024 3:10 PM EDT [facility] BUN 17 6 - 20 mg/dL 12/05/2024 3:10 PM EDT [facility] Creatinine 0.91 0.51 - 1.30 mg/dL 12/05/2024 3:10 PM EDT [facility] eGFR (CKD-EPIcr 2020) 73 >=60 mL/min/1.7 3 m2 12/05/2024 3:10 PM EDT [facility] Comment:Estimated GFR was ca lculated using the CKD-EPIcr (2020) equation refit without race. The equation is recommended by the National Kidney Foundation - [employer] of Nephrology Task Force. Blood ARTERIAL BLOOD / Unknown Arterial / Unknown 12/05/2024 2:02 PM EDT 12/05/2024 2:12 PM EDT us Sushil Porras VIDEO TAPE DUPLICATOR CHEMISTRY ORDERABLES Final Result [facility] [address] [facility] , [place] [address] * PATHOLOGY TISSUE REQUEST (12/05/2024 12:14 PM EDT) CASE REPORT Surgical Pathology Case: [id number] Authorizing Provider: Fabian Holguin MD Collected: 12/05/2024 1214 Ordering Location: [facility] Received: 12/05/2024 1523 Pathologist: Lydia Phillips MD Specimen: Gallbladder, gallbladder with contents 12/12/2024 8:36 AM EDT [facility] FINAL DIAGNOSIS GALLBLADDER, ROBOTIC CHOLECYSTECTOMY : - Acute gangrenous and chronic cholecystitis. - Cholelithiasis. - Adenomyosis. - No evidence of dysplasia or malignancy. 12/12/2024 8:36 AM EDT [facility] at 0836 EDT GROSS DESCRIPTION A. [...] exudate. No periductal lymph node is identified. Micro Lab Analyst sections to include inked possible cystic duct margin are submitted in A1. Saroj Carranza 12/06/2024 12/12/2024 8:36 AM EDT [facility] MICROSCOPIC DESCRIPTION The microscopic examination may have been rendered in whole, or in part, by analyzing high-resolution digital images (whole slide images) on the [email or web address] Digital Pathology platform validated at [facility]. One additional deeper level is examined. 12/12/2024 8:36 AM EDT [facility] EMBEDDED IMAGES 12/12/2024 8:36 AM EDT [facility] Tissue GALLBLADDER STRUCTURE / Unknown 12/05/2024 12:14 PM EDT 12/05/2024 3:23 PM EDT Comment:Routine us Fabian Holguin MD PATHOLOGY ORDERABLES Belinda wade Result [facility] [address] [place] [address] [address] * (ABNORMAL) HEPATIC FUNCTION PANEL (12/05/2024 8:51 AM EDT) Total Protein 6.2(L) 6.4 - 8.3 gm/dL 12/05/2024 9:44 AM EDT [facility] Albumin 3.4(L) 3.5 - 5.2 gm/dL 12/05/2024 9:44 AM EDT [facility] Bili Direct 1.0(H) 0.0 - 0.3 mg/dL 12/05/2024 9:44 AM EDT [facility] Bili Total 1.5(H) 0.2 - 1.3 mg/dL 12/05/2024 9:44 AM EDT [facility] AST 47(H) <=40 U/L 12/05/2024 9:44 AM EDT [facility] ALT 44(H) <=41 U/L 12/05/2024 9:44 AM EDT [facility] Alk Phos 134(H) 36 - 123 U/L 12/05/2024 9:44 AM EDT [facility] Blood ARTERIAL BLOOD / Unknown Arterial / Unknown 12/05/2024 8:51 AM EDT 12/05/2024 9:04 AM EDT us Sushil Porras APRN CHEMISTRY ORDERABLES Final Result Performing Organization Address [facility]/ZIP Co de Phone Number [facility], [facility] [address] [facility] , [address] [place] [phone] * REPEAT LACTIC ACID (12/05/2024 7:16 AM EDT) Lactic Acid 1.8 0.5 - 1.9 mmol/L 12/05/2024 7:47 AM EDT [facility] Blood ARTERIAL BLOOD / Unknown Arterial / Unknown 12/05/2024 7:16 AM EDT 12/05/2024 7:27 AM EDT us Doug Ross MD CHEMISTRY ORDERABLES Final R esult Performing Organization Address [facility] Co de Phone Number [facility], [address] , [place] [address] * (ABNORMAL) REPEAT LACTIC ACID (12/05/2024 6:34 AM EDT) Lactic Acid 2.0(H) 0.5 - 1.9 mmol/L 12/05/2024 7:10 AM EDT [facility] Blood ARTERIAL BLOOD / Unknown Arterial / Unknown 12/05/2024 6:34 AM EDT 12/05/2024 6:50 AM EDT us Royer Cloud MD CHEMISTRY ORDERABLES Final Re sult Performing Organization Address City/[facility]/ZIP Co de Phone Number [facility], [facility] [address] [facility] , [place] [address] * (ABNORMAL) LACTIC ACID (12/05/2024 3:45 AM EDT) Lactic Acid 2.0(H) 0.5 - 1.9 mmol/L 12/05/2024 4:12 AM EDT [facility] Blood ARTERIAL BLOOD / Unknown Arterial / Unknown 12/05/2024 3:45 AM EDT 12/05/2024 3:52 AM EDT us Royer Cloud MD CHEMISTRY ORDERABLES Final Re sult Performing Organization Address [facility] de Phone Number [facility] [address] [facility] , [place] [phone] * (ABNORMAL) PHOSPHORUS LEVEL (12/05/2024 3:45 AM EDT) Phosphorus 0.8(LL) 2.5 - 4.5 mg/dL 12/05/2024 4:33 AM EDT [facility] Blood VENOUS BLOOD / Unknown Arterial / Unknown 12/05/2024 3:45 AM EDT 12/05/2024 3:52 AM EDT us Royer Cloud MD CHEMISTRY ORDERABLES Final Re sult Performing Organization Address [facility] Co de Phone Number [facility] [address] [facility] , [facility] [address] * MAGNESIUM LEVEL (12/05/2024 3:45 AM EDT) Magnesium 1.6 1.6 - 2.4 mg/dL 12/05/2024 4:25 AM EDT [facility] Blood ARTERIAL BLOOD / Unknown Arterial / Unknown 12/05/2024 3:45 AM EDT 12/05/2024 3:52 AM EDT us Royer Cloud MD CHEMISTRY ORDERABLES Final Re sult Performing Organization Address City/State/[facility] Co de Phone Number [facility] [address] [facility] , [place] [address] * (ABNORMAL) IONIZED CALCIUM - INPATIENT (12/05/2024 3:45 AM EDT) [facility] Calcium Ionized 1.10(L) 1.12 - 1.32 mmol/L 12/05/2024 4:05 AM EDT [facility] Blood ARTERIAL BLOOD / Unknown Arterial / Unknown 12/05/2024 3:45 AM EDT 12/05/2024 3:52 AM EDT us Royer Cloud MD CHEMISTRY ORDERABLES Final Re sult Performing Organization Address [facility] Co de Phone Number [facility] [address] [facility] , [place] [address] * (ABNORMAL) CBC WITH DIFF (12/05/2024 3:45 AM EDT) [facility] WBC 19.3(H) 3.7 - 10.3 x10(3)/mc L 12/05/2024 4:31 AM EDT [facility] RBC 3.97 3.90 - 5.20 x10(6)/mc L 12/05/2024 4:31 AM EDT [facility] Hgb 12.4 11.2 - 15.7 g/dL 12/05/2024 4:31 AM EDT [facility] Hct 36.3 34.0 - 45.0 % 12/05/2024 4:31 AM EDT [facility] MCV 91.4 80.0 - 100.0 fL 12/05/2024 4:31 AM EDT [facility] MCH 31.2 26.0 - 34.0 pg 12/05/2024 4:31 AM EDT [facility] MCHC 34.2 30.7 - 35.5 g/dL 12/05/2024 4:31 AM EDT [facility] RDW 13.4 <=14.9 % 12/05/2024 4:31 AM EDT [facility] Platelet 191 155 - 369 x10(3)/mc L 12/05/2024 4:31 AM EDT [facility] MPV 10.4 8.8 - 12.5 fL 12/05/2024 4:31 AM EDT [facility] Neut Percent 91.8 % 12/05/2024 4:31 AM EDT [facility] Comment:Neutrophils equals s egs plus bands Imm Gran% 1.4 % 12/05/2024 4:31 AM EDT [facility] Comment:Automated count of m etamyelocytes, myelocytes and promyelocytes. IG >1% represents a left shift and provides an early indication of an infection or inflammatory process. Lymph Percent 2.0 % 12/05/2024 4:31 AM EDT [facility] Percent 4.6 % 12/05/2024 4:31 AM EDT [facility] Eos Percent 0.0 % 12/05/2024 4:31 AM EDT [facility] Baso Percent 0.2 % 12/05/2024 4:31 AM EDT [facility] Neut # 17.8(H) 1.6 - 6.1 x10(3)/mc L 12/05/2024 4:31 AM EDT [facility] Comment:Neutrophils equals s egs plus bands IMMGRAN# 0.3(H) 0.0 - 0.1 x10(3)/mc L 12/05/2024 4:31 AM EDT [facility] Comment:Automated count of m etamyelocytes, myelocytes and promyelocytes. An absolute IG <0.1 is reported as 0.0. Lymph # 0.4(L) 1.2 - 3.9 x10(3)/mc L 12/05/2024 4:31 AM EDT [facility] # 0.9 0.3 - 0.9 x10(3)/mc L [...] ORDERABLES Final R esult [facility] [address] [facility] , [place] [address] * (ABNORMAL) BASIC METABOLIC PANEL (12/05/2024 3:45 [...] - 99 mg/dL 12/05/2024 4:30 AM EDT [facility] BUN 16 6 - 20 mg/dL 12/05/2024 4:30 AM EDT [facility] Creatinine 1.16 0.51 - 1.30 mg/dL 12/05/2024 4:30 AM EDT [facility] eGFR (CKD-EPIcr 2020) 55(L) >=60 mL/min/1.7 3 m2 12/05/2024 4:30 AM EDT [facility] Comment:Estimated GFR was ca lculated using the CKD-EPIcr (2020) equation refit without race. The equation is recommended by the National Kidney Foundation - [place] [employer] of Nephrology Task Force. Blood VENOUS BLOOD / Unknown Arterial / Unknown 12/05/2024 3:45 AM EDT 12/05/2024 3:52 AM EDT Royer Cloud MD CHEMISTRY ORDERABLES Final Re sult Performing Organization Address [facility] Co de Phone Number [facility] [address] , [place] [address] * (ABNORMAL) MAGNESIUM LEVEL (12/05/2024 3:45 AM EDT) Magnesium 1.5(L) 1.6 - 2.4 mg/dL 12/05/2024 4:30 AM EDT [facility] Blood VENOUS BLOOD / Unknown Arterial / Unknown 12/05/2024 3:45 AM EDT 12/05/2024 3:52 AM EDT Doug Ross MD CHEMISTRY ORDERABLES Final R esult Performing Organization Address [facility] Phone Number [facility] [address] , [place] [address] * (ABNORMAL) TROPONIN-T HIGH SENSITIVITY 2HR (12/05/2024 3:45 AM EDT) xq-[id number]-H 2HR 67(H) <14 ng/L 12/05/2024 4:32 AM EDT [facility] hs-cTnT 2Hr Delta from Baseline 21(HH) <4 ng/L 12/05/2024 4:32 AM EDT [facility] Blood ARTERIAL BLOOD / Unknown Arterial / Unknown 12/05/2024 3:45 AM EDT 12/05/2024 3:52 AM EDT Narrative [facility] - 12/05/2024 4:32 AM EDT Ingestion of armando doses of biotin (>5 mg/day) taken within 8 hours of drawing blood sample can interfere with this immunoassay test. us Doug Ross MD CHEMISTRY ORDERABLES Final R esult [facility] [address] [facility] , [place] [address] * (ABNORMAL) POC ARTERIAL BLOOD GAS PROFILE (12/05/2024 3:01 AM EDT) pH 7.47(H) 7.35 - 7.45 pH 12/05/2024 3:02 AM EDT [facility] pCO2 32(L) 35 - 45 mmHg 12/05/2024 3:02 AM EDT [facility] pO2 57(L) 80 - 100 mmHg 12/05/2024 3:02 AM EDT [facility] HCO3 24.5 22.0 - 26.0 mmol/L 12/05/2024 3:02 AM EDT [facility] Base Excess -0.5 -2.0 - 3.0 mmol/L 12/05/2024 3:02 AM EDT [facility] O2 Sat 92.3(L) 95.0 - 98.0 % 12/05/2024 3:02 AM EDT [facility] Sodium 134(L) 136 - 145 mmol/L 12/05/2024 3:02 AM EDT [facility] Calcium Ionized 1.13 1.12 - 1.32 mmol/L 12/05/2024 3:02 AM EDT [facility] Chloride 102 98 - 107 mmol/L 12/05/2024 3:02 AM EDT [facility] Glucose WB 126(H) 72 - 112 mg/dL 12/05/2024 3:02 AM EDT [facility] Lactic Acid 1.9 0.5 - 1.9 mmol/L 12/05/2024 3:02 AM EDT [facility] K-WB 2.9(LL) 3.5 - 5.0 mmol/L 12/05/2024 3:02 AM EDT [facility] Hgb 12.9 11.2 - 15.7 g/dL 12/05/2024 3:02 AM EDT [facility] Hct 39.6 34.0 - 45.0 % 12/05/2024 3:02 AM EDT [facility] [employer] O2 21.0 % 12/05/2024 3:02 AM EDT [facility] P/F Ratio 271 mmHg 12/05/2024 3:02 AM EDT [facility] Blood ARTERIAL BLOOD / Unknown 12/05/2024 3:01 AM EDT 12/05/2024 3:02 AM EDT Narrative [facility] - 12/05/2024 3:02 AM EDT Critical results for Point of Care instruments are made directly available to testing personnel and should be communicated to the healthcare provider. Royer Cloud MD POINT OF CARE TEST ORDERABLES Final Result [facility] [address] [place] [address] * XR CHEST AP PORTABLE (12/05/2024 2:45 [...] IMAGING ORDERA BLES Final Result * US REPRODUCTION ORDER PROCESSOR/HOSPITALIST BEDSIDE ULTRASOUND (12/05/2024 2:29 AM EDT) Narrative [facility]user, [facility] - 12/05/2024 2:29 AM EDT Buffer Operator Ultrasound performed at bedside. The study image(s) are for reference only and will not be interpreted by a Radiologist. Refer to the same day procedure note for image description and procedure details. us Royer Cloud MD [facility] ORDERABLES Final Resul t * US REPRODUCTION ORDER PROCESSOR/HOSPITALIST BEDSIDE ULTRASOUND (12/05/2024 2:09 AM EDT) Narrative [employer]user, Audit - 12/05/2024 2:09 AM EDT Buffer Operator Ultrasound performed at bedside. The study image(s) are for reference only and will not be interpreted by a Radiologist. Refer to the same day procedure note for image description and procedure details. us Royer Cloud MD [facility] ORDERABLES Final Resul t * US REPRODUCTION ORDER PROCESSOR/HOSPITALIST BEDSIDE ULTRASOUND (12/05/2024 2:09 AM EDT) Narrative [employer]user, Audit - 12/05/2024 2:09 AM EDT Buffer Operator Ultrasound performed at bedside. The study image(s) are for reference only and will not be interpreted by a Radiologist. Refer to the same day procedure note for image description and procedure details. us Royer LIAO US ORDERABLES Final Resul t * CT [...] CULTURE (NO STAIN) 12/10/2024 1:00 AM EDT [facility] Blood VENOUS BLOOD / Unknown Venipuncture / Unknown 12/04/2024 11:54 PM EDT 12/04/2024 11:58 PM EDT Doug Ross MD MICROBIOLOGY - GENERAL ORDER BARON Final Result Performing Organization Address City/[facility]/ZIP Co de Phone Number [facility] [address] [place] [address] , [address] [place] [phone] * (ABNORMAL) URINE CULTURE (NO STAIN) (12/04/2024 11:49 PM EDT) Culture Positive Growth(A) 12/07/2024 7:53 AM EDT [facility] Culture >100,000 CFU/mL Escherichia coli 12/07/2024 7:53 AM EDT [facility] Comment:Refer to previous aguilar sceptibility on blood culture collected - 12/04/24 7645 Urine URINARY BLADDER STRUCTURE / Unknown 12/04/2024 11:49 PM EDT 12/05/2024 12:10 AM EDT Doug Ross MD MICROBIOLOGY - GENERAL ORDER BARON Final Result Performing Organization Address City/[facility]/ZIP Co de Phone Number [facility], [facility] [address] [facility] , [place] [address] * EXTRA IRVING URINE CX (12/04/2024 11:49 PM EDT) Urine URINARY BLADDER STRUCTURE / Unknown 12/04/2024 11:49 PM EDT 12/04/2024 11:57 PM EDT us Doug Ross MD MICROBIOLOGY - GENERAL ORDER [place] [address] * (ABNORMAL) URINALYSIS REFLEX (12/04/2024 11:49 PM [...] Ross MD URINE ORDERABLES Final Resul t Performing Organization Address [facility]/ZIP Co de Phone Number [facility] [address] , [place] [address] * [id number] A/B (12/04/2024 11:49 PM EDT) CORONAVIRUS [id number] Not Detected Not Detected 12/05/2024 12:23 AM EDT [facility] Influenza A DNA Not Detected Not Detected 12/05/2024 12:23 AM EDT [facility] Influenza B DNA Not Detected Not Detected 12/05/2024 12:23 AM EDT [facility] Swab BOTH ANTERIOR NARES / Unknown 12/04/2024 11:49 PM EDT 12/04/2024 11:55 PM EDT Doug Ross MD MICROBIOLOGY - GENERAL ORDER BARON Final Result Performing Organization Address City/[facility]/ZIP Co de Phone Number [id number] [address] * XR CHEST AP PORTABLE (12/04/2024 11:38 [...] of the ordering clinician. Doug Ross MD [facility] ORDER BARON Final Result * (ABNORMAL) BLOOD CULTURE JAZIEL GRAM NEG (12/04/2024 11:35 PM EDT) ACINETOBACTER BAUMANNII Not Detected Not Detected 12/05/2024 [...] 9:18 PM EDT [facility] STENOTROPHOMONAS MALTOPHILIA Not Detected Not Detected 12/05/2024 9:18 PM EDT [facility] CTX-M Not Detected. Beta-lactamase resistance due to other mechanisms cannot be excluded. 12/05/2024 9:18 PM EDT [facility] IMP Not Detected. Carbapenemase resistance due to other mechanisms cannot be excluded. 12/05/2024 9:18 PM EDT [facility] KPC Not Detected. Carbapenemase resistance due to other mechanisms cannot be excluded. 12/05/2024 9:18 PM EDT [facility] NDM Not Detected. Carbapenemase resistance due to other mechanisms cannot be excluded. 12/05/2024 9:18 PM EDT [facility] OXA Not Detected. Carbapenemase resistance due to other mechanisms cannot be excluded. 12/05/2024 9:18 PM EDT [facility] VIM Not Detected. Carbapenemase resistance due to other mechanisms cannot be excluded. 12/05/2024 9:18 PM EDT [facility] Blood VENOUS BLOOD / Unknown Venipuncture / Unknown 12/04/2024 11:35 PM EDT 12/04/2024 11:41 PM EDT Doug Ross MD MICROBIOLOGY - GENERAL ORDER BARON Final Result [facility] [address] [facility] , [place] [address] * (ABNORMAL) BLOOD CULTURE (NO STAIN) (12/04/2024 11:35 PM EDT) Culture Result Positive Growth(AA) BLOOD CULTURE (NO STAIN) 12/07/2024 9:35 AM EDT [facility] Culture Result Growth of Escherichia coli SUSCEPTIBIL ITY RESULT 12/07/2024 9:35 AM EDT [facility] Medical Blood VENOUS BLOOD / Unknown Venipuncture / [...] tho xazole SUSCEPTIBILITY RESULT <=0.5/9.5 ug/mL: Susceptible Doug Ross MD MICROBIOLOGY - GENERAL ORDER BARON Final Result [facility], [facility] [address] [facility] , [place] [address] * (ABNORMAL) BLOOD GAS, VENOUS (12/04/2024 11:34 PM EDT) pH Venous 7.44(H) 7.32 - 7.42 pH 12/04/2024 11:49 PM EDT [facility] pCO2 Venous 31(L) 41 - 51 mmHg 12/04/2024 11:49 PM EDT [facility] pO2 Venous 51(H) 25 - 40 mmHg 12/04/2024 11:49 PM EDT [facility] Comment:Interpret with cauti on. Not recommended to evaluate patient's oxygenation status. Base Excess Jorge -2.0 mmol/L 11:49 PM EDT [facility] Hco3 Venous 20.7(L) 24.0 - 28.0 mmol/L 12/04/2024 11:49 PM EDT [facility] [employer] [facility], [facility] CO2 Total Jorge 18(L) 25 - 29 mmol/L 12/04/2024 11:49 PM EDT [facility] [place], [facility] O2 Sat. Venous 87.6(H) 40.0 - 70.0 % 12/04/2024 11:49 PM EDT [facility] [employer], [facility] [employer] [facility]2 RA 12/04/2024 11:49 PM EDT [facility], [facility] Blood VENOUS BLOOD / Unknown Venipuncture / Unknown 12/04/2024 11:34 PM EDT 12/04/2024 11:41 PM EDT Doug Ross MD CHEMISTRY ORDERABLES Final R esult [facility] [address] [facility] , [place] [address] * (ABNORMAL) PROCALCITONIN (12/04/2024 11:34 PM EDT) Procalcitonin 18.10(H) <=0.49 ng/mL 12/05/2024 12:35 AM EDT [facility] Blood VENOUS BLOOD / Unknown Venipuncture / Unknown 12/04/2024 11:34 PM EDT 12/04/2024 11:53 PM EDT Narrative [facility] - 12/05/2024 12:35 AM EDT Procalcitonin <0.50 [...] progression to severe sepsis and/or septic shock. Doug Ross MD CHEMISTRY ORDERABLES Final R esult Performing Organization Address City/[facility]/ZIP Co de Phone Number [facility] [place] [facility], [facility] [address] [facility], [place] [address] * (ABNORMAL) LACTIC ACID (12/04/2024 11:34 PM EDT) Lactic Acid 4.5(HH) 0.5 - 1.9 mmol/L 12/05/2024 12:04 AM EDT [facility] Blood VENOUS BLOOD / Unknown Venipuncture / Unknown 12/04/2024 11:34 PM EDT 12/04/2024 11:39 PM EDT Doug Ross MD CHEMISTRY ORDERABLES Final R esult Performing Organization Address [facility] [place] [address] * (ABNORMAL) TROPONIN-T HIGH SENSITIVITY BASELINE W/ REFLEX (12/04/2024 11:34 PM EDT) [id number] 46(H) <14 ng/L 12/05/2024 12:05 AM EDT [facility] Blood VENOUS BLOOD / Unknown Venipuncture / Unknown 12/04/2024 11:34 PM EDT 12/04/2024 11:40 PM EDT Narrative [facility] - 12/05/2024 12:05 AM EDT Ingestion of armando doses of biotin (>5 mg/day) taken within 8 hours of drawing blood sample can interfere with this immunoassay test. Doug Ross MD CHEMISTRY ORDERABLES Final R esult Performing Organization Address [facility]/[place] [address] * (ABNORMAL) LIPASE LEVEL (12/04/2024 11:34 PM EDT) Lipase Lvl 12(L) 13 - 60 U/L 12/05/2024 12:05 AM EDT [facility] Blood VENOUS BLOOD / Unknown Venipuncture / Unknown 12/04/2024 11:34 PM EDT 12/04/2024 11:40 PM EDT us Doug Ross MD CHEMISTRY ORDERABLES Final R esult [facility] [address] [place] [address] * (ABNORMAL) COMPREHENSIVE METABOLIC PANEL (12/04/2024 11:34 PM EDT) Pathologist [facility] Sodium 135(L) 136 - 145 mmol/L 12/05/2024 12:06 AM EDT [facility] Potassium 2.8(LL) 3.5 - 5.0 mmol/L 12/05/2024 12:06 AM EDT [facility] Chloride 97(L) 98 - 107 mmol/L 12/05/2024 12:06 AM EDT [facility] Total CO2 20(L) 22 - 29 mmol/L 12/05/2024 12:06 AM EDT [facility] Anion Gap 18(H) 7 - 16 mmol/L 12/05/2024 12:06 AM EDT [facility] Calcium 8.8 8.6 - 10.4 mg/dL 12/05/2024 12:06 AM EDT [facility] Glucose Lvl 142(H) 70 - 99 mg/dL 12/05/2024 12:06 AM EDT [facility] BUN 14 6 - 20 mg/dL 12/05/2024 12:06 AM EDT [facility] Creatinine 1.14 0.51 - 1.30 mg/dL 12/05/2024 12:06 AM EDT [facility] Albumin 3.5 3.5 - 5.2 gm/dL 12/05/2024 12:06 AM EDT [facility] Total Protein 6.4 6.4 - 8.3 gm/dL 12/05/2024 12:06 AM EDT [facility] Bili Total 2.0(H) 0.2 - 1.3 mg/dL 12/05/2024 12:06 AM EDT [facility] ALT 38 <=41 U/L 12/05/2024 12:06 AM EDT [facility] AST 36 <=40 U/L 12/05/2024 12:06 AM EDT [facility] Alk Phos 212(H) 36 - 123 U/L 12/05/2024 12:06 AM EDT [facility] eGFR (CKD-EPIcr 2020) 56(L) >=60 mL/min/1.7 3 m2 12/05/2024 12:06 AM EDT [facility] Comment:Estimated GFR was ca lculated using the CKD-EPIcr (2020) equation refit without race. The equation is recommended by the National Kid[employer] - [employer] Neph[employer] Task Force. Blood VENOUS BLOOD / Unknown Venipuncture / Unknown 12/04/2024 11:34 PM EDT 12/04/2024 11:40 PM EDT us Doug Ross MD CHEMISTRY ORDERABLES Final R esult [facility] [address] [place], [place] [id number] * (ABNORMAL) CBC WITH DIFF (12/04/2024 11:34 [...] 12:38 AM EDT [facility] # 0.0(L) 0.3 - 0.9 x10(3)/mc L 12/05/2024 12:38 AM EDT [facility] Eos # Manual 0.0 0.0 - 0.5 x10(3)/mc L 12/05/2024 12:38 AM EDT [facility] Baso # Manual 0.0 0.0 - 0.1 x10(3)/mc L 12/05/2024 12:38 AM EDT [facility] RBC Morph Consistent with Red Cell Indices no units 12/05/2024 12:38 AM EDT [facility] Blood VENOUS BLOOD / Unknown Venipuncture / Unknown 12/04/2024 11:34 PM EDT 12/04/2024 11:43 PM EDT us Doug Ross MD HEMATOLOGY ORDERABLES Final Result [facility] [address] [facility] [facility] , [place] [address] * EK EKG 12 LEAD (12/04/2024 11:20 PM EDT) Anatomical Region Laterality Modality Electrocardiogra phy 12/04/2024 11:3 9 PM EDT Impressions 12/05/2024 8:[address] [facility] Test Date: 2024-12-04 Pat Name: [facility] Department: DEPID Room: [facility] Gender: Female Top Collar Maker: : 1965 Requested By: [facility] Order Number: [id number] Reading MD: Jared Herrera Measurements Intervals S[place]d Rate: 120 P: 59 MA: 157 QRS: 21 QRSD: 96 T: 48 QT: 325 QTc: 461 Interpretive Statements SINUS TACHYCARDIA POSSIBLE RIGHT VENTRICULAR CONDUCTION DELAY ABNORMAL RHYTHM ECG WHEN COMPARED TO PREVIOUS ECG:NO SIGNIFICANT CHANGES ARE NOTED Electronically Signed On 12-05-2024 08:16:16 EDT by Jared Herrera Narrative Procedure Note Jared Herrera MD - 12/05/[address] [facility] Test Date: 2024-12-04 Pat Name: [facility] Department: DEPID Room: [facility] Gender: Female Top Collar Maker: : 1965 Requested By: [employer] [facility] Order Number: [id number] Reading MD: Jared Herrera Measurements Intervals Shedd Rate: 120 P: 59 MA: 157 QRS: 21 QRSD: 96 T: 48 QT: 325 QTc: 461 Interpretive Statements SINUS TACHYCARDIA POSSIBLE RIGHT VENTRICULAR CONDUCTION DELAY ABNORMAL RHYTHM ECG WHEN COMPARED TO PREVIOUS ECG:NO SIGNIFICANT CHANGES ARE NOTED Electronically Signed On 12-05-2024 08:16:16 EDT by Jared Herrera Doug Ross MD IMG ECG ORDERABLES Final [...] Morbid obesity Intra-abdominal abscess (HCC) Peritoneal abscess Calculus of gallbladder without cholecystitis without obstruction Calculus of gallbladder without mention of cholecystitis or obstruction documented in this encounter Admitting Diagnoses Diagnosis Cholecystitis Cholecystitis, unspecified documented in this encounter Administered Medications Inactive Administered Medications - up to 1 most recent administrations Medication Order MAR Action Action Date Dose Rate Site 0.9 % NaCl infusion Intravenous, at 10 mL/hr, CONTINUOUS PRN, Starting on Thu12/05/24 at 020, Until 12/10/24 at 2021, Use [...] Given 12/06/2024 9:13 AM EDT 1,000 mg alteplase (ACTIVASE) injection 1 mg 1 mg, [...] at 0951, Until 12/10/24 at 2021, Constipation BUPivacaine-EPINEPHri ne (MARCAINE/SENSORCAINE ) 0.5 %-1:200,000 injection INTRAPROCEDURE, Starting on Thu12/05/24 at 1141, Until Thu12/05/24 at 1319, Intra-op Given 12/05/2024 11:41 AM EDT 25 mL Abdominal Tissue buPROPion (WELLBUTRIN SR) SR tablet 150 mg [...] Given 12/10/2024 9:06 AM EDT 500 mg cefTRIAXone in dextrose (ROCEPHIN) 2 gram/50 mL [...] 6:40 AM EDT 5,000 Units Abdominal Tissue LEVOthyroxine (SYNTHROID) tablet 288 mcg 288 mcg, [...] Given 12/10/2024 6:39 AM EDT 288 mcg melatonin tablet 5 mg 5 mg, Oral, NIGHTLY, First dose on Thu12/05/24 at 2115, Until Discontinued Given 12/09/2024 10:40 PM EDT 5 mg mupirocin (BACTROBAN) 2 % ointment Nasal, 2 TIMES DAILY, 10 doses, First dose on Thu12/10/24 at 2100, Last dose on [place] 12/15/24 at 0900 ondansetron (ZOFRAN) injection 4-8 mg 4-8 mg, [...] Given 12/06/2024 5:56 AM EDT 5 mg polyethylene glycol (GLYCOLAX, MIRALAX) packet 17 g 17 g, Oral, DAILY, First dose on Thu12/06/24 at 0900, Until Discontinued, Mix in 8 oz of water Given 12/06/2024 9:16 AM EDT 17 g senna (SENOKOT) tablet 1-2 Tablet 1-2 Tablet, Oral, 2 TIMES DAILY, First dose (after last modification) on Thu12/06/24 at 0900, Until Discontinued Given 12/08/2024 8:33 AM EDT 1 Tablet sodium chloride 0.9% IV line flush 20-50 [...] 7 days. sodium chloride 0.9% syringe Intravenous, PRN, Starting [...] mL post blood draws for CENTRAL lines. documented in this encounter Discontinued Medications Medication [...] MCKINLEY)2015 (Given - Provider: Aysha Rivera RN) 0951 (Given - Provider: Indira Jasmine RN)224 (Given - Provider: Ling Parnell, MCKINLEY) 0906 (Given - Provider: Sayda Story, MCKINLEY) calcium carbonate (OS-JESSY) tablet 500 mg 500 mg (1 Tablet), Oral, DAILY WITH MEAL, First dose on Thu12/08/24 at 1000, Until Discontinued, 1 Tab = 1250 mg (500 mg elemental calcium) 0913 (Given - Provider: Viviane Vazquez, MCKINLEY) 0952 (Given - Provider: Indira Jasmine RN) 09 (Given - Provider: Sayda Story, MCKINLEY) cefTRIAXone [...] MCKINLEY)0840 (IV Paused - Provider: Viviane Vazquez, MCKINLEY)0846 (IV Restarted - Provider: Viviane Vazquez RN)0909 (Stopped - Provider: Viviane Vazquez RN) 1208 (IV Started - Provider: Indira Jasmine RN)1238 (Stopped - Provider: Indira Jasmine RN) 0901 (IV Started - Provider: Sayda Story, MCKINLEY)0931 (Stopped - Provider: Sayda Story, MCKINLEY) famotidine (PEPCID) injection 20 mg(Linked Group 1) 20 mg, Intravenous, EVERY 12 HOURS SCHEDULED (2 times per day), First dose on Thu12/05/24 at 0215, Until Discontinued 0833 (See Alternative - Provider: Viviane Vazuqez, MCKINLEY)2015 (See Alternative - Provider: Aysha Rivera RN) 0951 (See Alternative - Provider: Indira Jasmine RN)224 (See Alternative - Provider: Ling Parnell, RN) 0906 (See Alternative - Provider: Sayda Story RN) famotidine (PEPCID) tablet 20 mg(Linked Group 1) 20 mg, Oral, EVERY 12 HOURS SCHEDULED (2 times per day), First dose on Thu12/05/24 at 0215, Until Discontinued 0833 (Given - Provider: Viviane Vazquez, MCKINLEY)2015 (Given - Provider: Aysha Rivera RN) 0951 (Given - Provider: Indira Jasmine RN)224 (Given - Provider: Ling Parnell, RN) 0906 (Given - Provider: Sayda Story, MCKINLEY) FLUoxetine (PROzac) capsule 20 mg 20 mg, Oral, DAILY, First dose on Thu12/05/24 at 1600, Until Discontinued 0833 (Given - Provider: Viviane Vazquez, MCKINLEY) 0951 (Given - Provider: Indira Jasmine RN) 0906 (Given - Provider: Sayda Story, MCKINLEY) heparin, porcine (PF) injection 5,000 Units 5,000 Units, Subcutaneous, EVERY 8 HOURS SCHEDULED (3 times per day), First dose on Thu12/05/24 at 2200, Until Discontinued, Hold Heparin for platelet count less than 100,000 0544 (Given - Provider: Aysha Rivera RN)1425 (Given - Provider: Viviane Vazquez, MCKINLEY)2124 (Given - Provider: Aysha Rivera RN) 0535 [...] RN) 0639 (Given - Provider: Ling Parnell, RN) lidocaine 10 mg/mL (1 %) injection (PF) 10 mg (COMPLETED) 10 mg (1 mL), Subcutaneous, ONCE, 1 dose, On Thu12/10/24 at 1545, Use 1% Lidocaine 1 mL intradermally and subcutaneously at insertion site for local anesthetic. 1404 (Given - Provider: Rachel Dougherty, MCKINLEY) melatonin tablet 5 mg 5 mg, Oral, NIGHTLY, First dose on Thu12/05/24 at 2115, Until Discontinued 2015 (Given - Provider: Aysha Rivera, MCKINLEY) 2240 (Given - Provider: Ling Parnell, RN) mupirocin (BACTROBAN) 2 % ointment Nasal, 2 TIMES DAILY, 10 doses, First dose on Thu12/05/24 at 0900, Last dose on Thu12/09/24 at 2100 0833 (Given - Provider: Viviane Vazquez, MCKINLEY)2015 (Given - Provider: Aysha Rivera, MCKINLEY) 0953 (Given - Provider: Indira Jasmine, RN)2244 (Given - Provider: Ling Parnell, RN) mupirocin [...] Until Discontinued 0833 (Given - Provider: Viviane Vazquez RN)2017 (Not Given - Provider: Aysha Rivera [...] Aysha Rivera RN)1425 (Given - Provider: Viviane Vazquez RN)2017 (Given - Provider: Aysha Rivera RN) 0535 (Given - Provider: Aysha Rivera RN)1341 (Given - Provider: Indira Jasmine RN)2200 (Canceled Entry - Provider: Ling Parnell, RN - Comment: No central line) 0600 (Canceled Entry - Provider: Ling Parnell, MCKINLEY - Comment: No central line)1400 (Due) sodium [...] Oral, EVERY 6 HOURS PRN, Starting on 12/05/24 at 0204, Until 12/10/24 at 2021, Fever, [...] Indira Jasmine RN)1254 (Stopped - Provider: Indira Jasmine, RN) 0900 (IV Started - Provider: Sayda Story, MCKINLEY)0901 (IV Paused - Provider: Sayda Story, RN)0931 (IV Restarted - Provider: Sayda Story, RN)0932 (Stopped - Provider: Sayda Story, RN) sodium chloride 0.9% IV line flush [...] Enteral, EVERY 4 HOURS PRN, Starting on 12/05/24 [...] alteplase (ACTIVASE) injection 1 mg 1 12/10 lidocaine 10 mg/mL (1 %) inj ection (PF) 10 mg 1 12/10/2024 mupirocin (BACTROBAN) 2 % ointment 2 202412/05/2024 sodium chloride 0.9% IV line flush 20-50 mL 2 12/10/2024 12/05/2024 sodium chloride 0.9% syringe 3 12/10/2024 12/05/2024 sodium chloride 0.9% syringe 10 mL 2 202412/05/2024 calcium carbonate (OS-JESSY) tablet 500 mg 2 12/08/2024 12/06/2024 cefTRIAXone in dextrose (SOL EPHIN) 2 gram/50 mL IVPB 2 g 1 12/07/2024 phosphorus (K PHOS NEUTRAL) tablet 2 Tablet 2 12/07/2024 12/06/2024 potassium chloride (KLOR-CON ) tablet 40 mEq 1 12/07/2024 docusate sodium (COLACE) capsule 100 mg 1 0 12/06/2024 LEVOthyroxine (SYNTHROID) tablet 288 mcg 1 12/06/2024 LEVOthyroxine (SYNTHROID) tablet 88 mcg 1 0 12/06/2024 polyethylene glycol (GLYCOLA X, MIRALAX) packet 17 g 1 12/06/2024 senna (SENOKOT) tablet 1-2 Tablet 2 025 12/05/2024 0.9 % NaCl infusion 1 12/05/2024 acetaminophen (TYLENOL) oral solution 500-1,000 mg 1 12/05/2024 acetaminophen (TYLENOL) tablet 1,000 mg 1 0 12/05/2024 acetaminophen (TYLENOL) tabl et 500-1,000 mg 1 12/05/2024 albumin human 5 % bottle 25 g 1 12/05/2024 atropine injection 1 mg 1 12/05/2024 bisacodyL (DULCOLAX) suppository 10 mg 1 buPROPion (WELLBUTRIN SR) SR tablet 150 mg 1 12/05/2024 calcium gluconate in NaCl, i so-osm 1 gram/50 mL IVPB 1 g 1 12/05/2024 dextrose 50 % solution 25 mL 1 12/05/2024 famotidine (PEPCID) injection 20 mg 1 12/05 famotidine (PEPCID) tablet 20 mg 1 12/06/19 FLUoxetine (PROzac) capsule 20 mg 1 025 heparin, porcine (PF) inject ion 5,000 Units 1 12/05/2024 hydrALAZINE (APRESOLINE) inj ection 10-20 mg 1 12/05/2024 ICU Electrolyte Replacement - Calcium 1 08/2024 ICU Electrolyte Replacement - Magnesium 1 0 12/05/2024 ICU Electrolyte Replacement - Phosphate 1 0 12/05/2024 ICU Electrolyte Replacement - Potassium 1 0 12/05/2024 indocyanine green (IC-GREEN) injection 6.25 mg 1 12/05/2024 iopamidoL (ISOVUE-370) 370 m g iodine /mL (76 %) injection (LOW) 100 mL 1 12/05/2024 labetaloL (NORMODYNE) injection 10-20 mg 1 12/05/2024 lactated ringers infusion 4 12/05/2024 LEVOthyroxine (SYNTHROID) tablet 200 mcg 1 12/05/2024 magnesium sulfate in dextros e 5% infusion 1 g 2 12/05/2024 melatonin tablet 5 mg 1 12/05/2024 metroNIDAZOLE (FLAGYL) IVPB 500 mg 1 2024 morphine injection 1-2 mg 1 12/05/2024 morphine injection 3-4 mg 1 12/05/2024 nitroGLYCERIN (NITROSTAT) SL tablet 0.4 mg 1 12/05/2024 norepinephrine (LEVOPHED) 16 mg/250 mL (64 mcg/mL) 1 12/05/2024 ondansetron (ZOFRAN) injection 4-8 mg 1 08/2024 oxyCODONE (ROXICODONE) 5 mg/ 5 mL solution 5-10 mg 1 12/05/2024 oxyCODONE (ROXICODONE) immed iate release tablet 5-10 mg 1 12/05/2024 piperacillin-tazobactam in d extrose (ZOSYN) IVPB 3.375 g 1 12/05/2024 potassium chloride 10 mEq in 100 mL IVPB 4 12/05/2024 potassium phosphate 24 mmol in dextrose 5% 150 mL IVPB - ICU/Cardiac Monitored 1 12/05/2024 scopolamine (TRANSDERM-SCOP) 1 mg over 3 days 1 Patch 1 12/05/2024 vancomycin (VANCOCIN) 2,000 mg in sodium chloride 0.9 % 550 mL IVPB 1 12/05/2024 vasopressin 0.4 unit/mL in d extrose 5% infusion 1 12/05/2024 ceFEPIme (MAXIPIME) 2 g in s terile water 19 mL IVP 1 12/04/2024 sodium chloride 0.9 % 1,000 mL IV bolus 1 0 12/04/2024 sodium chloride 0.9% IV line flush 50 mL 1 12/04/2024 sodium chloride 0.9% syringe 5-10 mL 1 0607/2024 Nursing Count Last Ordered Date First Orde [...] documented as of this encounter Care Teams Nozzle Worker Relationship Specialty Start Date End Date Willard Hector MD PCP - General Family Medicine 04/28/11 documented as of this encounter
--- OUTSIDE RECORDS SUMMARY | 2024-12-05 10:09 | XMS_ITS | Encounter Summary ---
Author Organization [place] [address] Care Team Providers Care Salesperson [employer] Name Role Phone Willard Hector MD Primary Care Provider [phone] Reason for Visit * Auth/Cert/Inpt Specialty Diagnoses / Procedures Referred By Lizeth t Referred To Contact Diagnoses Cholecystitis Referral ID Status Reason Start Date Expiration Date Visits Re quested Visits Authorized [id number] 1 1 Encounter Details Date Type Department Care Team (Late st Contact Info) Description 12/05/2024 10:09 AM EDT Anesthesia Event [facility]G [facility] [place] [address] Lydia Cain MD [address] [place] [address] David Mckinney APRN [address] [place] [address] Anesthesia Record Procedure Summary Procedure Name Responsible Anesthesiologist Anesthesia Start Time Anesthesia Stop Time DAVINCI ROBOTIC CHOLECYSTECTOMY (Abdomen) Lydia Cain MD 12/05/24 1009 12/05/24 1330 Events Date Time Event Comment 12/05/2024 0906 0914 AN Equip Check 1009 An Start 1016 An Start Data 1016 Immediate Pre Anesthetic Ass es 1032 An Induction 1035 An Intubation 1042 Quick Note A line very pos itional. Troubleshooting multiple times. Repositioned. Decided to stop using right a line. Dr dos santos placed new line left radial artery. Good cap refill on all right hand fingers, pulse ox reading accurate. Will remove at end of case when adequate pressure can be applied to a-line site to ensure adequate hemostasis 1118 Anesthesia Ready 1119 Time out 1119 Incision 1246 An Emergence 1303 An Extubation 1311 an stop data 1330 Handoff I completed my SBAR handoff to the receiving nurse which has included the followin. Identification of the patient, family, or patient surrogate 2. Identification of the responsible practitioner 3. Pertinent medical history 4. Surgical procedure and reason for procedure 5. Intraoperative anesthetic management 6. All current lines, drains and respiratory support. 7. Outstanding follow up orders (X-rays, consults etc) 8. Expectations/Plans for the early post-procedure period 9. Opportunity for questions and acknowledgement of understanding from the receiving PACU/ICU teamsite developer 1330 An Stop Meds Name Total lidocaine injection 1% 50 mg fentaNYL 50 MCG/ML INJ 150 mcg propofol (DIPRIVAN) injection 100 mg rocuronium (ZEMURON) 10 mg/mL injection 35 mg succinylcholine (ANECTINE) 20 mg/mL inje ction (EDG, JANIS, FTT) 140 mg dexamethasone (DECADRON) injection 4 mg/ mL 4 mg ondansetron (ZOFRAN) injection 4 mg /2 m L 4 mg sugammadex (BRIDION) 100 mg/mL injection 200 mg norepinephrine (LEVOPHED) 16 mg/250 mL ( 64 mcg/mL) 874 mcg vasopressin 0.4 unit/mL in dextrose 5% i nfusion 8.04 Units indocyanine green (IC-GREEN) injection 2 5 mg 6.25 mg albuterol (PROVENTIL HFA;VENTOLIN HFA) i nhaler 2 Puff phenylephrine 100 mcg/ml 10ml (syringe) 400 mcg lactated ringers infusion 600 mL * Agents Name O2 N2O Air Et Sevoflurane Et Desflurane * Blood No blood administrations on file. Lines, Drains, and Airways Type Details Placement Removal Peripheral IV Left; Antecubital; 12/09/24; 0543; Leaking, Bleeding at site 12/04/24 2320 by 12/09/24 0543 by Aysha Rivera, MCKINLEY Peripheral IV 12/04/24; 2336; 20; Left, Posterior; Hand; clark F; 12/07/24; 1212; Pain at site 12/04/24 2336 by Jean Claude Zabala RN 12/07/24 1212 by Brenda Buckley, MCKINLEY Incision/Wound 12/05/24; Abdomen; 12/10/24; 201612/05/24 0000 by Wendy Mcneil, MCKINLEY 12/10/242016 by Discharge Provider, Automatic Incision/Wound 12/05/24; Yes; Abrasion(s); Arm; Left, Lower, Inferior; 12/10/24; 201612/05/24 0000 by Ana Dinh, MCKINLEY 12/10/242016 by Discharge Provider, Automatic Peripheral IV 12/05/24; 0112; 20; Right; Antecubital; Alex SEN ER; 12/07/24; 1213; Leaking 12/05/24 0112 by Jean Claude Zabala RN 12/07/24 1213 by Brenda Buckley RN CVC Triple Lumen Placement Date: 12/05/24; Placement Time: 0252; Orientation: Left; Location: Internal jugular; Inserted By: Dr. Cloud; Local Anes: Injectable; Removal Date: 12/07/24; Removal Time: 1225; Post Removal: No 12/05/24 0252 by Jackson Gonzáles RN 12/07/24 1225 by Tracey Caal RN Arterial Line 12/05/24; 0300; Chlora-prep; Right; Yes; Yes; Yes; Yes; Yes; Yes; Yes; Yes; Yes; Yes; Dr. Cloud; N 12/05/24 0300 by Ayah Price RN 12/05/24 1300 by Ana Dinh, MCKINLEY Urethral Catheter (Buck) Placement Date: 12/05/24; Placement Time: 0400; Inserted By: Jackson Boogie RN; Type: Temperature probe; Urine Returned: Yes; Location: ICU; Silver-Coated Catheter In Use?: Yes; QUE Intact?: Yes; Removal Date: 12/05/24; Removal Time: 1248 12/05/24 0400 by Cole Brandt RN 12/05/24 1248 by Wendy Mcneil, MCKINLEY Arterial Line 12/05/24; 1110 (crea maria c via procedure documentation); (4F); Radial; Chlora-prep; Left; 1; Yes; Yes 12/05/24 1110 by Yevgeniy Dos Santos MD 12/06/24 1600 by Florencia Rivera, RN Airway Device: ETT- Cuffed; Size: 7 mm; Placement Date: 12/05/24; Placement Time: 1115 (created via procedure documentation); Removal Date: 12/05/24; Removal Time: 1303 12/05/24 1115 by Indira Palacio, COMPUTER GAME DESIGNER 12/05/24 1303 by Indira Palacio, COMPUTER GAME DESIGNER Closed/Suction Drain 12/05/24; 1227; 1; Left; Abdomen; Round; 19 Indonesian 12/05/24 1227 by Wendy Mcneil RN 12/10/24 1516 by Sayda Story RN Urethral Catheter (Buck) Placement Date: 12/05/24; Placement Time: 1249; Inserted By: Navneet Pina; Balloon Size: 10 ml; Collection Container: Other (Comment) (temp sensing); Urine Returned: Yes; Location: OR; Removal Date: 12/06/24; Removal Time: 0912/05/24 1249 by Wendy Mcneil RN 12/06/24 0930 by Florencia Rivera, RN documented in this encounter Social History Tobacco Use Types Packs/Day Years Used Date Smoking Tobacco: Former Cigarettes 0.5 20 0 02/06/1983 - 02/06/2003 Smokeless Tobacco: Never [facility] Utilities Answer Date Recorded In the past 12 months has [employer], gas, oil, or water [employer] threatened to shut off services in your home? No 12/05/2024 Overall Financial Resource Strain (CARDIA) Answe r Date Recorded How hard is it for you to pa y for the very basics like food, housing, medical care, and heating? Not hard at all 12/05/2024 PHQ-2 Answer Date Recorded PHQ-2 Total Score 0 12/05/2024 [facility] - Occupational Stress [...] money to get more. Never true 12/05/2024 [facility] IP Transportation Answer D ate Recorded [...] doing things 0 12/05/2024 4:05 PM EDT MinooAna shields MSW Feeling down, depressed, or hopeless 0 12/05/2024 4:05 PM EDT MinooAna Sharon miranda BICYCLE MECHANIC PHQ-2 Total Score 0 12/05/2024 4:05 PM EDT MinooAna MICHELLE Dunne * PHQ-9 Total Score Answer Date of Assessment Author 0 12/05/2024 4:05 PM EDT Owen Hennessy MSW documented as of this encounter Procedure Notes * Indira Palacio CRNA - 12/05/2024 11:15 AM EDTAssociated Order(s): Intraop Airway Placement Intraop Airway Placement: Date/Time: 12/05/2024 11:15 AM Induction type: IV and Modified rapid sequence Mask size: Standard adult Pre-Oxygenation: Standard Mask ventilation: Not attempted Technique: Video laryngoscope Laryngoscope blade: Baez Blade size: 3 Grade view: I Airway type: ETT- cuffed Topical Anesthetic/Lubricant: None Intubation assist devices: Stylet 14fr Airway location: Oral Device size: 7mm Secured at: 20 cm Secured by: Tape Measured from: Lips Placement verified: Auscultation, End tidal CO2 and Symmetric chest wall motion Condition: Atraumatic and Unchanged Insertion attempts: 1 Title: JAREN * Yevgeniy Dos Santos MD - 12/05/2024 11:14 AM EDTAssociated Order(s): Arterial Line Placement Arterial Line Placement Procedure Date/time: 12/05/2024 11:10 AM Patient Location: OR Indication: Continuous blood pressure monitoring, blood sampling needed and unable to use non-invasive cuff Pre-Procedure checklist: Patient identified- 2 criteria, IV access functioning, Allergies confirmed, Sedation given, if needed, Procedure consent verified, Aseptic technique used, SOLIS recommended monitors applied, Timeout performed and Supplemental O2 applied, if needed Anesthesiologist: Yevgeniy Dos Santos MD Placed By: Anesthesiologist Sterility prep: Provider hand hygiene prior to procedure, Provider used sterile gloves, hat, mask and Sterile arterial line drape was used Skin prep: Chloraprep Local anesthetic: None : 4F. : 10cm. : AngioDynamics micro-introducer. Technique: Pulse Palpation and Ultrasound guided (to avoid A Line complication, including but not limited to embolic complication) Laterality: Left Site: Radial Insertion attempts: 1 Line Secured: Biopatch applied, Tegaderm and Suture Events: Patient tolerated procedure well with no complications Ultrasound Image of the block is attached/scanned to the epic chart. documented in this encounter OR Notes * Anesthesia Postprocedure Evaluation - Renato Alexandre IV, MD - 12/05/2024 4:17 PM EDT Post-Anesthesia Evaluation Note Patient Name: Yanna Baldwin Patient Date: December 05, 2024 Post-Anesthesia Evaluation Patient Location: PACU Post op vitals: stable Nausea controlled: yes Level of consciousness: awake, alert and oriented Post anesthesia pain: adequate analgesia Airway patency: patent Respiratory status: room air Cardiovascular status: stable Hydration status: euvolemic Perioperative complications: NONE Vitals Value Taken Time BP 122/78 12/05/24 16:17 Resp 20 12/05/24 16:00 SpO2 96 % 12/05/24 16:00 Temp 37.7 ??C (99.8 ??F) 12/05/24 16:00 Pulse 79 12/05/24 16:00 * Anesthesia Preprocedure Evaluation - Vincenzo Garzon DO - 12/05/2024 8:58 AM EDT Pre-Anesthesia Evaluation Note Patient Name: Yanna Baldwin Sex: female Patient : 1965 Age: 59 y.o. Patient Date: December 05, 2024 Procedure(s): DAVINCI ROBOTIC CHOLECYSTECTOMY possible open Anesthesia Evaluation Previous anesthesia. No history of anesthetic complications: No family history of anesthesia complications: Airway Mallampati: II TM distance: >3 FB Neck ROM: full Dental - normal exam Pulmonary (+) History of tobacco use (02/2003, 10 pack year): former Physical exam: Comments: decreased breath sounds (-) no URI cough sputum Cardiovascular (+)Hypertension: Physical exam: Rhythm: regular Rate: normal (-) no angina, no shortness of breath Neuro/Psych (+) Psychiatric history: Depression Syncope (Vasovagal) (-) seizures, no cerebrovascular disease GI/Hepatic/Renal Comments: Urinary incontinence (+)Gallbladder disease Nausea and vomiting (-) no GERD/PUD Endo/Other Comments: Septic Shock (+)Obese: Morbid obesity (BMI 40-49.9) Hypothyroidism (s/p THYROIDECTOMY) Arthritis: Osteoarthritis (-) 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 Anesthesia Plan ASA 4 Last solid intake: The patient has not eaten within the last 8 hours. Last clear liquid intake: The patient has not had clear liquids within the last 2 hours. Anesthesia Plan: general Induction: intravenous Monitors: STD Sepsis 2/ gallbladder, cholecystectomy urgently for source control. Scop patch ordered L IJ Central Line, Right radial Yale Levophed 26mcg/min, Vasopressin 0.04 units/min, O2 4L via NC PONV Risk Score: 3. Score of 3 or more is High Risk for PONV, combination antiemetic prophylaxis isindicated. Informed consent Anesthetic plan and risks discussed with: patient. Chart Reviewed and patient examined documented in this encounter Miscellaneous Notes * PAT Pre Evaluation for Anesthesia - David Mckinney APRN - 12/05/2024 8:08 AM EDT Pre-Anesthesia Evaluation Note Patient Name: Yanna Baldwin Sex: female Patient : 1965 Age: 59 y.o. Patient Date: December 05, 2024 Procedure(s): DAVINCI ROBOTIC CHOLECYSTECTOMY possible open Anesthesia Evaluation Previous anesthesia. No history of anesthetic complications: No family history of anesthesia complications: Airway TM distance: >3 FB Neck ROM: full Dental - normal exam Pulmonary (+) History of tobacco use (02/2003, 10 pack year): former Physical exam: Comments: decreased breath sounds (-) no URI cough sputum Cardiovascular (+)Hypertension: Physical exam: Rhythm: regular Rate: normal (-) no angina, no shortness of breath Neuro/Psych (+) Psychiatric history: Depression Syncope (Vasovagal) (-) seizures, no cerebrovascular disease GI/Hepatic/Renal Comments: Urinary incontinence (+)Gallbladder disease Nausea and vomiting (-) no GERD/PUD Endo/Other Comments: Septic Shock (+)Obese: Morbid obesity (BMI 40-49.9) Hypothyroidism (s/p THYROIDECTOMY) Arthritis: Osteoarthritis (-) 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 Anesthesia Plan Last solid intake: The patient has not eaten within the last 8 hours. Anesthesia Plan: general Scop patch ordered L IJ Central Line, Right radial Yale Levophed 26mcg, Vasopressin 0.04 units/min PONV Risk Score: 3. Score of 3 or more is High Risk for PONV, combination antiemetic prophylaxis isindicated. Informed consent Anesthetic plan and risks discussed with: patient. Chart Reviewed and patient examined documented in this encounter Plan of Treatment Upcoming Encounters Date Type Department Care Team (Late st Contact Info) Description 12/29/2024 7:30 AM EDT [facility]ointment [place] [address] 12/30/2024 7:30 AM EDT Appointment [place] [address] 12/31/2024 9:00 AM EDT [facility]ointment [facility] [place] [place] [address] 01/01/2025 9:00 AM EDT Appointment [facility] [place] [address] 01/02/2025 7:30 AM EDT Appointment [facility] [place] [address] 01/03/2025 7:30 AM EDT Appointment [facility] [place] [address] 01/04/2025 7:30 AM EDT Appointment [facility] [place] [address] 01/05/2025 7:30 AM EDT Appointment [facility] [place] [address] 01/06/2025 9:00 AM EDT Appointment [facility] [place] [address] 01/07/2025 9:00 AM EDT Appointment [facility] [place] [address] 01/08/2025 9:00 AM EDT Appointment [facility] [place] [address] 01/09/2025 7:30 AM EDT Appointment [facility] [place] [address] 01/10/2025 7:30 AM EDT Appointment [facility] [place] [address] 01/11/2025 7:30 AM EDT Appointment [facility] [place] [address] 01/12/2025 7:30 AM EDT Appointment [facility] [place] [address] 01/13/2025 7:30 AM EDT Appointment [facility] [place] [address] 01/14/2025 9:00 AM EDT Appointment [facility] [place] [place] [address] 01/15/2025 9:00 AM EDT Appointment [facility] [place] [address] 01/16/2025 7:30 AM EDT Appointment [facility] [place] [address] 01/17/2025 7:30 AM EDT Appointment [facility] [place] [place] [address] 01/18/2025 7:30 AM EDT Appointment [facility] [place] [place] [address] 01/18/2025 3:30 PM EDT Office Visit [facility] [address] [place] [address] [place] [phone] Alcira Kauffman MD [address] [place] [address] [address] [place] [phone] documented as of this encounter Procedures Procedure Name Priority Date/Time Associated Diagnosis Comments INTRAOP AIRWAY PLACEMENT Routine 12/05/2024 11:15 AM EDT ANE US GUIDANCE Routine 12/05/2024 11:10 AM EDT documented in this encounter Results * INTRAOP AIRWAY PLACEMENT (12/05/2024 11:15 AM EDT) Narrative [facility] - 12/05/2024 11:15 AM EDT Indira Palacio CRNA 12/05/2024 11:15 AM Intraop Airway Placement: Date/Time: 12/05/2024 11:15 AM Induction type: IV and Modified rapid sequence Mask size: Standard adult Pre-Oxygenation: Standard Mask ventilation: Not attempted Technique: Video laryngoscope Laryngoscope blade: Baez Blade size: 3 Grade view: I Airway type: ETT- cuffed Topical Anesthetic/Lubricant: None Intubation assist devices: Stylet 14fr Airway location: Oral Device size: 7mm Secured at: 20 cm Secured by: Tape Measured from: Lips Placement verified: Auscultation, End tidal CO2 and Symmetric chest wall motion Condition: Atraumatic and Unchanged Insertion attempts: 1 Title: COMPUTER GAME DESIGNER Result [facility] Yevgneiy Dos Santos MD [facility] ANESTHESIA Final Res ult Performing Organization Address [facility] Co de Phone Number [facility] [address] [place] [address] * ANE US GUIDANCE (12/05/2024 11:10 AM EDT) Narrative [facility] - 12/05/2024 11:10 AM EDT Yevgeniy Dos Santos MD 12/05/2024 11:18 AM Arterial Line Placement Procedure Date/time: 12/05/2024 11:10 AM Patient Location: OR Indication: Continuous blood pressure monitoring, blood sampling needed and unable to use non-invasive cuff Pre-Procedure checklist: Patient identified- 2 criteria, IV access functioning, Allergies confirmed, Sedation given, if needed, Procedure consent verified, Aseptic technique used, SOLIS recommended monitors applied, Timeout performed and Supplemental O2 applied, if needed Anesthesiologist: Yevgeniy Dos Santos MD Placed By: Anesthesiologist Sterility prep: Provider hand hygiene prior to procedure, Provider used sterile gloves, hat, mask and Sterile arterial line drape was used Skin prep: Chloraprep Local anesthetic: None : 4F. : 10cm. : AngioDynamics micro-introducer. Technique: Pulse Palpation and Ultrasound guided (to avoid A Line complication, including but not limited to embolic complication) Laterality: Left Site: Radial Insertion attempts: 1 Line Secured: Biopatch applied, Tegaderm and Suture Events: Patient tolerated procedure well with no complications Ultrasound Image of the block is attached/scanned to the [facility] chart. us Yevgeniy Dos Santos MD ANESTHESIA ORDERABLES Fin al Result Performing Organization Address [facility] Co de Phone Number [facility] [address] [place] [address] documented in this encounter Visit Diagnoses Not on filedocumented in this encounter Administered Medications Inactive Administered Medications - up to 1 most recent administrations Medication Order MAR Action Action Date Dose Rate Site albuterol (PROVENTIL HFA;VENTOLIN HFA) inhaler Inhalation, PRN (Anesthesia), Starting on Thu12/05/24 at 1035, Until Thu12/05/24 at 1330, Anesthesia Intra-op Given 12/05/2024 10:35 AM EDT 2 Puffs dexAMETHasone (DECADRON) injection Intravenous, PRN (Anesthesia), Starting on Thu12/05/24 at 1103, Until Thu12/05/24 at 1330, Anesthesia Intra-op Given 12/05/2024 11:03 AM EDT 4 mg fentaNYL (SUBLIMAZE) injection Intravenous, PRN (Anesthesia), Starting on Thu12/05/24 at 1121, Until Thu12/05/24 at 1330, Anesthesia Intra-op Given 12/05/2024 12:44 PM EDT 50 mcg indocyanine green (IC-GREEN) injection Intravenous, PRN (Anesthesia), Starting on Thu12/05/24 at 1016, Until Thu12/05/24 at 1330, Anesthesia Intra-op Given 12/05/2024 10:16 AM EDT 6.25 mg lactated ringers infusion Intravenous, at 75 mL/hr, CONTINUOUS, Starting on Thu12/05/24 at 0215, Until Thu12/06/24 at 0847 Rate/Dose Verify 12/06/2024 6:12 AM EDT 75 mL/hr lidocaine 1% 10 mg/mL (1 %) injection Intravenous, PRN (Anesthesia), Starting on Thu12/05/24 at 1032, Until Thu12/05/24 at 1330, Anesthesia Intra-op Given 12/05/2024 10:32 AM EDT 50 mg norepinephrine (LEVOPHED) 16 mg/250 mL (64 mcg/mL) [...] 2 mcg/min 1.9 mL/hr ondansetron (ZOFRAN) injection Intravenous, PRN (Anesthesia), Starting on Thu12/05/24 at 1103, Until Thu12/05/24 at 1330, Anesthesia Intra-op Given 12/05/2024 11:03 AM EDT 4 mg phenylephrine injection Intravenous, PRN (Anesthesia), Starting on Thu12/05/24 at 1250, Until Thu12/05/24 at 1330, Anesthesia Intra-op Given 12/05/2024 12:55 PM EDT 200 mcg propofoL (DIPRIVAN) injection Intravenous, PRN (Anesthesia), Starting on Thu12/05/24 at 1032, Until Thu12/05/24 at 1330, Anesthesia Intra-op Given 12/05/2024 10:32 AM EDT 100 mg rocuronium injection Intravenous, PRN (Anesthesia), Starting on Thu12/05/24 at 1032, Until Thu12/05/24 at 1330, Anesthesia Intra-op Given 12/05/2024 12:09 PM EDT 30 mg succinylcholine (ANECTINE) injection Intravenous, PRN (Anesthesia), Starting on Thu12/05/24 at 1032, Until Thu12/05/24 at 1330, Anesthesia Intra-op Given 12/05/2024 10:32 AM EDT 140 mg sugammadex (BRIDION) injection Intravenous, PRN (Anesthesia), Starting on Thu12/05/24 at 1236, Until Thu12/05/24 at 1330, Anesthesia Intra-op Given 12/05/2024 12:36 PM EDT 200 mg vasopressin 0.4 unit/mL in dextrose 5% infusion [...] Units/min 3 mL/hr documented in this encounter Care Teams Salesperson [employer] Relationship Specialty Start Date End Date Willard Hector MD PCP - General Family Medicine 04/28/11 documented as of this encounter
--- OUTSIDE RECORDS SUMMARY | 2024-12-11 09:00 | XMS_ITS | Encounter Summary ---
Author Organization [place] [address] Care Team Providers Care Railroad Signal And Switch Operator Name Role Phone Willard Hector MD Primary Care Provider [phone] Reason for Visit * Oncology Medication Prior Authorization (Routine) - Authorization Not Needed Specialty Diagnoses / Procedures Referred By Contdaquan t Referred To Contact Diagnoses E coli bacteremia Procedures AR CEFTRIAXONE SODIUM INJECTION PER 250 MG Alcira Kauffman MD [address] [place] [address] DR G[address] [place] [phone] Phone: tel: fax: Alcira Kauffman MD [address] [place] [address] DR GILLIAM [address] [place] [phone] Phone: tel: fax: Referral ID Status Reason Start Date Expiration Date Visits Requested Visits Authorized [id number] Authorization Not Needed 12/10/2024 12/10/2025 1 99 Encounter Details Date Type Department Care Team (Latest Contact Info) Description 12/11/2024 9:00 AM EDT - 12/11/2024 11:59 PM EDT Hospital [facility] [place] [address] E coli bacteremia (Primary Dx) Discharge Disposition: Home or Self Care Social History Tobacco Use Types Packs/Day Years Used Date Smoking Tobacco: Former Cigarettes 0.5 20 0 02/06/1983 - 02/06/2003 Smokeless Tobacco: Never [facility] Utilities Answer Date Recorded In the [...] Date Recorded PHQ-2 Total Score 0 12/05/2024 [facility] Occupat ional Health - Occupational Stress [...] money to get more. Never true 12/05/2024 [facility] IP Transportation Answer D ate [...] Sign Reading Time Taken Comments Blood Pressure 108/73 12/11/2024 9:42 AM EDT Pulse 82 12/11/2024 9:42 AM EDT Temperature 36.7 C (98.1 F) 12/11/2024 9:05 AM EDT Respiratory Rate 17 12/11/2024 9:05 AM EDT Oxygen Saturation 94% 12/11/2024 9:05 AM EDT Inhaled Oxygen Concentration - - Weight - - Height - - Body Mass Index - - documented in this encounter Medications at Time [...] Constipation. 12/10/2024 documented as of this encounter Discharge Disposition Disposition Code Departure Means Destination Home or Self Care documented in this encounter Miscellaneous Notes * Patient Instructions - Dora Frey RN - 12/11/2024 9:00 AM EDT [facility] Discharge Instructions Thank you for [facility] with [facility] care. We hope you are pleased with your outpatient care and services. Because we are most concerned with your health, we suggest you carefully read the following discharge instructions: Your Discharge Instructions: MEDICATION INSTRUCTIONS: Treatment received today: Orders Placed This Encounter cefTRIAXone in dextrose (ROCEPHIN) 2 gram/50 mL IVPB 2 g Reviewed medications administered today and possible side effects Dizziness and sleepiness are possible side effects of pain medication. When taking pain medications, do not drink alcohol or drive. ACTIVITY INSTRUCTIONS: Rest today, increase activity as tolerated. DIET INSTRUCTIONS: Resume home diet FOLLOW-UP CARE: Call your doctor for a follow-up appointment: Notify physician for complications such as: Fever over 101*, Rash, Hives, difficulty breathing, unrelieved nausea or pain, redness or swelling in one limb greater than the other, constipation, diarrhea, bleeding Please contact your physician if you have problems related to your procedure or if symptoms persistor worsen. If physician is unavailable, go to the Emergency Room. If you develop any of the following : nausea, vomiting, fatigue, fever of 100.4 or higher, diarrhea, pain or any signs or symptoms of infection DON'T WAIT, PLEASE CALL US FIRST [phone]. [FOR URGENT ISSUES PLEASE DO NOT LEAVE A MESSAGE, FOLLOW PROMPTS TO THE DOCTOR COMMERCIAL LOAN SPECIALIST] For Gynecology / Oncology call : [phone] Our hours of operation are Thursday - Thursday 8:00 AM - 4:30 PM. [facility] [address] [address] [phone] [place] [address] No results found for any visits on 12/11/24. documented in this encounter Plan of Treatment Upcoming Encounters Date Type Department Care Team (Late st Contact Info) Description 12/29/2024 7:30 AM EDT [facility]ointment [place] [address] 12/30/2024 7:30 AM EDT [place]ointment [place] [address] 12/31/2024 9:00 AM EDT Appointment [place] [address] 01/01/2025 9:00 AM EDT Appointment [place] [address] 01/02/2025 7:30 AM EDT [facility]ointment [facility] [place] [address] 01/03/2025 7:30 AM EDT Appointment [facility] [place] [address] 01/04/2025 7:30 AM EDT Appointment [facility] [place] [address] 01/05/2025 7:30 AM EDT Appointment [facility] [place] [address] 01/06/2025 9:00 AM EDT Appointment [facility] [place] [address] 01/07/2025 9:00 AM EDT Appointment [facility] [place] [address] 01/08/2025 9:00 AM EDT Appointment [facility] [place] [address] 01/09/2025 7:30 AM EDT Appointment [facility] [place] [address] 01/10/2025 7:30 AM EDT Appointment [facility] [place] [address] 01/11/2025 7:30 AM EDT Appointment [facility] [place] [address] 01/12/2025 7:30 AM EDT Appointment [facility] [place] [address] 01/13/2025 7:30 AM EDT Appointment [facility] [place] [address] 01/14/2025 9:00 AM EDT Appointment [facility] [place] [address] 01/15/2025 9:00 AM EDT Appointment [facility] [place] [address] 01/16/2025 7:30 AM EDT Appointment [facility] [place] [address] 01/17/2025 7:30 AM EDT Appointment [facility] [place] [address] 01/18/2025 7:30 AM EDT Appointment [facility] [place] [address] 01/18/2025 3:30 PM EDT Office Visit [facility] Infect[facility] Disease [facility] [address] [place] [phone] Juana-Alcira Mena MD [address] [place] [phone] documented as of this encounter Visit Diagnoses Diagnosis E coli bacteremia- Primary Bacteremia documented in this encounter Administered Medications Inactive Administered Medications - up to 1 most recent administrations Medication Order MAR Action Action Date Dose Rate Site cefTRIAXone in dextrose (ROCEPHIN) 2 gram/50 mL IVPB 2 g 2 g, Intravenous, ONCE, 1 dose, On 12/11/24 at 0915, Administer over 30 Minutes, PICC care per protocol. D/C PICC on 01/18/25 after last abx dose given. CBC w/diff, CMP, ESR, CRP Q Week Follow up with Dr. Arias on 01/18/2025, Reason for Therapy: Infection Documented, Indication: Bacteremia, Urinary Tract Infection, Dx: 1. E coli bacteremiaIndications:E coli bacteremia Rate/Dose Verify 12/11/2024 9:11 AM EDT 100 mL/hr documented in this encounter Care Teams Railroad Signal And Switch Operator Relationship Specialty Start Date End Date Willard Hector MD PCP - General Family Medicine 04/28/11 documented as of this encounter
--- OUTSIDE RECORDS SUMMARY | 2024-12-12 07:21 | XMS_ITS | Encounter Summary ---
Author Organization [place] [address] Care Team Providers Care Eyelet Punch Operator Name Role Phone Willard Hector MD Primary Care Provider [phone] Reason for Visit * Oncology Medication Prior Authorization (Routine) - Authorization Not Needed Specialty Diagnoses / Procedures Referred By Contdaquan t Referred To Contact Diagnoses E coli bacteremia Procedures MT CEFTRIAXONE SODIUM INJECTION PER 250 MG Alcira Kauffman MD [address] [place] [address] [address] [place] [phone] Phone: tel: fax: Alcira Kauffman MD [address] [place] [address] DR GILLIAM [address] [place] [phone] Phone: tel: fax: Referral ID Status Reason Start Date Expiration Date Visits Requested Visits Authorized [id number] Authorization Not Needed 12/10/2024 12/10/2025 1 99 Encounter Details Date Type Department Care Team (Latest Contact Info) Description 12/12/2024 7:21 AM EDT - 12/12/2024 11:59 PM EDT Hospital Encounter [place] [address] E coli bacteremia (Primary Dx) Discharge Disposition: Home or Self Care Social History Tobacco Use Types Packs/Day Years Used Date Smoking Tobacco: Former Cigarettes 0.5 20 0 02/06/1983 - 02/06/2003 Smokeless Tobacco: Never [facility] Utilities Answer Date Recorded In [...] Date Recorded PHQ-2 Total Score 0 12/05/2024 [facility] Occupat ional Health - Occupational Stress [...] money to get more. Never true 12/05/2024 [facility] IP Transportation Answer D ate Recorded [...] Sign Reading Time Taken Comments Blood Pressure 119/76 12/12/2024 7:42 AM EDT Pulse 73 12/12/2024 7:42 AM EDT Temperature - - Respiratory Rate 16 12/12/2024 7:42 AM EDT Oxygen Saturation 94% 12/12/2024 7:42 AM EDT Inhaled Oxygen Concentration - - [...] encounter Miscellaneous Notes * Patient Instructions - Gabi Mackay RN - 12/12/2024 7:30 AM EDT [facility] Discharge Instructions Thank you for entrusting the [facility] with your care. We hope you are pleased with your outpatient care and services. Because we are most concerned with your health, we suggest you carefully read the following discharge instructions: Your Discharge Instructions: MEDICATION INSTRUCTIONS: Treatment received today: Orders Placed This Encounter [NC]: PICC care per protocol. D/C PICC on 01/18/25 after last abx dose given. CBC w/diff, CMP, ESR, CRP Q Week Follow up with Dr. Arias on 01/18/2025 cefTRIAXone in dextrose (ROCEPHIN) 2 gram/50 mL IVPB 2 g 0.9 % NaCl infusion Reviewed medications administered today and possible side [...] infection DON'T WAIT, PLEASE CALL US FIRST [phone]. [FOR URGENT ISSUES PLEASE DO NOT LEAVE A MESSAGE, FOLLOW PROMPTS TO THE DOCTOR SCHOOL BUSINESS ADMINISTRATOR] For Gynecology / Oncology call : [phone] Our hours of operation are Thursday - Thursday 8:00 AM - 4:30 PM. [facility] [place] [id number] [place] [address] [place], [place] [phone] No results found for any visits on 12/12/24. documented in this encounter Plan of Treatment Upcoming Encounters Date Type Department Care Team (Late st Contact Info) Description 12/29/2024 7:30 AM EDT [facility]ment [place] [address] 12/30/2024 7:30 AM EDT Appointment [facility] [place], [place] [id number] 12/31/2024 9:00 AM EDT Appointment [facility] [place], [place] [phone] 01/01/2025 9:00 AM EDT Appointment [facility] [place] [place] [address] 01/02/2025 7:30 AM EDT Appointment [facility] [place] [place] [address] 01/03/2025 7:30 AM EDT Appointment [facility] [place] [place] [address] 01/04/2025 7:30 AM EDT Appointment [facility] [place] [place] [address] 01/05/2025 7:30 AM EDT Appointment [facility] [place] [place] [address] 01/06/2025 9:00 AM EDT Appointment [facility] [place] [place] [address] 01/07/2025 9:00 AM EDT Appointment [facility] [place] [place] [address] 01/08/2025 9:00 AM EDT Appointment [facility] [place] [place] [address] 01/09/2025 7:30 AM EDT Appointment [facility] [place] [place] [address] 01/10/2025 7:30 AM EDT Appointment [facility] [place] [place] [address] 01/11/2025 7:30 AM EDT Appointment [facility] [place] [place] [address] 01/12/2025 7:30 AM EDT Appointment [facility] [place] [place] [address] 01/13/2025 7:30 AM EDT Appointment [facility] [place] [place] [address] 01/14/2025 9:00 AM EDT Appointment [facility] [place] [place] [address] 01/15/2025 9:00 AM EDT Appointment [facility] [place] [place] [address] 01/16/2025 7:30 AM EDT [facility] [place] [address] 01/17/2025 7:30 AM EDT Appointment [facility] [place] [address] 01/18/2025 7:30 AM EDT Appointment [facility] [place] [address] 01/18/2025 3:30 PM EDT Office Visit [facility] [address] [place] [address] [place] [phone] Alcira Kauffman MD [address] [place] [address] [phone] documented as of this encounter Visit Diagnoses Diagnosis E coli bacteremia- Primary Bacteremia documented in this encounter Administered Medications Inactive Administered Medications - up to 1 most recent administrations Medication Order MAR Action Action Date Dose Rate Site cefTRIAXone in dextrose (ROCEPHIN) 2 gram/50 mL IVPB 2 g 2 g, Intravenous, ONCE, 1 dose, On 12/12/24 at 0745, Administer over 30 Minutes, PICC care per protocol. D/C PICC on 01/18/25 after last abx dose given. CBC w/diff, CMP, ESR, CRP Q Week Follow up with Dr. Arias on 01/18/2025, Reason for Therapy: Infection Documented, Indication: Bacteremia, Urinary Tract Infection, Dx: 1. E coli bacteremiaIndications:E coli bacteremia IV Started 12/12/2024 7:52 AM EDT 2 g 100 mL/hr documented in this encounter Orders Medications Ordered That Miah ht Not Have Been Administered Count Last Ordered Date First Ordered Date 0.9 % NaCl infusion 1 12/12/2024 cefTRIAXone in dextrose (SOL EPHIN) 2 gram/50 mL IVPB 2 g 1 12/12/2024 documented in this encounter Care Teams Eyelet Punch Operator Relationship Specialty Start Date End Date Willard Hector MD PCP - General Family Medicine 04/28/11 documented as of this encounter
--- OUTSIDE RECORDS SUMMARY | 2024-12-13 07:23 | XMS_ITS | Encounter Summary ---
Author Organization [place] [address] Care Team Providers Care Fiberglass Boat Builder Name Role Phone Willard Hector MD Primary Care Provider [phone] Danielle Neville RN Unavailable Unavailable Reason for Visit * Oncology Medication Prior Authorization (Routine) - Authorization Not Needed Specialty Diagnoses / Procedures Referred By Contac t Referred To Contact Diagnoses E coli bacteremia Procedures [place] CEFTRIAXONE SODIUM INJECTION PER 250 MG Alcira Kauffman MD [address] [place] [address] [address] G[address] [place] [phone] Phone: tel: fax: Alcira Kauffman MD [address] [place] [address] DR G[address] [place] [phone] Phone: tel: fax: Referral ID Status Reason Start Date Expiration Date Visits Requested Visits Authorized [id number] Authorization Not Needed 12/10/2024 12/10/2025 1 99 Encounter Details Date Type Department Care Team (Latest Contact Info) Description 12/13/2024 7:23 AM EDT - 12/13/2024 11:59 PM EDT Hospital Encounter [place] [address] E coli bacteremia (Primary Dx) Discharge Disposition: Home or Self Care Social History Tobacco Use Types Packs/Day Years Used Date Smoking Tobacco: Former Cigarettes 0.5 20 0 02/06/1983 - 02/06/2003 Smokeless Tobacco: Never [facility] Utilities Answer Date Recorded In [...] Date Recorded PHQ-2 Total Score 0 12/05/2024 [facility] of Occupat ional Health - Occupational Stress [...] money to get more. Never true 12/05/2024 [facility] IP Transportation Answer D ate Recorded [...] Sign Reading Time Taken Comments Blood Pressure 116/66 12/13/2024 8:12 AM EDT Pulse 67 12/13/2024 8:12 AM EDT Temperature 36.1 C (97 F) 12/13/2024 7:31 AM EDT Respiratory Rate 16 12/13/2024 8:12 AM EDT Oxygen Saturation 96% 12/13/2024 7:31 AM EDT Inhaled Oxygen Concentration - - [...] encounter Miscellaneous Notes * Patient Instructions - Danielle Neville RN - 12/13/2024 7:30 AM EDT [facility] Discharge Instructions Thank you for entrusting the [facility] with your care. We hope you are pleased with your outpatient care and services. Because we are most concerned with your health, we suggest you carefully read the following discharge instructions: Your Discharge Instructions: MEDICATION INSTRUCTIONS: Treatment received today: cefTRIAXone in dextrose (ROCEPHIN) 2 gram/50 mL [...] infection DON'T WAIT, PLEASE CALL US FIRST [phone]. [FOR URGENT ISSUES PLEASE DO NOT LEAVE A MESSAGE, FOLLOW PROMPTS TO THE DOCTOR BUSINESS PROCESS ASSOCIATE] For Gynecology / Oncology call : [phone] Our hours of operation are Thursday - Thursday 8:00 AM - 4:30 PM. [facility] [address] [phone] [place] [address] [place], [place] [phone] No results found for any visits on 12/13/24. documented in this encounter Plan of Treatment Upcoming Encounters Date Type Department Care Team (Late st Contact Info) Description 12/29/2024 7:30 AM EDT [facility]ment [place] [address] 12/30/2024 7:30 AM EDT Appointment [place] [address] 12/31/2024 9:00 AM EDT Appointment [place] [address] 01/01/2025 9:00 AM EDT Appointment [facility] [place] [place] [address] 01/02/2025 7:30 AM EDT Appointment [facility] [place] [address] 01/03/2025 7:30 AM EDT Appointment [facility] [place] [address] 01/04/2025 7:30 AM EDT Appointment [facility] [place] [address] 01/05/2025 7:30 AM EDT Appointment [facility] [place] [address] 01/06/2025 9:00 AM EDT Appointment [facility] [place] [address] 01/07/2025 9:00 AM EDT Appointment [facility] [place] [address] 01/08/2025 9:00 AM EDT Appointment [facility] [place] [address] 01/09/2025 7:30 AM EDT Appointment [facility] [place] [address] 01/10/2025 7:30 AM EDT Appointment [facility] [place] [address] 01/11/2025 7:30 AM EDT Appointment [facility] [place] [address] 01/12/2025 7:30 AM EDT Appointment [facility] [place] [address] 01/13/2025 7:30 AM EDT Appointment [facility] [place] [address] 01/14/2025 9:00 AM EDT Appointment [facility] [place] [address] 01/15/2025 9:00 AM EDT Appointment [facility] [place] [address] 01/16/2025 7:30 AM EDT Appointment [facility] [place] [address] 01/17/2025 7:30 AM EDT Appointment [facility] [place] [address] 01/18/2025 7:30 AM EDT [facility]ointment [facility] [place] [address] 01/18/2025 3:30 PM EDT Office Visit [facility] [address] [place] [address] [place] [phone] Alcira Kauffman MD [address] [place] [phone] documented as of this encounter Visit Diagnoses Diagnosis E coli bacteremia- Primary Bacteremia documented in this encounter Administered Medications Inactive Administered Medications - up to 1 most recent administrations Medication Order MAR Action Action Date Dose Rate Site cefTRIAXone in dextrose (ROCEPHIN) 2 gram/50 mL IVPB 2 g 2 g, Intravenous, ONCE, 1 dose, On Thu12/13/24 at 0745, Administer over 30 Minutes, PICC care per protocol. D/C PICC on 01/18/25 after last abx dose given. CBC w/diff, CMP, ESR, CRP Q Week Follow up with Dr. Arias on 01/18/2025, Reason for Therapy: Infection Documented, Indication: Bacteremia, Urinary Tract Infection, Dx: 1. E coli bacteremiaIndications:E coli bacteremia IV Started 12/13/2024 7:42 AM EDT 2 g 100 mL/hr documented in this encounter Orders Medications Ordered That Miah ht Not Have Been Administered Count Last Ordered Date First Ordered Date cefTRIAXone in dextrose (SOL EPHIN) 2 gram/50 mL IVPB 2 g 1 12/13/2024 documented in this encounter Care Teams Fiberglass Boat Builder Relationship Specialty Start Date End Date Willard Hector MD PCP - General Family Medicine 04/28/11 Danielle Neville, [place] Registered Nurse Infusion Therapy 12/13/24 12/13/24 documented as of this encounter
--- OUTSIDE RECORDS SUMMARY | 2024-12-14 07:18 | XMS_ITS | Encounter Summary ---
Author Organization [facility] [place] [address] Care Team Providers Care Agricultural Produce Commission Agent Name Role Phone Willard Hector MD Primary Care Provider Reason for Visit * Oncology Medication Prior Authorization (Routine) - Authorization Not Needed Specialty Diagnoses / Procedures Referred By Contdaquan t Referred To Contact Diagnoses E coli bacteremia Procedures ME CEFTRIAXONE SODIUM INJECTION PER 250 MG Alcira Kauffman MD [address] [place] [address] [address] [place] [phone] Phone: tel: fax: Alcira Kauffman MD [address] [place] [address] DR GILLIAM [address] [place] [phone] Phone: tel: fax: Referral ID Status Reason Start Date Expiration Date Visits Requested Visits Authorized [id number] Authorization Not Needed 12/10/2024 12/10/2025 1 99 Encounter Details Date Type Department Care Team (Latest Contact Info) Description 12/14/2024 7:18 AM EDT - 12/14/2024 11:59 PM EDT Hospital [facility] [place] [address] E coli bacteremia (Primary Dx) Discharge Disposition: Home or Self Care Social History Tobacco Use Types Packs/Day Years Used Date Smoking Tobacco: Former Cigarettes 0.5 20 0 02/06/1983 - 02/06/2003 Smokeless Tobacco: Never [facility] Utilities Answer Date Recorded In [...] Date Recorded PHQ-2 Total Score 0 12/05/2024 [facility] - Occupational [...] money to get more. Never true 12/05/2024 [facility] IP Transportation Answer D ate Recorded In [...] Sign Reading Time Taken Comments Blood Pressure 120/81 12/14/2024 8:17 AM EDT Pulse 66 12/14/2024 8:17 AM EDT Temperature 36.3 C (97.3 F) 12/14/2024 7:51 AM EDT Respiratory Rate 16 12/14/2024 8:17 AM EDT Oxygen Saturation 99% 12/14/2024 7:51 AM EDT Inhaled Oxygen Concentration - - [...] encounter Miscellaneous Notes * Patient Instructions - Brunilda Adam RN - 12/14/2024 7:[address] [facility] Discharge Instructions Thank you [...] (ROCEPHIN) 2 gram/50 mL IVPB 2 g sodium chloride 0.9% syringe 10 mL Reviewed medications administered today and possible side [...] infection DON'T WAIT, PLEASE CALL US FIRST [phone]. [FOR URGENT ISSUES PLEASE DO NOT LEAVE A MESSAGE, FOLLOW PROMPTS TO THE DOCTOR TEMPERING KILN TENDER] For Gynecology / Oncology call : [phone] Our hours of operation are Thursday - Thursday 8:00 AM - 4:30 PM. [facility] [address] [address] [phone] [place], [place] [phone] No results found for any visits on 12/14/24. documented in this encounter Plan of Treatment Upcoming Encounters Date Type Department Care Team (Late st Contact Info) Description 12/29/2024 7:30 AM EDT [facility]ointment [facility] [place] [place] [address] 12/30/2024 7:30 AM EDT Appointment [facility] [place] [place] [address] 12/31/2024 9:00 AM EDT Appointment [facility] [place] [place] [address] 01/01/2025 9:00 AM EDT [facility]ointment [facility] [place] [place] [address] 01/02/2025 7:30 AM EDT Appointment [facility] [place] [place] [address] 01/03/2025 7:30 AM EDT Appointment [facility] [place] [place] [address] 01/04/2025 7:30 AM EDT Appointment [facility] [place] [place] [address] 01/05/2025 7:30 AM EDT Appointment [facility] [place] [place] [address] 01/06/2025 9:00 AM EDT Appointment [facility] [place] [place] [address] 01/07/2025 9:00 AM EDT Appointment [facility] [place] [place] [address] 01/08/2025 9:00 AM EDT Appointment [facility] [place] [place] [address] 01/09/2025 7:30 AM EDT Appointment [facility] [place] [place] [address] 01/10/2025 7:30 AM EDT Appointment [facility] [place] [place] [address] 01/11/2025 7:30 AM EDT Appointment [facility] [place] [place] [address] 01/12/2025 7:30 AM EDT Appointment [facility] [place] [address] 01/13/2025 7:30 AM EDT Appointment [facility] [place] [place] [address] 01/14/2025 9:00 AM EDT Appointment [facility] [place] [place] [address] 01/15/2025 9:00 AM EDT Appointment [facility] [place] [place] [address] 01/16/2025 7:30 AM EDT Appointment [facility] [place] [place] [address] 01/17/2025 7:30 AM EDT Appointment [facility] [place] [address] 01/18/2025 7:30 AM EDT Appointment [facility] [place] [address] 01/18/2025 3:30 PM EDT Office Visit [facility] [address] [place] [address] [place] [phone] Alcira Kauffman MD [address] [place] [phone] documented as of this encounter Visit Diagnoses Diagnosis E coli bacteremia- Primary Bacteremia documented in this encounter Administered Medications Inactive Administered Medications - up to 1 most recent administrations Medication Order MAR Action Action Date Dose Rate Site cefTRIAXone in dextrose (ROCEPHIN) 2 gram/50 mL IVPB 2 g 2 g, Intravenous, ONCE, 1 dose, On Thu12/14/24 at 0745, Administer over 30 Minutes, PICC care per protocol. D/C PICC on 01/18/25 after last abx dose given. CBC w/diff, CMP, ESR, CRP Q Week Follow up with Dr. Arias on 01/18/2025, Reason for Therapy: Infection Documented, Indication: Bacteremia, Urinary Tract Infection, Dx: 1. E coli bacteremiaIndications:E coli bacteremia IV Started 12/14/2024 7:51 AM EDT 2 g 100 mL/hr sodium chloride 0.9% syringe 10 mL 10 mL, Intravenous, PRN, Starting on Thu12/14/24 at 0736, Until Catalina 12/15/24 at 0404, Line Care, For Venous Access Device care and maintenance., Dx: 1. E coli bacteremiaIndications:E coli bacteremia Given 12/14/2024 8:17 AM EDT 20 mL documented in this encounter Care Teams Agricultural Produce Commission Agent Relationship Specialty Start Date End Date Willard Hector MD PCP - General Family Medicine 04/28/11 documented as of this encounter
--- OUTSIDE RECORDS SUMMARY | 2024-12-15 07:19 | XMS_ITS | Encounter Summary ---
Author Organization [place] [address] Care Team Providers Care Diesel Technician Name Role Phone Willard Hector MD Primary Care Provider [phone] Reason for Visit * Oncology Medication Prior Authorization (Routine) - Authorization Not Needed Specialty Diagnoses / Procedures Referred By Contdaquan t Referred To Contact Diagnoses E coli bacteremia Procedures DC CEFTRIAXONE SODIUM INJECTION PER 250 MG Alcira Kauffman MD [address] [place] [address] DR GILLIAM [address] [place] [phone] Phone: tel: fax: Alcira Kauffman MD [address] [place] [address] DR GILLIAM [address] [place] [phone] Phone: tel: fax: Referral ID Status Reason Start Date Expiration Date Visits Requested Visits Authorized [id number] Authorization Not Needed 12/10/2024 12/10/2025 1 99 Encounter Details Date Type Department Care Team (Latest Contact Info) Description 12/15/2024 7:19 AM EDT - 12/15/2024 11:59 PM EDT Hospital Encounter [place] [address] E coli bacteremia (Primary Dx) Discharge Disposition: Home or Self Care Social History Tobacco Use Types Packs/Day Years Used Date Smoking Tobacco: Former Cigarettes 0.5 20 0 02/06/1983 - 02/06/2003 Smokeless Tobacco: Never [facility] Utilities Answer Date Recorded In the past [...] money to get more. Never true 12/05/2024 [facility] H[facility]N [facility] IP Transportation Answer D ate Recorded In [...] Sign Reading Time Taken Comments Blood Pressure 128/80 12/15/2024 8:22 AM EDT Pulse 61 12/15/2024 8:22 AM EDT Temperature 36.3 C (97.3 F) 12/15/2024 7:39 AM EDT Respiratory Rate 16 12/15/2024 8:22 AM EDT Oxygen Saturation 96% 12/15/2024 7:39 AM EDT Inhaled Oxygen Concentration - - [...] Patient Instructions - Brunilda Adam RN - 12/15/2024 7:[address] [facility] Discharge Instructions Thank you for entrusting [...] infection DON'T WAIT, PLEASE CALL US FIRST [phone]. [FOR URGENT ISSUES PLEASE DO NOT LEAVE A MESSAGE, FOLLOW PROMPTS TO THE DOCTOR LAND RECLAMATION SPECIALIST] For Gynecology / Oncology call : [phone] Our hours of operation are Thursday - Thursday 8:00 AM - 4:30 PM. [facility] [address] [address] [phone] [place], [place] [phone] No results found for any visits on 12/15/24. documented in this encounter Plan of Treatment Upcoming Encounters Date Type Department Care Team (Late st Contact Info) Description 12/29/2024 7:30 AM EDT Appointment [place] [address] 12/30/2024 7:30 AM EDT Appointment [place] [address] 12/31/2024 9:00 AM EDT Appointment [place] [address] 01/01/2025 9:00 AM EDT Appointment [facility] [place] [address] 01/02/2025 7:30 AM EDT Appointment [facility] [place] [place] [address] 01/03/2025 7:30 AM EDT Appointment [facility] [place] [place] [address] 01/04/2025 7:30 AM EDT Appointment [facility] [place] [place] [address] 01/05/2025 7:30 AM EDT Appointment [facility] [place] [place] [address] 01/06/2025 9:00 AM EDT Appointment [facility] [place] [place] [address] 01/07/2025 9:00 AM EDT Appointment [facility] [place] [address] 01/08/2025 9:00 AM EDT Appointment [facility] [place] [address] 01/09/2025 7:30 AM EDT Appointment [facility] [place] [place] [address] 01/10/2025 7:30 AM EDT Appointment [facility] [place] [place] [address] 01/11/2025 7:30 AM EDT Appointment [facility] [place] [address] 01/12/2025 7:30 AM EDT Appointment [facility] [place] [place] [address] 01/13/2025 7:30 AM EDT Appointment [facility] [place] [address] 01/14/2025 9:00 AM EDT Appointment [facility] [place] [place] [address] 01/15/2025 9:00 AM EDT Appointment [facility] [place] [place] [address] 01/16/2025 7:30 AM EDT Appointment [facility] [place] [place] [address] 01/17/2025 7:30 AM EDT Appointment [facility] [place] [place] [address] 01/18/2025 7:30 AM EDT Appointment [facility] [place] [place] [address] 01/18/2025 3:30 PM EDT Office Visit [facility] Infectious Disease [facility] [address] [place] [address] [place] [phone] Alcira Kauffman MD [address] [place] [phone] documented as of this encounter Visit Diagnoses Diagnosis E coli bacteremia- Primary Bacteremia documented in this encounter Administered Medications Inactive Administered Medications - up to 1 most recent administrations Medication Order MAR Action Action Date Dose Rate Site cefTRIAXone in dextrose (ROCEPHIN) 2 gram/50 mL IVPB 2 g 2 g, Intravenous, ONCE, 1 dose, On [place] 12/15/24 at 0745, Administer over 30 Minutes, PICC care per protocol. D/C PICC on 01/18/25 after last abx dose given. CBC w/diff, CMP, ESR, CRP Q Week Follow up with Dr. Arias on 01/18/2025, Reason for Therapy: Infection Documented, Indication: Bacteremia, Urinary Tract Infection, Dx: 1. E coli bacteremiaIndications:E coli bacteremia IV Started 12/15/2024 7:58 AM EDT 2 g 100 mL/hr sodium chloride 0.9% syringe 10 mL 10 mL, Intravenous, PRN, Starting on Catalina 12/15/24 at 0738, Until Thu12/16/24 at 0409, Line Care, For Venous Access Device care and maintenance., Dx: 1. E coli bacteremiaIndications:E coli bacteremia Given 12/15/2024 8:22 AM EDT 20 mL documented in this encounter Care Teams Diesel Technician Relationship Specialty Start Date End Date Willard Hector MD PCP - General Family Medicine 04/28/11 documented as of this encounter
--- OUTSIDE RECORDS SUMMARY | 2024-12-16 07:21 | XMS_ITS | Encounter Summary ---
Author Organization [place] [address] Care Team Providers Care Lunch Counter Manager Name Role Phone Willard Hector MD Primary Care Provider Reason for Visit * Oncology Medication Prior Authorization (Routine) - Authorization Not Needed Specialty Diagnoses / Procedures Referred By Contdaquan t Referred To Contact Diagnoses E coli bacteremia Procedures [place] CEFTRIAXONE SODIUM INJECTION PER 250 MG Alcira Kauffman MD [address] [place] [address] [address] GILLIAM [address] [place] [phone] Phone: tel: fax: Alcira Kauffman MD [address] [place] [address] DR GILLIAM [address] [place] [phone] Phone: tel: fax: Referral ID Status Reason Start Date Expiration Date Visits Requested Visits Authorized [id number] Authorization Not Needed 12/10/2024 12/10/2025 1 99 Encounter Details Date Type Department Care Team (Latest Contact Info) Description 12/16/2024 7:21 AM EDT - 12/16/2024 11:59 PM EDT Hospital Encounter [place] [address] E coli bacteremia (Primary Dx) Discharge Disposition: Home or Self Care Social History Tobacco Use Types Packs/Day Years Used Date Smoking Tobacco: Former Cigarettes 0.5 20 0 02/06/1983 - 02/06/2003 Smokeless Tobacco: Never [facility] Utilities Answer Date Recorded In the past [...] money to get more. Never true 12/05/2024 [facility] HRSN [facility] IP Transportation Answer D ate Recorded In [...] Sign Reading Time Taken Comments Blood Pressure 117/73 12/16/2024 8:37 AM EDT Pulse 65 12/16/2024 8:37 AM EDT Temperature 36.7 C (98.1 F) 12/16/2024 7:47 AM EDT Respiratory Rate 16 12/16/2024 8:37 AM EDT Oxygen Saturation - - Inhaled Oxygen Concentration - - Weight - [...] encounter Miscellaneous Notes * Patient Instructions - Hayley Martinez RN - 12/16/2024 7:30 AM EDT [facility] Discharge Instructions Thank you for entrusting the [facility] with your care. We hope you are pleased with your outpatient care and services. Because we are most concerned with your health, we suggest you carefully read the following discharge instructions: Your Discharge Instructions: MEDICATION INSTRUCTIONS: Treatment received today: Emmanuelle Reviewed medications administered today and possible side effects Dizziness and sleepiness are possible side effects of pain medication. When taking pain medications, do not drink alcohol or drive. ACTIVITY INSTRUCTIONS: Rest today, increase activity as tolerated. DIET INSTRUCTIONS: diet as tolerated FOLLOW-UP CARE: Call your doctor for a [...] is unavailable, go to the Emergency Room. Additional Instructions: Our hours of operation are Thursday - Thursday 8:00 AM - 4:30 PM. [facility] [place] [address] Entrance #[phone] [place] [address] [address] [phone] [place] [phone] documented in this encounter Plan of Treatment Upcoming Encounters Date Type Department Care Team (Late st Contact Info) Description 12/29/2024 7:30 AM EDT App[place] [address] 12/30/2024 7:30 AM EDT [place] [address] 12/31/2024 9:00 AM EDT Appointment [place] [address] 01/01/2025 9:00 AM EDT Appoint[place] [address] 01/02/2025 7:30 AM EDT Appoint[place] [address] 01/03/2025 7:30 AM EDT Appoint[place] [address] 01/04/2025 7:30 AM EDT [facility]ointment [facility] [address] 01/05/2025 7:30 AM EDT Appointment [facility] [address] 01/06/2025 9:00 AM EDT Appointment [facility] [address] 01/07/2025 9:00 AM EDT Appointment [facility] [address] 01/08/2025 9:00 AM EDT Appointment [facility] [address] 01/09/2025 7:30 AM EDT Appointment [facility] [address] 01/10/2025 7:30 AM EDT Appointment [place] [address] 01/11/2025 7:30 AM EDT Appointment [place] [address] 01/12/2025 7:30 AM EDT Appointment [place] [address] 01/13/2025 7:30 AM EDT Appointment [place] [address] 01/14/2025 9:00 AM EDT Appointment [place] [address] 01/15/2025 9:00 AM EDT Appointment [place] [address] 01/16/2025 7:30 AM EDT Appointment [place] [address] 01/17/2025 7:30 AM EDT Appointment [place] [address] 01/18/2025 7:30 AM EDT [facility]ment [place] [address] 01/18/2025 3:30 PM EDT Office Visit [facility] Infectious Disease [facility] [address] [place] [address] Alcira Kauffman MD [address] [place] [phone] documented as of this encounter Procedures Procedure Name Priority Date/Time Associated Diagnosis Comments SEDIMENTATION RATE AUTOMATED STAT 12/16/2024 7:56 AM EDT E coli bacteremia CBC WITH DIFF STAT 12/16/2024 7:56 AM EDT E coli bacteremia C-REACTIVE PROTEIN STAT 12/16/2024 7: 56 AM EDT E coli bacteremia COMPREHENSIVE METABOLIC PANEL STAT 12/16/2024 7:56 AM EDT E coli bacteremia documented in this encounter Results * C-REACTIVE PROTEIN (12/16/2024 7:56 AM EDT) Pathologist [facility] [place] CRP <3.00 <=5.00 mg/L 12/16/2024 8:37 AM EDT [facility] Blood VENOUS STRUCTURE / Unknown Collection / Unknown 12/16/2024 7:56 AM EDT 12/16/2024 8:01 AM EDT us Alcira Kauffman MD CHEMISTRY ORDERABLES Fin al Result [facility] [address] [facility] , [place] [address] * (ABNORMAL) SEDIMENTATION RATE AUTOMATED (12/16/2024 7:56 AM EDT) Pathologist [facility] [place] Sed Rate 42(H) 0 - 30 mm/hr 12/16/2024 8:32 AM EDT [facility] Blood VENOUS STRUCTURE / Unknown Collection / Unknown 12/16/2024 7:56 AM EDT 12/16/2024 8:01 AM EDT us Alcira Kauffman MD HEMATOLOGY ORDERABLES Fi nal Result [facility] [address] [facility] , [place] [address] * (ABNORMAL) COMPREHENSIVE METABOLIC PANEL (12/16/2024 7:56 AM EDT) Sodium 140 136 - 145 mmol/L 12/16/2024 8:18 AM EDT [facility] Potassium 4.1 3.5 - 5.0 mmol/L 12/16/2024 8:18 AM EDT [facility] Chloride 103 98 - 107 mmol/L 12/16/2024 8:18 AM EDT [facility] Total CO2 26 22 - 29 mmol/L 12/16/2024 8:18 AM EDT [facility] Anion Gap 11 7 - 16 mmol/L 12/16/2024 8:18 AM EDT [facility] Calcium 9.1 8.6 - 10.4 mg/dL 12/16/2024 8:18 AM EDT [facility] Glucose Lvl 95 70 - 99 mg/dL 12/16/2024 8:18 AM EDT [facility] BUN 10 6 - 20 mg/dL 12/16/2024 8:18 AM EDT [facility] Creatinine 0.64 0.51 - 1.30 mg/dL 12/16/2024 8:18 AM EDT [facility] Albumin 4.0 3.5 - 5.2 gm/dL 12/16/2024 8:18 AM EDT [facility] Total Protein 6.9 6.4 - 8.3 gm/dL 12/16/2024 8:18 AM EDT [facility] Bili Total 0.5 0.2 - 1.3 mg/dL 12/16/2024 8:18 AM EDT [facility] ALT 136(H) <=41 U/L 12/16/2024 8:18 AM EDT [facility] AST 56(H) <=40 U/L 12/16/2024 8:18 AM EDT [facility] Alk Phos 125(H) 36 - 123 U/L 12/16/2024 8:18 AM EDT [facility] eGFR (CKD-EPIcr 2020) 103 >=60 mL/min/1.7 3 m2 12/16/2024 8:18 AM EDT [facility] Comment:Estimated GFR was ca lculated using the CKD-EPIcr (2020) equation refit without race. The equation is recommended by the National Kidney Foundation - [place] [employer] Neph[employer] Task Force. Blood VENOUS STRUCTURE / Unknown Collection / Unknown 12/16/2024 7:56 AM EDT 12/16/2024 8:01 AM EDT us Alcira Kauffman MD CHEMISTRY ORDERABLES Fin al Result [place] [id number] * (ABNORMAL) CBC WITH DIFF (12/16/2024 7:56 AM EDT) WBC 4.9 3.7 - 10.3 x10(3)/mcL 12/16/2024 8:04 AM EDT [facility] RBC 4.17 3.90 - 5.20 x10(6)/mcL 12/16/2024 8:04 AM EDT [facility] Hgb 12.8 11.2 - 15.7 g/dL 12/16/2024 8:04 AM EDT [facility] Hct 39.7 34.0 - 45.0 % 12/16/2024 8:04 AM EDT [facility] MCV 95.2 80.0 - 100.0 fL 12/16/2024 8:04 AM EDT [facility] MCH 30.7 26.0 - 34.0 pg 12/16/2024 8:04 AM EDT [facility] MCHC 32.2 30.7 - 35.5 g/dL 12/16/2024 8:04 AM EDT [facility] RDW 14.3 <=14.9 % 12/16/2024 8:04 AM EDT [facility] Platelet 425(H) 155 - 369 x10(3)/[facility] 12/16/2024 8:04 AM EDT [facility] MPV 9.8 8.8 - 12.5 fL 12/16/2024 8:04 AM EDT [facility] Neut # Prelim 2.6 1.6 - 6.1 x10(3)/[facility] 12/16/2024 8:04 AM EDT [facility] Comment:Preliminary automate d absolute neutrophil count. Value may change if manual differential is indicated. Neut Percent 52.8 % 12/16/2024 8:04 AM EDT [facility] Comment:Neutrophils equals s egs plus bands Imm Gran% 0.8 % 12/16/2024 8:04 AM EDT [facility] Comment:Automated count of m etamyelocytes, myelocytes and promyelocytes. Lymph Percent 32.2 % 12/16/2024 8:04 AM EDT [facility] Hancock Percent 10.7 % 12/16/2024 8:04 AM EDT [facility] Eos Percent 2.3 % 12/16/2024 8:04 AM EDT [facility] Baso Percent 1.2 % 12/16/2024 8:04 AM EDT [facility] Neut # 2.6 1.6 - 6.1 x10(3)/[facility] 12/16/2024 8:04 AM EDT [facility] Comment:Neutrophils equals s egs plus bands IMMGRAN# 0.0 0.0 - 0.1 x10(3)/[facility] 12/16/2024 8:04 AM EDT [facility] Comment:Automated count of m etamyelocytes, myelocytes and promyelocytes. An absolute IG <0.1 is reported as 0.0. Lymph # 1.6 1.2 - 3.9 x10(3)/[facility] 12/16/2024 8:04 AM EDT [facility] Hancock # 0.5 0.3 - 0.9 x10(3)/[facility] 12/16/2024 8:04 AM EDT [facility] Eos# 0.1 0.0 - 0.5 x10(3)/[facility] 12/16/2024 8:04 AM EDT [facility] Baso # 0.1 0.0 - 0.1 x10(3)/[facility] 12/16/2024 8:04 AM EDT [facility] Blood VENOUS STRUCTURE / Unknown Collection / Unknown 12/16/2024 7:56 AM EDT 12/16/2024 8:01 AM EDT us Alcira Kauffman MD HEMATOLOGY ORDERABLES Fi nal Result [facility] [address] [place] [address] documented in this encounter Visit Diagnoses Diagnosis E coli bacteremia- Primary Bacteremia documented in this encounter Administered Medications Inactive Administered Medications - up to 1 most recent administrations Medication Order MAR Action Action Date Dose Rate Site 0.9 % NaCl infusion Intravenous, at 30 mL/hr, CONTINUOUS, Starting on Thu12/16/24 at 0800, Until Thu12/16/24 at 0959, For captain/airline pilot, Dx: 1. E coli bacteremiaIndications:E coli bacteremia New Bag 12/16/2024 7:58 AM EDT 30 mL/hr cefTRIAXone in dextrose (ROCEPHIN) 2 gram/50 mL IVPB 2 g 2 g, Intravenous, ONCE, 1 dose, On Thu12/16/24 at 0800, Administer over 30 Minutes, PICC care per protocol. D/C PICC on 01/18/25 after last abx dose given. CBC w/diff, CMP, ESR, CRP Q Week Follow up with Dr. Arias on 01/18/2025, Reason for Therapy: Infection Documented, Indication: Bacteremia, Urinary Tract Infection, Dx: 1. E coli bacteremiaIndications:E coli bacteremia IV Started 12/16/2024 8:05 AM EDT 2 g 100 mL/hr sodium chloride 0.9% syringe 10 mL 10 mL, Intravenous, PRN, Starting on Thu12/16/24 at 0757, Until Thu12/17/24 at 0408, Line Care, For Venous Access Device care and maintenance., Dx: 1. E coli bacteremiaIndications:E coli bacteremia Given 12/16/2024 7:57 AM EDT 10 mL documented in this encounter Care Teams Lunch Counter Manager Relationship Specialty Start Date End Date Willard Hector MD PCP - General Family Medicine 04/28/11 documented as of this encounter
--- OUTSIDE RECORDS SUMMARY | 2024-12-17 08:52 | XMS_ITS | Encounter Summary ---
Author Organization [facility] [place] [address] Care Team Providers Care Communications Associate Name Role Phone Willard Hector MD Primary Care Provider [phone] Reason for Visit * Oncology Medication Prior Authorization (Routine) - Authorization Not Needed Specialty Diagnoses / Procedures Referred By Contdaquan t Referred To Contact Diagnoses E coli bacteremia Procedures [place] CEFTRIAXONE SODIUM INJECTION PER 250 MG Alcira Kauffman MD [address] [place] [address] DR GILLIAM [address] [place] [phone] Phone: tel: fax: Alcira Kauffman MD [address] [place] [address] DR GILLIAM [address] [place] [phone] Phone: tel: fax: Referral ID Status Reason Start Date Expiration Date Visits Requested Visits Authorized [id number] Authorization Not Needed 12/10/2024 12/10/2025 1 99 Encounter Details Date Type Department Care Team (Latest Contact Info) Description 12/17/2024 8:52 AM EDT - 12/17/2024 11:59 PM EDT [facility] [address] E coli bacteremia (Primary Dx) Discharge Disposition: Home or Self Care Social History Tobacco Use Types Packs/Day Years Used Date Smoking Tobacco: Former Cigarettes 0.5 20 0 02/06/1983 - 02/06/2003 Smokeless Tobacco: Never [facility] Utilities Answer Date Recorded In [...] Date Recorded PHQ-2 Total Score 0 12/05/2024 [facility] - Occupational [...] money to get more. Never true 12/05/2024 [facility] IP Transportation Answer D ate Recorded [...] Sign Reading Time Taken Comments Blood Pressure 121/80 12/17/2024 9:40 AM EDT Pulse 74 12/17/2024 9:40 AM EDT Temperature 36.6 C (97.8 F) 12/17/2024 9:40 AM EDT Respiratory Rate 16 12/17/2024 9:40 AM EDT Oxygen Saturation 96% 12/17/2024 9:40 AM EDT Inhaled Oxygen Concentration - - [...] encounter Miscellaneous Notes * Patient Instructions - Bebeto Padron RN - 12/17/2024 9:00 AM EDT [facility] Discharge Instructions Thank you for entrusting the [facility] with your care. We hope you are pleased with your outpatient care and services. Because we are most concerned with your health, we suggest you carefully read the following discharge instructions: Your Discharge Instructions: MEDICATION INSTRUCTIONS: Treatment received today: Orders Placed This Encounter cefTRIAXone in dextrose (ROCEPHIN) 2 gram/50 mL IVPB 2 g sodium chloride 0.9% syringe 10 mL 0.9 % NaCl infusion Reviewed medications administered [...] infection DON'T WAIT, PLEASE CALL US FIRST [phone]. [FOR URGENT ISSUES PLEASE DO NOT LEAVE A MESSAGE, FOLLOW PROMPTS TO THE DOCTOR NEEDLE LOOM OPERATOR HELPER] For Gynecology / Oncology call : [phone] Our hours of operation are Thursday - Thursday 8:00 AM - 4:30 PM. [facility] [address] [address] [phone] [place] [address] No results found for any visits on 12/17/24. documented in this encounter Plan of Treatment Upcoming Encounters Date Type Department Care Team (Late st Contact Info) Description 12/29/2024 7:30 AM EDT [facility]ointment [facility] [place] [address] 12/30/2024 7:30 AM EDT Appointment [facility] [place] [place] [address] 12/31/2024 9:00 AM EDT Appointment [facility] [place] [place] [address] 01/01/2025 9:00 AM EDT [facility]ointment [facility] [place] [address] 01/02/2025 7:30 AM EDT Appointment [facility] [place] [place] [address] 01/03/2025 7:30 AM EDT Appointment [facility] [place] [place] [address] 01/04/2025 7:30 AM EDT Appointment [facility] [place] [place] [address] 01/05/2025 7:30 AM EDT Appointment [facility] [place] [place] [address] 01/06/2025 9:00 AM EDT Appointment [facility] [place] [place] [address] 01/07/2025 9:00 AM EDT Appointment [facility] [place] [place] [address] 01/08/2025 9:00 AM EDT Appointment [facility] [place] [place] [address] 01/09/2025 7:30 AM EDT Appointment [facility] [place] [place] [address] 01/10/2025 7:30 AM EDT Appointment [facility] [place] [place] [address] 01/11/2025 7:30 AM EDT Appointment [facility] [place] [place] [address] 01/12/2025 7:30 AM EDT Appointment [facility] [place] [place] [address] 01/13/2025 7:30 AM EDT Appointment [facility] [place] [place] [address] 01/14/2025 9:00 AM EDT Appointment [facility] [place] [place] [address] 01/15/2025 9:00 AM EDT Appointment [facility] [place] [place] [address] 01/16/2025 7:30 AM EDT Appointment [facility] [place] [place] [address] 01/17/2025 7:30 AM EDT Appointment [facility] [place] [place] [address] 01/18/2025 7:30 AM EDT Appointment [facility] [place] [place] [address] 01/18/2025 3:30 PM EDT Office Visit [facility] [address] [place] [address] [place] [phone] Alcira Kauffman MD [address] [place] [phone] documented as of this encounter Visit Diagnoses Diagnosis E coli bacteremia- Primary Bacteremia documented in this encounter Administered Medications Inactive Administered Medications - up to 1 most recent administrations Medication Order MAR Action Action Date Dose Rate Site cefTRIAXone in dextrose (ROCEPHIN) 2 gram/50 mL IVPB 2 g 2 g, Intravenous, ONCE, 1 dose, On 12/17/24 at 0900, Administer over 30 Minutes, PICC care per protocol. D/C PICC on 01/18/25 after last abx dose given. CBC w/diff, CMP, ESR, CRP Q Week Follow up with Dr. Arias on 01/18/2025, Reason for Therapy: Infection Documented, Indication: Bacteremia, Urinary Tract Infection, Dx: 1. E coli bacteremiaIndications:E coli bacteremia IV Started 12/17/2024 9:00 AM EDT 2 g 100 mL/hr sodium chloride 0.9% syringe 10 mL 10 mL, Intravenous, PRN, Starting on 12/17/24 at 0853, Until 12/18/24 at 0006, Line Care, For Venous Access Device care and maintenance., Dx: 1. E coli bacteremiaIndications:E coli bacteremia Given 12/17/2024 9:40 AM EDT 10 mL documented in this encounter Orders Medications Ordered That Miah ht Not Have Been Administered Count Last Ordered Date First Ordered Date 0.9 % NaCl infusion 1 12/17/2024 documented in this encounter Care Teams Communications Associate Relationship Specialty Start Date End Date Willard Hector MD PCP - General Family Medicine 04/28/11 documented as of this encounter
--- OUTSIDE RECORDS SUMMARY | 2024-12-18 08:39 | XMS_ITS | Encounter Summary ---
Author Organization [place] [address] Care Team Providers Care Hydrometer Tester Name Role Phone Willard Hector MD Primary Care Provider [phone] Reason for Visit * Oncology Medication Prior Authorization (Routine) - Authorization Not Needed Specialty Diagnoses / Procedures Referred By Contdaquan t Referred To Contact Diagnoses E coli bacteremia Procedures [place] CEFTRIAXONE SODIUM INJECTION PER 250 MG Alcira Kauffman MD [address] [place] [address] DR GILLIAM [address] [place] [phone] Phone: tel: fax: Alcira Kauffman MD [address] [place] [address] DR GILLIAM [address] [place] [phone] Phone: tel: fax: Referral ID Status Reason Start Date Expiration Date Visits Requested Visits Authorized [id number] Authorization Not Needed 12/10/2024 12/10/2025 1 99 Encounter Details Date Type Department Care Team (Latest Contact Info) Description 12/18/2024 8:39 AM EDT - 12/18/2024 11:59 PM EDT Hospital En[place] [address] E coli bacteremia (Primary Dx) Discharge Disposition: Home or Self Care Social History Tobacco Use Types Packs/Day Years Used Date Smoking Tobacco: Former Cigarettes 0.5 20 0 02/06/1983 - 02/06/2003 Smokeless Tobacco: Never [facility] Utilities Answer Date Recorded In the [...] Date Recorded PHQ-2 Total Score 0 12/05/2024 [facility] - Occupational Stress [...] money to get more. Never true 12/05/2024 [facility] IP Transportation Answer D ate Recorded In [...] Sign Reading Time Taken Comments Blood Pressure 120/74 12/18/2024 9:16 AM EDT Pulse 78 12/18/2024 8:43 AM EDT Temperature 36.3 C (97.4 F) 12/18/2024 9:16 AM EDT Respiratory Rate 16 12/18/2024 8:43 AM EDT Oxygen Saturation 95% 12/18/2024 8:43 AM EDT Inhaled Oxygen Concentration - - [...] mouth daily as needed for Constipation. 12/10/2024 zolpidem (AMBIEN) 10 mg Oral Tablet Take 10 mg by mouth nightly as needed for Sleep. documented as of this encounter Discharge Disposition Disposition Code Departure Means Destination Home or Self Care documented in this encounter Miscellaneous Notes * Patient Instructions - Kael Elder RN - 12/18/2024 9:00 AM EDT [facility] Discharge Instructions [facility]. We hope you are pleased with your outpatient care and services. Because we are most concerned with your health, we suggest you carefully read the following discharge instructions: Your Discharge Instructions: MEDICATION INSTRUCTIONS: Treatment received today: Orders Placed This Encounter CBC WITH DIFF Comprehensive Metabolic Panel Sedimentation Rate Automated C-Reactive Protein cefTRIAXone in dextrose (ROCEPHIN) 2 gram/50 mL [...] infection DON'T WAIT, PLEASE CALL US FIRST [phone]. [FOR URGENT ISSUES PLEASE DO NOT LEAVE A MESSAGE, FOLLOW PROMPTS TO THE DOCTOR MANAGER VALUATION] For Gynecology / Oncology call : [phone] Our hours of operation are Thursday - Thursday 8:00 AM - 4:30 PM. [facility] [address] [address] [phone] [place] [phone] No results found for any visits on 12/18/24. documented in this encounter Plan of Treatment Upcoming Encounters Date Type Department Care Team (Late st Contact Info) Description 12/29/2024 7:30 AM EDT Appointment [place] [address] 12/30/2024 7:30 AM EDT [facility] [place] [id number] 12/31/2024 9:00 AM EDT [facility]ointment [facility] [place] [address] 01/01/2025 9:00 AM EDT Appointment [facility] [place] [address] 01/02/2025 7:30 AM EDT Appointment [facility] [place] [address] 01/03/2025 7:30 AM EDT Appointment [facility] [place] [address] 01/04/2025 7:30 AM EDT Appointment [facility] [place] [address] 01/05/2025 7:30 AM EDT Appointment [facility] [place] [address] 01/06/2025 9:00 AM EDT Appointment [facility] [place] [address] 01/07/2025 9:00 AM EDT Appointment [facility] [place] [address] 01/08/2025 9:00 AM EDT Appointment [facility] [place] [address] 01/09/2025 7:30 AM EDT Appointment [facility] [place] [address] 01/10/2025 7:30 AM EDT Appointment [facility] [place] [address] 01/11/2025 7:30 AM EDT Appointment [facility] [place] [address] 01/12/2025 7:30 AM EDT Appointment [facility] [place] [address] 01/13/2025 7:30 AM EDT Appointment [facility] [place] [address] 01/14/2025 9:00 AM EDT Appointment [facility] [place] [address] 01/15/2025 9:00 AM EDT Appointment [facility] [place] [address] 01/16/2025 7:30 AM EDT Appointment [facility] [place] [address] 01/17/2025 7:30 AM EDT Appointment [facility] [place] [address] 01/18/2025 7:30 AM EDT Appointment [facility] [address] 01/18/2025 3:30 PM EDT Office Visit [facility] [address] [place] [address] [address] [place] [phone] Alcira Kauffman MD [address] [place] [address] DR MANE [address] [place] [phone] documented as of this encounter Visit Diagnoses Diagnosis E coli bacteremia- Primary Bacteremia documented in this encounter Administered Medications Inactive Administered Medications - up to 1 most recent administrations Medication Order MAR Action Action Date Dose Rate Site cefTRIAXone in dextrose (ROCEPHIN) 2 gram/50 mL IVPB 2 g 2 g, Intravenous, ONCE, 1 dose, On 12/18/24 at 0845, Administer over 30 Minutes, PICC care per protocol. D/C PICC on 01/18/25 after last abx dose given. CBC w/diff, CMP, ESR, CRP Q Week Follow up with Dr. Arias on 01/18/2025, Reason for Therapy: Infection Documented, Indication: Bacteremia, Urinary Tract Infection, Dx: 1. E coli bacteremiaIndications:E coli bacteremia IV Started 12/18/2024 8:49 AM EDT 2 g 100 mL/hr documented in this encounter Historical Medications * This list may reflect changes made after this encounter. zolpidem (AMBIEN) 10 mg Oral Tablet Take 10 mg by mouth nightly as needed for Sleep. added in this encounter Orders Medications Ordered That Miah ht Not Have Been Administered Count Last Ordered Date First Ordered Date 0.9 % NaCl infusion 1 12/18/2024 cefTRIAXone in dextrose (SOL EPHIN) 2 gram/50 mL IVPB 2 g 1 12/18/2024 documented in this encounter Care Teams Hydrometer Tester Relationship Specialty Start Date End Date Willard Hector MD PCP - General Family Medicine 04/28/11 documented as of this encounter
--- OUTSIDE RECORDS SUMMARY | 2024-12-19 07:13 | XMS_ITS | Encounter Summary ---
Author Organization [place] [address] Care Team Providers Care Grief Counsellor Name Role Phone Willard Hector MD Primary Care Provider [phone] Alecia Fernandez RN Unavailable Unavaila ble Reason for Visit * Oncology Medication Prior Authorization (Routine) - Authorization Not Needed Specialty Diagnoses / Procedures Referred By Contac t Referred To Contact Diagnoses E coli bacteremia Procedures [place] CEFTRIAXONE SODIUM INJECTION PER 250 MG Alcira Kauffman MD [address] [place] [address] [address] GILLIAM [address] [place] [phone] Phone: tel: fax: Alcira Kauffman MD [address] [place] [address] DR GILLIAM [address] [place] [phone] Phone: tel: fax: Referral ID Status Reason Start Date Expiration Date Visits Requested Visits Authorized [id number] Authorization Not Needed 12/10/2024 12/10/2025 1 99 Encounter Details Date Type Department Care Team (Latest Contact Info) Description 12/19/2024 7:13 AM EDT - 12/19/2024 11:59 PM EDT Hospital Encounter [facility] [place] [id number] E coli bacteremia (Primary Dx) Discharge Disposition: Home or Self Care Social History Tobacco Use Types Packs/Day Years Used Date Smoking Tobacco: Former Cigarettes 0.5 20 0 02/06/1983 - 02/06/2003 Smokeless Tobacco: Never [facility] Utilities Answer Date Recorded In [...] Date Recorded PHQ-2 Total Score 0 12/05/2024 [facility] - Occupational [...] money to get more. Never true 12/05/2024 [facility] IP Transportation Answer D ate Recorded In [...] Sign Reading Time Taken Comments Blood Pressure 135/79 12/19/2024 8:15 AM EDT Pulse 79 12/19/2024 8:15 AM EDT Temperature 36.6 C (97.9 F) 12/19/2024 7:30 AM EDT Respiratory Rate 16 12/19/2024 8:15 AM EDT Oxygen Saturation 96% 12/19/2024 7:30 AM EDT Inhaled Oxygen Concentration - - Weight 110.1 kg (242 lb 12.8 oz) 12/19/2024 7:30 AM EDT Height - - Body Mass Index 41.68 12/05/2024 2:09 AM EDT documented in this encounter Medications at Time [...] encounter Miscellaneous Notes * Patient Instructions - Alecia Fernandez RN - 12/19/2024 7:30 AM EDT [facility] Discharge Instructions Thank you for entrusting the [facility] with your care. We hope you are [...] infection DON'T WAIT, PLEASE CALL US FIRST [phone]. [FOR URGENT ISSUES PLEASE DO NOT LEAVE A MESSAGE, FOLLOW PROMPTS TO THE DOCTOR FOREST NURSERY WORKER] For Gynecology / Oncology call : [phone] Our hours of operation are Thursday - Thursday 8:00 AM - 4:30 PM. [facility] [address] [phone] [address] No results found for any visits on 12/19/24. documented in this encounter Plan of Treatment Upcoming Encounters Date Type Department Care Team (Late st Contact Info) Description 12/29/2024 7:30 AM EDT Appointment [place] [address] 12/30/2024 7:30 AM EDT [place]ointment [place] [address] 12/31/2024 9:00 AM EDT [facility]ointment [facility] [address] 01/01/2025 9:00 AM EDT Appointment [facility] [address] 01/02/2025 7:30 AM EDT Appointment [facility] [place] [address] 01/03/2025 7:30 AM EDT Appointment [facility] [place] [address] 01/04/2025 7:30 AM EDT Appointment [facility] [place] [address] 01/05/2025 7:30 AM EDT Appointment [facility] [address] 01/06/2025 9:00 AM EDT Appointment [facility] [address] 01/07/2025 9:00 AM EDT Appointment [facility] [address] 01/08/2025 9:00 AM EDT Appointment [facility] [address] 01/09/2025 7:30 AM EDT Appointment [place] [address] 01/10/2025 7:30 AM EDT Appointment [facility] [place] [address] 01/11/2025 7:30 AM EDT Appointment [facility] [address] 01/12/2025 7:30 AM EDT Appointment [facility] [address] 01/13/2025 7:30 AM EDT Appointment [facility] [address] 01/14/2025 9:00 AM EDT Appointment [facility] [address] 01/15/2025 9:00 AM EDT Appointment [facility] [address] 01/16/2025 7:30 AM EDT Appointment [place] [address] 01/17/2025 7:30 AM EDT Appointment [place] [address] 01/18/2025 7:30 AM EDT [facility]ointment [facility] [place] [address] 01/18/2025 3:30 PM EDT Office Visit [facility] [address] [place] [address] [place] [phone] Alcira Kauffman MD [address] [place] [address] [address] MANE [address] [place] [phone] documented as of this encounter Visit Diagnoses Diagnosis E coli bacteremia- Primary Bacteremia documented in this encounter Administered Medications Inactive Administered Medications - up to 1 most recent administrations Medication Order MAR Action Action Date Dose Rate Site cefTRIAXone in dextrose (ROCEPHIN) 2 gram/50 mL IVPB 2 g 2 g, Intravenous, ONCE, 1 dose, On 12/19/24 at 0800, Administer over 30 Minutes, PICC care per protocol. D/C PICC on 01/18/25 after last abx dose given. CBC w/diff, CMP, ESR, CRP Q Week Follow up with Dr. Arias on 01/18/2025, Reason for Therapy: Infection Documented, Indication: Bacteremia, Urinary Tract Infection, Dx: 1. E coli bacteremiaIndications:E coli bacteremia IV Started 12/19/2024 7:43 AM EDT 2 g 100 mL/hr documented in this encounter Orders Medications Ordered That Miah ht Not Have Been Administered Count Last Ordered Date First Ordered Date cefTRIAXone in dextrose (SOL EPHIN) 2 gram/50 mL IVPB 2 g 1 12/19/2024 documented in this encounter Care Teams Grief Counsellor Relationship Specialty Start Date End Date Willard Hector MD PCP - General Family Medicine 04/28/11 Alecia Fernandez RN Registered Nurse Infusion Therapy 12/19/24 documented as of this encounter
--- OUTSIDE RECORDS SUMMARY | 2024-12-20 07:18 | XMS_ITS | Encounter Summary ---
Author Organization [place] [address] Care Team Providers Care Project Administrative Assistant Name Role Phone Willard Hector MD Primary Care Provider [phone] Reason for Visit * Oncology Medication Prior Authorization (Routine) - Authorization Not Needed Specialty Diagnoses / Procedures Referred By Contdaquan t Referred To Contact Diagnoses E coli bacteremia Procedures LA CEFTRIAXONE SODIUM INJECTION PER 250 MG Alcira Kauffman MD [address] [place] [address] DR GILLIAM [address] [place] [phone] Phone: tel: fax: Alcira Kauffman MD [address] [place] [address] DR GILLIAM [address] [place] [phone] Phone: tel: fax: Referral ID Status Reason Start Date Expiration Date Visits Requested Visits Authorized [id number] Authorization Not Needed 12/10/2024 12/10/2025 1 99 Encounter Details Date Type Department Care Team (Latest Contact Info) Description 12/20/2024 7:18 AM EDT - 12/20/2024 11:59 PM EDT Hospital En[facility] [place] [address] E coli bacteremia (Primary Dx) Discharge Disposition: Home or Self Care Social History Tobacco Use Types Packs/Day Years Used Date Smoking Tobacco: Former Cigarettes 0.5 20 0 02/06/1983 - 02/06/2003 Smokeless Tobacco: Never [facility] Utilities Answer Date Recorded In [...] Date Recorded PHQ-2 Total Score 0 12/05/2024 [facility] of Occupat ional Health - [...] money to get more. Never true 12/05/2024 [facility] IP Transportation Answer D ate Recorded In [...] Sign Reading Time Taken Comments Blood Pressure 111/71 12/20/2024 8:47 AM EDT Pulse 67 12/20/2024 8:47 AM EDT Temperature 36.3 C (97.4 F) 12/20/2024 7:41 AM EDT Respiratory Rate 16 12/20/2024 8:47 AM EDT Oxygen Saturation 98% 12/20/2024 8:47 AM EDT Inhaled Oxygen Concentration - - [...] encounter Miscellaneous Notes * Patient Instructions - Sahra Gage RN - 12/20/2024 7:30 AM EDT [facility] Discharge Instructions Thank [facility]. We hope you are pleased with your outpatient care and services. Because we are most concerned with your health, we suggest you carefully read the following discharge instructions: Your Discharge Instructions: MEDICATION INSTRUCTIONS: Treatment received today: No orders of the defined types were placed in this encounter. Reviewed medications administered today and possible side [...] infection DON'T WAIT, PLEASE CALL US FIRST [phone]. [FOR URGENT ISSUES PLEASE DO NOT LEAVE A MESSAGE, FOLLOW PROMPTS TO THE DOCTOR COAL SAMPLER] For Gynecology / Oncology call : [phone] Our hours of operation are Thursday - Thursday 8:00 AM - 4:30 PM. [facility] [address] [address] 407 [phone] [place] [id number] No results found for any visits on 12/20/24. documented in this encounter Plan of Treatment Upcoming Encounters Date Type Department Care Team (Late st Contact Info) Description 12/29/2024 7:30 AM EDT [place] [address] 12/30/2024 7:30 AM EDT [facility] [place] [address] 12/31/2024 9:00 AM EDT Appointment [facility] [place], [place] [id number] 01/01/2025 9:00 AM EDT Appointment [facility] [place] [address] 01/02/2025 7:30 AM EDT Appointment [facility] [place] [address] 01/03/2025 7:30 AM EDT Appointment [facility] [place] [address] 01/04/2025 7:30 AM EDT Appointment [facility] [place] [address] 01/05/2025 7:30 AM EDT Appointment [facility] [place] [address] 01/06/2025 9:00 AM EDT Appointment [facility] [place] [address] 01/07/2025 9:00 AM EDT Appointment [facility] [place] [address] 01/08/2025 9:00 AM EDT Appointment [facility] [place] [address] 01/09/2025 7:30 AM EDT Appointment [facility] [place] [address] 01/10/2025 7:30 AM EDT Appointment [facility] [place] [address] 01/11/2025 7:30 AM EDT Appointment [facility] [place] [address] 01/12/2025 7:30 AM EDT Appointment [facility] [place] [address] 01/13/2025 7:30 AM EDT Appointment [facility] [place] [address] 01/14/2025 9:00 AM EDT Appointment [facility] [place] [address] 01/15/2025 9:00 AM EDT Appointment [facility] [place] [address] 01/16/2025 7:30 AM EDT Appointment [facility] [place] [address] 01/17/2025 7:30 AM EDT Appointment [facility] [place] [address] 01/18/2025 7:30 AM EDT Appointment [facility] [place] [address] 01/18/2025 3:30 PM EDT Office Visit [facility] [address] [place] [address] [place] [phone] Alcira Kauffman MD [address] [place] [phone] documented as of this encounter Visit Diagnoses Diagnosis E coli bacteremia- Primary Bacteremia documented in this encounter Administered Medications Inactive Administered Medications - up to 1 most recent administrations Medication Order MAR Action Action Date Dose Rate Site 0.9 % NaCl infusion Intravenous, at 30 mL/hr, CONTINUOUS, Starting on Thu12/20/24 at 0800, Until Thu12/20/24 at 0959, For liner machine operator helper, Dx: 1. E coli bacteremiaIndications:E coli bacteremia Rate/Dose Change 12/20/2024 8:43 AM EDT 100 mL/hr cefTRIAXone in dextrose (ROCEPHIN) 2 gram/50 mL IVPB 2 g 2 g, Intravenous, ONCE, 1 dose, On Thu12/20/24 at 0815, Administer over 30 Minutes, PICC care per protocol. D/C PICC on 01/18/25 after last abx dose given. CBC w/diff, CMP, ESR, CRP Q Week Follow up with Dr. Arias on 01/18/2025, Reason for Therapy: Infection Documented, Indication: Bacteremia, Urinary Tract Infection, Dx: 1. E coli bacteremiaIndications:E coli bacteremia Rate/Dose Verify 12/20/2024 8:36 AM EDT 100 mL/hr sodium chloride 0.9% syringe 10 mL 10 mL, Intravenous, PRN, Starting on Thu12/20/24 at 0749, Until Thu12/21/24 at 0405, Line Care, For Venous Access Device care and maintenance., Dx: 1. E coli bacteremiaIndications:E coli bacteremia Given 12/20/2024 7:49 AM EDT 10 mL documented in this encounter Care Teams Project Administrative Assistant Relationship Specialty Start Date End Date Willard Hector MD PCP - General Family Medicine 04/28/11 documented as of this encounter
--- OUTSIDE RECORDS SUMMARY | 2024-12-21 07:22 | XMS_ITS | Encounter Summary ---
Author Organization [place] [address] Care Team Providers Care Printed Circuit Board Layout Designer Name Role Phone Willard Hector MD Primary Care Provider [phone] Gabi Mackay RN Unavailable Unavailable Reason for Visit * Oncology Medication Prior Authorization (Routine) - Authorization Not Needed Specialty Diagnoses / Procedures Referred By Contac t Referred To Contact Diagnoses E coli bacteremia Procedures OR CEFTRIAXONE SODIUM INJECTION PER 250 MG Alcira Kauffman MD [address] [place] [address] [address] GILLIAM [address] [place] [phone] Phone: tel: fax: Alcira Kauffman MD [address] [place] [address] DR GILLIAM [address] [place] [phone] Phone: tel: fax: Referral ID Status Reason Start Date Expiration Date Visits Requested Visits Authorized [id number] Authorization Not Needed 12/10/2024 12/10/2025 1 99 Encounter Details Date Type Department Care Team (Latest Contact Info) Description 12/21/2024 7:22 AM EDT - 12/21/2024 11:59 PM EDT Hospital Encounter [facility] [place] [id number] E coli bacteremia (Primary Dx) Discharge Disposition: Home or Self Care Social History Tobacco Use Types Packs/Day Years Used Date Smoking Tobacco: Former Cigarettes 0.5 20 0 02/06/1983 - 02/06/2003 Smokeless Tobacco: Never [facility] Utilities Answer Date Recorded In [...] Date Recorded PHQ-2 Total Score 0 12/05/2024 [facility] [place] of Occupat ional Health - Occupational Stress [...] get more. Never true 12/05/2024 [facility] HRSN [facility] IP Transportation Answer D ate Recorded In [...] Sign Reading Time Taken Comments Blood Pressure 123/78 12/21/2024 7:40 AM EDT Pulse 83 12/21/2024 7:40 AM EDT Temperature 36.6 C (97.9 F) 12/21/2024 7:40 AM EDT Respiratory Rate 16 12/21/2024 7:40 AM EDT Oxygen Saturation 94% 12/21/2024 7:40 AM EDT Inhaled Oxygen Concentration - - [...] Patient Instructions - Gabi Mackay RN - 12/21/2024 7:30 AM EDT [facility] Discharge Instructions Thank you for entrusting [...] infection DON'T WAIT, PLEASE CALL US FIRST [phone]. [FOR URGENT ISSUES PLEASE DO NOT LEAVE A MESSAGE, FOLLOW PROMPTS TO THE DOCTOR BRIDGE SAW OPERATOR] For Gynecology / Oncology call : [phone] Our hours of operation are Thursday - Thursday 8:00 AM - 4:30 PM. [facility] [phone] [place] [id number] [place] [address] [phone] [place] [phone] No results found for any visits on 12/21/24. documented in this encounter Plan of Treatment Upcoming Encounters Date Type Department Care Team (Late st Contact Info) Description 12/29/2024 7:30 AM EDT Appointment [place] [address] 12/30/2024 7:30 AM EDT Appointment [place] [address] 12/31/2024 9:00 AM EDT Appointment [place] [address] 01/01/2025 9:00 AM EDT Appointment [facility] [place] [address] 01/02/2025 7:30 AM EDT Appointment [facility] [place] [place] [address] 01/03/2025 7:30 AM EDT Appointment [facility] [place] [place] [address] 01/04/2025 7:30 AM EDT Appointment [facility] [place] [place] [address] 01/05/2025 7:30 AM EDT Appointment [facility] [place] [address] 01/06/2025 9:00 AM EDT Appointment [facility] [place] [place] [address] 01/07/2025 9:00 AM EDT Appointment [facility] [place] [place] [address] 01/08/2025 9:00 AM EDT Appointment [facility] [place] [place] [address] 01/09/2025 7:30 AM EDT Appointment [facility] [place] [place] [address] 01/10/2025 7:30 AM EDT Appointment [facility] [place] [place] [address] 01/11/2025 7:30 AM EDT Appointment [facility] [place] [place] [address] 01/12/2025 7:30 AM EDT Appointment [facility] [place] [address] 01/13/2025 7:30 AM EDT Appointment [facility] [place] [address] 01/14/2025 9:00 AM EDT Appointment [facility] [place] [address] 01/15/2025 9:00 AM EDT Appointment [facility] [place] [place] [address] 01/16/2025 7:30 AM EDT Appointment [facility] [place] [address] 01/17/2025 7:30 AM EDT Appointment [facility] [place] [address] 01/18/2025 7:30 AM EDT Appointment [facility] [place] [address] 01/18/2025 3:30 PM EDT Office Visit [facility] [address] [place] [address] [place] [phone] Alcira Kauffman MD [address] [place] [phone] documented as of this encounter Visit Diagnoses Diagnosis E coli bacteremia- Primary Bacteremia documented in this encounter Administered Medications Inactive Administered Medications - up to 1 most recent administrations Medication Order MAR Action Action Date Dose Rate Site cefTRIAXone in dextrose (ROCEPHIN) 2 gram/50 mL IVPB 2 g 2 g, Intravenous, ONCE, 1 dose, On Thu12/21/24 at 0745, Administer over 30 Minutes, PICC care per protocol. D/C PICC on 01/18/25 after last abx dose given. CBC w/diff, CMP, ESR, CRP Q Week Follow up with Dr. Arias on 01/18/2025, Reason for Therapy: Infection Documented, Indication: Bacteremia, Urinary Tract Infection, Dx: 1. E coli bacteremiaIndications:E coli bacteremia IV Started 12/21/2024 7:46 AM EDT 2 g 100 mL/hr documented in this encounter Orders Medications Ordered That Miah ht Not Have Been Administered Count Last Ordered Date First Ordered Date cefTRIAXone in dextrose (SOL EPHIN) 2 gram/50 mL IVPB 2 g 1 12/21/2024 documented in this encounter Care Teams Printed Circuit Board Layout Designer Relationship Specialty Start Date End Date Willard Hector MD PCP - General Family Medicine 04/28/11 Gabi Mackay, [place] Registered Nurse Infusion Clinic 12/21/24 12/21/24 documented as of this encounter
--- OUTSIDE RECORDS SUMMARY | 2024-12-22 08:15 | XMS_ITS | Encounter Summary ---
Author [place] [address] Care Team Providers Care Java Developer Name Role Phone Willard Hector MD Primary Care Provider [phone] Kael Elder RN Unavailable Unavailab le Reason for Visit * Oncology Medication Prior Authorization (Routine) - Authorization Not Needed Specialty Diagnoses / Procedures Referred By Contac t Referred To Contact Diagnoses E coli bacteremia Procedures [place] CEFTRIAXONE SODIUM INJECTION PER 250 MG Alcira Kauffman MD [address] [place] [address] DR GILLIAM [address] [place] [phone] Phone: tel: fax: Alcira Kauffman MD [address] [place] [address] DR GILLIAM [address] [place] [phone] Phone: tel: fax: Referral ID Status Reason Start Date Expiration Date Visits Requested Visits Authorized [id number] Authorization Not Needed 12/10/2024 12/10/2025 1 99 Encounter Details Date Type Department Care Team (Latest Contact Info) Description 12/22/2024 8:15 AM EDT - 12/22/2024 11:59 PM EDT Hospital Encounter [facility] [place] [id number] E coli bacteremia (Primary Dx) Discharge Disposition: Home or Self Care Social History Tobacco Use Types Packs/Day Years Used Date Smoking Tobacco: Former Cigarettes 0.5 20 0 02/06/1983 - 02/06/2003 Smokeless Tobacco: Never [facility] Utilities Answer Date Recorded In the [...] Date Recorded PHQ-2 Total Score 0 12/05/2024 [facility] Occupat ional Health - [...] money to get more. Never true 12/05/2024 [facility] IP Transportation Answer D ate Recorded [...] Sign Reading Time Taken Comments Blood Pressure 123/72 12/22/2024 9:35 AM EDT Pulse 67 12/22/2024 9:35 AM EDT Temperature 36.4 C (97.6 F) 12/22/2024 9:35 AM EDT Respiratory Rate - - Oxygen Saturation 97% 12/22/2024 9:35 AM EDT Inhaled Oxygen Concentration - - [...] Patient Instructions - Kael Elder RN - 12/22/2024 8:30 AM EDT [facility] Discharge Instructions Thank you for entrusting [...] IVPB 2 g 0.9 % NaCl infusion sodium chloride 0.9% syringe 10 mL Reviewed [...] infection DON'T WAIT, PLEASE CALL US FIRST [phone]. [FOR URGENT ISSUES PLEASE DO NOT LEAVE A MESSAGE, FOLLOW PROMPTS TO THE DOCTOR POST ANESTHESIA NURSE] For Gynecology / Oncology call : [phone] Our hours of operation are Thursday - Thursday 8:00 AM - 4:30 PM. [facility] [address] [phone] [place] [address] No results found for any visits on 12/22/24. documented in this encounter Plan of Treatment Upcoming Encounters Date Type Department Care Team (Late st Contact Info) Description 12/29/2024 7:30 AM EDT Appointment [place] [address] 12/30/2024 7:30 AM EDT Appointment [place] [address] 12/31/2024 9:00 AM EDT Appointment [facility] [place] [address] 01/01/2025 9:00 AM EDT Appointment [facility] [place] [place] [address] 01/02/2025 7:30 AM EDT Appointment [facility] [place] [place] [address] 01/03/2025 7:30 AM EDT Appointment [facility] [place] [address] 01/04/2025 7:30 AM EDT Appointment [facility] [place] [address] 01/05/2025 7:30 AM EDT Appointment [facility] [place] [place] [address] 01/06/2025 9:00 AM EDT Appointment [facility] [place] [address] 01/07/2025 9:00 AM EDT Appointment [facility] [place] [place] [address] 01/08/2025 9:00 AM EDT Appointment [facility] [place] [place] [address] 01/09/2025 7:30 AM EDT Appointment [facility] [place] [address] 01/10/2025 7:30 AM EDT Appointment [facility] [place] [place] [address] 01/11/2025 7:30 AM EDT Appointment [facility] [place] [address] 01/12/2025 7:30 AM EDT Appointment [facility] [place] [place] [address] 01/13/2025 7:30 AM EDT Appointment [facility] [place] [place] [address] 01/14/2025 9:00 AM EDT Appointment [facility] [place] [place] [address] 01/15/2025 9:00 AM EDT Appointment [facility] [place] [place] [address] 01/16/2025 7:30 AM EDT Appointment [facility] [place] [place] [address] 01/17/2025 7:30 AM EDT Appointment [facility] [place] [place] [address] 01/18/2025 7:30 AM EDT [facility] [place] [address] 01/18/2025 3:30 PM EDT Office Visit [facility] [address] [place] [address] [place] [phone] Alcira Kauffman MD [address] [place] [address] [address]E [address] [place] [phone] documented as of this encounter Visit Diagnoses Diagnosis E coli bacteremia- Primary Bacteremia documented in this encounter Administered Medications Inactive Administered Medications - up to 1 most recent administrations Medication Order MAR Action Action Date Dose Rate Site 0.9 % NaCl infusion Intravenous, at 30 mL/hr, CONTINUOUS, Starting on [place] 12/22/24 at 0845, Until [place] 12/22/24 at 1044, 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 E coli bacteremiaIndications:E coli bacteremia New Bag 12/22/2024 8:50 AM EDT 30 mL/hr cefTRIAXone in dextrose (ROCEPHIN) 2 gram/50 mL IVPB 2 g 2 g, Intravenous, ONCE, 1 dose, On [place] 12/22/24 at 0845, Administer over 30 Minutes, PICC care per protocol. D/C PICC on 01/18/25 after last abx dose given. CBC w/diff, CMP, ESR, CRP Q Week Follow up with Dr. Arias on 01/18/2025, Reason for Therapy: Infection Documented, Indication: Bacteremia, Urinary Tract Infection, Dx: 1. E coli bacteremiaIndications:E coli bacteremia IV Started 12/22/2024 8:49 AM EDT 2 g 100 mL/hr sodium chloride 0.9% syringe 10 mL 10 mL, Intravenous, PRN, Starting on [place] 12/22/24 at 0850, Until Thu12/23/24 at 0409, Line Care, For Venous Access Device care and maintenance., Dx: 1. E coli bacteremiaIndications:E coli bacteremia Given 12/22/2024 8:50 AM EDT 10 mL documented in this encounter Care Teams Java Developer Relationship Specialty Start Date End Date Willard Hector MD PCP - General Family Medicine 04/28/11 Kael Elder RN Registered Nurse Infusion Therapy 12/22/24 5 documented as of this encounter
--- OUTSIDE RECORDS SUMMARY | 2024-12-23 07:17 | XMS_ITS | Encounter Summary ---
Author [place] [address] Care Team Providers Care Drywall Hanger Helper Name Role Phone Willard Hector MD Primary Care Provider [phone] Reason for Visit * Oncology Medication Prior Authorization (Routine) - Authorization Not Needed Specialty Diagnoses / Procedures Referred By Contdaquan t Referred To Contact Diagnoses E coli bacteremia Procedures [place] CEFTRIAXONE SODIUM INJECTION PER 250 MG Alcira Kauffman MD [address] [place] [address] [address] [place] [phone] Phone: tel: fax: Alcira Kauffman MD [address] [place] [address] [address] [place] [phone] Phone: tel: fax: Referral ID Status Reason Start Date Expiration Date Visits Requested Visits Authorized [id number] Authorization Not Needed 12/10/2024 12/10/2025 1 99 Encounter Details Date Type Department Care Team (Latest Contact Info) Description 12/23/2024 7:17 AM EDT - 12/23/2024 11:59 PM EDT Hospital En[facility] [address] E coli bacteremia (Primary Dx) Discharge Disposition: Home or Self Care Social History Tobacco Use Types Packs/Day Years Used Date Smoking Tobacco: Former Cigarettes 0.5 20 0 02/06/1983 - 02/06/2003 Smokeless Tobacco: Never [facility] Utilities Answer Date Recorded In [...] Date Recorded PHQ-2 Total Score 0 12/05/2024 [facility] - Occupational [...] money to get more. Never true 12/05/2024 [facility] H[facility]N [facility] IP Transportation Answer D ate Recorded [...] Sign Reading Time Taken Comments Blood Pressure 121/76 12/23/2024 8:14 AM EDT Pulse 71 12/23/2024 8:14 AM EDT Temperature 36.2 C (97.1 F) 12/23/2024 7:44 AM EDT Respiratory Rate 16 12/23/2024 7:44 AM EDT Oxygen Saturation 97% 12/23/2024 7:44 AM EDT Inhaled Oxygen Concentration - - [...] Miscellaneous Notes * Patient Instructions - Sahra Francis RN - 12/23/2024 7:30 AM EDT [facility] Discharge Instructions Thank you for entrusting [...] infection DON'T WAIT, PLEASE CALL US FIRST [phone]. [FOR URGENT ISSUES PLEASE DO NOT LEAVE A MESSAGE, FOLLOW PROMPTS TO THE DOCTOR STAVE SAW OPERATOR] For Gynecology / Oncology call : [phone] Our hours of operation are Thursday - Thursday 8:00 AM - 4:30 PM. [facility] [place] [address] 410 [phone] [address] Results for orders placed or performed during the hospital encounter of 12/23/24 CBC WITH DIFF Result Value Ref Range WBC 3.5 (L) 3.7 - 10.3 x10(3)/mcL RBC 4.29 3.90 - 5.20 x10(6)/mcL Hgb 13.2 11.2 - 15.7 g/dL Hct 40.3 34.0 - 45.0 % MCV 93.9 80.0 - 100.0 fL MCH 30.8 26.0 - 34.0 pg MCHC 32.8 30.7 - 35.5 g/dL RDW 14.0 <=14.9 % Platelet 380 (H) 155 - 369 x10(3)/mcL MPV 10.8 8.8 - 12.5 fL Neut # Prelim 1.6 1.6 - 6.1 x10(3)/mcL Neut Percent 44.3 % Imm Gran% 0.3 % Lymph Percent 38.4 % Sevier Percent 13.5 % Eos Percent 2.6 % Baso Percent 0.9 % Neut # 1.6 1.6 - 6.1 x10(3)/mcL IMMGRAN# 0.0 0.0 - 0.1 x10(3)/mcL Lymph # 1.3 1.2 - 3.9 x10(3)/mcL Sevier # 0.5 0.3 - 0.9 x10(3)/mcL Eos# 0.1 0.0 - 0.5 x10(3)/mcL Baso # 0.0 0.0 - 0.1 x10(3)/mcL documented in this encounter Plan of Treatment Upcoming Encounters Date Type Department Care Team (Late st Contact Info) Description 12/29/2024 7:30 AM EDT Appointment [facility] [place] [address] 12/30/2024 7:30 AM EDT Appointment [facility] [place] [address] 12/31/2024 9:00 AM EDT Appointment [facility] [place] [address] 01/01/2025 9:00 AM EDT Appointment [facility] [place] [address] 01/02/2025 7:30 AM EDT Appointment [facility] [place] [address] 01/03/2025 7:30 AM EDT Appointment [facility] [place] [address] 01/04/2025 7:30 AM EDT Appointment [facility] [place] [address] 01/05/2025 7:30 AM EDT [facility]ointment [facility] [place] [address] 01/06/2025 9:00 AM EDT Appointment [facility] [place] [address] 01/07/2025 9:00 AM EDT Appointment [facility] [place] [address] 01/08/2025 9:00 AM EDT Appointment [facility] [place] [address] 01/09/2025 7:30 AM EDT Appointment [facility] [place] [address] 01/10/2025 7:30 AM EDT Appointment [facility] [place] [address] 01/11/2025 7:30 AM EDT Appointment [facility] [place] [address] 01/12/2025 7:30 AM EDT Appointment [facility] [place] [address] 01/13/2025 7:30 AM EDT Appointment [facility] [place] [address] 01/14/2025 9:00 AM EDT Appointment [facility] [place] [address] 01/15/2025 9:00 AM EDT Appointment [facility] [place] [address] 01/16/2025 7:30 AM EDT Appointment [facility] [place] [address] 01/17/2025 7:30 AM EDT Appointment [facility] [place] [address] 01/18/2025 7:30 AM EDT [facility]ment [facility] [place] [place] [address] 01/18/2025 3:30 PM EDT Office Visit SEP Infectious Disease [facility] [address] [facility] [address] [place] [address] Alcira Kauffman MD [address] [place] [address] documented as of this encounter Procedures Procedure Name Priority Date/Time Associated Diagnosis Comments SEDIMENTATION RATE AUTOMATED STAT 12/23/2024 7:40 AM EDT E coli bacteremia CBC WITH DIFF STAT 12/23/2024 7:40 AM EDT E coli bacteremia C-REACTIVE PROTEIN STAT 12/23/2024 7: 40 AM EDT E coli bacteremia COMPREHENSIVE METABOLIC PANEL STAT 12/23/2024 7:40 AM EDT E coli bacteremia documented in this encounter Results * C-REACTIVE PROTEIN (12/23/2024 7:40 AM EDT) CRP <3.00 <=5.00 mg/L 12/23/2024 8:57 AM EDT [facility] Blood VENOUS STRUCTURE / Unknown Collection / Unknown 12/23/2024 7:40 AM EDT 12/23/2024 7:43 AM EDT us Alcira Kauffman MD CHEMISTRY ORDERABLES Fin al Result [facility] [address] [place] [address] * SEDIMENTATION RATE AUTOMATED (12/23/2024 7:40 AM EDT) Sed Rate 29 0 - 30 mm/hr 12/23/2024 8:25 AM EDT [facility] Blood VENOUS STRUCTURE / Unknown Collection / Unknown 12/23/2024 7:40 AM EDT 12/23/2024 7:43 AM EDT us Alcira Kauffman MD HEMATOLOGY ORDERABLES Fi nal Result [facility] [address] [facility] , [address] [place] [id number] * (ABNORMAL) COMPREHENSIVE METABOLIC PANEL (12/23/2024 7:40 AM EDT) Sodium 141 136 - 145 mmol/L 12/23/2024 8:01 AM EDT [facility] Potassium 3.9 3.5 - 5.0 mmol/L 12/23/2024 8:01 AM EDT [facility] Chloride 104 98 - 107 mmol/L 12/23/2024 8:01 AM EDT [facility] Total CO2 27 22 - 29 mmol/L 12/23/2024 8:01 AM EDT [facility] Anion Gap 10 7 - 16 mmol/L 12/23/2024 8:01 AM EDT [facility] Calcium 9.3 8.6 - 10.4 mg/dL 12/23/2024 8:01 AM EDT [facility] Glucose Lvl 92 70 - 99 mg/dL 12/23/2024 8:01 AM EDT [facility] BUN 7 6 - 20 mg/dL 12/23/2024 8:01 AM EDT [facility] Creatinine 0.57 0.51 - 1.30 mg/dL 12/23/2024 8:01 AM EDT [facility] Albumin 4.0 3.5 - 5.2 gm/dL 12/23/2024 8:01 AM EDT [facility] Total Protein 6.9 6.4 - 8.3 gm/dL 12/23/2024 8:01 AM EDT [facility] Bili Total 0.5 0.2 - 1.3 mg/dL 12/23/2024 8:01 AM EDT [facility] ALT 191(H) <=41 U/L 12/23/2024 8:01 AM EDT [facility] AST 102(H) <=40 U/L 12/23/2024 8:01 AM EDT [facility] Alk Phos 108 36 - 123 U/L 12/23/2024 8:01 AM EDT [facility] eGFR (CKD-EPIcr 2020) 105 >=60 mL/min/1.7 3 m2 12/23/2024 8:01 AM EDT [facility] Comment:Estimated GFR was ca lculated using the CKD-EPIcr (2020) equation refit without race. The equation is recommended by the National Kid[employer] - [place] [employer] Neph[employer] Task Force. Blood VENOUS STRUCTURE / Unknown Collection / Unknown 12/23/2024 7:40 AM EDT 12/23/2024 7:43 AM EDT us Alcira Kauffman MD CHEMISTRY ORDERABLES Fin al Result [facility] [address] [place] [address] * (ABNORMAL) CBC WITH DIFF (12/23/2024 7:40 AM EDT) WBC 3.5(L) 3.7 - 10.3 x10(3)/mcL 12/23/2024 7:46 AM EDT [facility] RBC 4.29 3.90 - 5.20 x10(6)/mcL 12/23/2024 7:46 AM EDT [facility] Hgb 13.2 11.2 - 15.7 g/dL 12/23/2024 7:46 AM EDT [facility] Hct 40.3 34.0 - 45.0 % 12/23/2024 7:46 AM EDT [facility] MCV 93.9 80.0 - 100.0 fL 12/23/2024 7:46 AM EDT [facility] MCH 30.8 26.0 - 34.0 pg 12/23/2024 7:46 AM EDT [facility] MCHC 32.8 30.7 - 35.5 g/dL 12/23/2024 7:46 AM EDT [facility] RDW 14.0 <=14.9 % 12/23/2024 7:46 AM EDT [facility] Platelet 380(H) 155 - 369 x10(3)/[facility] 12/23/2024 7:46 AM EDT [facility] MPV 10.8 8.8 - 12.5 fL 12/23/2024 7:46 AM EDT [facility] Neut # Prelim 1.6 1.6 - 6.1 x10(3)/[facility] 12/23/2024 7:46 AM EDT [facility] Comment:Preliminary automate d absolute neutrophil count. Value may change if manual differential is indicated. Neut Percent 44.3 % 12/23/2024 7:46 AM EDT [facility] Comment:Neutrophils equals s egs plus bands Imm Gran% 0.3 % 12/23/2024 7:46 AM T [facility] Comment:Automated count of m etamyelocytes, myelocytes and promyelocytes. Lymph Percent 38.4 % 12/23/2024 7:46 AM EDT [facility] Sevier Percent 13.5 % 12/23/2024 7:46 AM EDT [facility] Eos Percent 2.6 % 12/23/2024 7:46 AM T [facility] Baso Percent 0.9 % 12/23/2024 7:46 AM EDT [facility] Neut # 1.6 1.6 - 6.1 x10(3)/[facility] 12/23/2024 7:46 AM [facility] Comment:Neutrophils equals s egs plus bands IMMGRAN# 0.0 0.0 - 0.1 x10(3)/[facility] 12/23/2024 7:46 AM T [facility] Comment:Automated count of m etamyelocytes, myelocytes and promyelocytes. An absolute IG <0.1 is reported as 0.0. Lymph # 1.3 1.2 - 3.9 x10(3)/[facility] 12/23/2024 7:46 AM EDT [facility] Sevier # 0.5 0.3 - 0.9 x10(3)/[facility] 12/23/2024 7:46 AM EDT [facility] Eos# 0.1 0.0 - 0.5 x10(3)/[facility] 12/23/2024 7:46 AM EDT [facility] Baso # 0.0 0.0 - 0.1 x10(3)/mcL 12/23/2024 7:46 AM EDT [facility] Blood VENOUS STRUCTURE / Unknown Collection / Unknown 12/23/2024 7:40 AM EDT 12/23/2024 7:43 AM EDT us Alcira Kauffman MD HEMATOLOGY ORDERABLES Fi nal Result [facility] [address] [place] [address] documented in this encounter Visit Diagnoses Diagnosis E coli bacteremia- Primary Bacteremia documented in this encounter Administered Medications Inactive Administered Medications - up to 1 most recent administrations Medication Order MAR Action Action Date Dose Rate Site cefTRIAXone in dextrose (ROCEPHIN) 2 gram/50 mL IVPB 2 g 2 g, Intravenous, ONCE, 1 dose, On Thu12/23/24 at 0745, Administer over 30 Minutes, PICC care per protocol. D/C PICC on 01/18/25 after last abx dose given. CBC w/diff, CMP, ESR, CRP Q Week Follow up with Dr. Arias on 01/18/2025, Reason for Therapy: Infection Documented, Indication: Bacteremia, Urinary Tract Infection, Dx: 1. E coli bacteremiaIndications:E coli bacteremia IV Started 12/23/2024 7:47 AM EDT 2 g 100 mL/hr sodium chloride 0.9% syringe 10 mL 10 mL, Intravenous, PRN, Starting on Thu12/23/24 at 0729, Until 12/24/24 at 0403, Line Care, For Venous Access Device care and maintenance., Dx: 1. E coli bacteremiaIndications:E coli bacteremia Given 12/23/2024 8:13 AM EDT 10 mL documented in this encounter Care Teams Drywall Hanger Helper Relationship Specialty Start Date End Date Willard Hcetor MD PCP - General Family Medicine 04/28/11 documented as of this encounter
--- OUTSIDE RECORDS SUMMARY | 2024-12-24 08:49 | XMS_ITS | Encounter Summary ---
Author Organization [place] [address] Care Team Providers Care Special Officer Name Role Phone Willard Hector MD Primary Care Provider [phone] Reason for Visit * Oncology Medication Prior Authorization (Routine) - Authorization Not Needed Specialty Diagnoses / Procedures Referred By Contdaquan t Referred To Contact Diagnoses E coli bacteremia Procedures [place] CEFTRIAXONE SODIUM INJECTION PER 250 MG Alcira Kauffman MD [address] [place] [address] DR [address] [place] [phone] Phone: tel: fax: Alcira Kauffman MD [address] [place] [address] DR G[address] [place] [phone] Phone: tel: fax: Referral ID Status Reason Start Date Expiration Date Visits Requested Visits Authorized [id number] Authorization Not Needed 12/10/2024 12/10/2025 1 99 Encounter Details Date Type Department Care Team (Latest Contact Info) Description 12/24/2024 8:49 AM EDT - 12/24/2024 11:59 PM EDT Hospital Encounter [facility] [address] E coli bacteremia (Primary Dx) Discharge Disposition: Home or Self Care Social History Tobacco Use Types Packs/Day Years Used Date Smoking Tobacco: Former Cigarettes 0.5 20 0 02/06/1983 - 02/06/2003 Smokeless Tobacco: Never [facility] Utilities Answer Date Recorded In the [...] Date Recorded PHQ-2 Total Score 0 12/05/2024 [facility] - [...] money to get more. Never true 12/05/2024 [facility] IP Transportation Answer D ate Recorded In [...] Reading Time Taken Comments Blood Pressure 120/74 12/24/2024 9:36 AM EDT Pulse 69 12/24/2024 9:36 AM EDT Temperature 36.3 C (97.3 F) 12/24/2024 8:56 AM EDT Respiratory Rate 16 12/24/2024 9:36 AM EDT Oxygen Saturation 95% 12/24/2024 8:56 AM EDT Inhaled Oxygen Concentration - - [...] encounter Miscellaneous Notes * Patient Instructions - Shanique Child RN - 12/24/2024 9:00 AM EDT [facility] Discharge Instructions Thank you for entrusting the [facility] with your care. We hope you [...] infection DON'T WAIT, PLEASE CALL US FIRST [phone]. [FOR URGENT ISSUES PLEASE DO NOT LEAVE A MESSAGE, FOLLOW PROMPTS TO THE DOCTOR ADVERTISING MANAGER] For Gynecology / Oncology call : [phone] Our hours of operation are Thursday - Thursday 8:00 AM - 4:30 PM. [facility] [place] [phone] [place] [address] [place], [place] [id number] No results found for any visits on 12/24/24. documented in this encounter Plan of Treatment Upcoming Encounters Date Type Department Care Team (Late st Contact Info) Description 12/29/2024 7:30 AM EDT [facility]ointment [facility] [place] [address] 12/30/2024 7:30 AM EDT Appointment [facility] [place], [place] [id number] 12/31/2024 9:00 AM EDT [place] [address] 01/01/2025 9:00 AM EDT [facility]ointment [facility] [place] [address] 01/02/2025 7:30 AM EDT [facility]ointment [facility] [address] 01/03/2025 7:30 AM EDT [facility]ointment [facility] [place] [address] 01/04/2025 7:30 AM EDT [facility]ointment [facility] [place] [address] 01/05/2025 7:30 AM EDT [facility]ointment [facility] [address] 01/06/2025 9:00 AM EDT [facility]ointment [facility] [place] [address] 01/07/2025 9:00 AM EDT [facility]ointment [facility] [address] 01/08/2025 9:00 AM EDT [facility]ointment [facility] [address] 01/09/2025 7:30 AM EDT [facility]ointment [facility] [address] 01/10/2025 7:30 AM EDT [facility]ointment [facility] [place] [address] 01/11/2025 7:30 AM EDT [facility]ointment [facility] [place] [address] 01/12/2025 7:30 AM EDT [facility]ointment [facility] [place] [address] 01/13/2025 7:30 AM EDT [facility]ointment [facility] [place] [address] 01/14/2025 9:00 AM EDT [facility]ointment [facility] [address] 01/15/2025 9:00 AM EDT [facility]ointment [facility] [address] 01/16/2025 7:30 AM EDT [facility] [place] [address] 01/17/2025 7:30 AM EDT [facility]ointment [facility] [address] 01/18/2025 7:30 AM EDT [facility]ointment [facility] [address] 01/18/2025 3:30 PM EDT Office Visit [facility] Infectious Disease [facility] [address] [place] [address] [place] [phone] Alcira Kauffman MD [address] [place] [address] [phone] documented as of this encounter Visit Diagnoses Diagnosis E coli bacteremia- Primary Bacteremia documented in this encounter Administered Medications Inactive Administered Medications - up to 1 most recent administrations Medication Order MAR Action Action Date Dose Rate Site 0.9 % NaCl infusion Intravenous, at 30 mL/hr, CONTINUOUS, Starting on 12/24/24 at 0900, Until 12/24/24 at 1059, 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 E coli bacteremiaIndications:E coli bacteremia New Bag 12/24/2024 9:02 AM EDT 30 mL/hr cefTRIAXone in dextrose (ROCEPHIN) 2 gram/50 mL IVPB 2 g 2 g, Intravenous, ONCE, 1 dose, On 12/24/24 at 0900, Administer over 30 Minutes, PICC care per protocol. D/C PICC on 01/18/25 after last abx dose given. CBC w/diff, CMP, ESR, CRP Q Week Follow up with Dr. Arias on 01/18/2025, Reason for Therapy: Infection Documented, Indication: Bacteremia, Urinary Tract Infection, Dx: 1. E coli bacteremiaIndications:E coli bacteremia IV Started 12/24/2024 9:04 AM EDT 2 g 100 mL/hr sodium chloride 0.9% syringe 10 mL 10 mL, Intravenous, PRN, Starting on 12/24/24 at 0852, Until 12/25/24 at 0402, Line Care, For Venous Access Device care and maintenance., Dx: 1. E coli bacteremiaIndications:E coli bacteremia Given 12/24/2024 8:59 AM EDT 10 mL documented in this encounter Care Teams Special Officer Relationship Specialty Start Date End Date Willard Hector MD PCP - General Family Medicine 04/28/11 documented as of this encounter
--- OUTSIDE RECORDS SUMMARY | 2024-12-25 08:41 | XMS_ITS | Encounter Summary ---
Author Organization [place] [address] Care Team Providers Care Escrow Representative Name Role Phone Willard Hector MD Primary Care Provider [phone] Reason for Visit * Oncology Medication Prior Authorization (Routine) - Authorization Not Needed Specialty Diagnoses / Procedures Referred By Contdaquan t Referred To Contact Diagnoses E coli bacteremia Procedures [place] CEFTRIAXONE SODIUM INJECTION PER 250 MG Alcira Kauffman MD [address] [place] [address] DR G[address] [place] [phone] Phone: tel: fax: Alcira Kauffman MD [address] [place] [address] DR GILLIAM [address] [place] [phone] Phone: tel: fax: Referral ID Status Reason Start Date Expiration Date Visits Requested Visits Authorized [id number] Authorization Not Needed 12/10/2024 12/10/2025 1 99 Encounter Details Date Type Department Care Team (Latest Contact Info) Description 12/25/2024 8:41 AM EDT - 12/25/2024 11:59 PM EDT Hospital [facility] [place] [address] E coli bacteremia (Primary Dx) Discharge Disposition: Home or Self Care Social History Tobacco Use Types Packs/Day Years Used Date Smoking Tobacco: Former Cigarettes 0.5 20 0 02/06/1983 - 02/06/2003 Smokeless Tobacco: Never [facility] Utilities Answer Date Recorded In [...] money to get more. Never true 12/05/2024 [facility] IP Transportation Answer D ate Recorded [...] Sign Reading Time Taken Comments Blood Pressure 130/74 12/25/2024 9:21 AM EDT Pulse 78 12/25/2024 9:21 AM EDT Temperature 36.2 C (97.2 F) 12/25/2024 8:47 AM EDT Respiratory Rate 16 12/25/2024 9:21 AM EDT Oxygen Saturation 96% 12/25/2024 8:47 AM EDT Inhaled Oxygen Concentration - [...] Patient Instructions - Shanique Child RN - 12/25/2024 9:00 AM EDT [facility] Discharge Instructions Thank you for entrusting the [facility] with your care. We hope [...] infection DON'T WAIT, PLEASE CALL US FIRST [phone]. [FOR URGENT ISSUES PLEASE DO NOT LEAVE A MESSAGE, FOLLOW PROMPTS TO THE DOCTOR TICKET DISPATCHER] For Gynecology / Oncology call : [phone] Our hours of operation are Thursday - Thursday 8:00 AM - 4:30 PM. [facility] [address] [address] [phone] [place] [phone] No results found for any visits on 12/25/24. documented in this encounter Plan of Treatment Upcoming Encounters Date Type Department Care Team (Late st Contact Info) Description 12/29/2024 7:30 AM EDT [facility]ointment [facility] [place] [address] 12/30/2024 7:30 AM EDT Appointment [facility] [place] [address] 12/31/2024 9:00 AM EDT Appointment [facility] [place] [address] 01/01/2025 9:00 AM EDT [facility]ointment [facility] [place] [address] 01/02/2025 7:30 AM EDT Appointment [facility] [place] [address] 01/03/2025 7:30 AM EDT Appointment [facility] [place] [address] 01/04/2025 7:30 AM EDT Appointment [facility] [place] [address] 01/05/2025 7:30 AM EDT Appointment [facility] [place] [address] 01/06/2025 9:00 AM EDT Appointment [facility] [place] [address] 01/07/2025 9:00 AM EDT Appointment [facility] [place] [address] 01/08/2025 9:00 AM EDT Appointment [facility] [place] [address] 01/09/2025 7:30 AM EDT Appointment [facility] [place] [address] 01/10/2025 7:30 AM EDT Appointment [facility] [place] [address] 01/11/2025 7:30 AM EDT Appointment [facility] [place] [address] 01/12/2025 7:30 AM EDT Appointment [facility] [place] [address] 01/13/2025 7:30 AM EDT Appointment [facility] [place] [address] 01/14/2025 9:00 AM EDT Appointment [facility] [place] [address] 01/15/2025 9:00 AM EDT Appointment [facility] [place] [address] 01/16/2025 7:30 AM EDT Appointment [facility] [place] [address] 01/17/2025 7:30 AM EDT Appointment [facility] [place] [address] 01/18/2025 7:30 AM EDT [facility]ointment [facility] [place] [address] 01/18/2025 3:30 PM EDT Office Visit [facility] [address] [place] [address] [place] [phone] Alcira Kauffman MD [address] [place] [phone] documented as of this encounter Visit Diagnoses Diagnosis E coli bacteremia- Primary Bacteremia documented in this encounter Administered Medications Inactive Administered Medications - up to 1 most recent administrations Medication Order MAR Action Action Date Dose Rate Site cefTRIAXone in dextrose (ROCEPHIN) 2 gram/50 mL IVPB 2 g 2 g, Intravenous, ONCE, 1 dose, On 12/25/24 at 0845, Administer over 30 Minutes, PICC care per protocol. D/C PICC on 01/18/25 after last abx dose given. CBC w/diff, CMP, ESR, CRP Q Week Follow up with Dr. Arias on 01/18/2025, Reason for Therapy: Infection Documented, Indication: Bacteremia, Urinary Tract Infection, Dx: 1. E coli bacteremiaIndications:E coli bacteremia IV Started 12/25/2024 8:52 AM EDT 2 g 100 mL/hr documented in this encounter Orders Medications Ordered That Miha ht Not Have Been Administered Count Last Ordered Date First Ordered Date 0.9 % NaCl infusion 1 12/25/2024 cefTRIAXone in dextrose (SOL EPHIN) 2 gram/50 mL IVPB 2 g 1 12/25/2024 documented in this encounter Care Teams Escrow Representative Relationship Specialty Start Date End Date Willard Hector MD PCP - General Family Medicine 04/28/11 documented as of this encounter
--- OUTSIDE RECORDS SUMMARY | 2024-12-26 07:14 | XMS_ITS | Encounter Summary ---
Author Organization [place] [address] Care Team Providers Care Hot Plate Plywood Press Offbearer Name Role Phone Willard Hector MD Primary Care Provider [phone] Trisha Kendall RN Unavailable Unavailable Reason for Visit * Oncology Medication Prior Authorization (Routine) - Authorization Not Needed Specialty Diagnoses / Procedures Referred By Contac t Referred To Contact Diagnoses E coli bacteremia Procedures [place] CEFTRIAXONE SODIUM INJECTION PER 250 MG Alcira Kauffman MD [address] [place] [address] DR GILLIAM [address] [place] [phone] Phone: tel: fax: Alcira Kauffman MD [address] [place] [address] DR GILLIAM [address] [place] [phone] Phone: tel: fax: Referral ID Status Reason Start Date Expiration Date Visits Requested Visits Authorized [id number] Authorization Not Needed 12/10/2024 12/10/2025 1 99 Encounter Details Date Type Department Care Team (Latest Contact Info) Description 12/26/2024 7:14 AM EDT - 12/26/2024 11:59 PM EDT Hospital Encounter [facility] [place] [id number] E coli bacteremia (Primary Dx) Discharge Disposition: Home or Self Care Social History Tobacco Use Types Packs/Day Years Used Date Smoking Tobacco: Former Cigarettes 0.5 20 0 02/06/1983 - 02/06/2003 Smokeless Tobacco: Never [facility] Utilities Answer Date Recorded In the [...] Date Recorded PHQ-2 Total Score 0 12/05/2024 [facility] - Occupational Stress [...] to get more. Never true 12/05/2024 [facility] H[facility]N [facility] IP Transportation Answer D ate Recorded [...] Sign Reading Time Taken Comments Blood Pressure 124/71 12/26/2024 8:17 AM EDT Pulse 67 12/26/2024 8:17 AM EDT Temperature 36.1 C (96.9 F) 12/26/2024 7:39 AM EDT Respiratory Rate 16 12/26/2024 8:17 AM EDT Oxygen Saturation 94% 12/26/2024 7:39 AM EDT Inhaled Oxygen Concentration - [...] encounter Miscellaneous Notes * Patient Instructions - Trisha Kendall RN - 12/26/2024 7:30 AM EDT [facility] Discharge Instructions Thank you for [...] infection DON'T WAIT, PLEASE CALL US FIRST [phone]. [FOR URGENT ISSUES PLEASE DO NOT LEAVE A MESSAGE, FOLLOW PROMPTS TO THE DOCTOR HONEY PROCESSOR] For Gynecology / Oncology call : [phone] Our hours of operation are Thursday - Thursday 8:00 AM - 4:30 PM. [facility] [place] [phone] [place] [address] [place], [place] [phone] No results found for any visits on 12/26/24. documented in this encounter Plan of Treatment Upcoming Encounters Date Type Department Care Team (Late st Contact Info) Description 12/29/2024 7:30 AM EDT Appointment [place] [address] 12/30/2024 7:30 AM EDT Appointment [facility] [place], [place] [id number] 12/31/2024 9:00 AM EDT [facility] [facility] [place] [phone] 01/01/2025 9:00 AM EDT [facility]ointment [facility] [place] [address] 01/02/2025 7:30 AM EDT Appointment [facility] [place] [address] 01/03/2025 7:30 AM EDT Appointment [facility] [place] [address] 01/04/2025 7:30 AM EDT Appointment [facility] [place] [address] 01/05/2025 7:30 AM EDT Appointment [facility] [address] 01/06/2025 9:00 AM EDT Appointment [facility] [place] [address] 01/07/2025 9:00 AM EDT Appointment [facility] [place] [address] 01/08/2025 9:00 AM EDT Appointment [facility] [place] [address] 01/09/2025 7:30 AM EDT Appointment [facility] [place] [address] 01/10/2025 7:30 AM EDT Appointment [facility] [place] [address] 01/11/2025 7:30 AM EDT Appointment [facility] [place] [address] 01/12/2025 7:30 AM EDT Appointment [facility] [address] 01/13/2025 7:30 AM EDT Appointment [facility] [address] 01/14/2025 9:00 AM EDT Appointment [facility] [address] 01/15/2025 9:00 AM EDT Appointment [facility] [place] [address] 01/16/2025 7:30 AM EDT Appointment [facility] [place] [address] 01/17/2025 7:30 AM EDT Appointment [facility] [address] 01/18/2025 7:30 AM EDT Appointment [place] [address] 01/18/2025 3:30 PM EDT Office Visit [facility] [address] [place] [address] [place] [phone] Alcira Kauffman MD [address] [place] [address] [phone] documented as of this encounter Visit Diagnoses Diagnosis E coli bacteremia- Primary Bacteremia documented in this encounter Administered Medications Inactive Administered Medications - up to 1 most recent administrations Medication Order MAR Action Action Date Dose Rate Site cefTRIAXone in dextrose (ROCEPHIN) 2 gram/50 mL IVPB 2 g 2 g, Intravenous, ONCE, 1 dose, On Thu12/26/24 at 0745, Administer over 30 Minutes, PICC care per protocol. D/C PICC on 01/18/25 after last abx dose given. CBC w/diff, CMP, ESR, CRP Q Week Follow up with Dr. Arias on 01/18/2025, Reason for Therapy: Infection Documented, Indication: Bacteremia, Urinary Tract Infection, Dx: 1. E coli bacteremiaIndications:E coli bacteremia IV Started 12/26/2024 7:50 AM EDT 2 g 100 mL/hr sodium chloride 0.9% syringe 10 mL 10 mL, Intravenous, PRN, Starting on Thu12/26/24 at 0750, Until Thu12/27/24 at 0408, Line Care, For Venous Access Device care and maintenance., Dx: 1. E coli bacteremiaIndications:E coli bacteremia Given 12/26/2024 8:17 AM EDT 10 mL documented in this encounter Care Teams Hot Plate Plywood Press Offbearer Relationship Specialty Start Date End Date Willard Hector MD PCP - General Family Medicine 04/28/11 Trisha Kendall, [place] Registered Nurse Infusion Therapy 12/26/24 12/26/24 documented as of this encounter
--- OUTSIDE RECORDS SUMMARY | 2024-12-27 07:16 | XMS_ITS | Encounter Summary ---
Author Organization [place] [address] Care Team Providers Care Logistics Technician Name Role Phone Willard Hector MD Primary Care Provider [phone] Reason for Visit * Oncology Medication Prior Authorization (Routine) - Authorization Not Needed Specialty Diagnoses / Procedures Referred By Contdaquan t Referred To Contact Diagnoses E coli bacteremia Procedures [place] CEFTRIAXONE SODIUM INJECTION PER 250 MG Alcira Kauffman MD [address] [place] [address] [address] [place] [phone] Phone: tel: fax: Alcira Kauffman MD [address] [place] [address] DR GILLIAM [address] [place] [phone] Phone: tel: fax: Referral ID Status Reason Start Date Expiration Date Visits Requested Visits Authorized [id number] Authorization Not Needed 12/10/2024 12/10/2025 1 99 Encounter Details Date Type Department Care Team (Latest Contact Info) Description 12/27/2024 7:16 AM EDT - 12/27/2024 11:59 PM EDT Hospital Encounter [facility] [address] E coli bacteremia (Primary Dx) Discharge Disposition: Home or Self Care Social History Tobacco Use Types Packs/Day Years Used Date Smoking Tobacco: Former Cigarettes 0.5 20 0 02/06/1983 - 02/06/2003 Smokeless Tobacco: Never [facility] Utilities Answer Date Recorded In the [...] Date Recorded PHQ-2 Total Score 0 12/05/2024 [facility] Occupat ional Health - Occupational [...] to get more. Never true 12/05/2024 [facility] IP Transportation Answer D ate Recorded In [...] Reading Time Taken Comments Blood Pressure 128/80 12/27/2024 7:55 AM EDT Pulse 70 12/27/2024 7:55 AM EDT Temperature 36.3 C (97.3 F) 12/27/2024 7:30 AM EDT Respiratory Rate 16 12/27/2024 7:30 AM EDT Oxygen Saturation 94% 12/27/2024 7:30 AM EDT Inhaled Oxygen Concentration - [...] Patient Instructions - Sahra Francis RN - 12/27/2024 7:30 AM EDT [facility] Discharge Instructions Thank you for entrusting [...] infection DON'T WAIT, PLEASE CALL US FIRST [phone]. [FOR URGENT ISSUES PLEASE DO NOT LEAVE A MESSAGE, FOLLOW PROMPTS TO THE DOCTOR DELIVERY TRUCK DRIVER] For Gynecology / Oncology call : [phone] Our hours of operation are Thursday - Thursday 8:00 AM - 4:30 PM. [facility] [address] [phone] [place]ta [address] [place] [phone] No results found for any visits on 12/27/24. documented in this encounter Plan of Treatment Upcoming Encounters Date Type Department Care Team (Late st Contact Info) Description 12/29/2024 7:30 AM EDT Appointment [place] [address] 12/30/2024 7:30 AM EDT Appointment [facility] [place], [place] [phone] 12/31/2024 9:00 AM EDT [facility] [place] [phone] 01/01/2025 9:00 AM EDT [facility]ointment [facility] [place] [address] 01/02/2025 7:30 AM EDT Appointment [facility] [place] [address] 01/03/2025 7:30 AM EDT Appointment [facility] [place] [address] 01/04/2025 7:30 AM EDT Appointment [facility] [place] [address] 01/05/2025 7:30 AM EDT Appointment [facility] [place] [address] 01/06/2025 9:00 AM EDT Appointment [facility] [place] [address] 01/07/2025 9:00 AM EDT Appointment [facility] [place] [address] 01/08/2025 9:00 AM EDT Appointment [facility] [place] [address] 01/09/2025 7:30 AM EDT Appointment [facility] [place] [address] 01/10/2025 7:30 AM EDT Appointment [facility] [place] [address] 01/11/2025 7:30 AM EDT Appointment [facility] [place] [address] 01/12/2025 7:30 AM EDT Appointment [facility] [place] [address] 01/13/2025 7:30 AM EDT Appointment [facility] [place] [address] 01/14/2025 9:00 AM EDT Appointment [facility] [place] [address] 01/15/2025 9:00 AM EDT Appointment [facility] [place] [address] 01/16/2025 7:30 AM EDT Appointment [facility] [place] [address] 01/17/2025 7:30 AM EDT Appointment [facility] [place] [address] 01/18/2025 7:30 AM EDT [facility]ointment [facility] [place] [address] 01/18/2025 3:30 PM EDT Office Visit [facility] [address] [place] [phone] Alcira Kauffman MD [address] [place] [phone] documented as of this encounter Visit Diagnoses Diagnosis E coli bacteremia- Primary Bacteremia documented in this encounter Administered Medications Inactive Administered Medications - up to 1 most recent administrations Medication Order MAR Action Action Date Dose Rate Site cefTRIAXone in dextrose (ROCEPHIN) 2 gram/50 mL IVPB 2 g 2 g, Intravenous, ONCE, 1 dose, On Thu12/27/24 at 0730, Administer over 30 Minutes, PICC care per protocol. D/C PICC on 01/18/25 after last abx dose given. CBC w/diff, CMP, ESR, CRP Q Week Follow up with Dr. Arias on 01/18/2025, Reason for Therapy: Infection Documented, Indication: Bacteremia, Urinary Tract Infection, Dx: 1. E coli bacteremiaIndications:E coli bacteremia IV Started 12/27/2024 7:30 AM EDT 2 g 100 mL/hr sodium chloride 0.9% syringe 10 mL 10 mL, Intravenous, PRN, Starting on Thu12/27/24 at 0720, Until Thu12/28/24 at 0404, Line Care, For Venous Access Device care and maintenance., Dx: 1. E coli bacteremiaIndications:E coli bacteremia Given 12/27/2024 7:55 AM EDT 10 mL documented in this encounter Care Teams Logistics Technician Relationship Specialty Start Date End Date Willard Hector MD PCP - General Family Medicine 04/28/11 documented as of this encounter
--- OUTSIDE RECORDS SUMMARY | 2024-12-28 07:14 | XMS_ITS | Encounter Summary ---
Author Organization [place] [address] Care Team Providers Care Acetylene Gas Compressor Name Role Phone Willard Hector MD Primary Care Provider [phone] Reason for Visit * Oncology Medication Prior Authorization (Routine) - Authorization Not Needed Specialty Diagnoses / Procedures Referred By Contac t Referred To Contact Diagnoses E coli bacteremia Procedures VT CEFTRIAXONE SODIUM INJECTION PER 250 MG Alcira Kauffman MD [address] [place] [address] [address] [place] [phone] Phone: tel: fax: Alcira Kauffman MD [address] [place] [address] DR [address] [place] [phone] Phone: tel: fax: Referral ID Status Reason Start Date Expiration Date Visits Requested Visits Authorized [id number] Authorization Not Needed 12/10/2024 12/10/2025 1 99 Encounter Details Date Type Department Care Team (Latest Contact Info) Description 12/28/2024 7:14 AM EDT Hospital Encounter [facility] [place] [address] E coli bacteremia (Primary Dx) Social History Tobacco Use Types Packs/Day Years Used Date Smoking Tobacco: Former Cigarettes 0.5 20 0 02/06/1983 - 02/06/2003 Smokeless Tobacco: Never [facility] Utilities Answer Date Recorded In the past 12 months has th e electric, gas, oil, or water [employer] threatened to shut off services in your home? No 12/05/2024 Overall Financial Resource Strain (CARDIA) Answe r Date Recorded How hard is it for you to pa y for the very basics like food, housing, medical care, and heating? Not hard at all 12/05/2024 PHQ-2 Answer Date Recorded PHQ-2 Total Score 0 12/05/2024 [facility] - Occupational Stress Questionnaire Answer Date Recorded [...] money to buy more. Never true 12/06/19 Within the past 12 months, t he food you bought just didn't last and you didn't have money to get more. Never true 12/05/2024 [facility] Transportation Answer D ate Recorded In [...] Sign Reading Time Taken Comments Blood Pressure 121/82 12/28/2024 8:14 AM EDT Pulse 66 12/28/2024 8:14 AM EDT Temperature 36.2 C (97.2 F) 12/28/2024 7:37 AM EDT Respiratory Rate 16 12/28/2024 8:14 AM EDT Oxygen Saturation - - Inhaled Oxygen Concentration - - Weight - - Height - - Body Mass Index - - documented in this encounter Miscellaneous Notes * Patient Instructions - Veronica Castillo RN - 12/28/2024 7:30 AM EDT [facility] Discharge Instructions Thank you for entrusting the [...] infection DON'T WAIT, PLEASE CALL US FIRST [phone]. [FOR URGENT ISSUES PLEASE DO NOT LEAVE A MESSAGE, FOLLOW PROMPTS TO THE DOCTOR MUSIC COORDINATOR] For Gynecology / Oncology call : [phone] Our hours of operation are Thursday - Thursday 8:00 AM - 4:30 PM. [facility] [address] [place] [address] [phone] [place] [address] No results found for any visits on 12/28/24. documented in this encounter Plan of Treatment Upcoming Encounters Date Type Department Care Team (Late st Contact Info) Description 12/29/2024 7:30 AM EDT Appointment [facility] [place] [address] 12/30/2024 7:30 AM EDT Appointment [facility] [place] [address] 12/31/2024 9:00 AM EDT Appointment [facility] [place] [address] 01/01/2025 9:00 AM EDT Appointment [facility] [place] [address] 01/02/2025 7:30 AM EDT Appointment [facility] [place] [address] 01/03/2025 7:30 AM EDT Appointment [facility] [place] [address] 01/04/2025 7:30 AM EDT Appointment [facility] [place] [address] 01/05/2025 7:30 AM EDT Appointment [facility] [place] [address] 01/06/2025 9:00 AM EDT Appointment [facility] [place] [address] 01/07/2025 9:00 AM EDT Appointment [facility] [place] [address] 01/08/2025 9:00 AM EDT Appointment [facility] [place] [address] 01/09/2025 7:30 AM EDT Appointment [facility] [place] [address] 01/10/2025 7:30 AM EDT Appointment [facility] [place] [address] 01/11/2025 7:30 AM EDT Appointment [facility] [place] [address] 01/12/2025 7:30 AM EDT Appointment [facility] [place] [address] 01/13/2025 7:30 AM EDT Appointment [facility] [place] [address] 01/14/2025 9:00 AM EDT Appointment [facility] [place] [address] 01/15/2025 9:00 AM EDT Appointment [facility] [place] [address] 01/16/2025 7:30 AM EDT Appointment [facility] [place] [address] 01/17/2025 7:30 AM EDT Appointment [facility] [place] [address] 01/18/2025 7:30 AM EDT Appointment [facility] [place] [address] 01/18/2025 3:30 PM EDT Office Visit [facility] Infectious Disease [facility] [address] [place] [phone] Alcira Kauffman MD [address] [place] [address] DR [address] [place] [phone] documented as of this encounter Visit Diagnoses Diagnosis E coli bacteremia- Primary Bacteremia documented in this encounter Administered Medications Inactive Administered Medications - up to 1 most recent administrations Medication Order MAR Action Action Date Dose Rate Site 0.9 % NaCl infusion Intravenous, at 30 mL/hr, CONTINUOUS, Starting on Thu12/28/24 at 0745, Until Thu12/28/24 at 0944, For gasoline tester, Dx: 1. E coli bacteremiaIndications:E coli bacteremia New Bag 12/28/2024 7:39 AM EDT 30 mL/hr cefTRIAXone in dextrose (ROCEPHIN) 2 gram/50 mL IVPB 2 g 2 g, Intravenous, ONCE, 1 dose, On Thu12/28/24 at 0745, Administer over 30 Minutes, PICC care per protocol. D/C PICC on 01/18/25 after last abx dose given. CBC w/diff, CMP, ESR, CRP Q Week Follow up with Dr. Arias on 01/18/2025, Reason for Therapy: Infection Documented, Indication: Bacteremia, Urinary Tract Infection, Dx: 1. E coli bacteremiaIndications:E coli bacteremia IV Started 12/28/2024 7:42 AM EDT 2 g 100 mL/hr documented in this encounter Orders Nursing Count Last Ordered Date First Orde red Date NURSING COMMUNICATION 1 12/28/2024 documented in this encounter Care Teams Acetylene Gas Compressor Relationship Specialty Start Date End Date Willard Hector MD PCP - General Family Medicine 04/28/11 documented as of this encounter
--- OUTSIDE RECORDS SUMMARY | 2024-12-28 10:33 | XMS_ITS | Clinical Summary ---
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 Active multivit-min/i katharina/folic/lute in (CENTRUM SILVER WOMEN ORAL) Take 1 Tablet by mouth daily. Active buPROPion (WELLBUTRIN SR) 150 mg Oral tablet sustained-rele ase 12 hr Take 150 mg by mouth 2 times daily. 2 Active FLUoxetine (PROZAC) 20 mg Oral Capsule Take 20 mg by mouth daily. 2 Active LEVOthyroxine (SYNTHROID) 88 mcg Oral Tablet Take 88 mcg by mouth daily. 5 Active oxyCODONE (ROXICODONE) 5 mg Oral Tablet Take 1 Tablet by mouth every 6 hours as needed for Acute Pain (R52) or Major Surgery/Trauma (G89.18) (for acute post-operative pain). 10 Tablet 12/10/2024 2:44 PM EDT 5 Active docusate sodium (COLACE) 100 mg Oral Capsule Take 1 Capsule by mouth 2 times daily as needed for Constipation for up to 30 days. 5 025 Active polyethylene glycol (GLYCOLAX, MIRALAX) 17 gram Oral Powder in Packet Take 17 g by mouth daily as needed for Constipation. Active zolpidem (AMBIEN) 10 mg Oral Tablet Take 10 mg by mouth nightly as needed for Sleep. Active Cholecalcifero l, Vitamin D3, (VITAMIN D3) 125 mcg (5,000 unit) Oral Tablet Take 5,000 mcg by mouth daily. 90 Tablet 2 2 025 Discontin ued(Stop Taking at Discharge ) diphenhydrAMIN E (BENADRYL) 25 mg Oral Capsule Take 25 mg by mouth nightly as needed (sleep). 025 Discontin ued(Stop Taking at Discharge ) Active Problems Problem Noted Date Diagnosed Date Pyuria 12/09/2024 E. coli UTI (urinary tract infection) 12/09/2024 Fever in adult 12/09/2024 Leukocytosis 12/09/2024 Hypothyroidism 12/07/2024 Assessment & Plan (12/10/2024 11:29 AM EDT): Continue synthroid, confirmed dosing TSH okay Assessment & Plan (12/09/2024 9:31 AM EDT): Continue synthroid, confirmed dosing TSH okay Assessment & Plan (12/08/2024 8:27 AM EDT): Continue synthroid, confirm dosing TSH okay Assessment & Plan (12/07/2024 3:45 PM EDT): Continue synthroid Check TSH Liver abscess 12/07/2024 Assessment & Plan (12/10/2024 11:29 AM EDT): CT on admission with acute cholecystitis with possible contained perforation or developing fluid collection/abscess in the adjacent liver. S/p cholecystectomy as noted above WBC improving Afebrile Blood cultures 12/04/24 w ecoli Urine culture 12/04 with Ecoli ID consulted Remains On rocephin Planning PICC and outpatient antibiotics today Assessment & Plan (12/09/2024 9:19 AM EDT): CT on admission with acute cholecystitis with possible contained perforation or developing fluid collection/abscess in the adjacent liver. S/p cholecystectomy as noted above WBC improving 12/09/2024 Afebrile Blood cultures 12/04/24 w ecoli Urine culture 6/ with Ecoli ID consulted Remains On rocephin Planning PICC and outpatient antibiotics Assessment & Plan (12/08/2024 8:27 AM EDT): CT on admission with acute cholecystitis with possible contained perforation or developing fluid collection/abscess in the adjacent liver. S/p cholecystectomy as noted above WBC improving 12/08/2024 Afebrile Blood cultures 12/04/24 w ecoli Urine culture 12/04 with Ecoli ID consulted Remains On rocephin Assessment & Plan (12/07/2024 4:19 PM EDT): CT on admission with acute cholecystitis with possible contained perforation or developing fluid collection/abscess in the adjacent liver. S/p cholecystectomy as noted above WBC improving Afebrile Blood cultures 12/04/24 w ecoli Urine culture 12/04 with Ecoli ID consulted On rocephin E coli bacteremia 12/06/2024 Assessment & Plan (12/10/2024 11:29 AM EDT): CT on admission with acute cholecystitis with possible contained perforation or developing fluid collection/abscess in the adjacent liver. S/p cholecystectomy as noted above WBC improving Afebrile Blood cultures 12/04/24 w ecoli Urine culture 6 with Ecoli ID consulted Remains On rocephin Planning PICC and outpatient antibiotics today Assessment & Plan (12/09/2024 9:19 AM EDT): CT on admission with acute cholecystitis with possible contained perforation or developing fluid collection/abscess in the adjacent liver. S/p cholecystectomy as noted above WBC improving 12/09/2024 Afebrile Blood cultures 12/04/24 w ecoli Urine culture 6/ with Ecoli ID consulted Remains On rocephin Planning PICC and outpatient antibiotics Assessment & Plan (12/08/2024 8:27 AM EDT): CT on admission with acute cholecystitis with possible contained perforation or developing fluid collection/abscess in the adjacent liver. S/p cholecystectomy as noted above WBC improving 12/08/2024 Afebrile Blood cultures 12/04/24 w ecoli Urine culture 6/ with Ecoli ID consulted Remains On rocephin Assessment & Plan (12/07/2024 4:19 PM EDT): CT on admission with acute cholecystitis with possible contained perforation or developing fluid collection/abscess in the adjacent liver. S/p cholecystectomy as noted above WBC improving Afebrile Blood cultures 12/04/24 w ecoli Urine culture 6/ with Ecoli ID consulted On rocephin Acute cystitis without hematuria 12/06/2024 Assessment & Plan (12/10/2024 11:29 AM EDT): CT on admission with acute cholecystitis with possible contained perforation or developing fluid collection/abscess in the adjacent liver. S/p cholecystectomy as noted above WBC improving Afebrile Blood cultures 12/04/24 w ecoli Urine culture 6 with Ecoli ID consulted Remains On rocephin Planning PICC and outpatient antibiotics today Assessment & Plan (12/09/2024 9:19 AM EDT): CT on admission with acute cholecystitis with possible contained perforation or developing fluid collection/abscess in the adjacent liver. S/p cholecystectomy as noted above WBC improving 12/09/2024 Afebrile Blood cultures 12/04/24 w ecoli Urine culture 6/ with Ecoli ID consulted Remains On rocephin Planning PICC and outpatient antibiotics Assessment & Plan (12/08/2024 8:27 AM EDT): CT on admission with acute cholecystitis with possible contained perforation or developing fluid collection/abscess in the adjacent liver. S/p cholecystectomy as noted above WBC improving 12/08/2024 Afebrile Blood cultures 12/04/24 w ecoli Urine culture 6/ with Ecoli ID consulted Remains On rocephin Assessment & Plan (12/07/2024 4:19 PM EDT): CT on admission with acute cholecystitis with possible contained perforation or developing fluid collection/abscess in the adjacent liver. S/p cholecystectomy as noted above WBC improving Afebrile Blood cultures 12/04/24 w ecoli Urine culture 12/04 with Ecoli ID consulted On rocephin Cholecystitis 12/05/2024 Assessment & Plan (12/10/2024 11:29 AM EDT): S/p DAVINCI ROBOTIC CHOLECYSTECTOMY with Dr Holguin on 12/05 Post op management per surgery BUCK remains in place, surgery plans to remove before DC Diet: LOW FAT DIET Monitor and replace lytes PRN Analgesia Mobilize as able Assessment & Plan (12/09/2024 9:19 AM EDT): S/p DAVINCI ROBOTIC CHOLECYSTECTOMY with Dr Holguin on 12/05 Post op management per surgery BUCK remains in place Diet: LOW FAT DIET Monitor and replace lytes PRN Analgesia Mobilize as able Assessment & Plan (12/08/2024 8:27 AM EDT): S/p DAVINCI ROBOTIC CHOLECYSTECTOMY with Dr Holguin on 12/05 Post op management per surgery BUCK remains in place Diet: LOW FAT DIET Monitor and replace lytes PRN Analgesia Mobilize as able Assessment & Plan (12/07/2024 4:19 PM EDT): S/p DAVINCI ROBOTIC CHOLECYSTECTOMY with Dr Holguin on 12/05 Post op management per surgery BUCK remains in place Diet: LOW FAT DIET Monitor and replace lytes PRN Analgesia Mobilize as able Septic shock 12/05/2024 Assessment & Plan (12/10/2024 11:29 AM EDT): CT on admission with acute cholecystitis with possible contained perforation or developing fluid collection/abscess in the adjacent liver. S/p cholecystectomy as noted above WBC improving Afebrile Blood cultures 12/04/24 w ecoli Urine culture 12/04 with Ecoli ID consulted Remains On rocephin Planning PICC and outpatient antibiotics today Assessment & Plan (12/09/2024 9:19 AM EDT): CT on admission with acute cholecystitis with possible contained perforation or developing fluid collection/abscess in the adjacent liver. S/p cholecystectomy as noted above WBC improving 12/09/2024 Afebrile Blood cultures 12/04/24 w ecoli Urine culture 12/04 with Ecoli ID consulted Remains On rocephin Planning PICC and outpatient antibiotics Assessment & Plan (12/08/2024 8:27 AM EDT): CT on admission with acute cholecystitis with possible contained perforation or developing fluid collection/abscess in the adjacent liver. S/p cholecystectomy as noted above WBC improving 12/08/2024 Afebrile Blood cultures 12/04/24 w ecoli Urine culture 12/04 with Ecoli ID consulted Remains On rocephin Assessment & Plan (12/07/2024 4:19 PM EDT): CT on admission with acute cholecystitis with possible contained perforation or developing fluid collection/abscess in the adjacent liver. S/p cholecystectomy as noted above WBC improving Afebrile Blood cultures 12/04/24 w ecoli Urine culture 12/04 with Ecoli ID consulted On rocephin Obesity, Class III, BMI 40-49.9 (morbid obesity) 12/05/2024 Assessment & Plan (12/10/2024 11:29 AM EDT): Complicates care Assessment & Plan (12/09/2024 9:19 AM EDT): Complicates care Assessment & Plan (12/08/2024 8:27 AM EDT): Complicates care Assessment & Plan (12/07/2024 3:45 PM EDT): Complicates care Intra-abdominal abscess 12/05/2024 Assessment & Plan (12/10/2024 11:29 AM EDT): CT on admission with acute cholecystitis with possible contained perforation or developing fluid collection/abscess in the adjacent liver. S/p cholecystectomy as noted above WBC improving Afebrile Blood cultures 12/04/24 w ecoli Urine culture 12/04 with Ecoli ID consulted Remains On rocephin Planning PICC and outpatient antibiotics today Assessment & Plan (12/09/2024 9:19 AM EDT): CT on admission with acute cholecystitis with possible contained perforation or developing fluid collection/abscess in the adjacent liver. S/p cholecystectomy as noted above WBC improving 12/09/2024 Afebrile Blood cultures 12/04/24 w ecoli Urine culture 12/04 with Ecoli ID consulted Remains On rocephin Planning PICC and outpatient antibiotics Assessment & Plan (12/08/2024 8:27 AM EDT): CT on admission with acute cholecystitis with possible contained perforation or developing fluid collection/abscess in the adjacent liver. S/p cholecystectomy as noted above WBC improving 12/08/2024 Afebrile Blood cultures 12/04/24 w ecoli Urine culture 12/04 with Ecoli ID consulted Remains On rocephin Assessment & Plan (12/07/2024 4:19 PM EDT): CT on admission with acute cholecystitis with possible contained perforation or developing fluid collection/abscess in the adjacent liver. S/p cholecystectomy as noted above WBC improving Afebrile Blood cultures 12/04/24 w ecoli Urine culture 12/04 with Ecoli ID consulted On rocephin Therapeutic procedure 06/20/2020 Assessment & Plan (06/20/2020 3:41 PM EST): --repeat botox as planned in Jul 2020, per pt request --aware of ISC risk with each botox procedure --staff will call 1 week prior with procedural medications and botox instructions --return for BOTOX #2 with 100 units Primary osteoarthritis of right knee 05/30/2020 Benign essential HTN 05/30/2020 Assessment & Plan (12/10/2024 11:29 AM EDT): Stable 12/10/2024 Assessment & Plan (12/09/2024 9:19 AM EDT): Stable 12/09/2024 Assessment & Plan (12/08/2024 8:27 AM EDT): Stable 12/08/2024 Assessment & Plan (12/07/2024 3:45 PM EDT): Stable Encounters Date Type Department Care Team Description 12/28/2024 7:14 AM EDT [facility] [place] [address] E coli bacteremia (Primary Dx) 12/27/2024 7:16 AM EDT - 12/27/2024 11:59 PM EDT Hospital Encounter [facility] [place] [address] E coli bacteremia (Primary Dx) Discharge Disposition: Home or Self Care 12/26/2024 7:14 AM EDT - 12/26/2024 11:59 PM EDT Hospital Encounter [facility] [place] [address] E coli bacteremia (Primary Dx) Discharge Disposition: Home or Self Care 12/25/2024 8:41 AM EDT - 12/25/2024 11:59 PM EDT Hospital Encounter [facility] [place] [address] E coli bacteremia (Primary Dx) Discharge Disposition: Home or Self Care 12/24/2024 8:49 AM EDT - 12/24/2024 11:59 PM EDT [facility] [place] [address] E coli bacteremia (Primary Dx) Discharge Disposition: Home or Self Care 12/23/2024 7:17 AM EDT - 12/23/2024 11:59 PM EDT Hospital Encounter [facility] [place] [address] E coli bacteremia (Primary Dx) Discharge Disposition: Home or Self Care 12/22/2024 8:15 AM EDT - 12/22/2024 11:59 PM EDT Hospital Encounter [facility] [place] [address] E coli bacteremia (Primary Dx) Discharge Disposition: Home or Self Care 12/21/2024 7:22 AM EDT - 12/21/2024 11:59 PM EDT Hospital Encounter [facility] [place] [place] [address] E coli bacteremia (Primary Dx) Discharge Disposition: Home or Self Care 12/20/2024 7:18 AM EDT - 12/20/2024 11:59 PM EDT Hospital Encounter [facility] [place] [place] [address] E coli bacteremia (Primary Dx) Discharge Disposition: Home or Self Care 12/19/2024 7:13 AM EDT - 12/19/2024 11:59 PM EDT Hospital Encounter [facility] [place] [address] E coli bacteremia (Primary Dx) Discharge Disposition: Home or Self Care 12/18/2024 8:39 AM EDT - 12/18/2024 11:59 PM EDT Hospital Encounter [facility] [place] [address] E coli bacteremia (Primary Dx) Discharge Disposition: Home or Self Care 12/17/2024 8:52 AM EDT - 12/17/2024 11:59 PM EDT Hospital Encounter [facility] [place] [address] E coli bacteremia (Primary Dx) Discharge Disposition: Home or Self Care 12/16/2024 7:21 AM EDT - 12/16/2024 11:59 PM EDT Hospital Encounter [facility] [place] [address] E coli bacteremia (Primary Dx) Discharge Disposition: Home or Self Care 12/16/2024 Telephone SEP Gen Surg [facility] [address] [facility] [address] [place] [address] Brit Briseno MA Other 12/15/2024 7:19 AM EDT - 12/15/2024 11:59 PM EDT Hospital Encounter [facility] [place] [address] E coli bacteremia (Primary Dx) Discharge Disposition: Home or Self Care 12/14/2024 7:18 AM EDT - 12/14/2024 11:59 PM EDT Hospital Encounter [facility] [address] E coli bacteremia (Primary Dx) Discharge Disposition: Home or Self Care 12/13/2024 7:23 AM EDT - 12/13/2024 11:59 PM EDT Hospital Encounter [facility] [address] E coli bacteremia (Primary Dx) Discharge Disposition: Home or Self Care 12/12/2024 7:21 AM EDT - 12/12/2024 11:59 PM EDT Hospital Encounter [facility] [place] [address] E coli bacteremia (Primary Dx) Discharge Disposition: Home or Self Care 12/11/2024 9:00 AM EDT - 12/11/2024 11:59 PM EDT Hospital Encounter [facility] [address] E coli bacteremia (Primary Dx) Discharge Disposition: Home or Self Care 12/05/2024 10:09 AM EDT Anesthesia Event [facility] [place] [address] Lydia Cain MD Trog, Lynnsey, APRN 12/05/2024 9:47 AM EDT - 12/05/2024 11:47 AM EDT Surgery [facility] [place] [address] Fabian Holguin MD DAVINCI ROBOTIC CHOLECYSTECTOMY 12/05/2024 2:30 AM EDT Ancillary Procedure [facility] [address] [place] [address] 12/05/2024 2:15 AM EDT Ancillary Procedure [facility] [address] [place] [address] 12/05/2024 2:10 AM EDT Ancillary Procedure [facility] [address] [place] [address] 12/04/2024 11:19 PM EDT - 12/10/2024 4:17 PM EDT Hospital Encounter [place] [facility] [address] Doug Ross MD Degrande, Sean T, MD Nausea and vomiting, unspecified vomiting type (Primary Dx); Right upper quadrant abdominal pain; Acute cholecystitis; Sepsis, due to unspecified organism, unspecified whether acute organ dysfunction present (HCC); Hypokalemia; Calculus of gallbladder without cholecystitis without obstruction Discharge Disposition: Home or Self Care 12/04/2024 Travel 10/25/2024 9:08 AM EDT - 10/25/2024 11:59 AM EDT Emergency [facility] [place] [address] Doug Ross MD Right lower quadrant abdominal pain (Primary Dx) Discharge Disposition: Home or Self Care 10/25/2024 Travel from Last 3 Months Surgical History Surgery Date Site/Laterality Comments SECTION THYROIDECTOMY TOTAL KNEE ARTHROPLASTY 02/15/2020 Left LEFT TOTAL KNEE ARTHROPLASTY cortizone injection right knee; Surgeon: Hitesh Hilton MD; Location: [facility]; Service: Orthopedics Medical devices from this surgery are in the Medical Devices section. KNEE JOINT MANIPULATION 02/15/2020 Surgeon: Hitesh Hilton MD; Location: [facility]; Service: Orthopedics Medical devices from this surgery are in the Medical Devices section. TOTAL KNEE ARTHROPLASTY 05/30/2020 Right RIGHT TOTAL KNEE ARTHROPLASTY; Surgeon: Hitesh Hilton MD; Location: [facility]; Service: Orthopedics Medical devices from this surgery are in the Medical Devices section. COSMETIC SURGERY brachioplasty, abdominal plasty CHOLECYSTECTOMY 12/05/2024 Abdomen/N/A DAVINCI ROBOTIC CHOLECYSTECTOMY; Surgeon: Fabian Holguin MD; Location: [facility]; Service: General Medical History Medical History Date Comments Hypertension Thyroid disease Arthritis Urinary incontinence Botox fixed symptoms Depression mild Vasodepressor syncope Family History Medical History Relation Name Comments Arthritis Father Diabetes Father Heart Disease Father High Blood Pressure Father Arthritis Mother Cancer Mother Depression Mother Heart Disease Mother Anesth Problems Neg Hx Relation Name Status Comments Brother Alive Father Mother Social History Tobacco Use Types Packs/Day Years Used Date Smoking Tobacco: Former Cigarettes 0.5 20 0 02/06/1983 - 02/06/2003 Smokeless Tobacco: Never [facility] Utilities Answer Date Recorded In the [...] Date Recorded PHQ-2 Total Score 0 12/05/2024 [facility] - [...] money to get more. Never true 12/05/2024 [facility] IP Transportation Answer D [...] on file Sexual Orientation Not on file Obstetrics History Last Filed Vital Signs Vital Sign Reading Time Taken Comments Blood Pressure 121/82 12/28/2024 8:14 AM EDT Pulse 66 12/28/2024 8:14 AM EDT Temperature 36.2 C (97.2 F) 12/28/2024 7:37 AM EDT Respiratory Rate 16 12/28/2024 8:14 AM EDT Oxygen Saturation 94% 12/27/2024 7:30 AM EDT Inhaled Oxygen Concentration - - Weight 110.1 kg (242 lb 12.8 oz) 12/19/2024 7:30 AM EDT Height 162.6 cm (5' 4 ) 12/05/2024 2:09 AM EDT Body Mass Index 41.68 12/05/2024 2:09 AM EDT Plan of Treatment Upcoming Encounters Date Type Department Care Team (Late st Contact Info) Description 12/29/2024 7:30 AM EDT Appointment [facility] [place] [address] 12/30/2024 7:30 AM EDT Appointment [facility] [place] [address] 12/31/2024 9:00 AM EDT Appointment [facility] [place] [address] 01/01/2025 9:00 AM EDT Appointment [facility] [place] [address] 01/02/2025 7:30 AM EDT Appointment [facility] [place] [address] 01/03/2025 7:30 AM EDT Appointment [facility] [place] [address] 01/04/2025 7:30 AM EDT Appointment [facility] [place] [address] 01/05/2025 7:30 AM EDT Appointment [facility] [place] [address] 01/06/2025 9:00 AM EDT Appointment [facility] [place] [address] 01/07/2025 9:00 AM EDT Appointment [facility] [place] [address] 01/08/2025 9:00 AM EDT Appointment [facility] [place] [address] 01/09/2025 7:30 AM EDT Appointment [facility] [place] [address] 01/10/2025 7:30 AM EDT Appointment [facility] [place] [address] 01/11/2025 7:30 AM EDT Appointment [facility] [place] [address] 01/12/2025 7:30 AM EDT Appointment [facility] [place] [address] 01/13/2025 7:30 AM EDT Appointment [facility] [place] [address] 01/14/2025 9:00 AM EDT Appointment [facility] [place] [address] 01/15/2025 9:00 AM EDT Appointment [facility] [place] [address] 01/16/2025 7:30 AM EDT Appointment [facility] [place] [address] 01/17/2025 7:30 AM EDT Appointment [facility] [place] [address] 01/18/2025 7:30 AM EDT Appointment [facility] [place] [address] 01/18/2025 3:30 PM EDT Office Visit SEP Infectious Disease [facility] [address] [address] Mike Kauffman MD [address] [place] [address] [address] MANE [address] [place] [phone] Health Maintenance Due Date Last Done Comments Annual Wellness Exam 11/11/1970 DTaP/TDaP/Td (1 - Tdap) 11/11/1986 Hepatitis B Vaccine (1 of 3 - 19+ 3-dose series) 11/11/1986 Cervical Cancer Screening 11/11/1988 Pap Smear 11/11/1988 HPV/Pap Cotest 11/11/1997 Colonoscopy 11/11/2012 FIT 11/11/2012 Sigmoidoscopy 11/11/2012 Virtual Colonography 11/11/2012 Pneumococcal Vaccine 50+ (1 of 1 - PCV) 11/11/2017 Cologuard 08/22/2022 08/22/2019, 08/22/2019 Colon Cancer Screening 08/22/2022 Breast Cancer Screening 03/02/2023 03/02/2021, 07/05 Zoster (2 of 2) 07/01/2024 05/06/2024 COVID-19 Vaccine Completed 05/06/2024, 04/2021, 10/26/2020, Additional history exists Influenza Vaccine Completed 05/06/2024, , 06/16/2017, Additional history exists Meningococcal B Vaccine Aged Out No l onger eligible based on patient's age to complete this topic Medical Devices Implanted Type Area Gear Hobber Device Identifier Shelf Expiration Date Model / Serial / Lot Cement Bone Full Pack- [employer] Simplex - [id number] Implanted:Qty: 2 on 02/15/2020 by Hitesh Hilton MD at [facility] Left: Knee JOSE GUADALUPE:ORTHOPED ICS 10/03/2021 6191-1-01 0 / / [id number] Gmk Tibial Tray Cemented Left S3 - [id number] Implanted:Qty: 1 on 02/15/2020 by Hitesh Hilton MD at [facility] Left: Knee [employer] [id number] 09/22/2024 02.07.120 3L / / [id number] Patella Resurfacing S2 - [id number] Implanted:Qty: 1 on 02/15/2020 by Hitesh Hilton MD at [facility] Left: Knee [employer] [id number] 07/23/2024 02.07.003 4RP / / [id number] Sphere Femur Cemented Left S3 + - [id number] Implanted:Qty: 1 on 02/15/2020 by Hitesh Hilton MD at [facility] Left: Knee [employer] [id number] 09/26/2024 02.12.002 3L / / [id number] Primary Extension Stem 11mm L30mm - [id number] Implanted:Qty: 1 on 02/15/2020 by Hitesh Hilton MD at [facility] Left: Knee [employer] [id number] 07/20/2024 02.07.F11 030 / / [id number] Ins Tib 3 10mm Lt Sphr Cngrnt Gmk - [id number] Implanted:Qty: 1 on 02/15/2020 by Hitesh Hilton MD at [facility] Left: Knee [employer] [id number] 03/24/2023 02.12.031 0CRL / / [id number] Primary Extension Stem 11mm L30mm - [id number] Implanted:Qty: 1 on 05/30/2020 by Hitesh Hilton MD at [facility] Right: Hip [employer] [id number] 01/14/2025 02.07.F11 030 / / [id number] Ins Tib 3 10mm Rt Sphr Cngrnt Gmk - [id number] Implanted:Qty: 1 on 05/30/2020 by Hitesh Hilton MD at [facility] Right: Hip [employer] [id number] 06/15/2023 02.12.031 0CRR / / [id number] Sphere Femur Cemented Right S3 + - [id number] Implanted:Qty: 1 on 05/30/2020 by Hitesh Hilton MD at [facility] Right: Hip [employer] 02/01/2025 02.12.002 3R / / [id number] Patella Resurfacing S2 - [id number] Implanted:Qty: 1 on 05/30/2020 by Hitesh Hilton MD at [facility] Right: Hip [employer] [id number] 12/04/2024 02.07.003 4RP / / [id number] Gmk Tibial Tray Cemented Right S3 - [id number] Implanted:Qty: 1 on 05/30/2020 by Hitesh Hilton MD at [facility] Right: Hip [employer] [id number] 01/18/2025 02.07.120 / / [id number] Procedures Procedure Name Priority Date/Time Associated Diagnosis Comments C-REACTIVE PROTEIN STAT 12/23/2024 7:40 AM EDT E coli bacteremia SEDIMENTATION RATE AUTOMATED STAT 12/23/2024 7:40 AM EDT E coli bacteremia COMPREHENSIVE METABOLIC PANEL STAT 12/23/2024 7:40 AM EDT E coli bacteremia CBC WITH DIFF STAT 12/23/2024 7:40 AM EDT E coli bacteremia C-REACTIVE PROTEIN STAT 12/16/2024 7:56 AM EDT E coli bacteremia SEDIMENTATION RATE AUTOMATED STAT 12/16/2024 7:56 AM EDT E coli bacteremia COMPREHENSIVE METABOLIC PANEL STAT 12/16/2024 7:56 AM EDT E coli bacteremia CBC WITH DIFF STAT 12/16/2024 7:56 AM EDT E coli bacteremia C-REACTIVE PROTEIN Early AM 12/09/2024 6:49 AM EDT SEDIMENTATION RATE AUTOMATED Early AM 12/09/2024 6:49 AM EDT COMPREHENSIVE METABOLIC PANEL Early AM 12/09/2024 6:49 AM EDT CBC WITH DIFF Early AM 12/09/2024 6:49 AM EDT IP CONSULT TO SOCIAL WORK Routine 12/08/2024 2:13 PM EDT TSH REFLEX TO FT4 Early AM 12/08/2024 6:52 AM EDT PHOSPHORUS LEVEL Early AM 12/08/2024 6:52 AM EDT MAGNESIUM LEVEL Early AM 12/08/2024 6:52 AM EDT CALCIUM, IONIZED Early AM 12/08/2024 6:52 AM EDT CBC Early AM 12/08/2024 6:52 AM EDT BASIC METABOLIC PANEL Early AM 12/08/2024 6:52 AM EDT BLOOD CULTURE (NO STAIN) Routine 12/07/2024 3:07 PM EDT ANAEROBIC CULTURE (NO STAIN) Routine 12/07/2024 12:48 PM EDT WOUND CULTURE (STAIN INCLUDED) Routine 12/07/2024 12:48 PM EDT BLOOD CULTURE [...] Hector MD Reason for Consult: bacteremia HPI: Jenna Baldwin is a 59 y.o. female with a [...] Pulse 111, Temp 99.5 F, Resp 26, PyM296%. 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 MIKE MERINO M.D. PHOSPHORUS LEVEL Early AM 12/07/2024 6:14 AM EDT MAGNESIUM LEVEL Early AM 12/07/2024 6:14 AM EDT CALCIUM, IONIZED Early AM 12/07/2024 6:14 AM EDT CBC Early AM 12/07/2024 6:14 AM EDT BASIC METABOLIC PANEL Early AM 12/07/2024 6:14 AM EDT ECG AND WAVEFORMS - TELEMETRY Routine 12/06/2024 7:55 AM EDT HEPATIC FUNCTION PANEL Early AM 12/06/2024 5:36 AM EDT PHOSPHORUS LEVEL Early AM 12/06/2024 5:36 AM EDT MAGNESIUM LEVEL Early AM 12/06/2024 5:36 AM EDT CALCIUM, IONIZED Early AM 12/06/2024 5:36 AM EDT CBC Early AM 12/06/2024 5:36 AM EDT BASIC METABOLIC PANEL Early AM 12/06/2024 5:36 AM EDT ECG AND WAVEFORMS - TELEMETRY Routine 12/05/2024 7:34 PM EDT REPEAT LACTIC ACID STAT 12/05/2024 4:07 PM EDT POC ARTERIAL BLOOD GAS PROFILE Routine 12/05/2024 2:10 PM EDT HEPATIC FUNCTION PANEL Add-On 12/05/2024 2:02 PM EDT LACTIC ACID DINA 12/05/2024 2:02 PM EDT PHOSPHORUS LEVEL DINA 12/05/2024 2:02 PM EDT MAGNESIUM LEVEL DINA 12/05/2024 2:02 PM EDT CBC DINA 12/05/2024 2:02 PM EDT BASIC METABOLIC PANEL DINA 12/05/2024 2:02 PM EDT PATHOLOGY TISSUE REQUEST Routine 12/05/2024 12:14 PM EDT Calculus of gallbladder without cholecystitis without obstruction INTRAOP AIRWAY PLACEMENT Routine 12/05/2024 11:15 AM EDT ANE US GUIDANCE Routine 12/05/2024 11:10 AM EDT [place] LAPAROSCOPY SURG CHOLECYSTECTOMY 12/05/2024 10:11 AM EDT Calculus of gallbladder without cholecystitis without obstruction Special Needs on pressers HEPATIC FUNCTION PANEL DINA 12/05/2024 8:51 AM EDT REPEAT LACTIC ACID STAT 12/05/2024 7:16 AM EDT REPEAT LACTIC ACID STAT 12/05/2024 6:34 AM EDT LACTIC ACID DINA 12/05/2024 3:45 AM EDT PHOSPHORUS LEVEL DINA 12/05/2024 3:45 AM EDT MAGNESIUM LEVEL DINA 12/05/2024 3:45 AM EDT CALCIUM, IONIZED DINA 12/05/2024 3:45 AM EDT CBC WITH DIFF DINA 12/05/2024 3:45 AM EDT BASIC METABOLIC PANEL DINA 12/05/2024 3:45 AM EDT MAGNESIUM LEVEL STAT 12/05/2024 3:45 AM EDT TROPONIN-T HIGH SENSITIVITY 2HR Timed 12/05/2024 3:45 AM EDT POC ARTERIAL BLOOD GAS PROFILE Routine 12/05/2024 3:01 AM EDT XR CHEST AP PORTABLE STAT 12/05/2024 2:45 AM EDT US PRODUCTION RECORDER/HOSPITA LIST BEDSIDE ULTRASOUND STAT 12/05/2024 2:29 AM EDT US PRODUCTION RECORDER/HOSPITA LIST BEDSIDE ULTRASOUND DINA 12/05/2024 2:09 AM EDT US PRODUCTION RECORDER/HOSPITA LIST BEDSIDE ULTRASOUND DINA 12/05/2024 2:09 AM EDT ADMIT STAT 12/05/2024 1:09 AM EDT IP CONSULT TO GENERAL SURGERY Routine 12/05/2024 1:07 AM EDT Procedure Note - Fabian Holguin MD - 12/05/2024 8:13 AM EDTThis note is in progress. EMERGENCY GENERAL SURGERY CONSULTATION ____ Jenna Baldwin is a 59 y.o. year old female [...] performed on this calendar day: None ____ Jenna Baldwin is a 59 y.o. year old female [...] Hitesh Hilton MD; Location: ED MAIN OR; Service:Orthopedics THYROIDECTOMY TOTAL KNEE ARTHROPLASTY Left 02/15/2020 LEFT TOTAL KNEE ARTHROPLASTY cortizone injection right knee; Surgeon:Hitesh Hilton MD; Location: ED MAIN OR; Service: Orthopedics TOTAL KNEE ARTHROPLASTY Right 05/30/2020 RIGHT TOTAL KNEE ARTHROPLASTY; Surgeon: Hitesh Hilton MD;Location: ED MAIN OR; Service: Orthopedics No Known Allergies [...] file Food Insecurity: Unknown (07/28/2023) Received from [employer] and [employer] Worried about running out of food: Not on file Food Bought: Not on file Transportation Needs: Unknown (07/28/2023) Received from [employer] and [employer] Worried about transportation: Not on file Physical Activity: Not on file Stress: Not on file Social Connections: Not on file Intimate Partner Violence: Unknown (07/28/2023) Received from [employer] and [employer] Interpersonal Safety Feel physically or emotionally unsafe where currently live: Not on file Harm by anyone: Not on file Emotionally Harmed: Not on file Housing Stability: Unknown (07/28/2023) Received from [employer] and [employer] Housing/Utilities Worried about losing home: Not on [...] 150 mg Oral tablet sustained-release 12 hr [id number] mg by mouth 2 times daily. 12/19/21 [...] the office of the ordering clinician. US PRODUCTION RECORDER/HOSPITALIST BEDSIDE ULTRASOUND Result Date: 12/05/2024 Addiction Treatment Counselor Ultrasound performed at bedside. The study image(s) are forreference only and will not be interpreted by a Radiologist. Refer to procedure note for image description and procedure details. US PRODUCTION RECORDER/HOSPITALIST BEDSIDE ULTRASOUND Result Date: 12/05/2024 Addiction Treatment Counselor Ultrasound performed at bedside. The study image(s) are forreference only and will not be interpreted by a Radiologist. Refer to procedure note for image description and procedure details. US PRODUCTION RECORDER/HOSPITALIST BEDSIDE ULTRASOUND Result Date: 12/05/2024 Addiction Treatment Counselor Ultrasound performed at bedside. The study image(s) [...] Final Interpretation byphysician to follow. 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: : [id number] By: [facility] Order Number: [id number] MD: MeasurementsIntervals [place] Rate: 120P: 59 [place]: 157QRS: 21 QRSD: 96 T: 48QT: 325 QTc: 461InterpretiveStatements SINUS TACHYCARDIA POSSIBLE RIGHT VENTRICULAR CONDUCTION DELAYABNORMAL RHYTHM ECG CT ABD PEL ED FAST W CONTRAST STAT 12/05/2024 12:40 AM EDT IP CONSULT TO PHARMACY Routine 12/05/2024 12:38 AM EDT BLOOD CULTURE (NO STAIN) STAT 12/04/2024 11:54 PM EDT URINALYSIS REFLEX STAT 12/04/2024 11:49 PM EDT UA W/REFLEX TO CULTURE STAT 12/04/2024 11:49 PM EDT URINE CULTURE (NO STAIN) STAT 12/04/2024 11:49 PM EDT EXTRA IRVING URINE CX STAT 12/04/2024 11:49 PM EDT [id number] A/B Routine 12/04/2024 11:49 PM EDT XR CHEST AP PORTABLE STAT 12/04/2024 11:38 PM EDT BLOOD CULTURE JAZIEL GRAM NEG Routine 12/04/2024 11:35 PM EDT BLOOD CULTURE (NO STAIN) STAT 12/04/2024 11:35 PM EDT BLOOD GAS, VENOUS STAT 12/04/2024 11:34 PM EDT PROCALCITONIN STAT 12/04/2024 11:34 PM EDT LACTIC ACID STAT 12/04/2024 11:34 PM EDT TROPONIN-T HIGH SENSITIVITY BASELINE W/ REFLEX STAT 12/04/2024 11:34 PM EDT LIPASE LEVEL STAT 12/04/2024 11:34 PM EDT COMPREHENSIVE METABOLIC PANEL STAT 12/04/2024 11:34 PM EDT CBC WITH DIFF STAT 12/04/2024 11:34 PM EDT SALINE LOCK IV STAT 12/04/2024 11:25 PM EDT EK EKG 12 LEAD STAT 12/04/2024 11:[address] ABD PEL ED FAST W CONTRAST STAT 10/25/2024 10:33 AM EDT URINALYSIS REFLEX STAT 10/25/2024 9:47 AM EDT UA W/REFLEX TO CULTURE STAT 10/25/2024 9:47 AM EDT EXTRA IRVING URINE CX STAT 10/25/2024 9:47 AM EDT COMPREHENSIVE METABOLIC PANEL STAT 10/25/2024 9:38 AM EDT LIPASE LEVEL STAT 10/25/2024 9:38 AM EDT CBC WITH DIFF STAT 10/25/2024 9:38 AM EDT HUMAN CHORIONIC GONADOTROPIN QUANTITATIVE STAT 10/25/2024 9:38 AM EDT SALINE LOCK IV STAT 10/25/2024 9:22 AM EDT MM MAMMO DIGITAL JERAMY SCREEN BILAT Routine 03/02/2021 11:10 AM EDT Encounter for screening mammogram for malignant neoplasm of breast COLOGUARD Routine 08/22/2019 10:55 AM EST Screening for colon cancer from Last 3 Months or Most Recently Relevant to Health Maintenance Results * SEDIMENTATION RATE AUTOMATED (12/23/2024 7:40 AM EDT) Only the most recent of3 resultswithin the time period is included. Sed Rate 29 0 - 30 mm/hr 12/23/2024 8:25 AM EDT [facility] Blood VENOUS STRUCTURE / Unknown Collection / Unknown 12/23/2024 7:40 AM EDT 12/23/2024 7:43 AM EDT us Mike Kauffman MD HEMATOLOGY ORDERABLES Fi nal Result [facility] [address] [facility], [address] [place] [id number] * (ABNORMAL) CBC WITH DIFF (12/23/2024 7:40 AM EDT) Only the most recent of6 resultswithin the time period is included. WBC 3.5(L) 3.7 - 10.3 x10(3)/mcL 12/23/2024 7:46 AM EDT [facility] RBC 4.29 3.90 - 5.20 x10(6)/mcL 12/23/2024 7:46 AM EDT [facility] Hgb 13.2 11.2 - 15.7 g/dL 12/23/2024 7:46 AM EDT [facility] Hct 40.3 34.0 - 45.0 % 12/23/2024 7:46 AM EDT [facility] MCV 93.9 80.0 - 100.0 fL 12/23/2024 7:46 AM EDT [facility] MCH 30.8 26.0 - 34.0 pg 12/23/2024 7:46 AM EDT [facility] MCHC 32.8 30.7 - 35.5 g/dL 12/23/2024 7:46 AM EDT [facility] RDW 14.0 <=14.9 % 12/23/2024 7:46 AM EDT [facility] Platelet 380(H) 155 - 369 x10(3)/[facility] 12/23/2024 7:46 AM EDT [facility] MPV 10.8 8.8 - 12.5 fL 12/23/2024 7:46 AM EDT [facility] Neut # Prelim 1.6 1.6 - 6.1 x10(3)/mcL 12/23/2024 7:46 AM EDT [facility] Comment:Preliminary automate d absolute neutrophil count. Value may change if manual differential is indicated. Neut Percent 44.3 % 12/23/2024 7:46 AM EDT [facility] Comment:Neutrophils equals s egs plus bands Imm Gran% 0.3 % 12/23/2024 7:46 AM EDT [facility] Comment:Automated count of m etamyelocytes, myelocytes and promyelocytes. Lymph Percent 38.4 % 12/23/2024 7:46 AM EDT [facility] Hardee Percent 13.5 % 12/23/2024 7:46 AM EDT [facility] Eos Percent 2.6 % 12/23/2024 7:46 AM EDT [facility] Baso Percent 0.9 % 12/23/2024 7:46 AM EDT [facility] Neut # 1.6 1.6 - 6.1 x10(3)/[facility] 12/23/2024 7:46 AM T [facility] Comment:Neutrophils equals s egs plus bands IMMGRAN# 0.0 0.0 - 0.1 x10(3)/[facility] 12/23/2024 7:46 AM T [facility] Comment:Automated count of m etamyelocytes, myelocytes and promyelocytes. An absolute IG <0.1 is reported as 0.0. Lymph # 1.3 1.2 - 3.9 x10(3)/mcL 12/23/2024 7:46 AM EDT [facility] Hardee # 0.5 0.3 - 0.9 x10(3)/mcL 12/23/2024 7:46 AM EDT [facility] Eos# 0.1 0.0 - 0.5 x10(3)/[facility] 12/23/2024 7:46 AM EDT [facility] Baso # 0.0 0.0 - 0.1 x10(3)/mcL 12/23/2024 7:46 AM EDT [facility] Blood VENOUS STRUCTURE / Unknown Collection / Unknown 12/23/2024 7:40 AM EDT 12/23/2024 7:43 AM EDT Mike Kauffman MD HEMATOLOGY ORDERABLES Fi nal Result Performing Organization Address City/[facility]/[place] [address] * C-REACTIVE PROTEIN (12/23/2024 7:40 AM EDT) Only the most recent of3 resultswithin the time period is included. CRP <3.00 <=5.00 mg/L 12/23/2024 8:57 AM EDT [facility] Blood VENOUS STRUCTURE / Unknown Collection / Unknown 12/23/2024 7:40 AM EDT 12/23/2024 7:43 AM EDT Mike Kauffman MD CHEMISTRY ORDERABLES Fin al Result Performing Organization Address City/[facility] Co de Phone Number [facility] [address] [place] [address], [place] [address] * (ABNORMAL) COMPREHENSIVE METABOLIC PANEL (12/23/2024 7:40 AM EDT) Only the most recent of5 resultswithin the time period is included. Sodium 141 136 - 145 mmol/L 12/23/2024 8:01 AM EDT [facility] Potassium 3.9 3.5 - 5.0 mmol/L 12/23/2024 8:01 AM EDT [facility] Chloride 104 98 - 107 mmol/L 12/23/2024 8:01 AM EDT [facility] Total CO2 27 22 - 29 mmol/L 12/23/2024 8:01 AM EDT [facility] Anion Gap 10 7 - 16 mmol/L 12/23/2024 8:01 AM EDT [facility] Calcium 9.3 8.6 - 10.4 mg/dL 12/23/2024 8:01 AM EDT [facility] Glucose Lvl 92 70 - 99 mg/dL 12/23/2024 8:01 AM EDT [facility] BUN 7 6 - 20 mg/dL 12/23/2024 8:01 AM EDT [facility] Creatinine 0.57 0.51 - 1.30 mg/dL 12/23/2024 8:01 AM EDT [facility] Albumin 4.0 3.5 - 5.2 gm/dL 12/23/2024 8:01 AM EDT [facility] Total Protein 6.9 6.4 - 8.3 gm/dL 12/23/2024 8:01 AM EDT [facility] Bili Total 0.5 0.2 - 1.3 mg/dL 12/23/2024 8:01 AM EDT [facility] ALT 191(H) <=41 U/L 12/23/2024 8:01 AM EDT [facility] AST 102(H) <=40 U/L 12/23/2024 8:01 AM EDT [facility] Alk Phos 108 36 - 123 U/L 12/23/2024 8:01 AM EDT [facility] eGFR (CKD-EPIcr 2020) 105 >=60 mL/min/1.7 3 m2 12/23/2024 8:01 AM EDT [facility] Comment:Estimated GFR was ca lculated using the CKD-EPIcr (2020) equation refit without race. The equation is recommended by the National Kidney [employer] - [place] [employer] Nephrology Task Force. Blood VENOUS STRUCTURE / Unknown Collection / Unknown 12/23/2024 7:40 AM EDT 12/23/2024 7:43 AM EDT us Mike Kauffman MD CHEMISTRY ORDERABLES Fin al Result [facility] [address] [place] [address] * (ABNORMAL) IONIZED CALCIUM - INPATIENT (12/08/2024 6:52 AM EDT) Only the most recent of4 resultswithin the time period is included. Pathologist [facility] Calcium Ionized 1.09(L) 1.12 - 1.32 mmol/L 12/08/2024 7:10 AM EDT [facility] Blood VENOUS BLOOD / Unknown Venipuncture / Unknown 12/08/2024 6:52 AM EDT 12/08/2024 6:57 AM EDT Royer Cloud MD CHEMISTRY ORDERABLES Final Re sult Performing Organization Address [facility]/ZIP Co de Phone Number [facility] [address] , [place] [address] * TSH REFLEX TO FT4 (12/08/2024 6:52 AM EDT) [facility] TSH Reflex 0.681 0.270 - 4.200 mcIU/mL 12/08/2024 7:54 AM EDT [facility] Blood VENOUS BLOOD / Unknown Venipuncture / Unknown 12/08/2024 6:52 AM EDT 12/08/2024 6:56 AM EDT Narrative [facility] - 12/08/2024 7:54 AM EDT Ingestion of armando doses of biotin (>5 mg/day) taken within 8 hours of drawing blood sample can interfere with this immunoassay test. Fabian Johnson MD CHEMISTRY ORDERABLES Final Resu lt Performing Organization Address [facility]/ZIP Co de Phone Number [facility] [address] , [place] [address] * (ABNORMAL) CBC (12/08/2024 6:52 AM EDT) Only the most recent of4 resultswithin the time period is included. [facility] WBC 9.1 3.7 - 10.3 x10(3)/mcL 12/08/2024 7:25 AM EDT [facility] RBC 3.68(L) 3.90 - 5.20 x10(6)/mcL 12/08/2024 7:25 AM EDT [facility] Hgb 10.9(L) 11.2 - 15.7 g/dL 12/08/2024 7:25 AM EDT [facility] Hct 33.7(L) 34.0 - 45.0 % 12/08/2024 7:25 AM EDT [facility] MCV 91.6 80.0 - 100.0 fL 12/08/2024 7:25 AM EDT [facility] MCH 29.6 26.0 - 34.0 pg 12/08/2024 7:25 AM EDT [facility] MCHC 32.3 30.7 - 35.5 g/dL 12/08/2024 7:25 AM EDT [facility] RDW 14.3 <=14.9 % 12/08/2024 7:25 AM EDT [facility] Platelet 175 155 - 369 x10(3)/mcL 12/08/2024 7:25 AM EDT [facility] MPV 11.1 8.8 - 12.5 fL 12/08/2024 7:25 AM EDT [facility] Blood VENOUS BLOOD / Unknown Venipuncture / Unknown 12/08/2024 6:52 AM EDT 12/08/2024 6:56 AM EDT us Royer Cloud MD HEMATOLOGY ORDERABLES Final R esult [facility] [address] [facility] , [place] [address] * PHOSPHORUS LEVEL (12/08/2024 6:52 AM EDT) Only the most recent of5 resultswithin the time period is included. Phosphorus 3.5 2.5 - 4.5 mg/dL 12/08/2024 7:54 AM EDT [facility] Blood VENOUS BLOOD / Unknown Venipuncture / Unknown 12/08/2024 6:52 AM EDT 12/08/2024 6:56 AM EDT Royer Cloud MD CHEMISTRY ORDERABLES Final Re sult Performing Organization Address [facility] de Phone Number [facility], [address] , [place] [address] * MAGNESIUM LEVEL (12/08/2024 6:52 AM EDT) Only the most recent of6 resultswithin the time period is included. Pathologist [facility] Magnesium 2.0 1.6 - 2.4 mg/dL 12/08/2024 7:54 AM EDT [facility] Blood VENOUS BLOOD / Unknown Venipuncture / Unknown 12/08/2024 6:52 AM EDT 12/08/2024 6:56 AM EDT Royer Cloud MD CHEMISTRY ORDERABLES Final Re sult Performing Organization Address [facility] Number [facility], [address] , [place] [address] * (ABNORMAL) BASIC METABOLIC PANEL (12/08/2024 6:52 AM EDT) Only the most recent of5 resultswithin the time period is included. Sodium 143 136 - 145 mmol/L 12/08/2024 7:54 AM EDT [facility] Potassium 3.6 3.5 - 5.0 mmol/L 12/08/2024 7:54 AM EDT [facility] Chloride 105 98 - 107 mmol/L 12/08/2024 7:54 AM EDT [facility] Total CO2 27 22 - 29 mmol/L 12/08/2024 7:54 AM EDT [facility] Anion Gap 11 7 - 16 mmol/L 12/08/2024 7:54 AM EDT [facility] Calcium 8.2(L) 8.6 - 10.4 mg/dL 12/08/2024 7:54 AM EDT [facility] Glucose Lvl 67(L) 70 - 99 mg/dL 12/08/2024 7:54 AM EDT [facility] BUN 11 6 - 20 mg/dL 12/08/2024 7:54 AM EDT [facility] Creatinine 0.53 0.51 - 1.30 mg/dL 12/08/2024 7:54 AM EDT [facility] eGFR (CKD-EPIcr 2020) 107 >=60 mL/min/1.7 3 m2 12/08/2024 7:54 AM EDT [facility] Comment:Estimated GFR was ca lculated using the CKD-EPIcr (2020) equation refit without race. The equation is recommended by the National Kidney Foundation - [place] [employer] of Nephrology Task Force. Blood VENOUS BLOOD / Unknown Venipuncture / Unknown 12/08/2024 6:52 AM EDT 12/08/2024 6:56 AM EDT Royer Cloud MD CHEMISTRY ORDERABLES Final Re sult Performing Organization Address City/[facility]/ZIP Co de Phone Number [address] , [place] [address] * BLOOD CULTURE (NO STAIN) (12/07/2024 3:07 PM EDT) Only the most recent of4 resultswithin the time period is included. Culture Result No Growth at 120 hours. BLOOD CULTURE (NO STAIN) 12/12/2024 5:00 PM EDT [facility], [facility] Blood VENOUS BLOOD / Unknown Venipuncture / Unknown 12/07/2024 3:07 PM EDT 12/07/2024 3:13 PM EDT Carrie Rosenberg APRN MICROBIOLOGY - GENER AL ORDERABLES Final Result [address] , [place] [address] * WOUND CULTURE (STAIN INCLUDED) (12/07/2024 12:48 PM EDT) Culture No growth at 94 hours. 12/12/2024 12:16 PM EDT [facility] Stain Rare WBCs 12/12/2024 12:16 PM EDT [facility] Stain No organisms seen 12/12/2024 12:16 PM EDT [facility], [facility] Drainage ABDOMEN / Unknown 12/07/2024 12:48 PM EDT 12/07/2024 12:56 PM EDT Carrie Rosenberg APRN MICROBIOLOGY - GENER AL ORDERABLES Final Result Performing Organization Address City/[facility] Co de Phone Number [facility] , [address] [place] [phone] * ANAEROBIC CULTURE (NO STAIN) (12/07/2024 12:48 PM EDT) Culture No anaerobic growth at 5 days. 12/12/2024 9:32 AM EDT [facility] Drainage ABDOMEN / Unknown 12/07/2024 12:48 PM EDT 12/07/2024 12:56 PM EDT Carrie Rosenberg APRN MICROBIOLOGY - GENER AL ORDERABLES Final Result Performing Organization Address [facility] de Phone Number [facility] [address] , [place] [address] * ECG AND WAVEFORMS - TELEMETRY (12/06/2024 7:55 AM EDT) Only the most recent of2 resultswithin the time period is included. ECG INTERPRET Sinus Arrythmia [facility] 12/06/2024 7:55 AM EDT Narrative [facility] - 12/06/2024 7:55 AM EDT See Clinical Report link for waveform capture Unknown Provider POINT OF CARE CARDIOLOGY Final Result Performing Organization Address City/[facility] Co de Phone Number [facility] [address] [place] [address] * (ABNORMAL) HEPATIC FUNCTION PANEL (12/06/2024 5:36 AM EDT) Only the most recent of3 resultswithin the time period is included. Total Protein 6.3(L) 6.4 - 8.3 gm/dL [...] AM EDT 12/06/2024 5:49 AM EDT us Fabian Holguin MD CHEMISTRY ORDERABLES Belinda l Result [facility] [address] [facility], [place] [address] * REPEAT LACTIC ACID (12/05/2024 4:07 PM EDT) Only the most recent of3 resultswithin the time period is included. Lactic Acid 1.8 0.5 - 1.9 mmol/L 12/05/2024 4:34 PM EDT [facility] Blood ARTERIAL BLOOD / Unknown Arterial / Unknown 12/05/2024 4:07 PM EDT 12/05/2024 4:13 PM EDT us Sushil Porras APRN CHEMISTRY ORDERABLES Final Result [facility] [address] [place] [address], [address] [place], [place] [id number] * (ABNORMAL) POC ARTERIAL BLOOD GAS PROFILE (12/05/2024 2:10 PM EDT) Only the most recent of2 resultswithin the time period is included. pH 7.36 7.35 - 7.45 pH 12/05/2024 2:11 PM EDT [facility] pCO2 37 35 - 45 mmHg 12/05/2024 2:11 PM EDT [facility] pO2 65(L) 80 - 100 mmHg 12/05/2024 2:11 PM EDT [facility] HCO3 20.7(L) 22.0 - 26.0 mmol/L 12/05/2024 2:11 PM EDT [facility] Base Excess -4.9(L) -2.0 - 3.0 mmol/L 12/05/2024 2:11 PM EDT [facility] O2 Sat 93.2(L) 95.0 - 98.0 % 12/05/2024 2:11 PM EDT [facility] Sodium 133(L) 136 - 145 mmol/L 12/05/2024 2:11 PM EDT [facility] Calcium Ionized 1.12 1.12 - 1.32 mmol/L 12/05/2024 2:11 PM EDT [facility] Chloride 103 98 - 107 mmol/L 12/05/2024 2:11 PM EDT [facility] Glucose WB 160(H) 72 - 112 mg/dL 12/05/2024 2:11 PM EDT [facility] Lactic Acid 2.5(H) 0.5 - 1.9 mmol/L 12/05/2024 2:11 PM EDT [facility] K-WB 4.1 3.5 - 5.0 mmol/L 12/05/2024 2:11 PM EDT [facility] Hgb 12.7 11.2 - 15.7 g/dL 12/05/2024 2:11 PM EDT [facility] Hct 39.0 34.0 - 45.0 % 12/05/2024 2:11 PM EDT [facility] Inspired O2 32.0 % 12/05/2024 2:11 PM EDT [facility] P/F Ratio 203 mmHg 12/05/2024 2:11 PM EDT [facility] Blood ARTERIAL BLOOD / Unknown 12/05/2024 2:10 PM EDT 12/05/2024 2:11 PM EDT Royer Cloud MD POINT OF CARE TEST ORDERABLES Final Result Performing Organization Address City/[facility]/ZIP Co de Phone Number [facility] [address] [place] [phone] * (ABNORMAL) LACTIC ACID (12/05/2024 2:02 PM EDT) Only the most recent of3 resultswithin the time period is included. Lactic Acid 2.7(H) 0.5 - 1.9 mmol/L 12/05/2024 2:33 PM EDT [facility] Blood ARTERIAL BLOOD / Unknown Arterial / Unknown 12/05/2024 2:02 PM EDT 12/05/2024 2:12 PM EDT us Sushil Porras APRN CHEMISTRY ORDERABLES Final Result Performing Organization Address City/[facility]/ZIP Co de Phone Number [facility] [address] [facility], [address] [place] [phone] * PATHOLOGY TISSUE REQUEST (12/05/2024 12:14 PM EDT) CASE REPORT Surgical Pathology Case: [id number] Authorizing Provider: Fabian Holguin MD Collected: 12/05/2024 1214 Ordering Location: [facility] Received: 12/05/2024 1523 Pathologist: Lydia Phillips MD Specimen: Gallbladder, gallbladder with contents 12/12/2024 8:36 AM EDT [facility] FINAL DIAGNOSIS GALLBLADDER, ROBOTIC CHOLECYSTECTOMY : - Acute gangrenous and chronic cholecystitis. - Cholelithiasis. - Adenomyosis. - No evidence of dysplasia or malignancy. 12/12/2024 8:36 AM EDT [facility] at 0836 EDT GROSS DESCRIPTION A. [...] exudate. No periductal lymph node is identified. Major Gifts Officer sections to include inked possible cystic duct margin are submitted in A1. Saroj Tere 12/06/2024 12/12/2024 8:36 AM EDT [facility] MICROSCOPIC DESCRIPTION The microscopic examination may have been rendered in whole, or in part, by analyzing high-resolution digital images (whole slide images) on the Advaction Digital Pathology platform validated at [facility]. One additional deeper level is examined. 12/12/2024 8:36 AM EDT [facility] EMBEDDED IMAGES 12/12/2024 8:36 AM EDT [facility] Tissue GALLBLADDER STRUCTURE / Unknown 12/05/2024 12:14 PM EDT 12/05/2024 3:23 PM EDT Comment:Routine us Fabian Holguin MD PATHOLOGY ORDERABLES Belinda wade Result [facility] [address] [place] [address] [facility] [address] [place] [address] * INTRAOP AIRWAY PLACEMENT (12/05/2024 11:15 AM EDT) Narrative [facility] - 12/05/2024 11:15 AM EDT [...] Atraumatic and Unchanged Insertion attempts: 1 Title: ACTUARIAL SCIENCE TEACHER us Yevgeniy Salcido MD [place] ANESTHESIA Final Res ult Performing Organization Address [facility] Co de Phone Number [address] [address] * ANE US GUIDANCE (12/05/2024 11:10 AM EDT) Narrative [facility] - 12/05/2024 11:10 AM EDT Yevgeniy Salcido MD 12/05/2024 11:18 AM Arterial Line Placement [...] Supplemental O2 applied, if needed Anesthesiologist: Yevgeniy Salcido MD Placed By: Anesthesiologist Sterility prep: Provider [...] of the block is attached/scanned to the [facility] chart. us Yevgeniy Salcido MD ANESTHESIA ORDERABLES Fin al Result Performing Organization Address [facility] Co de Phone Number [address] [address] * (ABNORMAL) TROPONIN-T HIGH SENSITIVITY 2HR (12/05/2024 3:45 AM EDT) ci-fSknnrgpn-W 2HR 67(H) <14 ng/L 12/05/2024 4:32 AM EDT [facility] hs-cTnT 2Hr Delta from Baseline 21(HH) <4 ng/L 12/05/2024 4:32 AM EDT [facility] Blood ARTERIAL BLOOD / Unknown Arterial / Unknown 12/05/2024 3:45 AM EDT 12/05/2024 3:52 AM EDT Narrative [facility] - 12/05/2024 4:32 AM EDT Ingestion of armando doses of biotin (>5 mg/day) taken within 8 hours of drawing blood sample can interfere with this immunoassay test. us Doug Ross MD CHEMISTRY ORDERABLES Final R esult [facility] [address] [facility] , [place] [address] * XR CHEST AP PORTABLE (12/05/2024 2:45 AM EDT) Only the most recent of2 resultswithin the time period is included. Anatomical Region Laterality Modality Chest Radiographic Karlie [...] office of the ordering clinician. us Royer Cloud MD [facility] DIAGNOSTIC IMAGING ORDERA BLES Final Result * US PRODUCTION RECORDER/HOSPITALIST BEDSIDE ULTRASOUND (12/05/2024 2:29 AM EDT) Only the most recent of3 resultswithin the time period is included. Narrative Genericuser, Audit - 12/05/2024 2:29 AM EDT Addiction Treatment Counselor Ultrasound performed at bedside. The study image(s) are for reference only and will not be interpreted by a Radiologist. Refer to the same day procedure note for image description and procedure details. us Royer Cloud MD [facility] US ORDERABLES Final Resul t * CT ABD PEL ED FAST W CONTRAST (12/05/2024 12:40 AM EDT) Only the most recent of2 resultswithin the time period is included. Anatomical Region Laterality Modality Abdomen, Pelvis Computed [...] of the ordering clinician. Doug Ross MD [facility] CT ORDERABLES Final Resu lt * (ABNORMAL) URINALYSIS REFLEX (12/04/2024 11:49 PM EDT) Only the most recent of2 resultswithin the time period is included. UA Color Yellow 12/05/2024 12:11 AM EDT [...] /HPF 12/05/2024 12:11 AM EDT [facility] UA Hyal Cast 2 0 - 2 /LPF 12/05/2024 12:11 AM EDT [facility] Urine URINARY BLADDER STRUCTURE / Unknown 12/04/2024 11:49 PM EDT 12/04/2024 11:57 PM EDT Doug Ross MD URINE ORDERABLES Final Resul t Performing Organization Address City/[facility]/ZIP Co de Phone Number [facility] [address] [facility], [place] [address] * [id number] A/B (12/04/2024 11:49 PM EDT) CORONAVIRUS [id number] Not Detected Not Detected 12/05/2024 12:23 AM EDT [facility] Influenza A DNA Not Detected Not Detected 12/05/2024 12:23 AM EDT [facility] Influenza B DNA Not Detected Not Detected 12/05/2024 12:23 AM EDT [facility] Swab BOTH ANTERIOR NARES / Unknown 12/04/2024 11:49 PM EDT 12/04/2024 11:55 PM EDT us Doug Ross MD MICROBIOLOGY - GENERAL ORDER BARON Final Result Performing Organization Address [facility] Co de Phone Number [facility] [address] [place] [phone] * EXTRA IRVING URINE CX (12/04/2024 11:49 PM EDT) Only the most recent of2 resultswithin the time period is included. Urine URINARY BLADDER STRUCTURE / Unknown 12/04/2024 11:49 PM EDT 12/04/2024 11:57 PM EDT us Doug Ross MD MICROBIOLOGY - GENERAL ORDER BARON Final Result Performing Organization Address City/[facility]/ZIP Co de Phone Number [facility] [address] [place] [address] * (ABNORMAL) URINE CULTURE (NO STAIN) (12/04/2024 11:49 PM EDT) Pathologist [facility] Culture Positive Growth(A) 12/07/2024 7:53 AM EDT [facility] Culture >100,000 CFU/mL Escherichia coli 12/07/2024 7:53 AM EDT [facility] Comment:Refer to previous aguilar sceptibility on blood culture collected - 12/04/24 8169 Urine URINARY BLADDER STRUCTURE / Unknown 12/04/2024 11:49 PM EDT 12/05/2024 12:10 AM EDT Doug Ross MD MICROBIOLOGY - GENERAL ORDER BARON Final Result [facility] [address] [facility] [address], [place] [address] * (ABNORMAL) BLOOD CULTURE JAZIEL GRAM NEG (12/04/2024 11:35 PM EDT) [facility] ACINETOBACTER BAUMANNII Not Detected Not Detected 12/05/2024 [...] 9:18 PM EDT [facility] NDM Not Detected. Carbapenemase resistance due to other mechanisms cannot be excluded. 12/05/2024 9:18 PM EDT [facility] OXA Not Detected. Carbapenemase resistance due to other mechanisms cannot be excluded. 12/05/2024 9:18 PM EDT [facility] VIM Not Detected. Carbapenemase resistance due to other mechanisms cannot be excluded. 12/05/2024 9:18 PM EDT [facility] Blood VENOUS BLOOD / Unknown Venipuncture / Unknown 12/04/2024 11:35 PM EDT 12/04/2024 11:41 PM EDT Doug Ross MD MICROBIOLOGY - GENERAL ORDER BARON Final Result Performing Organization Address [facility] Co de Phone Number [facility] [address] [facility], [place] [address] * (ABNORMAL) TROPONIN-T HIGH SENSITIVITY BASELINE W/ REFLEX (12/04/2024 11:34 PM EDT) Pathologist [facility] so-zNehqtjva-N 46(H) <14 ng/L 12/05/2024 12:05 AM EDT [facility] Blood VENOUS BLOOD / Unknown Venipuncture / Unknown 12/04/2024 11:34 PM EDT 12/04/2024 11:40 PM EDT Narrative [facility] - 12/05/2024 12:05 AM EDT Ingestion of armando doses of biotin (>5 mg/day) taken within 8 hours of drawing blood sample can interfere with this immunoassay test. us Doug Ross MD CHEMISTRY ORDERABLES Final R esult Performing Organization Address [facility] de Phone Number [facility] [address] [place] [address] * (ABNORMAL) BLOOD GAS, VENOUS (12/04/2024 11:34 PM EDT) pH Venous 7.44(H) 7.32 - 7.42 pH 12/04/2024 11:49 PM EDT [facility] pCO2 Venous 31(L) 41 - 51 mmHg 12/04/2024 11:49 PM EDT [facility] pO2 Venous 51(H) 25 - 40 mmHg 12/04/2024 11:49 PM EDT [facility] Comment:Interpret with cauti on. Not recommended to evaluate patient's oxygenation status. Base Excess Jorge -2.0 mmol/L 11:49 PM EDT [facility] Hco3 Venous 20.7(L) 24.0 - 28.0 mmol/L 12/04/2024 11:49 PM EDT [facility] CO2 Total Jorge 18(L) 25 - 29 mmol/L 12/04/2024 11:49 PM EDT [facility] O2 Sat. Venous 87.6(H) 40.0 - 70.0 % 12/04/2024 11:49 [address] [facility] Inspired O2 RA 12/04/2024 11:[address] [facility] Blood VENOUS BLOOD / Unknown Venipuncture / Unknown 12/04/2024 11:34 PM EDT 12/04/2024 11:41 PM EDT us Doug Ross MD CHEMISTRY ORDERABLES Final R esult [facility] [address] [facility], [place] [address] * (ABNORMAL) PROCALCITONIN (12/04/2024 11:34 PM EDT) Procalcitonin 18.10(H) <=0.49 ng/mL 12/05/2024 12:35 AM EDT [facility] Blood VENOUS BLOOD / Unknown Venipuncture / Unknown 12/04/2024 11:34 PM EDT 12/04/2024 11:53 PM EDT Narrative [facility] - 12/05/2024 12:35 AM EDT Procalcitonin [...] Doug Ross MD CHEMISTRY ORDERABLES Final R [facility] Performing Organization Address [facility] Co de Phone Number [facility] [employer] [address] [facility], [address] [place] [phone] * (ABNORMAL) LIPASE LEVEL (12/04/2024 11:34 PM EDT) Only the most recent of2 resultswithin the time period is included. Lipase Lvl 12(L) 13 - 60 U/L 12/05/2024 12:05 AM EDT [facility] Blood VENOUS BLOOD / Unknown Venipuncture / Unknown 12/04/2024 11:34 PM EDT 12/04/2024 11:40 PM EDT us Doug Ross MD CHEMISTRY ORDERABLES Final R [facility] Performing Organization Address [facility] Co de Phone Number [place] [phone] * EK EKG 12 LEAD (12/04/2024 11:20 PM EDT) Anatomical Region Laterality Modality Electrocardiogra phy 12/04/2024 11:3 9 PM EDT Impressions 12/05/2024 8:16 AM EDT [facility] Test Date: 2024-12-04 Pat Name: JENNA BALDWIN Department: DEPID Room: 2318 Gender: Female 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: : 1965 Requested By: [facility] Order Number: [id number] Daniel MD: Jared Herrera Measurements Intervals [place] Rate: 120 P: 59 [place]: 157 QRS: 21 QRSD: 96 T: 48 QT: 325 QTc: 461 Interpretive Statements SINUS TACHYCARDIA POSSIBLE RIGHT VENTRICULAR CONDUCTION DELAY ABNORMAL RHYTHM ECG WHEN COMPARED TO PREVIOUS ECG:NO SIGNIFICANT CHANGES ARE NOTED Electronically Signed On 12-05-2024 08:16:16 EDT by Jared Herrera Narrative Procedure Note Jared Herrera MD - 12/05/2024 PATRICIO Mata Test Date: 2024-12-04 Pat Name: JENNA BALDWIN Department: DEPID Room: 2318 Gender: Female 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: : 1965 Requested By: [facility] Order Number: [id number] Reading MD: Jared Herrera Measurements Intervals [place] Rate: 120 P: 59 [place]: 157 QRS: 21 QRSD: 96 T: 48 QT: 325 QTc: 461 Interpretive Statements SINUS TACHYCARDIA POSSIBLE RIGHT VENTRICULAR CONDUCTION DELAY ABNORMAL RHYTHM ECG WHEN COMPARED TO PREVIOUS ECG:NO SIGNIFICANT CHANGES ARE NOTED Electronically Signed On 12-05-2024 08:16:16 EDT by Jared Herrera us Doug Ross MD IMG ECG ORDERABLES Final Res ult * HUMAN CHORIONIC GONADOTROPIN QUANTITATIVE (10/25/2024 9:38 AM EDT) Hcg Quant 1 <5 mIU/mL 10/25/2024 10:06 AM EDT [facility] Blood VENOUS BLOOD / Unknown Venipuncture / Unknown 10/25/2024 9:38 AM EDT 10/25/2024 9:43 AM EDT Narrative [facility] - 10/25/2024 10:06 AM EDT Female (non-): 0-4.9 mIU/mL Female (postmenopausal): 0-8.1 mIU/mL Indeterminate values for (e.g., 5-25 mIU/mL) may be confirmed with a repeat test in 48-72 hours. Values in should double every 2-3 days for the first six weeks. Ingestion of armando doses of biotin (>5 mg/day) taken within 8 hours of drawing blood sample can interfere with this immunoassay test. us Doug Ross MD CHEMISTRY ORDERABLES Final R esult [facility] [address] [place] [phone] * MM MAMMO DIGITAL JERAMY SCREEN BILAT (03/02/2021 11:10 AM EDT) Anatomical Region Laterality Modality Breast Bilateral Mammography 03/04/2021 11:3 4 AM EDT Impressions 03/04/2021 11:34 AM EDT Negative ([id number]-[id number]) ~ RECOMMENDATION: Routine screening mammogram in 1 year. ~ DISCLAIMER * Any patient with a palpable abnormality, unexplained by breast imaging, should be managed on clinical basis by the attending physician. * Breast imaging has a false negative rate of 15%. * The patient was notified by mail of the results of this examination. *The patient's information was entered into a reminder system with a target due date for the next mammogram, in accordance with the [employer] and the Society of Breast Imaging recommendations. Narrative 03/04/2021 11:34 AM EDT Procedure:MM MAMMO DIGITAL JERAMY SCREEN BILAT ~ Reason for exam: screening, asymptomatic. Z12.31-Encounter for screening mammogram for malignant neoplasm of yxzkiu-DNU-15-CM ~ MM MAMMO DIGITAL JERAMY SCREEN BILAT Bilateral CC and MLO view(s) were taken. There are scattered fibroglandular densities. Prior study comparison: Compared with prior studies the most recent being 07/05/19 No mammographic evidence of malignancy. ~ Procedure Note Alayna Baltazar MD - 03/04/2021 Procedure:MM MAMMO DIGITAL JERAMY SCREEN BILAT ~ Reason for exam: screening, asymptomatic. Z12.31-Encounter for screening mammogram for malignant neoplasm of ufkewi-NBO-70-CM ~ MM MAMMO DIGITAL JERAMY SCREEN BILAT Bilateral CC and MLO view(s) were taken. There are scattered fibroglandular densities. Prior study comparison: Compared with prior studies the most recentbeing 07/05/19 No mammographic evidence of malignancy. ~ IMPRESSION: Negative (BED-Hiywghsn-0) ~ RECOMMENDATION: Routine screening mammogram in 1 year. ~ DISCLAIMER * Any patient with a palpable abnormality, unexplained by breast imaging, should be managed on clinical basis by the attending physician. * Breast imaging has a false negative rate of 15%. * The patient was notified by mail of the results of this examination. *The patient's information was entered into a reminder system with atarget due date for the next mammogram, in accordance with the [employer] and the Society of Breast Imaging recommendations. Willard Hector MD [facility] MAMMOGRAPHY ORDERABLES Final Result * COLOGUARD (08/22/2019 10:55 AM EST) COLOGUARD CLINICAL REPORT Negative Not Applicable [facility] Comment: A negative result indicates a low likelihood that a colorectal cancer (CRC) or an advanced adenoma (adenomatous polyps with more advanced pre-malignant features) is present. The chance that a person with a negative Cologuard test has a colorectal cancer is less than 1 in 1500 (negative predictive value >99.9%) or has an advanced adenoma is less than 5.3% (negative predictive value 94.7%). These data are based on a prospective cross-sectional screening study of 10,000 individuals at average risk for colorectal cancer who were screened with both Cologuard and colonoscopy. (Domo Guo et al, N Engl J Med 2014;370(14):2072-0971) COLOGUARD RE-SCREENING RECOMMENDATION: Periodic routine colorectal cancer screening is an important part of preventive healthcare for asymptomatic persons at average risk for colorectal cancer. Following a negative Cologuard result, the [employer] and U.S. Multi-Society Task Force screening guidelines recommend a Cologuard re-screening interval of 3 years. References: [employer] (ACS). Colorectal cancer prevention and early detection. [place], [place]: [place] [employer]; [updated 2015Oct 27]. https://www.cancer.org/cancer/wgqki-jzjldn-emwsdn/zzitjdmmm-gtpgxixen-rwjieuk/ac s-rec ommendations.html. Accessed March 05, 2018; Tio DK, Ila CR, Kelsi WaldronK, Colorectal Cancer Screening: Recommendations for Physicians and Patients from the U.S. Multi-Society Task Force on Colorectal Cancer Screening, Am J Gastroenterology 2017; 112:6017-8228. Test Type: Composite algorithmic analysis of stool DNA-biomarkers with hemoglobin immunoassay. Quantitative values of individual biomarkers are not reportable and are not associated with individual biomarker result reference ranges. Precautions and Limitations: Cologuard is intended for colorectal cancer screening of adults of either sex, 50 years or older, who are at typical average-risk for colorectal cancer. A negative Cologuard test result does not guarantee the absence of colorectal cancer or advanced adenoma (pre-cancer). Patients with a negative Cologuard test result should be advised to continue participating in a colorectal cancer screening program. Cologuard may produce a positive result, even though a colonoscopy may not find colorectal cancer or precancerous polyps. The performance of Cologuard has been established in a cross sectional study (i.e., single point in time). Performance has not been evaluated in adults who have been previously tested with Cologuard or in patients less than 50 years of age. Cologuard has been approved for use by the U.S. FDA. Cologuard performance data in a 10,000 patient pivotal study using colonoscopy as the reference method can be accessed at the following location: www.DAQRI.Nomiku/results. Additional description of the Cologuard test process, warnings and precautions can be found at www.cologuardtest.com. Rx Only. Stool specimen (specimen) 08/22/2019 10:55 AM EST 08/23/2019 2:00 PM EST Antoinette Larry MD [facility] S Final Result Performing Organization Address City/State/[facility] Co de Phone Number [facility], [address] [employer] [address] [place] [address] from Last 3 Months or Most Recently Relevant to Health Maintenance Insurance [employer] [place], [place] [address] ANTH PPO Advance Directives For more information, please contact: [phone] * Full Code (Latest Code Status on File) Date Activated Date Inactivated Comments 12/05/2024 2:04 AM 12/10/2024 8:27 PM Care Teams Rotary Engraver Relationship Specialty Start Date End Date Willard Hector MD PCP - General Family Medicine 04/28/11
--- OUTSIDE RECORDS SUMMARY | 2024-12-28 10:33 | XMS_ITS | Encounter Summary ---
Author Organization [facility] [place] [address] Care Team Providers Care Press Tender Long Goods Name Role Phone Willard Hector MD Primary Care Provider [phone] Encounter Details Date Type Department Care Team (Latest Contact Info) Description 12/04/2024 Travel Social History Tobacco Use Types Packs/Day Years Used Date Smoking Tobacco: Former Cigarettes 0.5 20 0 02/06/1983 - 02/06/2003 Smokeless Tobacco: Never [facility] Utilities Answer Date Recorded In [...] Date Recorded PHQ-2 Total Score 0 12/05/2024 [facility] [place] of Occupat ional Health - Occupational Stress [...] to get more. Never true 12/05/2024 [facility] IP Transportation Answer D ate Recorded In [...] as of this encounter Functional Status * Suicide Severity Rating Answer Date of Assessment Author No Risk 12/04/2024 11:51 PM EDT Jean Claude Zabala RN * [place] Suicide Severity Rating Scale (Q shift for [...] Zabala RN documented as of this encounter Plan of Treatment Upcoming Encounters Date Type Department Care Team (Late st Contact Info) Description 12/29/2024 7:30 AM EDT Appointment [facility] [address] 12/30/2024 7:30 AM EDT Appointment [place] [address] 12/31/2024 9:00 AM EDT Appointment [place] [address] 01/01/2025 9:00 AM EDT Appointment [facility] [place] [address] 01/02/2025 7:30 AM EDT Appointment [facility] [place] [address] 01/03/2025 7:30 AM EDT Appointment [facility] [place] [address] 01/04/2025 7:30 AM EDT Appointment [facility] [place] [address] 01/05/2025 7:30 AM EDT Appointment [facility] [place] [address] 01/06/2025 9:00 AM EDT Appointment [facility] [place] [address] 01/07/2025 9:00 AM EDT Appointment [facility] [place] [address] 01/08/2025 9:00 AM EDT Appointment [facility] [place] [address] 01/09/2025 7:30 AM EDT Appointment [facility] [place] [address] 01/10/2025 7:30 AM EDT Appointment [facility] [place] [address] 01/11/2025 7:30 AM EDT Appointment [facility] [place] [address] 01/12/2025 7:30 AM EDT Appointment [facility] [place] [address] 01/13/2025 7:30 AM EDT Appointment [facility] [place] [address] 01/14/2025 9:00 AM EDT Appointment [facility] [place] [address] 01/15/2025 9:00 AM EDT Appointment [facility] [address] 01/16/2025 7:30 AM EDT Appointment [facility] [place] [address] 01/17/2025 7:30 AM EDT Appointment [place] [address] 01/18/2025 7:30 AM EDT Appointment [place] [address] 01/18/2025 3:30 PM EDT Office Visit [facility] Infectious Disease [facility] [address] [place] [phone] Alcira Kauffman MD [address] [place] [phone] documented as of this encounter Visit Diagnoses Not on filedocumented in this encounter Additional Health Concerns Infection Onset Date Last Indicated Resolved Time R/O COVID-19 12/04/2024 12/04/2024 12/05/2024 12:2 3 AM EDT documented as of this encounter Care Teams Press Tender Long Goods Relationship Specialty Start Date End Date Willard Hector MD PCP - General Family Medicine 04/28/11 documented as of this encounter
--- OUTSIDE RECORDS SUMMARY | 2024-12-28 10:34 | XMS_ITS | Encounter Summary ---
Author Organization [place] [address] Care Team Providers Care Chief Of Vital Statistics Name Role Phone Willard Hector MD Primary Care Provider [phone] Alecia Fernandez RN Unavailable Unavaila ble Reason for Visit * Reason Onset Date Comments Other 12/16/2024 Encounter Details Date Type Department Care Team (Late st Contact Info) Description 12/16/2024 Telephone [facility] Gen Surg [facility] [address] [facility] [address] [place] [address] Brit Briseno MA Other Social History Tobacco Use Types Packs/Day Years Used Date Smoking Tobacco: Former Cigarettes 0.5 20 0 02/06/1983 - 02/06/2003 Smokeless Tobacco: Never [place] Utilities Answer Date Recorded In the past 12 months has [employer], gas, oil, or water [place] threatened to shut off services in your home? No 12/05/2024 Overall Financial Resource Strain (CARDIA) Answe r Date Recorded How hard is it for you to pa y for the very basics like food, housing, medical care, and heating? Not hard at all 12/05/2024 PHQ-2 Answer Date Recorded PHQ-2 Total Score 0 12/05/2024 [facility] [place] of Occupat ional Health - Occupational Stress [...] money to get more. Never true 12/05/[address] [facility] IP Transportation Answer D ate Recorded In [...] on file documented as of this encounter Miscellaneous Notes * Telephone Encounter - Brit Briseno MA - 12/20/2024 9:48 AM EDT Sent work note via [employer], pt informed. * Telephone Encounter - Zoila Cuevas RMA - 12/19/2024 10:19 AM EDT See below. * Telephone Encounter - Zoila Cuevas RMA - 12/16/2024 4:09 PM EDT She may need extra time off due to the severity of her gallbladder and abscesses. She is fine to RTW January 02 with no restrictions. * Telephone Encounter - Brit rBiseno MA - 12/16/2024 2:19 PM EDT [facility]LE[facility]ST[facility]OM[facility] 12/05/2024 Dr Holguin Pt called stating that she wanted a return to work note. I was going to make it for the 2 weeks like normal, but she explained she had some other complications. She would like to return back to work on 01/02/2025. I told pt I would send message and get back to her. Please advise. documented in this encounter Plan of Treatment Upcoming Encounters Date Type Department Care Team (Late st Contact Info) Description 12/29/2024 7:30 AM EDT Appointment [facility] [place] [address] 12/30/2024 7:30 AM EDT Appointment [facility] [place] [address] 12/31/2024 9:00 AM EDT Appointment [facility] [place] [address] 01/01/2025 9:00 AM EDT Appointment [facility] [place] [address] 01/02/2025 7:30 AM EDT Appointment [facility] [place] [address] 01/03/2025 7:30 AM EDT Appointment [facility] [place] [address] 01/04/2025 7:30 AM EDT Appointment [facility] [place] [address] 01/05/2025 7:30 AM EDT Appointment [facility] [place] [address] 01/06/2025 9:00 AM EDT Appointment [facility] [place] [address] 01/07/2025 9:00 AM EDT Appointment [facility] [place] [address] 01/08/2025 9:00 AM EDT Appointment [facility] [place] [address] 01/09/2025 7:30 AM EDT Appointment [facility] [place] [address] 01/10/2025 7:30 AM EDT Appointment [facility] [place] [address] 01/11/2025 7:30 AM EDT Appointment [facility] [place] [address] 01/12/2025 7:30 AM EDT Appointment [facility] [place] [address] 01/13/2025 7:30 AM EDT Appointment [facility] [place] [address] 01/14/2025 9:00 AM EDT Appointment [facility] [place] [address] 01/15/2025 9:00 AM EDT Appointment [facility] [place] [address] 01/16/2025 7:30 AM EDT Appointment [facility] [place] [address] 01/17/2025 7:30 AM EDT Appointment [facility] [place] [address] 01/18/2025 7:30 AM EDT Appointment [facility] [place] [address] 01/18/2025 3:30 PM EDT Office Visit [facility] Infectious Disease [facility] [address] [phone] Alcira Kauffman MD [address] [phone] documented as of this encounter Visit Diagnoses Not on filedocumented in this encounter Care Teams Chief Of Vital Statistics Relationship Specialty Start Date End Date Willard Hector MD PCP - General Family Medicine 04/28/11 Alecia Fernandez, RN Registered Nurse Infusion Therapy 12/19/24 documented as of this encounter
--- OUTSIDE RECORDS SUMMARY | 2024-12-28 10:35 | XMS_ITS | Clinical Summary ---
Author Organization [facility] Address [address] [place] [phone] Care Team Providers Care Crop Or Grain Farmer Name Role Phone Willard Hector MD Primary Care Provider [phone] Allergies No known active allergies Medications No known medications Immunizations Immunization Administration Dates Next Due COVID-19 mRNA Vaccine (Pfizer EUA 12+) Purple Ca p 10/26/2020,10/05/2020 Social History Tobacco Use Types Packs/Day Years Used Date Smoking Tobacco: Every Day Smokeless Tobacco: Never Food Insecurities Answer Date Recorded Worried about running out of food Not on file 07/28/2023 Food Bought Not on file 07/28/2023 Housing/Utilities Answer Date Recorded Worried about losing home Not on file 2023 Stayed outside house Not on file 07/28/2023 Unable to get utilities Not on file 07/28/19 Interpersonal Safety Answer Date Record ed Feel physically or emotionally unsafe where curr ently live Not on file 07/28/2023 Harm by anyone Not on file 07/28/2023 Emotionally Harmed Not on file 07/28/2023 Transportation Answer Date Recorded Worried about transportation Not on file Utilities Answer Date Recorded Worried about losing home Not on file 2023 Stayed outside house Not on file 11/09/2023 Unable to get utilities Not on file 11/09/19 Comments Unknown Sex and Gender Information Value Date Recorded Sex Assigned at Not on file Legal Sex Female 12:21 PM EDT Gender Identity Female 12/27/2020 6:42 AM EDT Sexual Orientation Not on file Last Filed Vital Signs Vital Sign Reading Time Taken Comments Blood Pressure 112/50 12/27/2020 3:00 PM EDT Pulse 81 12/27/2020 3:00 PM EDT Temperature 36.6 C (97.8 F) 12/27/2020 3:00 PM EDT Respiratory Rate 14 12/27/2020 3:00 PM EDT Oxygen Saturation 99% 12/27/2020 3:00 PM EDT Inhaled Oxygen Concentration - - Weight 93 kg (205 lb) 12/27/2020 6:42 AM EDT Height 162.6 cm (5' 4 ) 12/19/2020 1:11 PM EDT Body Mass Index 35.19 12/19/2020 1:11 PM EDT Plan of Treatment Health Maintenance Due Date Last Done Comments DTap,Tdap,and Td (1 - Tdap) 11/11/1978 Pap Screening 11/11/1988 Mammogram Screening 2007 Colonoscopy 11/11/2012 Pneumococcal 50+ (1 of 1 - PCV) 11/11/2017 Shingrix (#1) 11/11/2017 COVID-19 Vaccine (3 - 2023-2 5 season) 2024 10/26/2020, 10/05/2020 Influenza Vaccine (Season Ended) 2025 RSV Vaccine (60+ or ) (1 - 1-dose 75+ series) 11/11/2042 HPV Aged Out No longer eligi ble based on patient's age to complete this topic Meningococcal conjugate magdy nt 4 (MCV4) Aged Out No longer eligible b ased on patient's age to complete this topic RSV Immunization (<20 months) Aged Out No longer eligible based on patient's age [place] [address] CD TIER 1 Advance Directives * Full Code (Latest Code Status on File) Date Activated Date Inactivated Comments 12/27/2020 6:18 AM 12/27/2020 6:52 PM Care Teams Crop Or Grain Farmer Relationship Specialty Start Date End Date Willard Hector MD PCP - General Family Medicine 12/26/20
--- OUTSIDE RECORDS SUMMARY | 2024-12-28 10:35 | XMS_ITS | Referral Summary ---
Author Organization [facility] Address [address] [place] [phone] Care Team Providers Care Mental Health Director Name Role Phone Willard Hector MD Primary Care Provider [phone] Allergies No known active allergies Medications No [...] Mass Index 35.19 12/19/2020 1:11 PM EDT Functional Status * Are you deaf or do you have serious difficulty hearing? Answer Date of Assessment Author No 12/19/2020 1:20 PM EDT Vahe Biggs, Registered Nurse * Are you blind or do you have serious difficulty seeing, even when wearing glasses? Answer Date of Assessment Author No 12/19/2020 1:20 PM EDT Vahe Biggs, Registered Nurse * Do you have serious difficulty walking or climbing stairs? (5 years old or older) Answer Date of Assessment Author No 12/19/2020 1:20 PM EDT Vahe Biggs, Registered Nurse * Do you have difficulty dressing or bathing? (5 years old or older) Answer Date of Assessment Author No 12/19/2020 1:20 PM EDT Vahe Biggs, Registered Nurse * Because of a physical, mental, or emotional condition, do you have difficulty doing errands alone such as visiting a doctor???s office or shopping? (15 years old or older) Answer Date of Assessment Author No 12/19/2020 1:20 PM EDT Vahe Biggs, Registered Nurse Mental Status * Because of a physical, mental, or emotional condition, do you have serious difficulty concentrating, remembering, or making decisions? (5 years old or older) Answer Entry Date Author No 12/19/2020 1:20 PM EDT Vahe Biggs, Registered Nurse Plan of Treatment Not [place] [address] [facility] TIER 1 Care Teams Mental Health Director Relationship Specialty Start Date End Date Willard Hector MD PCP - General Family Medicine 12/26/20
== END 2024-12-26 23:59 | disposition home or self-care (01) ==
LOC: LAB.DROPOF 12-28 10:27
PROVIDERS: PCP Family Medicine; Visit Provider Family Medicine
DX: T81.49XA Infection following a procedure, other surgical site, initial encounter (principal)
CPT/HCPCS: 87070; 87077; 87186; 87205